=== PATIENT | female | born 1965 | race African-American/Black ===

== ENCOUNTER 2017-10-27 08:50 | Emergency (ER) | payer OTHER ==
[2017-10-27 09:18] VITALS: BMI 25.7
--- NOTE | 2017-10-27 09:27 | PDOC ---
History of Present Illness - General Chief Complaint: Nausea/Vomiting Stated Complaint: NAUSEA/VOMITING Time Seen by Provider: 10/27/17 09:26 History Source: Patient Exam Limitations: No Limitations - History of Present Illness Initial Comments: CHIEF COMPLAINT: HISTORY OF PRESENT ILLNESS: Vital signs on arrival are notable for temp of 100 with BP of 178/81 REVIEW OF SYSTEMS: GENERAL/CONSTITUTIONAL: Subjective fever/chills. No weakness. No weight change. HEAD, EYES, EARS, NOSE AND THROAT: No change in vision. No ear pain or discharge. No sore throat. CARDIOVASCULAR: No chest pain or shortness of breath. RESPIRATORY: No cough, wheezing, or hemoptysis. GASTROINTESTINAL: See history of present illness. GENITOURINARY: No dysuria, frequency, or change in urination. MUSCULOSKELETAL: No joint or muscle swelling or pain. No neck or back pain. SKIN: No rash or easy bruising. NEUROLOGIC: No headache, vertigo, loss of consciousness, or loss of sensation. PHYSICAL EXAM: GENERAL: The patient is awake, alert, and fully oriented, in no acute distress. HEAD: Normal with no signs of trauma. ENT: Pupils equal, round and reactive to light, extraocular movements intact, sclera anicteric, conjunctiva clear. Neck supple. LUNGS: Clear to auscultation bilaterally. Normal excursion. No respiratory distress or use of accessory muscles. CV: RRR, S1/S2, no MRG. Cap refill < 2 sec. ABDOMEN: Soft, non-distended, non-tender even to deep palpation, no hepatomegaly or splenomegaly, no masses. EXTREMITIES: Normal range of motion, no edema. NEUROLOGICAL: Normal speech, normal gait. CN II-XII grossly intact. SKIN: Warm, dry, normal turgor, no rashes or lesions noted. Past History - Past Medical History Allergies/Adverse Reactions: Allergies Allergy/AdvReac Type Severity Reaction Status Date / Time Penicillins Allergy Severe Hives Verified 10/27/17 09:11 Sulfa (Sulfonamide Allergy Severe Difficulty Verified 10/27/17 09:11 Antibiotics) Breathing Home Medications: Ambulatory Orders Elviteg/Cob/Emtri/Tenofo Disop [Stribild Tablet] 1 each PO DAILY 07/18/15 Ondansetron [Zofran Odt -] 4 mg SL TID #12 od.tablet 07/18/15 traZODone HCL [Desyrel -] 50 mg PO HS 07/18/15 Anemia: Yes Asthma: Yes Cancer: No Cardiac Disorders: No CVA: No COPD: No CHF: No Dementia: No Diabetes: No GI Disorders: No Disorders: No HTN: Yes Hypercholesterolemia: No Liver Disease: No Seizures: No Thyroid Disease: No - Surgical History Abdominal Surgery: No Appendectomy: No Cardiac Surgery: No Cholecystectomy: No Lung Surgery: No Neurologic Surgery: No Orthopedic Surgery: No - Immunization History Immunization Up to Date: No - Suicide/Smoking/Psychosocial Hx Smoking Status: Yes Smoking History: Never smoked Have you smoked in the past 12 months: Yes Number of Cigarettes Smoked Daily: 2 If you are a former smoker, when did you quit?: 1yr Information on smoking cessation initiated: No Hx Alcohol Use: No Drug/Substance Use Hx: No Substance Use Type: None Hx Substance Use Treatment: No *Physical Exam - Vital Signs Last Vital Signs Temp Pulse Resp BP Pulse Ox 100.0 F H 82 16 178/81 100 10/27/17 09:15 10/27/17 09:15 10/27/17 09:15 10/27/17 09:15 10/27/17 09:15 Medical Decision Making - Medical Decision Making A/P:
[2017-10-27] MEDS ORDERED: ACETAMINOPHEN 1000 MG/100 ML VIAL (NON FORMULARY) IVPB ONE (09:40)
[2017-10-27] MEDS ORDERED: SODIUM CHLORIDE 1,000 ML IV STA (09:40)
[2017-10-27] MEDS ORDERED: METOCLOPRAMIDE HCL INJECTION 10 MG/2 ML VIAL IVPUSH ONE (09:40)
[2017-10-27] MEDS ORDERED: ACETAMINOPHEN INJECTION 100 ML IVPB ONE (09:47)
[2017-10-27] MEDS ORDERED: METOCLOPRAMIDE HCL INJECTION 10 MG/2 ML VIAL ONE (09:47)
--- NOTE | 2017-10-27 09:56 | PDOC ---
Attending Attestation - Resident Resident Name: Rosanne Lawson - ED Attending Attestation I have performed the following: I have examined & evaluated the patient, The case was reviewed & discussed with the resident, I agree w/resident's findings & plan, Exceptions are as noted - HPI HPI: 10/27/17 10:30 52 year old female with past medical history of HIV presents with headache. History obtained from patient and from [facility] emergency room. The patient was recently evaluated at [facility] where she was there on October 23 and . At that time, she was complaining of headache and urinary symptoms. She had a CT head twice which according to [facility] which was negative. She had an equivaocal UA and was prescribed antibiotics (which patient and ED facility did not know). The patient however continues to complain of tactile fevers. States that she has a global tension like headache but is unable to characterize exacerbation or inciting factors. She states she cannot characterize intensity. Also states that she was admitted to [facility], when the [facility] ER states patient was not admitted and discharged from ER. Otherwise, denies chest pain or shortness of breath. Denies dysuria, hematuria, diarrhea. - Physicial Exam PE: 10/27/17 10:43 GENERAL: Awake, alert,, in no acute distress HEAD: No signs of trauma EYES: PERRLA, EOMI, sclera anicteric, conjunctiva clear ENT: Auricles normal inspection, hearing grossly normal, nares patent NECK: Normal ROM, supple LUNGS: Breath sounds equal, clear to auscultation bilaterally. No wheezes, and no crackles HEART: Regular rate and rhythm, normal S1 and S2, no murmurs, rubs or gallops ABDOMEN: Soft, nontender, No guarding, no rebound. No masses EXTREMITIES: Normal range of motion, no edema. No clubbing or cyanosis. No cords, erythema, or tenderness NEUROLOGICAL: Cranial nerves II through XII grossly intact. Normal speech, SKIN: Warm, Dry, normal turgor, no rashes or lesions noted. - Medical Decision Making 10/27/17 10:44 Vital Signs Temp Pulse Resp BP Pulse Ox 100.0 F H 82 16 178/81 100 10/27/17 09:15 10/27/17 09:15 10/27/17 09:15 10/27/17 09:15 10/27/17 09:15 This is a 52 year old HIV patient who is complaining of tension like headache and fever and still occasionally dysuria (though patient sometimes states yes and sometimes states no). The patient has had these symptoms for ?more than a week?. Has been evaluated by [facility] ER with two CT scans of head that were negative according to them. At this time, patient defers on another head CT as she does not want more CT scans of her brain. Will allow her to defer at this time as their reports did not indicate [employer] lymphoma or toxo Temperature is 100 degrees. Will obtain blood cultures, UA/UC. Will treat patient's symptoms and reassess. 10/27/17 12:47 CBC, BMP 10/27/17 10:31 10/27/17 10:31 CMP Sodium 136 mmol/L (136-145) 10/27/17 10:31 Potassium 4.1 mmol/L (3.5-5.1) 10/27/17 10:31 Chloride 108 mmol/L (98-107) H 10/27/17 10:31 Carbon Dioxide 21 mmol/L (21-32) 10/27/17 10:31 Anion Gap 7 (8-16) L 10/27/17 10:31 BUN 34 mg/dL (7-18) H 10/27/17 10:31 Creatinine 1.9 mg/dL (0.55-1.02) H 10/27/17 10:31 Creat Clearance w eGFR 27.55 (>60) 10/27/17 10:31 Random Glucose 92 mg/dL (74-106) 10/27/17 10:31 Lactic Acid 0.8 mmol/L (0.0-2.0) 10/27/17 10:31 Calcium 8.4 mg/dL (8.5-10.1) L 10/27/17 10:31 Total Bilirubin 0.3 mg/dL (0.2-1.0) 10/27/17 10:31 AST 16 U/L (15-37) 10/27/17 10:31 ALT 11 U/L (12-78) L 10/27/17 10:31 Alkaline Phosphatase 80 U/L (45-117) 10/27/17 10:31 Creatine Kinase 35 IU/L (26-192) 10/27/17 10:31 Troponin I < 0.02 ng/ml (0.00-0.05) 10/27/17 10:31 Total Protein 7.7 g/dl (6.4-8.2) 10/27/17 10:31 Albumin 2.1 g/dl (3.4-5.0) L 10/27/17 10:31 Urine Test Results Urine Color Ltyellow 10/27/17 10:31 Urine Appearance Clear 10/27/17 10:31 Urine pH 6.0 (5.0-8.0) 10/27/17 10:31 Ur Specific [place] 1.013 (1.001-1.035) 10/27/17 10:31 Urine Protein 3+ (NEGATIVE) H 10/27/17 10:31 Urine Glucose (UA) Negative (NEGATIVE) 10/27/17 10:31 Urine Ketones Negative (NEGATIVE) 10/27/17 10:31 Urine Blood 1+ (NEGATIVE) H 10/27/17 10:31 Urine Nitrite Negative (NEGATIVE) 10/27/17 10:31 Urine Bilirubin Negative (<2.0 mg/dL) 10/27/17 10:31 Ur Leukocyte Esterase Trace (NEGATIVE) 10/27/17 10:31 Ur Epithelial Cells Rare /HPF (FEW) 10/27/17 10:31 Urine Bacteria Rare /hpf (NONE SEEN) 10/27/17 10:31 Urine Mucus Rare 10/27/17 10:31 The patient was evaluated. WBC WNL, anemia stable, and Cr stable. The patient was given medications (tylenol and reglan and benadryl) for headache and her headache improved significantly. The patient has been ambulatory and without complaints. no neck stiffness. At this time,the patient reports feeling better. She does not appear toxic or ill-appearing. I do not suspect meningitis at this time. Could this have been a viral syndrome? Either way, the patient would like to go home. Will give prescription for tylenol and reglan, and have patient watch herself ( with her partner). If symptoms worsen, patient should return to the ER. Otherwise, she can follow up with her PMD.
--- NOTE | 2017-10-27 10:11 | PDOC ---
History of Present Illness - General Chief Complaint: Nausea/Vomiting Stated Complaint: NAUSEA/VOMITING Time Seen by Provider: 10/27/17 09:26 - History of Present Illness Initial Comments: 52yo F with PMH of asthma, hypertension, acid reflux complaining of headache. Patient was seen at [facility] ED for similar complaint on 10/23 and 10/24. She rates it at 9/10 and describes it as "pounding" and "sharp." The pain is constant. She has never had a headache like this before and nothing makes it better or worse. Denies neurological changes. Patient reports nausea and vomiting, and not eating for the past 4-5 days. Denies diarrhea, constipation, dysuria, frequency, chills, chest pain, or SOB. Past History - Past Medical History Allergies/Adverse Reactions: Allergies Allergy/AdvReac Type Severity Reaction Status Date / Time Penicillins Allergy Severe Hives Verified 10/27/17 09:11 Sulfa (Sulfonamide Allergy Severe Difficulty Verified 10/27/17 09:11 Antibiotics) Breathing Home Medications: Ambulatory Orders Elviteg/Cob/Emtri/Tenofo Disop [Stribild Tablet] 1 each PO DAILY 07/18/15 Ondansetron [Zofran Odt -] 4 mg SL TID #12 od.tablet 07/18/15 traZODone HCL [Desyrel -] 50 mg PO HS 07/18/15 Acetaminophen 650 mg PO Q4H PRN #10 tablet 10/27/17 Metoclopramide HCl [Reglan] 10 mg PO Q6H PRN #15 tablet 10/27/17 Anemia: Yes Asthma: Yes Cancer: No Cardiac Disorders: No CVA: No COPD: No CHF: No Dementia: No Diabetes: No GI Disorders: No Disorders: No HTN: Yes Hypercholesterolemia: No Liver Disease: No Seizures: No Thyroid Disease: No - Surgical History Abdominal Surgery: No Appendectomy: No Cardiac Surgery: No Cholecystectomy: No Lung Surgery: No Neurologic Surgery: No Orthopedic Surgery: No - Immunization History Immunization Up to Date: No - Suicide/Smoking/Psychosocial Hx Smoking Status: Yes Smoking History: Former smoker Have you smoked in the past 12 months: No Number of Cigarettes Smoked Daily: 2 If you are a former smoker, when did you quit?: 1yr Information on smoking cessation initiated: No Hx Alcohol Use: No Drug/Substance Use Hx: No Substance Use Type: None Hx Substance Use Treatment: No Review of Systems - Review of Systems Able to Perform ROS?: Yes Comments:: Constitutional: +fever, no chills HEENT: no throat pain, no dysphagia Cardiovascular: no chest pain, no palpitations Respiratory: no cough, no shortness of breath Gastrointestinal: no abdominal pain, no nausea, no vomiting, no diarrhea, no constipation Genitourinary: no dysuria, no frequency Musculoskeletal: +neck pain, no myalgia, no arthralgia Skin: no rash, no itching Neurologic: +headache, no dizziness *Physical Exam - Vital Signs Last Vital Signs Temp Pulse Resp BP Pulse Ox 100.0 F H 82 16 178/81 100 10/27/17 09:15 10/27/17 09:15 10/27/17 09:15 10/27/17 09:15 10/27/17 09:15 - Physical Exam Comments: General: Awake, alert, and fully oriented Head: no signs of trauma Eyes: PERRL, EOMI, sclera anicteric ENT: moist mucus membranes, Neck: Normal ROM, supple, no lymphadenopathy, No masses Lungs: Lungs clear, Normal breath sounds Cardio: Regular rhythm, S1 and S2 present, no murmurs, rubs, or gallops Abdomen: Soft, nontender. No guarding, no rebound, no masses Extremities: Normal range of motion, No clubbing or cyanosis. Skin: Warm, Dry, normal turgor, no rashes or lesions noted Neurologic: Cranial nerves II through XII grossly intact. Normal speech ED Treatment Course - LABORATORY CBC & Chemistry Diagram: 10/27/17 10:31 10/27/17 10:31 Medical Decision Making - Medical Decision Making Called [facility] for collateral information. Patient was seen in the [facility] emergency department recently on two occasions, 10/23/17 and 10/24/17, for migraine headaches. She received two head CTs due to artifact on the first image; both showed no gross abnormalities. Urinalysis showed UTI for which the patient was given medicine, but it is not known what medicine that was. Ordered : CBC, CMP, UA, Urinalysis, blood cultures, urine cultures; 1L NS, 1g tylenol, 15mg Reglan, 25mg Benadryl. Vital Signs Temp Pulse Resp BP Pulse Ox 100.0 F H 82 16 178/81 100 10/27/17 09:15 10/27/17 09:15 10/27/17 09:15 10/27/17 09:15 10/27/17 09:15 10/27/17 10:08 Temp 99.4, HR 74, BP 169/77, Sat 96 Patient reports that headache is somewhat alleviated. Paged Infectious Disease. 10/27/17 11:36 Did not receive reply from ID. Patient is amenable to discharge home. Will send home with reglan 10 and tylenol 650. Laboratory Tests 10/27/17 10/27/17 10/27/17 10:31 10:31 10:31 WBC 7.7 RBC 3.71 Hgb 8.8 L Hct 26.8 L MCV 72.4 L MCH 23.8 L MCHC 32.8 RDW 18.7 H Plt Count 228 D MPV 8.5 Absolute Neuts (auto) 5.6 Neutrophils % 73.2 Lymphocytes % 18.1 D Monocytes % 8.4 Eosinophils % 0.2 D Basophils % 0.1 Nucleated RBC % 0 Sodium 136 Potassium 4.1 Chloride 108 H Carbon Dioxide 21 Anion Gap 7 L BUN 34 H Creatinine 1.9 H Creat Clearance w eGFR 27.55 Random Glucose 92 Lactic Acid Calcium 8.4 L Total Bilirubin 0.3 AST 16 ALT 11 L Alkaline Phosphatase 80 Creatine Kinase Troponin I Total Protein 7.7 Albumin 2.1 L Urine Color Ltyellow Urine Appearance Clear Urine pH 6.0 Ur Specific [place] 1.013 Urine Protein 3+ H Urine Glucose (UA) Negative Urine Ketones Negative Urine Blood 1+ H Urine Nitrite Negative Urine Bilirubin Negative Urine Urobilinogen Negative Ur Leukocyte Esterase Trace Urine WBC (Auto) 3 Urine RBC (Auto) 11 Ur Epithelial Cells Rare Urine Bacteria Rare Urine Mucus Rare 10/27/17 10/27/17 10:31 10:31 WBC RBC Hgb Hct MCV MCH MCHC RDW Plt Count MPV Absolute Neuts (auto) Neutrophils % Lymphocytes % Monocytes % Eosinophils % Basophils % Nucleated RBC % Sodium Potassium Chloride Carbon Dioxide Anion Gap BUN Creatinine Creat Clearance w eGFR Random Glucose Lactic Acid 0.8 Calcium Total Bilirubin AST ALT Alkaline Phosphatase Creatine Kinase 35 Troponin I < 0.02 Total Protein Albumin Urine Color Urine Appearance Urine pH Ur Specific [place] Urine Protein Urine Glucose (UA) Urine Ketones Urine Blood Urine Nitrite Urine Bilirubin Urine Urobilinogen Ur Leukocyte Esterase Urine WBC (Auto) Urine RBC (Auto) Ur Epithelial Cells Urine Bacteria Urine Mucus 10/27/17 12:36 *DC/Admit/Observation/Transfer Diagnosis at time of Disposition: Headache Qualifiers: Headache type: tension-type - Discharge Dispostion Disposition: HOME - Prescriptions Prescriptions: Acetaminophen 650 mg PO Q4H PRN #10 tablet PRN Reason: Headache Metoclopramide HCl [Reglan] 10 mg PO Q6H PRN #15 tablet PRN Reason: Headache - Referrals - Patient Instructions Printed Discharge Instructions: DI for Headache Additional Instructions: You can take Tylenol 650mg every 4 hours as needed for your headache. You can take Reglan 10mg every 4 hours as needed for your headache. Return to the Emergency department if you experience: -visual disturbances or other new symptoms -severe pain, pulsating, or throbbing -neck stiffness -lightheadedness -signs of infection, including fever and chills -difficulty breathing or chest pain Follow-up with your primary care physician in the next 2-3 days. - Post Discharge Activity
[2017-10-27 10:43] LABS: BASO % 0.1 % (0-2.0); EOS % 0.2 % (0-4.5); HEMATOCRIT 26.8 % (32.4-45.2); HEMOGLOBIN 8.8 GM/dL (10.7-15.3); LYMPH % 18.1 % (8-40); MCH 23.8 pg (25.7-33.7); MCHC 32.8 g/dl (32.0-36.0); MEAN CELL VOLUME 72.4 fl (80-96); MEAN PLT VOLUME 8.5 fl (7.5-11.1); MONO % 8.4 % (3.8-10.2); NEUT % 73.2 % (42.8-82.8); PLATELET COUNT 228 K/MM3 (134-434); RBC 3.71 M/mm3 (3.60-5.2); RDW 18.7 % (11.6-15.6); WHITE BLOOD COUNT 7.7 K/mm3 (4.0-10.0)
[2017-10-27 10:45] LABS: URINE APPEARANCE CLEAR; URINE BILIRUBIN NEGATIVE (<2.0 mg/dL); URINE COLOR LTYELLOW; URINE GLUCOSE (UA) NEGATIVE (NEGATIVE); URINE KETONE NEGATIVE (NEGATIVE); URINE LEUK ESTERASE TRACE (NEGATIVE); URINE NITRITE NEGATIVE (NEGATIVE); URINE UROBILINOGEN NEGATIVE mg/dL (0.2-1.0)
[2017-10-27 10:46] LABS: URINE PROTEIN 3+ (NEGATIVE)
[2017-10-27 10:49] LABS: EPI CELLS RARE /HPF (FEW); URINE BACTERIA RARE /hpf (NONE SEEN); URINE MUCUS RARE
[2017-10-27 11:04] LABS: ALBUMIN 2.1 g/dl (3.4-5.0); ANION GAP 7 (8-16); BILIRUBIN,TOTAL 0.3 mg/dL (0.2-1.0); BLOOD UREA NITROGEN 34 mg/dL (7-18); CALCIUM 8.4 mg/dL (8.5-10.1); CHLORIDE 108 mmol/L (98-107); CO2 21 mmol/L (21-32); CREATININE 1.9 mg/dL (0.55-1.02); GLUCOSE,RANDOM 92 mg/dL (74-106); POTASSIUM 4.1 mmol/L (3.5-5.1); SGOT/AST 16 U/L (15-37); SGPT/ALT 11 U/L (12-78); SODIUM 136 mmol/L (136-145); TOT PROT 7.7 g/dl (6.4-8.2)
[2017-10-27 11:05] LABS: ALK PHOS 80 U/L (45-117)
[2017-10-27 13:36] VITALS: BP 148/67; PULSE 85; TEMP 97.9
== END 2017-10-27 13:20 | disposition home or self-care (01) ==
LOC: JER 08:50
PROC: 3E033NZ Introduction of Analgesics, Hypnotics, Sedatives into Peripheral Vein, Percutaneous Approach (ICD-10-PCS; principal; 2017-10-27)
PROC: 3E033GC Introduction of Other Therapeutic Substance into Peripheral Vein, Percutaneous Approach (ICD-10-PCS; 2017-10-27)
PROC: 3E033GC Introduction of Other Therapeutic Substance into Peripheral Vein, Percutaneous Approach (ICD-10-PCS; 2017-10-27)
DX: R51 Headache (principal); I10 Essential (primary) hypertension; J45.909 Unspecified asthma, uncomplicated; K21.9 Gastro-esophageal reflux disease without esophagitis; Z88.0 Allergy status to penicillin; Z88.2 Allergy status to sulfonamides; B20 Human immunodeficiency virus [HIV] disease
CPT/HCPCS: 36415; 80053; 81003; 81015; 82550; 83605; 84484; 85025; 87040; 87086; 96374; 96375; 99283-25; J0131; J7030

== ENCOUNTER 2017-11-13 16:25 | Emergency (ER) | payer OTHER ==
[2017-11-13 16:33] VITALS: BP 128/74; PULSE 86; TEMP 98.8; BMI 25.7
--- NOTE | 2017-11-13 17:28 | PDOC ---
History of Present Illness - General Chief Complaint: Urinary Problem Stated Complaint: URINARY PROBLEM Time Seen by Provider: 11/13/17 16:44 - History of Present Illness Initial Comments: 52-year-old female with a past medical history significant for HIV presents for evaluation of dysuria 1 week. She also has associated abdominal pain. She complains of decreased appetite and intermittent nausea. 11/13/17 17:23 Past History - Past Medical History Allergies/Adverse Reactions: Allergies Allergy/AdvReac Type Severity Reaction Status Date / Time Penicillins Allergy Severe Hives Verified 11/13/17 16:33 Sulfa (Sulfonamide Allergy Severe Difficulty Verified 11/13/17 16:33 Antibiotics) Breathing Home Medications: Ambulatory Orders Elviteg/Cob/Emtri/Tenofo Disop [Stribild Tablet] 1 each PO DAILY 07/18/15 Ondansetron [Zofran Odt -] 4 mg SL TID #12 od.tablet 07/18/15 traZODone HCL [Desyrel -] 50 mg PO HS 07/18/15 Metoclopramide HCl [Reglan] 10 mg PO Q6H PRN #15 tablet 10/27/17 Nitrofurantoin Monohyd/M-Cryst [Macrobid -] 100 mg PO BID #14 capsule 11/13/17 Pantoprazole Sodium [Protonix] 40 mg PO DAILY #10 tablet. 11/13/17 Anemia: Yes Asthma: Yes Cancer: No Cardiac Disorders: No CVA: No COPD: No CHF: No DVT: No Dementia: No Diabetes: No GI Disorders: No Disorders: No HTN: Yes Hypercholesterolemia: No Liver Disease: No Seizures: No Thyroid Disease: No - Surgical History Abdominal Surgery: No Appendectomy: No Cardiac Surgery: No Cholecystectomy: No Lung Surgery: No Neurologic Surgery: No Orthopedic Surgery: No - Immunization History Immunization Up to Date: No - Suicide/Smoking/Psychosocial Hx Smoking Status: Yes Smoking History: Never smoked Have you smoked in the past 12 months: No Number of Cigarettes Smoked Daily: 5 If you are a former smoker, when did you quit?: 1yr Information on smoking cessation initiated: No Hx Alcohol Use: No Drug/Substance Use Hx: No Substance Use Type: None Hx Substance Use Treatment: No Review of Systems - Review of Systems ABD/GI: Yes: Nausea : Yes: Dysuria All Other Systems: Reviewed and Negative *Physical Exam - Vital Signs Last Vital Signs Temp Pulse Resp BP Pulse Ox 98.8 F 86 16 128/74 100 11/13/17 16:28 11/13/17 16:28 11/13/17 16:28 11/13/17 16:28 11/13/17 16:28 - Physical Exam Comments: HEAD: NC/AT EYES: Conjuntiva clear Ears: Canals and TM's normal NOSE: No d/c THROAT: Moist mucous membrances, oral pharanx clear, uvula midline NECK: Supple without adenopathy CARDIAC: S1 S2 LUNGS: CTA Full and Equal breath sounds ABDOMEN: Soft mild epigastric tenderness MS: Full ROM in all joints without edema NEUROLOGIC: No gross sensory or motor deficits, NVID SKIN: Normal color and temperature no lesions or rashes 11/13/17 17:25 Medical Decision Making - Medical Decision Making 11/13/17 18:29 gastritis relieved after [place] *DC/Admit/Observation/Transfer Diagnosis at time of Disposition: UTI (urinary tract infection), GERD (gastroesophageal reflux disease) - Discharge Dispostion Disposition: HOME Condition at time of disposition: Stable - Referrals Referrals: Alexis York [Non Staff, Medical] - - Patient Instructions Printed Discharge Instructions: Heartburn -- Overview, DI for Gastroesophageal Reflux Disease (GERD), Urinary Tract Infection Additional Instructions: Return to the emergency room should her symptoms worsen or go unresolved. Please take all the antibiotics as prescribed. I have also given uvula tablets here stomach which will help with acid reflux. This 1 tablet a day is given you a ten-day supply. He had enough time to follow up with a primary care physician in the area for further evaluation and treatment options. - Post Discharge Activity
[2017-11-13] MEDS ORDERED: RANITIDINE HCL 150 MG TABLET (FP) ONE (17:34)
[2017-11-13] MEDS: RANITIDINE HCL 150 MG TABLET (FP) PO ONE ×2 (17:34→17:41)
[2017-11-13] MEDS ORDERED: MAG HYDROX/AL HYDROX/SIMETH 30 ML UNIT-DOSE CUP ONE (17:37)
[2017-11-13] MEDS ORDERED: MAG HYDROX/AL HYDROX/SIMETH 30 ML UNIT-DOSE CUP PO PRN (17:38)
[2017-11-13 17:43] LABS: URINE APPEARANCE CLEAR; URINE BILIRUBIN NEGATIVE (<2.0 mg/dL); URINE COLOR LTYELLOW; URINE GLUCOSE (UA) NEGATIVE (NEGATIVE); URINE KETONE NEGATIVE (NEGATIVE); URINE NITRITE NEGATIVE (NEGATIVE); URINE UROBILINOGEN NEGATIVE mg/dL (0.2-1.0)
[2017-11-13 18:07] LABS: URINE LEUK ESTERASE 2+ (NEGATIVE); URINE PROTEIN 2+ (NEGATIVE)
[2017-11-13 18:13] LABS: EPI CELLS RARE /HPF (FEW)
[2017-11-13] MEDS ORDERED: NITROFURANTOIN MACROCRYSTAL 50 MG CAPSULE (FP) ONE (18:34)
[2017-11-13] MEDS ORDERED: NITROFURANTOIN MACROCRYSTAL 50 MG CAPSULE (FP) PO SCH (18:45)
== END 2017-11-13 18:39 | disposition home or self-care (01) ==
LOC: JERFT 16:25
DX: N39.0 Urinary tract infection, site not specified (principal); K21.9 Gastro-esophageal reflux disease without esophagitis
CPT/HCPCS: 81003; 81015; 87086; 87186; 99281-25

== ENCOUNTER 2017-11-15 16:20 | Emergency (ER) | payer OTHER ==
--- NOTE | 2017-11-15 16:30 | PDOC ---
Rapid Medical Evaluation Time Seen by Provider: 11/15/17 16:25 Medical Evaluation: Allergies Allergy/AdvReac Type Severity Reaction Status Date / Time Penicillins Allergy Severe Hives Verified 11/15/17 16:25 Sulfa (Sulfonamide Allergy Severe Difficulty Verified 11/15/17 16:25 Antibiotics) Breathing 11/15/17 16:26 I have performed a brief in-person evaluation of this patient. The patient presents with a chief complaint of: on macrobid for uti given from ED 2 days ago. Of note, cx pending, no sensitivities yet. Returns today stating she gets dizzy upon standing since she has been taking the meds. Also c/o n/v and dry mouth that started prior to the abx. States she cannot keep food down. No abd pain or diarrhea. H/o HIV on meds, unknown cd4 w/ UD VL Pertinent physical exam findings:stable and in NAD I have ordered the following:labs The patient will proceed to the ED for further evaluation. Discharge Disposition - Diagnosis Dizziness - Referrals - Patient Instructions - Post Discharge Activity
[2017-11-15 16:32] VITALS: BP 137/62; PULSE 93; TEMP 99; BMI 25.7
== END 2017-11-15 19:03 | disposition home or self-care (01) ==
LOC: JER 16:20
DX: R42 Dizziness and giddiness (principal)
CPT/HCPCS: 99283-25

== ENCOUNTER → 2017-12-08 | Emergency (ER) | payer OTHER ==
[~2017-12-08] MED LIST: ONDANSETRON 4 MG/2 ML VIAL IVPUSH ONE; SODIUM CHLORIDE 1,000 ML IV STA
[2017-12-08 02:03] VITALS: BP 107/79; PULSE 88; TEMP 97.4; BMI 25.7
--- NOTE | 2017-12-08 02:38 | PDOC ---
History of Present Illness - General Chief Complaint: Pain, Acute Stated Complaint: ABD PAIN Time Seen by Provider: 12/08/17 02:25 History Source: Patient, Old Records Exam Limitations: No Limitations - History of Present Illness Travel History: No Initial Comments: 12/08/17 02:35 HISTORY OF PRESENT ILLNESS: 52-year-old woman past medical history of HIV ( unknown CD4 and viral load), gastritis presents emergency Department with abdominal pain for the past 4 days. Patient states her pain is located in the mid abdominal region and radiates to her suprapubic area. Patient states she was recently treated for urinary tract infection and has completed her course of antibiotics. Patient reports some nausea but denies any vomiting or diarrhea. Patient denies fevers, chills, chest pain, shortness of breath. No recent travel or sick contacts. PAST MEDICAL HISTORY: see hpi SURGICAL HISTORY: Denies ALLERGIES: PCN, Sulfa REVIEW OF SYSTEMS General/Constitutional: Denies fever or chills. Denies weakness, weight change. HEENT: Denies change in vision. Denies ear pain or discharge. Denies sore throat. Cardiovascular: Denies chest pain or shortness of breath. Respiratory: Denies cough, wheezing, or hemoptysis. Gastrointestinal: mid abdominal pain. Reports nausea. Denies vomiting, diarrhea or constipation. Denies rectal bleeding. Genitourinary: Denies dysuria, frequency, or change in urination. Musculoskeletal: Denies joint or muscle swelling or pain. Denies neck or back pain. Skin and breasts: Denies rash or easy bruising. Neurologic: Denies headache, vertigo, loss of consciousness, or loss of sensation. Psychiatric: Denies depression or anxiety. Endocrine: Denies increased thirst. Denies abnormal weight change. Hematologic/Lymphatic: Denies anemia, easy bleeding, or history of blood clots. Allergic/Immunologic: Denies hives or skin allergy. Denies latex allergy. PHYSICAL EXAM General Appearance: Well-appearing, appropriately dressed. No apparent distress , no intoxication. HEENT: EOMI, PERRLA, normal ENT inspection, normal voice, TMs normal, pharynx normal. No conjunctival pallor. No photophobia, scleral icterus. Neck: Supple. Trachea midline. No tenderness, rigidity, carotid bruit, stridor , lymphadenopathy, or thyromegaly. Respiratory/Chest: Lungs CTAB. No shortness of breath, chest tenderness, respiratory distress, accessory muscle use. No crackles, rales, rhonchi, stridor , wheezing, dullness Cardiovascular: RRR. S1, S2. No JVD, murmur, bradycardia, tachycardia. Vascular Pulses: Dorsalis-Pedis (R): 2+, Dorsalis-Pedis (L): 2+ Gastrointestinal/Abdominal: Normal bowel sounds. Abdomen soft, non-distended. Periumbilical tenderness. No rebound tenderness. No organomegaly, pulsatile mass , guarding, hernia, hepatomegaly, splenomegaly. Lymphatic: No adenopathy, tenderness. Musculoskeletal/Extremities: Normal inspection. FROM of all extremities, normal capillary refill. Pelvis Stable. No CVA tenderness. No tenderness to extremities, pedal edema, swelling, erythema or deformity. Integumentary: Appropriate color, dry, warm. No cyanosis, erythema, jaundice or rash Neurologic: clinical specialist II-XII intact. Fully oriented, alert. Appropriate mood/affect. Motor strength 5/5. No appreciable EOM palsy, facial droop or sensory deficit. Past History - Past Medical History Allergies/Adverse Reactions: Allergies Allergy/AdvReac Type Severity Reaction Status Date / Time Penicillins Allergy Severe Hives Verified 12/04/17 21:55 Sulfa (Sulfonamide Allergy Severe Difficulty Verified 12/04/17 21:55 Antibiotics) Breathing Home Medications: Ambulatory Orders Albuterol Sulfate Inhaler - [Ventolin Hfa Inhaler -] 1 puff IH PRN 12/03/17 Cyclobenzaprine HCl [Flexeril 10 mg] 10 mg PO HS PRN #10 tablet 12/03/17 Famotidine [Pepcid -] 20 mg PO DAILY 12/03/17 Hydrochlorothiazide [Hctz -] 25 mg PO DAILY 12/03/17 Anemia: Yes Asthma: Yes Cancer: No Cardiac Disorders: No CVA: No COPD: No CHF: No DVT: No Dementia: No Diabetes: No GI Disorders: No Disorders: No HTN: Yes Hypercholesterolemia: No Liver Disease: No Seizures: No Thyroid Disease: No - Surgical History Abdominal Surgery: No Appendectomy: No Cardiac Surgery: No Cholecystectomy: No Lung Surgery: No Neurologic Surgery: No Orthopedic Surgery: No - Immunization History Immunization Up to Date: No - Suicide/Smoking/Psychosocial Hx Smoking Status: Yes Smoking History: Never smoked Have you smoked in the past 12 months: No Number of Cigarettes Smoked Daily: 5 If you are a former smoker, when did you quit?: 1yr Information on smoking cessation initiated: No 'Breaking Loose' booklet given: 11/21/17 Hx Alcohol Use: No Drug/Substance Use Hx: No Substance Use Type: None Hx Substance Use Treatment: No *Physical Exam - Vital Signs Last Vital Signs Temp Pulse Resp BP Pulse Ox 97.4 F L 88 20 107/79 100 12/08/17 01:50 12/08/17 01:50 12/08/17 01:50 12/08/17 01:50 12/08/17 01:50 Medical Decision Making - Medical Decision Making 12/08/17 03:12 Patient is refusing blood work and CAT scan at this time. As explained to the patient that had repeat testing is required so patient can be fully evaluated for this episode of her abdominal pain. Patient continues to refuse and has walked out of the emergency department. Patient is hemodynamically stable. patient refused to sign AMA paperwork. The risks of leaving the hospital AGAINST MEDICAL ADVICE were explained to the patient. It has been explained to the patient that she is welcome to return for care at any time especially if she continues to experience pain. *DC/Admit/Observation/Transfer Diagnosis at time of Disposition: Abdominal pain Qualifiers: Abdominal location: periumbilical Qualified Code(s): R10.33 - Periumbilical pain - Discharge Dispostion Disposition: AGAINST MEDICAL ADVICE Condition at time of disposition: Fair - Referrals Referrals: Yi Figueroa [Primary Care Provider] - - Patient Instructions - Post Discharge Activity
--- NOTE | 2017-12-09 13:36 | EKG ---
Test Reason : Blood Pressure : / mmHG Vent. Rate : 073 BPM Atrial Rate : 073 BPM P-R Int : 154 ms QRS Dur : 086 ms QT Int : 432 ms P-R-T Axes : 070 035 043 degrees QTc Int : 475 ms NORMAL SINUS RHYTHM NORMAL ECG WHEN COMPARED WITH ECG OF 04-DEC-2017 21:52, NO SIGNIFICANT CHANGE WAS FOUND Confirmed by LYNNETTE RASCON MD ([id number]) on 12/09/2017 1:36:36 PM Referred By: Confirmed By:LYNNETTE RASCON MD
== END | disposition left against medical advice (07) ==
LOC: JER 01:36
DX: R10.33 Periumbilical pain (principal); I10 Essential (primary) hypertension; J45.909 Unspecified asthma, uncomplicated; Z86.2 Personal history of diseases of the blood and blood-forming organs and certain disorders involving the immune mechanism; Z21 Asymptomatic human immunodeficiency virus [HIV] infection status; Z87.440 Personal history of urinary (tract) infections; Z88.2 Allergy status to sulfonamides
CPT/HCPCS: 93005; 93010; 99283-25

== ENCOUNTER 2017-12-10 05:48 | Emergency (ER) | payer OTHER ==
--- NOTE | 2017-12-10 06:46 | PDOC ---
History of Present Illness - General Stated Complaint: HEADACHE Time Seen by Provider: 12/10/17 06:30 History Source: Patient Exam Limitations: No Limitations - History of Present Illness Initial Comments: 12/10/17 06:40 52 yo female pmh of HIV, hypertension and diabetes presents to the ED for a headache. Patient states she does not have a history of headaches. It started at 1 am and comes and goes. She tried Motrin for which did not help. Currently not experiencing a headache. Denies changes in vision, N/V/F/V unilateral weakness or numbness or incontinence. No CP, SOB or abdominal pain. Patient states she has an appointment with her PCP tomorrow. Past History - Past Medical History Allergies/Adverse Reactions: Allergies Allergy/AdvReac Type Severity Reaction Status Date / Time Penicillins Allergy Severe Hives Verified 12/10/17 06:47 Sulfa (Sulfonamide Allergy Severe Difficulty Verified 12/10/17 06:47 Antibiotics) Breathing Home Medications: Ambulatory Orders Albuterol Sulfate Inhaler - [Ventolin Hfa Inhaler -] 1 puff IH PRN 12/03/17 Cyclobenzaprine HCl [Flexeril 10 mg] 10 mg PO HS PRN #10 tablet 12/03/17 Famotidine [Pepcid -] 20 mg PO DAILY 12/03/17 Hydrochlorothiazide [Hctz -] 25 mg PO DAILY 12/03/17 Anemia: Yes Asthma: Yes Cancer: No Cardiac Disorders: No CVA: No COPD: No CHF: No DVT: No Dementia: No Diabetes: No GI Disorders: No Disorders: No HTN: Yes Hypercholesterolemia: No Liver Disease: No Seizures: No Thyroid Disease: No - Surgical History Abdominal Surgery: No Appendectomy: No Cardiac Surgery: No Cholecystectomy: No Lung Surgery: No Neurologic Surgery: No Orthopedic Surgery: No - Immunization History Immunization Up to Date: No - Suicide/Smoking/Psychosocial Hx Smoking Status: Yes Smoking History: Never smoked Have you smoked in the past 12 months: No Number of Cigarettes Smoked Daily: 5 If you are a former smoker, when did you quit?: 1yr 'Breaking Loose' booklet given: 11/21/17 Hx Alcohol Use: No Drug/Substance Use Hx: No Substance Use Type: None Hx Substance Use Treatment: No Review of Systems - Review of Systems Constitutional: No: Chills, Fever HEENTM: No: Blurred Vision, Double Vision Respiratory: No: Shortness of Breath Cardiac (ROS): No: Chest Pain ABD/GI: No: Nausea, Vomiting : No: Incontinence Neurological: Yes: Headache (not present on arrival). No: Numbness, Paresthesia , Tingling, Tremors, Weakness *Physical Exam - Physical Exam General Appearance: Yes: Nourished, Appropriately Dressed. No: Apparent Distress HEENT: positive: EOMI, DAVE. negative: Photophobia Respiratory/Chest: positive: Lungs Clear, Normal Breath Sounds. negative: Respiratory Distress Cardiovascular: positive: Regular Rhythm, Regular Rate, S1, S2. negative: Edema , JVD, Murmur Vascular Pulses: Dorsalis-Pedis (R): 4+, Doralis-Pedis (L): 4+ Gastrointestinal/Abdominal: positive: Normal Bowel Sounds, Flat, Soft. negative : Distended, Guarding, Rebound Extremity: positive: Normal Capillary Refill Integumentary: positive: Normal Color, Dry, Warm Neurologic: positive: digital media sales consultant II-XII NML intact, Fully Oriented, Alert, Motor Strength 5/5. negative: Normal Mood/Affect (scattered) Medical Decision Making - Medical Decision Making 12/10/17 06:57 52 yo female pmh HIV presents to ED for resolved HERNANDEZ. Patient has no concerning neurological s/s complains of thrush. Will treat with nystatin States she has follow up with her PCP Mandy Otero Will discharge home *DC/Admit/Observation/Transfer Diagnosis at time of Disposition: Headache Qualifiers: Headache type: tension-type Headache chronicity pattern: acute headache Intractability: not intractable Qualified Code(s): G44.209 - Tension-type headache, unspecified, not intractable - Discharge Dispostion Disposition: HOME Condition at time of disposition: Good - Referrals Referrals: [facility] [Other] - Patient Instructions Printed Discharge Instructions: DI for Headache Additional Instructions: Please make an appointment with your Primary Care Doctor within the next 48 hours. Please return to the Emergency Room for new or worsening symptoms including but not limited to: severe headache not responding to medications, one sided numbness or weakness or changes in vision. Please take over the counter Motrin for your headache as needed - Post Discharge Activity
[2017-12-10 06:47] VITALS: BP 130/77; PULSE 88; TEMP 98.1; BMI 25.7
--- NOTE | 2017-12-10 06:48 | PDOC ---
Attending Attestation - Resident Resident Name: Jhon Collier - ED Attending Attestation I have performed the following: I have examined & evaluated the patient, The case was reviewed & discussed with the resident, I agree w/resident's findings & plan - HPI HPI: 12/10/17 07:04 52 yo female pmh of HIV on meds (unknown viral load), gastritis, hypertension and diabetes presents to the ED for a headache at 5am, since resolved with ibuprofen. no fevers or neuro changes, +oral thrush x 2 days but no odynophagia, cp or sob. no gait changes. 12/10/17 07:05 - Physicial Exam PE: 12/10/17 07:02 NAD, well appearing, +oral thrush. nl conjunctiva, anicteric; neck supple. lungs clear, RRR, abdomen soft mild TTP in epigastrium. ADRIAN x4, no focal neuro deficits, gait stable, 5/5 strength, SILT in all extrem.. No peripheral edema. normal color for ethnicity, WWP. - Medical Decision Making 12/10/17 06:48 52 yo female pmh of HIV, gastritis, hypertension and diabetes presents to the ED for a headache at 5am, since resolved with ibuprofen. no fevers or neuro changes, +oral thrush x 2 days but no odynophagia, cp or sob. no gait changes. vitals wnl. Headache has resolved by the time of ED eval. will treat oral thrush with nystatin swish and swallow. requesting maalox for chronic gastritis. on home pepcid for epigastric pain. nonperitoneal, no indication for lab testing at this time. no neuro deficits or signs of infection, no imaging indicated. remains well appearing Pt to be discharged in stable condition. Patient and family made aware of impression and plan, return precautions discussed (including but not limited to worsening pain or symptoms), fevers, or signs of infection, chest pain, respiratory distress, inability to tolerate oral intake, dehydration, syncope, or neurologic changes). Follow up with PMD and/or specialist as recommended, follow up information provided, take medications as instructed for duration of time. continue with supportive care, avoid triggers and precipitants. All questions answered to patient's satisfaction and expressed understanding and comfort with this. 12/10/17 07:05
[2017-12-10] MEDS ORDERED: MAG HYDROX/AL HYDROX/SIMETH 30 ML UNIT-DOSE CUP PO ONE (06:59)
[2017-12-10] MEDS ORDERED: NYSTATIN 500,000 UNITS/5 ML SUSPENSION PO ONE (07:01)
[2017-12-10] MEDS ORDERED: MAG HYDROX/AL HYDROX/SIMETH 30 ML UNIT-DOSE CUP ONE (07:15)
== END 2017-12-10 07:25 | disposition home or self-care (01) ==
LOC: JER 05:48
DX: G44.219 Episodic tension-type headache, not intractable (principal); I10 Essential (primary) hypertension; J45.990 Exercise induced bronchospasm; Z21 Asymptomatic human immunodeficiency virus [HIV] infection status; Z88.1 Allergy status to other antibiotic agents; Z88.2 Allergy status to sulfonamides
CPT/HCPCS: 99281-25

== ENCOUNTER → 2017-12-19 | Emergency (ER) | payer OTHER ==
[~2017-12-19] MED LIST changes: +ACETAMINOPHEN 1000 MG/100 ML VIAL (NON FORMULARY) IVPB ONE; +ACETAMINOPHEN 325 MG TABLET (FP) PO ONE; -ONDANSETRON 4 MG/2 ML VIAL IVPUSH ONE; -SODIUM CHLORIDE 1,000 ML IV STA; +hydrALAZINE HCL 20 MG/ML VIAL IVPUSH ONE
--- NOTE | 2017-12-19 03:06 | PDOC ---
History of Present Illness - General Stated Complaint: HEAD PAIN Time Seen by Provider: 12/19/17 03:04 History Source: Patient - History of Present Illness Initial Comments: The patient is a 52F with a history of HTN and HIV who present for evaluation of HERNANDEZ. The patient reports a global, 'pounding', HERNANDEZ that has been coming and going for the last three days. She denies associated fevers, chills, vision changes, chest pain, SOB, N/V/C/D. The patient reports being recently diagnosed with a UTI at [facility] three days ago, prescribed Abx, but not taking them because she was unsure of how to take them despite also seeing her PCP 2d ago and talking to a pharmacist about how to take her medication 2d ago as well. The patient denies having had a HERNANDEZ like this in the past and reports taking her medications today. 12/19/17 04:50 Past History - Past Medical History Allergies/Adverse Reactions: Allergies Allergy/AdvReac Type Severity Reaction Status Date / Time Penicillins Allergy Severe Hives Verified 12/19/17 03:07 Sulfa (Sulfonamide Allergy Severe Difficulty Verified 12/19/17 03:07 Antibiotics) Breathing Home Medications: Ambulatory Orders Albuterol Sulfate Inhaler - [Ventolin Hfa Inhaler -] 1 puff IH PRN 12/03/17 Cyclobenzaprine HCl [Flexeril 10 mg] 10 mg PO HS PRN #10 tablet 12/03/17 Famotidine [Pepcid -] 20 mg PO DAILY 12/03/17 Hydrochlorothiazide [Hctz -] 25 mg PO DAILY 12/03/17 Nystatin Oral Suspension - [Nystatin Oral Susp 600563 Units/5 ML -] 500,000 units PO Q6H #28 cup 12/10/17 Anemia: Yes Asthma: Yes Cancer: No Cardiac Disorders: No CVA: No COPD: No CHF: No DVT: No Dementia: No Diabetes: No GI Disorders: No Disorders: No HTN: Yes Hypercholesterolemia: No Liver Disease: No Seizures: No Thyroid Disease: No - Surgical History Abdominal Surgery: No Appendectomy: No Cardiac Surgery: No Cholecystectomy: No Lung Surgery: No Neurologic Surgery: No Orthopedic Surgery: No - Immunization History Immunization Up to Date: No - Suicide/Smoking/Psychosocial Hx Smoking Status: Yes Smoking History: Never smoked Have you smoked in the past 12 months: No Number of Cigarettes Smoked Daily: 5 If you are a former smoker, when did you quit?: 1yr 'Breaking Loose' booklet given: 11/21/17 Hx Alcohol Use: No Drug/Substance Use Hx: No Substance Use Type: None Hx Substance Use Treatment: No Review of Systems - Review of Systems Able to Perform ROS?: Yes Comments:: GENERAL/CONSTITUTIONAL: No fever or chills. No weakness HEAD, EYES, EARS, NOSE AND THROAT: No change in vision. No ear pain or discharge. No sore throat CARDIOVASCULAR: No chest pain or shortness of breath RESPIRATORY: No cough, wheezing, or hemoptysis GASTROINTESTINAL: No nausea, vomiting, diarrhea or constipation GENITOURINARY: + dysuria, No hematuria MUSCULOSKELETAL: No joint or muscle swelling or pain. No neck or back pain SKIN: No rash NEUROLOGIC: + headache; No vertigo, loss of consciousness, or change in strength /sensation ENDOCRINE: No increased thirst. No abnormal weight change HEMATOLOGIC/LYMPHATIC: No anemia, easy bleeding, or history of blood clots ALLERGIC/IMMUNOLOGIC: No hives or skin allergy 12/19/17 04:52 Is the patient limited Tanzanian proficient: No *Physical Exam - Vital Signs Vital Signs Temp Pulse Resp BP Pulse Ox 98.8 F 84 18 189/81 100 12/19/17 03:08 12/19/17 03:08 12/19/17 03:08 12/19/17 03:08 12/19/17 03:08 12/19/17 04:56 - Physical Exam Comments: GENERAL: Awake, alert, and fully oriented, in no acute distress HEAD: No signs of trauma, normocephalic, atraumatic EYES: PERRL, EOMI, sclera anicteric, conjunctiva clear ENT: Auricles normal inspection, hearing grossly normal, nares patent, oropharynx clear without exudates. Moist mucosa LUNGS: No distress, speaks full sentences, clear to auscultation bilaterally HEART:Regular rate and rhythm, normal S1 and S2, no murmurs appreciated, peripheral pulses normal and equal bilaterally ABDOMEN: Soft, nontender, normoactive bowel sounds. No guarding, no rebound EXTREMITIES : Normal inspection, Normal range of motion, no edema. No clubbing or cyanosis NEUROLOGICAL: Cranial nerves II through XII grossly intact. Normal speech, normal gait, no focal sensorimotor deficits SKIN: Warm, Dry, normal turgor, no rashes or lesions noted 12/19/17 04:55 Medical Decision Making - Medical Decision Making The patient is a 52F w/ a history of HTN and HIV who presents with HERNANDEZ for 3d and hypertension to SBP 180s on presentation. Discussed with patient need for evaluation and acute treatment of BP given her Hypertensive Urgency. Patient refused medication, refused the placement of an IV , and would not allow treatment of her BP w/o being able to talk to her PCP. The patient was counseled on the risks of not treating her current conditions and she verbalized understanding. The patient agreed to have labs drawn but left the ED before they could be drawn. The patient also reported a recent diagnosis of UTI and was prescribed antibiotics at [facility]. She reported not yet taking any of the antibiotics. She was counseled extensively on the importance of taking the prescribed therapy and the possible sequelae of not doing so. Dipo: patient eloped 12/19/17 04:45 *DC/Admit/Observation/Transfer Diagnosis at time of Disposition: Hypertensive urgency Headache Qualifiers: Headache type: unspecified Headache chronicity pattern: acute headache Intractability: not intractable Qualified Code(s): R51 - Headache - Discharge Dispostion Disposition: ELOPED - Referrals - Patient Instructions - Post Discharge Activity
--- NOTE | 2017-12-19 03:07 | PDOC ---
Attending Attestation - Resident Resident Name: Kris Clements - ED Attending Attestation I have performed the following: I have examined & evaluated the patient, The case was reviewed & discussed with the resident, I agree w/resident's findings & plan, Exceptions are as noted - HPI HPI: 12/19/17 03:24 Ms Helms is a 52 yo F reported h/o HIV on HAART, (unknown viral load), gastritis , hypertension and diabetes presents to the ED for a headache for which she took ibuprofen. When it did not resolve, she decided to come in to the ER No fevers, chills, neurologic deficits/changes No weakness - Medical Decision Making 12/10/17 06:48 52 yo female pmh of HIV, gastritis, hypertension and diabetes presents to the ED for a headache at 5am, since resolved with ibuprofen. no fevers or neuro changes, +oral thrush x 2 days but no odynophagia, cp or sob. no gait changes. vitals wnl. Headache has resolved by the time of ED eval. will treat oral thrush with nystatin swish and swallow. requesting maalox for chronic gastritis. on home pepcid for epigastric pain. nonperitoneal, no indication for lab testing at this time. no neuro deficits or signs of infection, no imaging indicated. remains well appearing Pt to be discharged in stable condition. Patient and family made aware of impression and plan, return precautions discussed (including but not limited to worsening pain or symptoms), fevers, or signs of infection, chest pain, respiratory distress, inability to tolerate oral intake, dehydration, syncope, or neurologic changes). Follow up with PMD and/or specialist as recommended, follow up information provided, take medications as instructed for duration of time. continue with supportive care, avoid triggers and precipitants. All questions answered to patient's satisfaction and expressed understanding and comfort with this. - Physicial Exam PE: 12/19/17 05:13 NAD, well appearing neck supple lungs clear RRR abdomen soft and nontender to palpation Ambulatory through out the ER - Medical Decision Making 12/19/17 05:14 Pt BP noted to be elevated Will do basic labs, EKG, treat with medications in addition to giving pain medications Pt refused labs Pt refused pain medications Pt eloped from the ER
[2017-12-19 03:10] VITALS: BP 189/81; PULSE 84; TEMP 98.8; BMI 25.7
[2017-12-19 03:52] LABS: URINE APPEARANCE CLOUDY; URINE BILIRUBIN NEGATIVE (<2.0 mg/dL); URINE COLOR YELLOW; URINE GLUCOSE (UA) NEGATIVE (NEGATIVE); URINE KETONE NEGATIVE (NEGATIVE); URINE LEUK ESTERASE 3+ (NEGATIVE); URINE NITRITE NEGATIVE (NEGATIVE); URINE PROTEIN 2+ (NEGATIVE); URINE UROBILINOGEN NEGATIVE mg/dL (0.2-1.0)
[2017-12-19 03:57] LABS: EPI CELLS RARE /HPF (FEW); URINE BACTERIA MODERATE /hpf (NONE SEEN)
--- NOTE | 2017-12-19 15:39 | EKG ---
Test Reason : Blood Pressure : / mmHG Vent. Rate : 068 BPM Atrial Rate : 068 BPM P-R Int : 156 ms QRS Dur : 088 ms QT Int : 436 ms P-R-T Axes : 055 021 036 degrees QTc Int : 463 ms NORMAL SINUS RHYTHM NORMAL ECG WHEN COMPARED WITH ECG OF 08-DEC-2017 02:57, NO SIGNIFICANT CHANGE WAS FOUND Confirmed by TIP CANTRELL MD ([id number]) on 12/19/2017 3:38:41 PM Referred By: Confirmed By:TIP CANTRELL MD
== END | disposition left against medical advice (07) ==
LOC: JER 02:40
DX: I16.0 Hypertensive urgency (principal); Z21 Asymptomatic human immunodeficiency virus [HIV] infection status; Z87.09 Personal history of other diseases of the respiratory system; Z88.0 Allergy status to penicillin; Z88.2 Allergy status to sulfonamides
CPT/HCPCS: 81003; 81015; 87086; 87186; 93005; 93010; 99281-25

== ENCOUNTER → 2017-12-25 | Emergency (ER) | payer OTHER ==
[~2017-12-25] MED LIST changes: -ACETAMINOPHEN 1000 MG/100 ML VIAL (NON FORMULARY) IVPB ONE; -ACETAMINOPHEN 325 MG TABLET (FP) PO ONE; +MAG HYDROX/AL HYDROX/SIMETH 30 ML UNIT-DOSE CUP ONE; +MAG HYDROX/AL HYDROX/SIMETH 30 ML UNIT-DOSE CUP PO ONE; -hydrALAZINE HCL 20 MG/ML VIAL IVPUSH ONE
[2017-12-25 03:29] VITALS: BMI 25.7
--- NOTE | 2017-12-25 04:32 | PDOC ---
History of Present Illness - General Chief Complaint: Pain, Acute Stated Complaint: ABD PAIN Time Seen by Provider: 12/25/17 04:16 History Source: Patient Exam Limitations: No Limitations - History of Present Illness Initial Comments: 12/25/17 04:18 This is a 52 YOF with h/o GERD, anemia (on HIV on HAART with unknown CD4 count and viral load, DM, and HTN, who p/w burning epigastric abdominal pain, nausea, and a few episodes of dry heaves ever since 10 pm tonight. He took a broken-in- half ferrous sulfate iron pill about 5 hours prior to the onset of pain and drank it with a cup of water, but did not eat or drink anything after this time. She believes the iron pill has been irritating her stomach. She did not try any medications at home for the symptoms. She additionally notes continued unchanged burning on urination for the past week and explains she was seen here in the ED one week ago for the same thing, diagnosed with UTI, and prescribed Cipro which she has been taking ever since. She denies f/c, d/c, n/t/w, leg swelling, chest pain, back pain, dizziness/lightheadedness, headache, neck pain , throat pain, or other symptoms. Past History - Past Medical History Allergies/Adverse Reactions: Allergies Allergy/AdvReac Type Severity Reaction Status Date / Time Penicillins Allergy Severe Hives Verified 12/25/17 06:24 Sulfa (Sulfonamide Allergy Severe Difficulty Verified 12/25/17 06:24 Antibiotics) Breathing Home Medications: Ambulatory Orders Albuterol Sulfate Inhaler - [Ventolin Hfa Inhaler -] 1 puff IH PRN 12/03/17 Cyclobenzaprine HCl [Flexeril 10 mg] 10 mg PO HS PRN #10 tablet 12/03/17 Famotidine [Pepcid -] 20 mg PO DAILY 12/03/17 Hydrochlorothiazide [Hctz -] 25 mg PO DAILY 12/03/17 Nystatin Oral Suspension - [Nystatin Oral Susp 019828 Units/5 ML -] 500,000 units PO Q6H #28 cup 12/10/17 Nitrofurantoin Monohyd/M-Cryst [Macrobid -] 100 mg PO BID #14 capsule 12/25/17 Anemia: Yes Asthma: Yes Cancer: No Cardiac Disorders: No CVA: No COPD: No CHF: No DVT: No Dementia: No Diabetes: No GI Disorders: No Disorders: No HTN: Yes Hypercholesterolemia: No Liver Disease: No Seizures: No Thyroid Disease: No - Surgical History Abdominal Surgery: No Appendectomy: No Cardiac Surgery: No Cholecystectomy: No Lung Surgery: No Neurologic Surgery: No Orthopedic Surgery: No - Immunization History Immunization Up to Date: No - Suicide/Smoking/Psychosocial Hx Smoking Status: Yes Smoking History: Never smoked Have you smoked in the past 12 months: No Number of Cigarettes Smoked Daily: 5 If you are a former smoker, when did you quit?: 1yr Information on smoking cessation initiated: No 'Breaking Loose' booklet given: 11/21/17 Hx Alcohol Use: No Drug/Substance Use Hx: No Substance Use Type: None Hx Substance Use Treatment: No Review of Systems - Review of Systems Able to Perform ROS?: Yes Constitutional: No: Chills, Fever, Unexplained wgt Loss HEENTM: No: Nose Congestion, Throat Pain Respiratory: No: Cough, Shortness of Breath Cardiac (ROS): No: Chest Pain, Palpitations ABD/GI: Yes: Nausea, Other (upper abdominal pain). No: Constipated, Diarrhea : Yes: Burning, Dysuria Musculoskeletal: No: Back Pain, Neck Pain Integumentary: No: Bruising, Rash Neurological: No: Headache, Numbness, Tingling, Weakness, Dizziness Endocrine: No: Unexplained Weight Gain, Unexplained Weight Loss *Physical Exam - Vital Signs Last Vital Signs Temp Pulse Resp BP Pulse Ox 98.4 F 78 20 150/68 99 12/25/17 03:15 12/25/17 03:15 12/25/17 03:15 12/25/17 03:15 12/25/17 03:15 GENERAL: nontoxic and well-appearing, nourished, A/Ox4, no acute distress appears comfortable at rest, winces slightly while repositioning speaking in full sentences, answers questions appropriately, accompanied by at bedside HEENT: PERRLA, EOMI, moist mucous membranes, no posterior pharyngeal erythema, no tonsillar swelling or exudates, no cervical lymphadenopathy NECK: No cervical spine midline ttp or stepoff or deformity, full ROM, supple CARDIOVASCULAR: Heart regular rate and rhythm, normal S1S2, no MGR, radial and DP pulses 2+ and symmetric, capillary refill <2 seconds, extremities warm and well-perfused Chest wall: Normal appearance, no rash, no bruising, no costal stepoff or deformity, nontender to compression LUNGS/RESPIRATORY: No respiratory distress, normal and symmetric chest movements during respirations, lungs CTA bilaterally, equal breath sounds, no cyanosis, no nail clubbing GI/ABDOMEN: Normal symmetric appearance, normoactive bowel sounds, soft, minimal epigastric tenderness to palpation, no additional abdominal ttp, no midline pulsatile masses, no palpated organomegaly : No CVA tenderness, normal external appearance, no lesions BACK: No midline ttp or stepoff or deformity of thoracic or lumbar spine EXTREMITIES: distal pulses 2+, warm and well-perfused, no LE edema SKIN: Warm and dry, no pallor, no jaundice, no bruising, no rash, no skin breakdown, no cuts, no lesions NEUROLOGICAL: GCS 15, CN II-XII grossly intact, ambulating with normal gait, moving all extremities, 5/5 strength proximally and distally, no facial droop, no decreased sensation Heart Score/ECG Review - History History: Slightly suspicious - Electrocardiogram EKG: Normal - Age Age: 45-65 - Risk Factors Risk Factors Heart Score: Yes Hx Hypertension, Yes Hx Diabetes Based on the list above the patient has:: 1-2 risk factors #1 12/25/17 06:24 Sinus rhythm, rate of 70, normal axis and intervals, no ischemic ST-T changes Medical Decision Making - Medical Decision Making 12/25/17 04:57 Adult Pt p/w epigastric abdominal pain. Initial Vital Signs Temp Pulse Resp BP Pulse Ox 98.4 F 78 20 150/68 99 12/25/17 03:15 12/25/17 03:15 12/25/17 03:15 12/25/17 03:15 12/25/17 03:15 Exam: As noted in Physical Exam section. DDX IBNLT: pill esophagitis/gastritis, GERD gastritis, PUD, unlikely any other more serious etiology including pancreatitis, appendicitis, colitis, cholecystitis, choledocholithiasis, cholangitis, AAA/AD, ACS, renal stone, SBO, mesenteric/bowel ischemia, bowel perforation, constipation, gas, etc W/U ordered: UA, EKG TX ordered: Maalox (patient refuses Pepcid and viscous lidocaine). 12/25/17 05:30 Patient refused UA and EKG after initial discussion. 12/25/17 06:24 I initially spoke with the patient after she refused UA, UCx, EKG, viscous lido , and Pepcid. She is adamant she does not want to give urine because she already knows she has a UTI. She does not want EKG. She states viscous lido makes her stomach upset. States she has Pepcid at home and does not want it here. I speak with her about us not being able to help if she refuses our workup and tx ideas. She states she wants medication to cure her upset stomach, which she states has worsened in the past hour. She agrees to get EKG and give urine. 12/25/17 07:00 Patient refusing blood labs now. She did get EKG and has normal QTc. She is offered Zofran and refuses. She is giving UA. Patient's care signed out to Dr. Arzate at the end of my shift. *DC/Admit/Observation/Transfer Diagnosis at time of Disposition: UTI (urinary tract infection) Qualifiers: Urinary tract infection type: acute cystitis Hematuria presence: without hematuria Qualified Code(s): N30.00 - Acute cystitis without hematuria - Discharge Dispostion Disposition: ELP Condition at time of disposition: Stable - Prescriptions Prescriptions: Nitrofurantoin Monohyd/M-Cryst [Macrobid -] 100 mg PO BID #14 capsule - Referrals Referrals: Yi Figueroa [Primary Care Provider] - - Patient Instructions Printed Discharge Instructions: DI for Urinary Tract Infection (UTI) Additional Instructions: Please read the [facility] ED Care Sheets describing your diagnosis. PLEASE NOTE we suggest at a minimum that you review all symptoms and final test results with a physician that will provide ongoing care for you. In the event you do not have a Physician, Your Nurse will provide you with the contact information and address of [facility] where you can follow up with a Doctor. THANK YOU for allowing us to help begin your care of this latest issue. Keep in mind the treatment performed in the Emergency Department is NOT complete until you have followed up with your Doctor. We want you to return to the ED as soon as possible if symptoms get worse or if you have any problems whatsoever. We advised you to take the following medication(s) as directed: Macrobid - Post Discharge Activity
--- NOTE | 2017-12-25 05:31 | PDOC ---
Attending Attestation - Resident Resident Name: Divine Woods - ED Attending Attestation I have performed the following: I have examined & evaluated the patient, The case was reviewed & discussed with the resident, I agree w/resident's findings & plan, Exceptions are as noted - HPI HPI: 12/25/17 05:33 The patient is a 52 year old female, with a significant past medical history of asthma, hypertension, acid reflux, HIV, who presents to the emergency department with,epigastric pain and nausea. As per patient, she took her ferrous sulfate iron pill 5 hours prior to the onset of her symptoms with a glass of water then did not eat after. The patient also endorses burning upon urination she believes is due to a UTI she is already being treated for with Cipro, She denies recent fevers, chills, headache or dizziness. She denies recent vomit , diarrhea or constipation. She denies recent dysuria, frequency, urgency or hematuria. She denies recent chest pain or shortness of breath. Allergies: Sulfa, penicillins, Past surgical history: none reported - Physicial Exam PE: 12/25/17 05:30 agree with resident exam - Medical Decision Making 12/25/17 05:30 52yo F with h/o GERD, anemia (on HIV on HAART with unknown CD4 count and viral load), DM, and HTN, who p/w burning epigastric abdominal pain, nausea, and dry heaving. Vitals with hypertension, likely 2/2 nausea/discomfort. Exam with mild epigastric abd pain, neg RUQ pain or walls's sign. DDx includes but not limited to gastritis vs pancreatitis. Pt refusing labs, EKG, or any workup. Accepting only maalox for treatment. Pt is well appearing, comfortable and appears to have the capacity to make decisions.
[2017-12-25 06:29] LABS: URINE APPEARANCE SLCLOUDY; URINE BILIRUBIN NEGATIVE (<2.0 mg/dL); URINE COLOR STRAW; URINE GLUCOSE (UA) NEGATIVE (NEGATIVE); URINE KETONE NEGATIVE (NEGATIVE); URINE NITRITE NEGATIVE (NEGATIVE); URINE UROBILINOGEN NEGATIVE mg/dL (0.2-1.0)
[2017-12-25 07:07] LABS: URINE LEUK ESTERASE 3+ (NEGATIVE); URINE PROTEIN 2+ (NEGATIVE)
[2017-12-25 07:08] LABS: EPI CELLS RARE /HPF (FEW); URINE BACTERIA FEW /hpf (NONE SEEN); URINE MUCUS RARE
[2017-12-25 07:21] VITALS: BP 148/68; PULSE 74; TEMP 98.7
--- NOTE | 2017-12-25 08:35 | PDOC ---
*Physical Exam - Vital Signs Last Vital Signs Temp Pulse Resp BP Pulse Ox 98.7 F 74 18 148/68 96 12/25/17 07:20 12/25/17 07:20 12/25/17 07:20 12/25/17 07:20 12/25/17 07:20 ED Treatment Course - ADDITIONAL ORDERS Additional order review: Laboratory Results 12/25/17 06:08 Urine Color Straw Urine Appearance Slcloudy Urine pH 6.0 Ur Specific [place] 1.004 Urine Protein 2+ H Urine Glucose (UA) Negative Urine Ketones Negative Urine Blood 1+ H Urine Nitrite Negative Urine Bilirubin Negative Urine Urobilinogen Negative Ur Leukocyte Esterase 3+ H Urine WBC (Auto) 54 Urine RBC (Auto) 9 Ur Epithelial Cells Rare Urine Bacteria Few Urine Mucus Rare - Medications Given in the ED: ED Medications Discontinued Medications Generic Name Dose Route Start Last Admin Trade Name Freq PRN Reason Stop Dose Admin Al Hydroxide/Mg Hydroxide 30 ml 12/25/17 04:42 12/25/17 05:04 Mylanta Oral Suspension - PO 12/25/17 04:43 30 ml ONCE ONE Administration Medical Decision Making - Medical Decision Making 12/25/17 08:27 This patient is a 52 yo F who presents to the ER with a complaint of abdominal pain s/p taking 1/2 an iron table Pt has refused work up by the overnight team, opting only to be given maalox She allowed a UA which demonstrates UTI She also allowed an EKG will d/c to home after breakfast 12/25/17 08:27 Pt eloped prior to my assessment *DC/Admit/Observation/Transfer Diagnosis at time of Disposition: UTI (urinary tract infection) Qualifiers: Urinary tract infection type: acute cystitis Hematuria presence: without hematuria Qualified Code(s): N30.00 - Acute cystitis without hematuria - Discharge Dispostion Disposition: ELP Condition at time of disposition: Stable Decision to Admit order: No - Prescriptions Prescriptions: Nitrofurantoin Monohyd/M-Cryst [Macrobid -] 100 mg PO BID #14 capsule - Referrals Referrals: Yi Figueroa [Primary Care Provider] - - Patient Instructions Printed Discharge Instructions: DI for Urinary Tract Infection (UTI) Additional Instructions: Please read the [place] ED Care Sheets describing your diagnosis. PLEASE NOTE we suggest at a minimum that you review all symptoms and final test results with a physician that will provide ongoing care for you. In the event you do not have a Physician, Your Nurse will provide you with the contact information and address of [facility] where you can follow up with a Doctor. THANK YOU for allowing us to help begin your care of this latest issue. Keep in mind the treatment performed in the Emergency Department is NOT complete until you have followed up with your Doctor. We want you to return to the ED as soon as possible if symptoms get worse or if you have any problems whatsoever. We advised you to take the following medication(s) as directed: Macrobid - Post Discharge Activity
--- NOTE | 2017-12-25 13:37 | EKG ---
Test Reason : Blood Pressure : / mmHG Vent. Rate : 070 BPM Atrial Rate : 070 BPM P-R Int : 152 ms QRS Dur : 094 ms QT Int : 434 ms P-R-T Axes : 069 047 064 degrees QTc Int : 468 ms NORMAL SINUS RHYTHM NORMAL ECG WHEN COMPARED WITH ECG OF 19-DEC-2017 03:37, T WAVE AMPLITUDE HAS INCREASED IN ANTERIOR LEADS Confirmed by JERRELL WALKER, DELIA ([id number]) on 12/25/2017 1:37:24 PM Referred By: Confirmed By:DELIA ALLAN MD
== END | disposition left against medical advice (07) ==
LOC: JER 03:13
DX: N30.00 Acute cystitis without hematuria (principal)
CPT/HCPCS: 81003; 81015; 87086; 87186; 93005; 93010; 99281-25

== ENCOUNTER 2017-12-31 00:57 | Emergency (ER) | payer OTHER ==
[2017-12-31 01:23] VITALS: BP 168/76; PULSE 98; TEMP 97.5; BMI 25.7
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
[2017-12-31] MEDS ORDERED: IBUPROFEN 600 MG TABLET (FP) PO ONE (01:46)
--- NOTE | 2017-12-31 02:15 | PDOC ---
Attending Attestation - Resident Resident Name: Jodie Bedolla - ED Attending Attestation I have performed the following: I have examined & evaluated the patient, The case was reviewed & discussed with the resident, I agree w/resident's findings & plan, Exceptions are as noted - HPI HPI: 52 yo F history chronic back pain presents with lower extremity pain for past 3 days. She states she has been more physically active than usual lately. No direct trauma, no fever, no rash. No weakness, no change in sensation. - Physicial Exam PE: GENERAL: Awake, alert, and fully oriented, in no acute distress HEAD: No signs of trauma EYES: PERRLA, EOMI, sclera anicteric, conjunctiva clear ENT: Auricles normal inspection, hearing grossly normal, nares patent, oropharynx clear without exudates. Moist mucosa NECK: Normal ROM, supple, no lymphadenopathy, JVD, or masses LUNGS: Breath sounds equal, clear to auscultation bilaterally. No wheezes, and no crackles HEART: Regular rate and rhythm, normal S1 and S2, no murmurs, rubs or gallops ABDOMEN: Soft, nontender, normoactive bowel sounds. No guarding, no rebound. No masses EXTREMITIES: Normal range of motion, no edema. No clubbing or cyanosis. No cords, erythema, or tenderness NEUROLOGICAL: Cranial nerves II through XII grossly intact. Normal speech, normal gait SKIN: Warm, Dry, normal turgor, no rashes or lesions noted. - Medical Decision Making Physical exam wnl. Pain improved with PO meds. Ambulating through the ED without difficulty. Stable for DC home.
== END 2017-12-31 03:25 | disposition home or self-care (01) ==
LOC: JER 00:57
DX: M79.662 Pain in left lower leg (principal); M79.661 Pain in right lower leg; M79.1 Myalgia; D64.9 Anemia, unspecified; I10 Essential (primary) hypertension; E11.9 Type 2 diabetes mellitus without complications; Z88.0 Allergy status to penicillin; Z88.2 Allergy status to sulfonamides
CPT/HCPCS: 99281-25

== ENCOUNTER 2018-01-20 00:20 | Emergency (ER) | payer OTHER ==
[2018-01-20 00:58] VITALS: TEMP 98.7; BMI 56.7
--- NOTE | 2018-01-20 01:05 | PDOC ---
Attending Attestation - Resident Resident Name: Manolo Orta - ED Attending Attestation I have performed the following: I have examined & evaluated the patient, The case was reviewed & discussed with the resident, I agree w/resident's findings & plan - HPI HPI: 01/20/18 02:17 Pt comes with fever at home. No fever here. She has dysuria. She has a hc of HIV and she has an undetectable VL; however she doesn't know what her CD4 count is. She has an HIV doc Tim at the [facility]. She has no other complaints at this time. She has no STDs as she states that she is not sexually active. Pt is ambulating about the ER. She has - Physicial Exam PE: 01/20/18 03:04 Agree with resident exam. Pt has clear heart and lungs. Patchy wheeze, pt is a chain smoker. 01/20/18 03:05 Afebrile. She has no flank pain and no back pain and she has minimal suprapubic pain. - Medical Decision Making 01/20/18 03:05 Home with levaquin x 1 week. We will polarity tester her a dose in the ER. She can follow with her Doc, Dr. Dumont.
--- NOTE | 2018-01-20 01:23 | PDOC ---
History of Present Illness - General Chief Complaint: Respiratory Stated Complaint: FEVER/COUGH Time Seen by Provider: 01/20/18 01:04 History Source: Patient - History of Present Illness Initial Comments: 52 y/o F w/PMH of HIV (unknown last viral load or CD4 count, not currently on meds), anemia, HTN presents to the ER with dysuria and increased frequency over the last 2-3 days. Pt also reports a fever of 100.7 at approximately 3pm on and took two tylenol. She denies any blood in urine, vomiting, chest pain , SOB, LE edema, new abd pain (pt has chronic abd pain), sick contacts, body aches. She has not had the flu shot as she gets sick from it. No recent travel. Pt also reports a laceration from cutting 3rd digit of L hand on supply controller blade which was sutured at [facility] on 01/11/18 is still draining some blood. Past History - Travel Traveled outside of the country in the last 30 days: No - Past Medical History Allergies/Adverse Reactions: Allergies Allergy/AdvReac Type Severity Reaction Status Date / Time Penicillins Allergy Severe Hives Verified 01/20/18 00:57 Sulfa (Sulfonamide Allergy Severe Difficulty Verified 01/20/18 00:57 Antibiotics) Breathing Home Medications: Ambulatory Orders Albuterol Sulfate Inhaler - [Ventolin Hfa Inhaler -] 1 puff IH PRN 12/03/17 Cyclobenzaprine HCl [Flexeril 10 mg] 10 mg PO HS PRN #10 tablet 12/03/17 Famotidine [Pepcid -] 20 mg PO DAILY 12/03/17 Hydrochlorothiazide [Hctz -] 25 mg PO DAILY 12/03/17 Nystatin Oral Suspension - [Nystatin Oral Susp 597478 Units/5 ML -] 500,000 units PO Q6H #28 cup 12/10/17 Nitrofurantoin Monohyd/M-Cryst [Macrobid -] 100 mg PO BID #14 capsule 12/25/17 Levofloxacin [Levaquin] 500 mg PO DAILY #7 tablet 01/20/18 Anemia: Yes Asthma: Yes Cancer: No Cardiac Disorders: No CVA: No COPD: No CHF: No DVT: No Dementia: No Diabetes: Yes GI Disorders: No Disorders: No HTN: Yes Hypercholesterolemia: No Liver Disease: No Seizures: No Thyroid Disease: No - Surgical History Abdominal Surgery: No Appendectomy: No Cardiac Surgery: No Cholecystectomy: No Lung Surgery: No Neurologic Surgery: No Orthopedic Surgery: No - Immunization History Immunization Up to Date: No - Suicide/Smoking/Psychosocial Hx Smoking Status: Yes Smoking History: Never smoked Have you smoked in the past 12 months: No Number of Cigarettes Smoked Daily: 5 If you are a former smoker, when did you quit?: 1yr Information on smoking cessation initiated: No 'Breaking Loose' booklet given: 11/21/17 Hx Alcohol Use: No Drug/Substance Use Hx: No Substance Use Type: None Hx Substance Use Treatment: No Review of Systems - Review of Systems Able to Perform ROS?: Yes Constitutional: Yes: Chills, Fever. No: Weakness Respiratory: No: Cough, Shortness of Breath Cardiac (ROS): No: Chest Pain ABD/GI: Yes: Nausea, Other (chronic abd pain, no changes). No: Constipated, Diarrhea, Vomiting : Yes: Burning, Dysuria, Frequency. No: Hematuria Neurological: Yes: Headache *Physical Exam - Vital Signs Last Vital Signs Temp Pulse Resp BP Pulse Ox 98.7 F 95 H 18 116/84 98 01/20/18 00:20 01/20/18 00:20 01/20/18 00:20 01/20/18 00:20 01/20/18 00:20 - Physical Exam General Appearance: Yes: Nourished, Appropriately Dressed. No: Apparent Distress HEENT: positive: EOMI Neck: positive: Supple Respiratory/Chest: positive: Lungs Clear, Normal Breath Sounds. negative: Respiratory Distress Cardiovascular: positive: Regular Rhythm, Regular Rate, S1, S2 Gastrointestinal/Abdominal: positive: Normal Bowel Sounds, Tender (Chronic RUQ / Epigastric pain as per pt, no changes as per pt), Soft Musculoskeletal: negative: CVA Tenderness, Decreased Range of Motion Integumentary: positive: Other (L 3rd digit with laceration with sutures in place with some red drainage. No pus drainage noted.) Neurologic: positive: Fully Oriented, Alert, Normal Mood/Affect, Other (Normal gait) Medical Decision Making - Medical Decision Making 01/20/18 01:22 Pt with urinary symptoms for 2/3 days. Increased frequency and dysuria. Pt is HIV+ and states she had fever at home of 100.7 at approximately 3pm. No fever here. Will check UA and CXR. 01/20/18 01:39 CXR with no acute pathology. Finger laceration covered with xeroform. Pt instructed to go back for regular f/ u for her wound. 01/20/18 03:06 UA w/ 3+ LE and 69 WBC Pt given 500 mg levaquin PO once here Will prescribe Levaquin for 1 week. Pt told to f/u with PCP/ID doctor for f/u within 1 week. Pt informed to return to ER if she has worsening of current symptoms or onset of new concerning symptoms. *DC/Admit/Observation/Transfer Diagnosis at time of Disposition: UTI (urinary tract infection) - Discharge Dispostion Disposition: HOME Condition at time of disposition: Fair Decision to Admit order: No - Prescriptions Prescriptions: Levofloxacin [Levaquin] 500 mg PO DAILY #7 tablet - Referrals - Patient Instructions Printed Discharge Instructions: DI for Urinary Tract Infection (UTI) Additional Instructions: You have a UTI and you have been prescribed an antibiotic that you must take until it's completed. You have been prescribed the antibiotic Levaquin. It is extremely important that you follow up with your primary care / infectious disease doctor. Please follow up with them within 1 week. If you develop worsening of your current symptoms or if you have new concerning symptoms come back to the ER. - Post Discharge Activity
[2018-01-20 02:31] LABS: URINE APPEARANCE SLCLOUDY; URINE BILIRUBIN NEGATIVE (<2.0 mg/dL); URINE COLOR LTYELLOW; URINE GLUCOSE (UA) NEGATIVE (NEGATIVE); URINE KETONE NEGATIVE (NEGATIVE); URINE LEUK ESTERASE 3+ (NEGATIVE); URINE NITRITE NEGATIVE (NEGATIVE); URINE PROTEIN 2+ (NEGATIVE); URINE UROBILINOGEN NEGATIVE mg/dL (0.2-1.0)
[2018-01-20 03:03] LABS: EPI CELLS RARE /HPF (FEW)
[2018-01-20] MEDS ORDERED: levoFLOXacin 750 MG TABLET PO ONE (03:04)
[2018-01-20 03:22] VITALS: BP 120/68; PULSE 72
== END 2018-01-20 03:22 | disposition home or self-care (01) ==
LOC: JER 00:20
DX: N39.0 Urinary tract infection, site not specified (principal); I10 Essential (primary) hypertension; J45.909 Unspecified asthma, uncomplicated; D64.9 Anemia, unspecified; Z21 Asymptomatic human immunodeficiency virus [HIV] infection status
CPT/HCPCS: 71046-TC-FY; 81003; 81015; 87086; 87186; 99281-25

== ENCOUNTER 2018-01-25 15:19 | Emergency (ER) | payer OTHER ==
--- NOTE | 2018-01-25 15:25 | PDOC ---
History of Present Illness - General History Source: Patient Exam Limitations: No Limitations - History of Present Illness Initial Comments: 01/25/18 15:25 52 year old female with PMH anemia, HTN, DM, HIV (unknown CD4, "undetectable viral load" x1 month), asthma presented to ED complaining of nausea and vomiting x3 days. She denies abdominal pain, diarrhea, fever, chills, chest pain , shortness of breath, palpitations, lower extremity swelling. She admits to productive white cough x2 days. Pt states "I only came here to be rehydrated, I can take my own medicine at home. I have an appointment with my GI saturday." Pt was recently diagnosed with UTI at [facility] yesterday, states was prescribed "Cipro". She also had stitches removed from her left third finger at [facility] yesterday. Allergies - PCN, Sulfa <Adwoa Lynne - Last Filed: 01/26/18 08:47> <Rosa M Urrutia - Last Filed: 01/26/18 09:26> - General Stated Complaint: NAUSEA/VOMITING Time Seen by Provider: 01/25/18 15:24 Past History - Past Medical History Anemia: Yes Asthma: Yes Cancer: No Cardiac Disorders: No CVA: No COPD: No CHF: No DVT: No Dementia: No Diabetes: Yes GI Disorders: No Disorders: No HTN: Yes Hypercholesterolemia: No Liver Disease: No Seizures: No Thyroid Disease: No - Surgical History Abdominal Surgery: No Appendectomy: No Cardiac Surgery: No Cholecystectomy: No Lung Surgery: No Neurologic Surgery: No Orthopedic Surgery: No - Immunization History Immunization Up to Date: No - Suicide/Smoking/Psychosocial Hx Smoking Status: Yes Smoking History: Never smoked Have you smoked in the past 12 months: No Number of Cigarettes Smoked Daily: 5 If you are a former smoker, when did you quit?: 1yr 'Breaking Loose' booklet given: 11/21/17 Hx Alcohol Use: No Drug/Substance Use Hx: No Substance Use Type: None Hx Substance Use Treatment: No <Adwoa Lynne - Last Filed: 01/26/18 08:47> <Rosa M Urrutia - Last Filed: 01/26/18 09:26> - Past Medical History Allergies/Adverse Reactions: Allergies Allergy/AdvReac Type Severity Reaction Status Date / Time Penicillins Allergy Severe Hives Verified 01/25/18 15:37 Sulfa (Sulfonamide Allergy Severe Difficulty Verified 01/25/18 15:37 Antibiotics) Breathing Home Medications: Ambulatory Orders Albuterol Sulfate Inhaler - [Ventolin Hfa Inhaler -] 1 puff IH PRN 12/03/17 Famotidine [Pepcid -] 20 mg PO DAILY 12/03/17 Hydrochlorothiazide [Hctz -] 25 mg PO DAILY 12/03/17 Ondansetron [Zofran Odt -] 4 mg SL PRN #8 od.tablet 01/25/18 Review of Systems - Review of Systems Able to Perform ROS?: Yes Comments:: 01/25/18 16:16 General: denies fever, chills, night sweats, generalized weakness. HEENT: denies rhinorrhea, ear pain. Heart: denies chest pain, palpitations, syncope, lower extremity swelling, diaphoresis. Respiratory: admits to cough, sputum production. denies shortness of breath, hemoptysis. Abdomen: admits to nausea, vomiting, epigastric burning. denies diarrhea, constipation, blood in stool. : denies dysuria, increased urinary frequency, hematuria, urinary incontinence , flank pain. Back: denies back pain. Musculoskeletal: denies joint pain, muscle pain, joint swelling. Neurological: admits to numbness to left third finger. denies headache, dizziness, tingling, weakness. Skin: denies rash, laceration, abrasion. <Guera,Adwoa - Last Filed: 01/26/18 08:47> *Physical Exam - Physical Exam Comments: 01/25/18 16:24 Constitutional: Well-nourished, Well-developed, appearing stated age. HEENT: head is normocephalic, atraumatic. EOMI. PERRLA. Neck: supple. Full ROM. Heart: regular rhythm. no murmurs, rubs or gallops. Lungs: clear to auscultation bilaterally. no crackles, rhonchi or wheezing. no stridor. Abdomen: soft, nontender. normal bowel sounds. no rebound, guarding, masses. Extremities: Peripheral pulses intact. No lower extremity edema. left third finger with healed wound noted with scar tissue, no discharge. Neurological: CN 2-12 grossly intact. Moves all four extremities. Psych: awake, alert, oriented x3. Follows commands. Answers questions appropriately. <Adwoa Lynne - Last Filed: 01/26/18 08:47> - Vital Signs Last Vital Signs Temp Pulse Resp BP Pulse Ox 98.3 F 91 H 16 152/74 99 01/25/18 15:26 01/25/18 15:26 01/25/18 15:26 01/25/18 15:26 01/25/18 15:26 <Rosa M Urrutia - Last Filed: 01/26/18 09:26> ED Treatment Course - LABORATORY CBC & Chemistry Diagram: 01/25/18 16:00 01/25/18 16:00 <Adwoa Lynne - Last Filed: 01/26/18 08:47> - LABORATORY CBC & Chemistry Diagram: 01/25/18 16:00 01/25/18 16:00 - ADDITIONAL ORDERS Additional order review: 01/25/18 16:00 RBC 3.77 MCV 71.0 L MCHC 31.1 L RDW 21.6 H MPV 8.9 Neutrophils % 41.1 L D Lymphocytes % 47.8 H D Monocytes % 8.9 Eosinophils % 1.9 Basophils % 0.3 - Medications Given in the ED: ED Medications Discontinued Medications Generic Name Dose Route Start Last Admin Trade Name Freq PRN Reason Stop Dose Admin Al Hydroxide/Mg Hydroxide 30 ml 01/25/18 15:45 01/25/18 16:34 Mylanta Oral Suspension - PO 01/25/18 15:46 30 ml ONCE ONE Administration Sodium Chloride 1,000 mls @ 1,000 mls/hr 01/25/18 15:45 01/25/18 16:34 Normal Saline - IV 01/25/18 16:44 1,000 mls/hr ASDIR STA Administration Ondansetron HCl 4 mg 01/25/18 15:45 01/25/18 17:06 Zofran Injection IVPUSH 01/25/18 15:46 Not Given ONCE ONE Ondansetron HCl 4 mg 01/25/18 16:58 01/25/18 17:06 Zofran Odt - SL 01/25/18 16:59 4 mg ONCE ONE Administration Pantoprazole Sodium 20 mg 01/25/18 15:45 01/25/18 17:06 Protonix Iv IVPUSH 01/25/18 15:46 Not Given ONCE ONE <Rosa M Urrutia - Last Filed: 01/26/18 09:26> Medical Decision Making - Medical Decision Making 01/25/18 16:25 52 year old female with HIV, anemia, asthma, GERD presented to ED complaining of N/V x3 days, cough with white sputum production x1 day. Initial Vital Signs Temp Pulse Resp BP Pulse Ox 98.3 F 91 H 16 152/74 99 01/25/18 15:26 01/25/18 15:26 01/25/18 15:26 01/25/18 15:26 01/25/18 15:26 Afebrile. No tachycardia. No tachypnea. Mild hypertension. No hypoxia on room air. Pt refused pepcid and zofran, stated that they "hurt my stomach". IV fluids ordered for rehydration. Maalox ordered for epigastric burning. Protonix ordered for epigastric burning. Concern for electrolyte abnormality - Pending CMP Concern for pancreatitis - Pending lipase Concern for pneumonia - Pending CBC, CXR 01/25/18 16:32 CBC WBC 5.1 K/mm3 (4.0-10.0) 01/25/18 16:00 RBC 3.77 M/mm3 (3.60-5.2) 01/25/18 16:00 Hgb 8.3 GM/dL (10.7-15.3) L 01/25/18 16:00 Hct 26.7 % (32.4-45.2) L 01/25/18 16:00 MCV 71.0 fl (80-96) L 01/25/18 16:00 MCH 22.1 pg (25.7-33.7) L 01/25/18 16:00 MCHC 31.1 g/dl (32.0-36.0) L 01/25/18 16:00 RDW 21.6 % (11.6-15.6) H 01/25/18 16:00 Plt Count 249 K/MM3 (134-434) D 01/25/18 16:00 MPV 8.9 fl (7.5-11.1) 01/25/18 16:00 Absolute Neuts (auto) 2.1 K/mm3 (1.5-8.0) 01/25/18 16:00 Neutrophils % 41.1 % (42.8-82.8) L D 01/25/18 16:00 Lymphocytes % 47.8 % (8-40) H D 01/25/18 16:00 Monocytes % 8.9 % (3.8-10.2) 01/25/18 16:00 Eosinophils % 1.9 % (0-4.5) 01/25/18 16:00 Basophils % 0.3 % (0-2.0) 01/25/18 16:00 Nucleated RBC % 0 % (0-0) 01/25/18 16:00 No leukocytosis. Microcytic anemia noted. - Similar to prior Urine Test Results Urine Color Yellow 01/25/18 15:37 Urine Appearance Cloudy 01/25/18 15:37 Urine pH 6.0 (5.0-8.0) 01/25/18 15:37 Ur Specific Prentiss 1.012 (1.010-1.035) 01/25/18 15:37 Urine Protein 2+ (NEGATIVE) H 01/25/18 15:37 Urine Glucose (UA) Negative (NEGATIVE) 01/25/18 15:37 Urine Ketones Negative (NEGATIVE) 01/25/18 15:37 Urine Blood 1+ (NEGATIVE) H 01/25/18 15:37 Urine Nitrite Negative (NEGATIVE) 01/25/18 15:37 Urine Bilirubin Negative (<2.0 mg/dL) 01/25/18 15:37 Ur Leukocyte Esterase 3+ (NEGATIVE) H 01/25/18 15:37 Ur Epithelial Cells Rare /HPF (FEW) 01/25/18 15:37 Urine Mucus Rare 01/25/18 15:37 Evidence of urinary tract infection. - Pt was diagnosed yesterday and started treatment yesterday - Pt is to continue Cipro 01/25/18 16:58 Pt requests SL Zofran - Ordered 01/25/18 17:07 Pt reassessed, states she is feeling better. Pt refused CXR. 01/25/18 17:13 Pt states she feels better and would like to go home. She states she does not want to wait for the final CMP results. I discussed the possibility of abnormal results that would require further treatment, she stated she understood. Pt will be discharged with Zofran prescription. <Adwoa Lynne - Last Filed: 01/26/18 08:47> *DC/Admit/Observation/Transfer - Discharge Dispostion Decision to Admit order: No <Adwoa Lynne - Last Filed: 01/26/18 08:47> <Rosa M Urrutia - Last Filed: 01/26/18 09:26> Diagnosis at time of Disposition: Nausea & vomiting - Discharge Dispostion Disposition: HOME Condition at time of disposition: Improved - Prescriptions Prescriptions: Ondansetron [Zofran Odt -] 4 mg SL PRN #8 od.tablet - Referrals Referrals: Yi Figueroa [Primary Care Provider] - - Patient Instructions Additional Instructions: Your blood work revealed you are anemic. Follow up with your primary care doctor on this finding. Your care is not complete until you follow up. Your urine analysis showed evidence of the Urinary Tract Infection you were diagnosed with yesterday. Continue taking the Ciprofloxacin you were prescribed at [facility]. Do not miss any doses. Take all pills. Follow up with your primary care doctor within 3 days. Call their office Saturday morning and make an appointment for as soon as available. Your care is not complete until you follow up. Do not miss your appointment with your GI doctor on Saturday. Your care is not complete until you follow up. I have sent a prescription for Zofran to your pharmacy to help with the nausea. Take as advised on label. Return to the Emergency Department for vomiting, increasing pain, vomiting blood , fever, chest pain, shortness of breath, palpitations or any other new, worsening or concerning symptoms.
[2018-01-25 15:36] VITALS: BP 152/74; PULSE 91; TEMP 98.3; BMI 25.0
[2018-01-25] MEDS ORDERED: PANTOPRAZOLE SODIUM 40 MG VIAL IVPUSH ONE (15:45)
[2018-01-25] MEDS ORDERED: ONDANSETRON 4 MG/2 ML VIAL IVPUSH ONE (15:45)
[2018-01-25] MEDS ORDERED: SODIUM CHLORIDE 1,000 ML IV STA (15:45)
[2018-01-25] MEDS ORDERED: MAG HYDROX/AL HYDROX/SIMETH 30 ML UNIT-DOSE CUP PO ONE (15:45)
[2018-01-25 16:02] LABS: URINE APPEARANCE CLOUDY; URINE BILIRUBIN NEGATIVE (<2.0 mg/dL); URINE COLOR YELLOW; URINE GLUCOSE (UA) NEGATIVE (NEGATIVE); URINE KETONE NEGATIVE (NEGATIVE); URINE LEUK ESTERASE 3+ (NEGATIVE); URINE NITRITE NEGATIVE (NEGATIVE); URINE PROTEIN 2+ (NEGATIVE); URINE UROBILINOGEN NEGATIVE mg/dL (0.2-1.0)
[2018-01-25 16:15] LABS: BASO % 0.3 % (0-2.0); EOS % 1.9 % (0-4.5); HEMATOCRIT 26.7 % (32.4-45.2); HEMOGLOBIN 8.3 GM/dL (10.7-15.3); LYMPH % 47.8 % (8-40); MCH 22.1 pg (25.7-33.7); MCHC 31.1 g/dl (32.0-36.0); MEAN PLT VOLUME 8.9 fl (7.5-11.1); MONO % 8.9 % (3.8-10.2); NEUT % 41.1 % (42.8-82.8); PLATELET COUNT 249 K/MM3 (134-434); RBC 3.77 M/mm3 (3.60-5.2); RDW 21.6 % (11.6-15.6); WHITE BLOOD COUNT 5.1 K/mm3 (4.0-10.0)
[2018-01-25] MEDS ORDERED: PANTOPRAZOLE SODIUM 40 MG VIAL ONE (16:26)
[2018-01-25] MEDS ORDERED: MAG HYDROX/AL HYDROX/SIMETH 30 ML UNIT-DOSE CUP ONE (16:26)
--- NOTE | 2018-01-25 16:35 | PDOC ---
Attending Attestation - Resident Resident Name: GueraAdwoa - ED Attending Attestation I have performed the following: I have examined & evaluated the patient, The case was reviewed & discussed with the resident, I agree w/resident's findings & plan - HPI HPI: 01/25/18 17:16 The patient is a 52 year old female with a significant PMH of anemia, HTN, DM, HIV (unknown CD4, x1 month "undetectable viral load"), asthma who presents to the emergency department with nausea, vomiting, and epigastric pain for the past three days. Patient notes these symptoms feel like her GERD. Patient reports she is only here today to be rehydrated as she has medication at home and will see GI in two days. Patient states she was recently diagnosed with a UTI yesterday at [facility] and was prescribed antibiotics, ciprofloxacin due to allergies. The patient denies chest pain, shortness of breath, headache and dizziness. Denies fever, chills, diarrhea and constipation. Denies dysuria, frequency, urgency and hematuria. Allergies: PCN, sulfa Past surgical history: None reported. Social history: No reported alcohol, drug, or cigarette use. PCP: Dr. Arriaza - Physicial Exam PE: 01/25/18 16:50 NAD, well appearing, MMM, nl conjunctiva, anicteric; neck supple. lungs clear, RRR, abdomen soft nontender. ADRIAN x4, no focal neuro deficits. No peripheral edema. normal color for ethnicity, WWP. - Medical Decision Making 01/25/18 16:50 Vital signs reviewed, wnl. Prior notes reviewed, including admissions, discharges and consultations. laboratory results and imaging reviewed, basic labs normal with baseline anemia. also chem hemolyzed, but patient refusing blood redraw. UA_ +leuk esterase, wbcs, ?infection with UTI, will treat with keflex. now on cipro, continue taking; however, pcn and sulfa allergy, so limited alternatives and no urinary sx or s/s sepsis. CMP-hemolyzed x2, pt declines repeat and ok with plan as I doubt emergent pathology and amarjit PO intake with clinical improvmeent. ED course: no acute events, remained stable and well appearing. abdomen benign. Clinically improved after interventions, including IVF and maalox; eager for discharge. return precautions discussed. compliance with cipro. rx zofran PRN, maalox OTC for GERD sx. DC in stable condition. 01/25/18 17:17 01/26/18 13:18
[2018-01-25 16:40] LABS: EPI CELLS RARE /HPF (FEW); URINE MUCUS RARE
[2018-01-25] MEDS ORDERED: BACITRACIN 0.9 GM PACKET ONE (16:45)
[2018-01-25] MEDS ORDERED: ONDANSETRON *ODT* 4 MG TABLET ONE (16:57)
[2018-01-25] MEDS ORDERED: ONDANSETRON *ODT* 4 MG TABLET SL ONE (16:58)
[2018-01-25 19:33] LABS: ANISOCYTOSIS 1+; PLATELET ESTIMATE ADEQUATE; ROULEAU 1+
== END 2018-01-25 17:35 | disposition home or self-care (01) ==
LOC: JER 15:19
PROC: 3E0337Z Introduction of Electrolytic and Water Balance Substance into Peripheral Vein, Percutaneous Approach (ICD-10-PCS; principal; 2018-01-25)
DX: R11.2 Nausea with vomiting, unspecified (principal); I10 Essential (primary) hypertension; E11.9 Type 2 diabetes mellitus without complications; D64.9 Anemia, unspecified; J45.909 Unspecified asthma, uncomplicated; Z21 Asymptomatic human immunodeficiency virus [HIV] infection status
CPT/HCPCS: 36415; 81003; 81015; 85025; 87086; 87186; 96360; 99283-25; J7030; Q0162

== ENCOUNTER 2018-01-26 14:17 | Emergency (ER) | payer OTHER ==
[2018-01-26 14:25] VITALS: BMI 25.0
--- NOTE | 2018-01-26 14:43 | PDOC ---
History of Present Illness - General Chief Complaint: Pain Stated Complaint: ABDOMINAL PAIN Past History - Past Medical History Allergies/Adverse Reactions: Allergies Allergy/AdvReac Type Severity Reaction Status Date / Time Penicillins Allergy Severe Hives Verified 01/26/18 14:21 Sulfa (Sulfonamide Allergy Severe Difficulty Verified 01/26/18 14:21 Antibiotics) Breathing Home Medications: Ambulatory Orders Albuterol Sulfate Inhaler - [Ventolin Hfa Inhaler -] 1 puff IH PRN 12/03/17 Famotidine [Pepcid -] 20 mg PO DAILY 12/03/17 Hydrochlorothiazide [Hctz -] 25 mg PO DAILY 12/03/17 Ondansetron [Zofran Odt -] 4 mg SL PRN #8 od.tablet 01/25/18 Anemia: Yes Asthma: Yes Cancer: No Cardiac Disorders: No CVA: No COPD: No CHF: No DVT: No Dementia: No Diabetes: Yes GI Disorders: No Disorders: No HTN: Yes Hypercholesterolemia: No Liver Disease: No Seizures: No Thyroid Disease: No - Surgical History Abdominal Surgery: No Appendectomy: No Cardiac Surgery: No Cholecystectomy: No Lung Surgery: No Neurologic Surgery: No Orthopedic Surgery: No - Immunization History Immunization Up to Date: No - Suicide/Smoking/Psychosocial Hx Smoking Status: Yes Smoking History: Never smoked Have you smoked in the past 12 months: No Number of Cigarettes Smoked Daily: 10 If you are a former smoker, when did you quit?: 1yr Information on smoking cessation initiated: No 'Breaking Loose' booklet given: 11/21/17 Hx Alcohol Use: No Drug/Substance Use Hx: No Substance Use Type: None Hx Substance Use Treatment: No *Physical Exam - Vital Signs Last Vital Signs Temp Pulse Resp BP Pulse Ox 98.6 F 90 18 137/63 100 01/26/18 14:21 01/26/18 14:21 01/26/18 14:21 01/26/18 14:21 01/26/18 14:21
--- NOTE | 2018-01-26 14:48 | PDOC ---
History of Present Illness - General Chief Complaint: Pain Stated Complaint: ABDOMINAL PAIN Time Seen by Provider: 01/26/18 14:44 - History of Present Illness Initial Comments: 53yo F with PMH of anemia, HTN, DM, HIV, asthma, recent UTI on ciprofloxacin presenting with abdominal pain and wanting a second opinion. Patient was seen in this ED yesterday for nausea and vomiting. She visited [facility] this morning for abdominal pain and was told that she needed a blood transfusion. Patient left and came to this ED for a second opinion. She says her abdominal pain has been present for several months and has been told it may be due to an ulcer. Denies heavy NSAID use or history of H. pylori. She has an appointment to see a GI doctor tomorrow at [place]. Patient has taken a number of different medicines like Maalox and pepcid with minimal relief. She also says that she ran out of omeprazole yesterday. Last bowel movement was this morning and was a normal formed brown-black stool. History of hysterectomy. One episode of NBNB vomiting today. No fever, chills, chest pain, or shortness of breath. Past History - Past Medical History Allergies/Adverse Reactions: Allergies Allergy/AdvReac Type Severity Reaction Status Date / Time Penicillins Allergy Severe Hives Verified 01/26/18 14:21 Sulfa (Sulfonamide Allergy Severe Difficulty Verified 01/26/18 14:21 Antibiotics) Breathing Home Medications: Ambulatory Orders Ondansetron [Zofran Odt -] 4 mg SL PRN #8 od.tablet 01/25/18 Omeprazole 20 mg PO DAILY 01/26/18 Anemia: Yes Asthma: Yes Cancer: No Cardiac Disorders: No CVA: No COPD: No CHF: No DVT: No Dementia: No Diabetes: Yes GI Disorders: No Disorders: No HTN: Yes Hypercholesterolemia: No Liver Disease: No Seizures: No Thyroid Disease: No - Surgical History Abdominal Surgery: No Appendectomy: No Cardiac Surgery: No Cholecystectomy: No Lung Surgery: No Neurologic Surgery: No Orthopedic Surgery: No - Immunization History Immunization Up to Date: No - Suicide/Smoking/Psychosocial Hx Smoking Status: Yes Smoking History: Never smoked Have you smoked in the past 12 months: No Number of Cigarettes Smoked Daily: 10 If you are a former smoker, when did you quit?: 1yr Information on smoking cessation initiated: No 'Breaking Loose' booklet given: 11/21/17 Hx Alcohol Use: No Drug/Substance Use Hx: No Substance Use Type: None Hx Substance Use Treatment: No Review of Systems - Review of Systems Comments:: Constitutional: no fever, no chills HEENT: no throat pain, no dysphagia Cardiovascular: no chest pain, no palpitations Respiratory: no cough, no shortness of breath Gastrointestinal: +abdominal pain, +nausea, +vomiting Genitourinary: no dysuria, no frequency Musculoskeletal: no myalgia, no arthralgia Skin: no rash, no itching Neurologic: no headache, no dizziness *Physical Exam - Vital Signs Last Vital Signs Temp Pulse Resp BP Pulse Ox 98.6 F 90 18 137/63 100 01/26/18 14:21 01/26/18 14:21 01/26/18 14:21 01/26/18 14:21 01/26/18 14:21 - Physical Exam Comments: General: Awake, alert, and fully oriented, in no acute distress Head: no signs of trauma Eyes: EOMI, sclera anicteric ENT: Moist mucus membranes Neck: Normal ROM, supple Lungs: Lungs clear, Normal breath sounds Cardio: Regular rhythm, S1 and S2 present Abdomen: Tender to palpation in the epigastrium. Soft, nondistended. No guarding , no rebound, no masses Extremities: Normal range of motion, Distal pulses present SKIN: Warm, Dry, normal turgor Neurologic: Cranial nerves II through XII grossly intact. Normal speech ED Treatment Course - LABORATORY CBC & Chemistry Diagram: 01/26/18 15:55 01/26/18 15:55 Medical Decision Making - Medical Decision Making 53yo F with PMH of anemia, HTN, DM, HIV, asthma, recent UTI on ciprofloxacin presenting with abdominal pain and wanting a second opinion. -Labs: Hgb 8.2, stable from yesterday. Low suspicion for GI bleed. Lipase normal -Prontonix and Maalox -Benefits and risks of rectal exam explained and patient voiced understanding. Patient declined procedure. -Patient repeatedly asked to be discharged as today is her birthday. She said she does not want to be in the hospital all day. Patient observed leaving her room multiple times and asking to speak with providers despite being told each time to return to her room out of concern for her privacy to discuss updates. Patient requested to leave AMA before lab results came back, however, lab results came in shortly after this declaration. *DC/Admit/Observation/Transfer Diagnosis at time of Disposition: Abdominal pain - Discharge Dispostion Disposition: HOME Condition at time of disposition: Stable - Referrals Referrals: Yi Figueroa [Primary Care Provider] - - Patient Instructions Printed Discharge Instructions: DI for Abdominal Pain-Adult Additional Instructions: You came to the ED for abdominal pain and a second opinion regarding your hemoglobin level. Your hemoglobin level was very similar to the level of yesterday. We have a low suspicion for a GI bleed. Follow-up with the GI doctor at your appointment tomorrow. Your care is not complete until you do so. RETURN if: you experience any lightheadedness, dizziness, chest pain, shortness of breath, persistent black tarry stools, bright red blood per rectum, blood in your vomit, any severe abdominal pain, or any other new or concerning symptoms - Post Discharge Activity
[2018-01-26] MEDS ORDERED: MAG HYDROX/AL HYDROX/SIMETH -MYLANTA- ORAL SUSPENSION PO ONE (15:41)
[2018-01-26] MEDS ORDERED: PANTOPRAZOLE 20 MG TABLET (FP) PO ONE (15:44)
[2018-01-26] MEDS ORDERED: MAG HYDROX/AL HYDROX/SIMETH 30 ML UNIT-DOSE CUP ONE (15:55)
[2018-01-26 16:19] LABS: BASO % 3.6 % (0-2.0); EOS % 1.1 % (0-4.5); HEMATOCRIT 25.9 % (32.4-45.2); HEMOGLOBIN 8.2 GM/dL (10.7-15.3); LYMPH % 42.3 % (8-40); MCH 22.5 pg (25.7-33.7); MCHC 31.7 g/dl (32.0-36.0); MEAN CELL VOLUME 70.8 fl (80-96); MEAN PLT VOLUME 8.6 fl (7.5-11.1); MONO % 6.5 % (3.8-10.2); NEUT % 46.5 % (42.8-82.8); PLATELET COUNT 231 K/MM3 (134-434); RBC 3.65 M/mm3 (3.60-5.2); RDW 21.2 % (11.6-15.6); WHITE BLOOD COUNT 6.9 K/mm3 (4.0-10.0)
--- NOTE | 2018-01-26 16:22 | PDOC ---
Attending Attestation - Resident Resident Name: Rosanne Lawson - ED Attending Attestation I have performed the following: I have examined & evaluated the patient, The case was reviewed & discussed with the resident, I agree w/resident's findings & plan, Exceptions are as noted - HPI HPI: 01/26/18 16:16 The patient is a 53 year old female, with a significant past medical history of anemia, asthma, diabetes, HIV (on meds, unknown VL/CD4) and HTN, who presents to the ED complaining of abdominal pain and for second opinion about her bloodwork. Pt is well known to this ED with frequent visits for abdominal pain, often refusing work up. She notes that her abdominal pain has been going on for several months. She reports that she was in the ED yesterday for abdominal pain , nausea and vomit but declined a full workup, stating that she just wanted fluids to hold her over until Saturday for her GI appointment. The pain she is having today is the same pain, epigastric, non-radiating. She also notes that she went to [facility] today and had bloodwork done. Pt states that her Hb was 7.15 and she was told she needed a transfusion. She refused and decided to come to [place] for a second opinion. The patient denies chest pain, shortness of breath, headache and dizziness. Denies fever, chills, diarrhea or constipation. Allergies: Sulfa, penicillins Past surgical history: None reported Social History: No alcohol, tobacco or drug use reported - Physicial Exam PE: 01/26/18 16:20 GENERAL: Awake, alert, and fully oriented, in no acute distress. HEAD: No signs of trauma EYES: PERRLA, EOMI, sclera anicteric, conjunctiva clear ENT: Auricles normal inspection, hearing grossly normal, nares patent, oropharynx clear without exudates. Moist mucosa NECK: Nontender, no stepoffs, Normal ROM, supple, no lymphadenopathy, JVD, or masses LUNGS: Breath sounds equal, clear to auscultation bilaterally. No wheezes, and no crackles HEART: Regular rate and rhythm, normal S1 and S2, no murmurs, rubs or gallops ABDOMEN: Soft, nontender, normoactive bowel sounds. No guarding, no rebound. No masses EXTREMITIES: Normal range of motion, no edema. No clubbing or cyanosis. No cords, erythema, or tenderness NEUROLOGICAL: Cranial nerves II through XII intact. 5/5 strength and sensation in all extremities, Normal speech, normal gait, normal cerebellar function SKIN: Warm, Dry, normal turgor, no rashes or lesions noted. - Medical Decision Making 01/26/18 16:20 53 F with chronic epigastric pain, likely gastritis. Will attempt to check labs. Pt also with anemia, likely her baseline. Will recheck Hb today and transfuse if indicated. - Labs, T&S 01/26/18 17:12 Labs wnl. Hb at baseline Pt is well appearing, with normal vitals. Clinically stable for DC at this time. I discussed the physical exam findings, ancillary test results and final diagnoses with the patient. I answered all of the patient's questions. The patient was satisfied with the care received and felt comfortable with the discharge plan and treatment plan. The patient agrees to follow up with the primary care physician within 24-72 hours.
[2018-01-26 16:50] LABS: ALBUMIN 2.6 g/dl (3.4-5.0); ALK PHOS 106 U/L (45-117); ANION GAP 5 MMOL/L (8-16); BILIRUBIN,TOTAL 0.2 mg/dL (0.2-1); BLOOD UREA NITROGEN 23 mg/dL (7-18); CALCIUM 8.5 mg/dL (8.5-10.1); CHLORIDE 106 mmol/L (98-107); CO2 23 mmol/L (21-32); CREATININE 1.5 mg/dL (0.55-1.3); GLUCOSE,RANDOM 97 mg/dL (74-106); LIPASE 356 U/L (73-393); POTASSIUM 4.4 mmol/L (3.5-5.1); SGOT/AST 25 U/L (15-37); SGPT/ALT 14 U/L (13-61); SODIUM 135 mmol/L (136-145); TOT PROT 8.6 g/dl (6.4-8.2)
[2018-01-26 17:36] VITALS: BP 138/89; PULSE 91; TEMP 97.8
== END 2018-01-26 17:25 | disposition home or self-care (01) ==
LOC: JER 14:17
DX: R10.9 Unspecified abdominal pain (principal); D64.9 Anemia, unspecified; I10 Essential (primary) hypertension; E11.9 Type 2 diabetes mellitus without complications; J45.909 Unspecified asthma, uncomplicated; Z21 Asymptomatic human immunodeficiency virus [HIV] infection status; Z87.440 Personal history of urinary (tract) infections; Z88.0 Allergy status to penicillin; Z88.2 Allergy status to sulfonamides
CPT/HCPCS: 36415; 80053; 83690; 85025; 86850; 86900; 86901; 99282-25

== ENCOUNTER 2018-01-29 03:08 | Emergency (ER) | payer OTHER ==
[2018-01-29] MEDS ORDERED: RANITIDINE HCL 150 MG TABLET (FP) PO ONE (05:17)
[2018-01-29] MEDS ORDERED: MAG HYDROX/AL HYDROX/SIMETH 30 ML UNIT-DOSE CUP PO ONE (05:17)
--- NOTE | 2018-01-29 05:22 | PDOC ---
History of Present Illness - General History Source: Patient <Roxana Lorenzana - Last Filed: 01/29/18 05:18> - History of Present Illness Initial Comments: 01/29/18 06:22 Patient is a 53 year old female with a significant past medical history of HTN, HIV, Anemia, Asthma, who presents to the ED with complaints of nausea and vomiting that began earlier today. Patient reports [facility] and was prescribed Cipro antibiotics and discharged. She reports experiencing nausea, vomiting and watery loose diarrhea, shortly after taking her medication prompting her to come back to the ED for further evaluation stating her instructions said to return if the symptoms began. Chart review shows UCx grown E.Coli resistant to fluoroquinolones. Denies chest pain, Sob. Denies fevers,chills. Denies contact with sick individuals, out of state travelling. Denies any other symptoms. Allergies: Penicillin, Sulfa Social history: No smoking. No alcohol. No illicit drugs, Surgical history: None PMD: Dr. Yi Castle <Virgilio Calderón - Last Filed: 01/29/18 06:23> - General Stated Complaint: ABD PAIN Past History - Past Medical History Anemia: Yes Asthma: Yes Cancer: No Cardiac Disorders: No CVA: No COPD: No CHF: No DVT: No Dementia: No Diabetes: Yes GI Disorders: No Disorders: No HTN: Yes Hypercholesterolemia: No Liver Disease: No Seizures: No Thyroid Disease: No - Surgical History Abdominal Surgery: No Appendectomy: No Cardiac Surgery: No Cholecystectomy: No Lung Surgery: No Neurologic Surgery: No Orthopedic Surgery: No - Immunization History Immunization Up to Date: No - Suicide/Smoking/Psychosocial Hx Smoking Status: Yes Smoking History: Unknown if ever smoked Have you smoked in the past 12 months: No Number of Cigarettes Smoked Daily: 10 If you are a former smoker, when did you quit?: 1yr 'Breaking Loose' booklet given: 11/21/17 Hx Alcohol Use: No Drug/Substance Use Hx: No Substance Use Type: None Hx Substance Use Treatment: No <Roxana Lorenzana - Last Filed: 01/29/18 05:18> <Virgilio Calderón - Last Filed: 01/29/18 06:23> - Past Medical History Allergies/Adverse Reactions: Allergies Allergy/AdvReac Type Severity Reaction Status Date / Time Penicillins Allergy Severe Hives Verified 01/29/18 05:46 Sulfa (Sulfonamide Allergy Severe Difficulty Verified 01/29/18 05:46 Antibiotics) Breathing Home Medications: Ambulatory Orders Ondansetron [Zofran Odt -] 4 mg SL PRN #8 od.tablet 01/25/18 Omeprazole 20 mg PO DAILY 01/26/18 Nitrofurantoin Macrocrystal [Macrodantin -] 100 mg PO ONCE #10 capsule 01/29/18 Review of Systems - Review of Systems Able to Perform ROS?: Yes Comments:: 01/29/18 06:22 ROS: See HPI. All other systems reviewed and unremarkable <Virgilio Calderón - Last Filed: 01/29/18 06:23> *Physical Exam - Vital Signs Last Vital Signs Temp Pulse Resp BP Pulse Ox 97.7 F 75 18 146/61 100 01/29/18 03:10 01/29/18 03:10 01/29/18 03:10 01/29/18 03:10 01/29/18 03:10 - Physical Exam Comments: 01/29/18 06:22 General Physical Exam: NAD EOMI, DAVE MMM, OP WNL NCAT, no midline cervical tenderness RRR, nl s1/s2, no m/r/g CTABL, no w/r/r Soft, NTND No edema, WWP, no rash Neuro grossly intact, gait WNL, moving all 4 A&O x 3, mood/affect WNL. <Virgilio Calderón - Last Filed: 01/29/18 06:23> ED Treatment Course - Medications Given in the ED: ED Medications Discontinued Medications Generic Name Dose Route Start Last Admin Trade Name Freq PRN Reason Stop Dose Admin Al Hydroxide/Mg Hydroxide 30 ml 01/29/18 05:17 01/29/18 05:49 Mylanta Oral Suspension - PO 01/29/18 05:18 30 ml ONCE ONE Administration Nitrofurantoin Macrocrystals 100 mg 01/29/18 05:30 01/29/18 05:49 Macrodantin - PO 100 mg ONCE ZHANG Administration Ranitidine HCl 150 mg 01/29/18 05:17 01/29/18 05:49 Zantac - PO 01/29/18 05:18 150 mg ONCE ONE Administration <Virgilio Calderón - Last Filed: 01/29/18 06:23> Medical Decision Making - Medical Decision Making 01/29/18 05:18 53yoF w/ frequent ED vsisits, recurernt UTI presents w/ n/v/d after starting cipro for a UTI. Her Ucx from 01/25 is growing e.coli resistnat to fluoroquinolones, but sens to nitrofurantoin. - sxs cotnrol - DC cipro - start nitrourantoin - PMD f/u. <Roxana Lorenzana - Last Filed: 01/29/18 05:18> *DC/Admit/Observation/Transfer - Discharge Dispostion Decision to Admit order: No <Roxana Lorenzana - Last Filed: 01/29/18 05:18> - Attestations Scribe Attestion: 01/29/18 06:23 Documentation prepared by Virgilio Calderón, acting as medical education manager for Roxana Lorenzana MD. <Virgilio Calderón - Last Filed: 01/29/18 06:23> Diagnosis at time of Disposition: UTI (urinary tract infection) - Discharge Dispostion Disposition: HOME Condition at time of disposition: Good - Prescriptions Prescriptions: Nitrofurantoin Macrocrystal [Macrodantin -] 100 mg PO ONCE #10 capsule - Referrals Referrals: Yi Figueroa [Primary Care Provider] - - Patient Instructions Additional Instructions: STOP levofloxacin. START nitrofurantoin for urine infection. Continue all other home medications. Take antibiotics with food to avoid stomach upset. - Post Discharge Activity
[2018-01-29] MEDS ORDERED: NITROFURANTOIN MACROCRYSTAL 50 MG CAPSULE (FP) PO SCH (05:30)
[2018-01-29] MEDS ORDERED: NITROFURANTOIN MACROCRYSTAL 50 MG CAPSULE (FP) ONE (05:38)
[2018-01-29] MEDS ORDERED: RANITIDINE HCL 150 MG TABLET (FP) ONE (05:38)
[2018-01-29] MEDS ORDERED: MAG HYDROX/AL HYDROX/SIMETH 30 ML UNIT-DOSE CUP ONE (05:39)
[2018-01-29 05:44] VITALS: BP 146/61; PULSE 75; TEMP 97.7; BMI 25.0
== END 2018-01-29 05:59 | disposition home or self-care (01) ==
LOC: JER 03:08
DX: N39.0 Urinary tract infection, site not specified (principal); B96.20 Unspecified Escherichia coli [E. coli] as the cause of diseases classified elsewhere; Z16.23 Resistance to quinolones and fluoroquinolones; Z87.440 Personal history of urinary (tract) infections; D64.9 Anemia, unspecified; J45.909 Unspecified asthma, uncomplicated; I10 Essential (primary) hypertension; Z21 Asymptomatic human immunodeficiency virus [HIV] infection status; Z88.0 Allergy status to penicillin; Z88.2 Allergy status to sulfonamides
CPT/HCPCS: 99282-25

== ENCOUNTER 2018-02-04 04:30 | Emergency (ER) | payer OTHER ==
[2018-02-04 04:44] VITALS: BP 162/86; PULSE 79; TEMP 98.1; BMI 25.2
[2018-02-04] MEDS ORDERED: MAG HYDROX/AL HYDROX/SIMETH 30 ML UNIT-DOSE CUP PO ONE (04:57)
[2018-02-04] MEDS ORDERED: MAG HYDROX/AL HYDROX/SIMETH 30 ML UNIT-DOSE CUP ONE (05:00)
--- NOTE | 2018-02-04 05:01 | PDOC ---
History of Present Illness - General Chief Complaint: Pain Stated Complaint: ABD PAIN Time Seen by Provider: 02/04/18 04:51 - History of Present Illness Initial Comments: 02/04/18 04:56 53 year old female with a significant past medical history of HTN, HIV, Anemia, Asthma, who presents to the ED with LUQ abdominal "burning" that feels like her acid reflux and started 30mins prior to arrival. The patient notes that mylanta typical makes her feel better. She does not take any regular medications for GERD. She reports that she has an upcoming appointment with gastroenterology this week. She denies any chest pain, shortness of breath. Admits to dysuria but was seen here 6 days ago for UTI and is on a course of cipro. The patient denies any fever nausea, vomiting, diarrhea or constipoation. She hsa no other complaints at bedside. Past History - Past Medical History Allergies/Adverse Reactions: Allergies Allergy/AdvReac Type Severity Reaction Status Date / Time Penicillins Allergy Severe Hives Verified 02/04/18 04:58 Sulfa (Sulfonamide Allergy Severe Difficulty Verified 02/04/18 04:58 Antibiotics) Breathing Anemia: Yes Asthma: Yes Cancer: No Cardiac Disorders: No CVA: No COPD: No CHF: No DVT: No Dementia: No Diabetes: Yes GI Disorders: No Disorders: No HTN: Yes Hypercholesterolemia: No Liver Disease: No Seizures: No Thyroid Disease: No - Surgical History Abdominal Surgery: No Appendectomy: No Cardiac Surgery: No Cholecystectomy: No Lung Surgery: No Neurologic Surgery: No Orthopedic Surgery: No - Immunization History Immunization Up to Date: No - Suicide/Smoking/Psychosocial Hx Smoking Status: Yes Smoking History: Current every day smoker Have you smoked in the past 12 months: No Number of Cigarettes Smoked Daily: 10 If you are a former smoker, when did you quit?: 1yr Information on smoking cessation initiated: No 'Breaking Loose' booklet given: 11/21/17 Hx Alcohol Use: No Drug/Substance Use Hx: No Substance Use Type: None Hx Substance Use Treatment: No *Physical Exam - Vital Signs Last Vital Signs Temp Pulse Resp BP Pulse Ox 98.1 F 79 16 162/86 99 02/04/18 04:35 02/04/18 04:35 02/04/18 04:35 02/04/18 04:35 02/04/18 04:35 - Physical Exam Comments: 02/04/18 05:06 + harsh holosystolic murmurs best heard on L upper sternal border No abdominal tenderness No CVA tenderness Medical Decision Making - Medical Decision Making 02/04/18 05:00 53 year old female with a significant past medical history of HTN, HIV, Anemia, Asthma, who presents to the ED with LUQ abdominal "burning" that feels like her acid reflux and started 30mins prior to arrival. The patient notes that mylanta typical makes her feel better. She does not take any regular medications for GERD. She reports that she has an upcoming appointment with gastroenterology this week. She denies any chest pain, shortness of breath. Admits to dysuria but was seen here 6 days ago for UTI and is on a course of cipro. The patient denies any fever nausea, vomiting, diarrhea or constipoation. She hsa no other complaints at bedside. DDX including but not limited to: GERD vs ACS vs musculoskeletal vs gastritis W/U: - TX: - Scores: ED Course: 02/04/18 05:07 02/04/18 05:18 Patient received Maalox and feels improved. Does not desire further workup or evaluation including EKG and bloodwork. This remote mortgage underwriter explained to the patient that further work up would be necessary to rule out other causes for her symptoms. She refused and called her van transport. The remote mortgage underwriter advised that patient be seen in the internal medicine clinic and be followed by a primary care physiican for appropriate workup and follow up. She should been seen within 1 week. The patient expressed understanding. *DC/Admit/Observation/Transfer Diagnosis at time of Disposition: GERD (gastroesophageal reflux disease) - Discharge Dispostion Disposition: AGAINST MEDICAL ADVICE Condition at time of disposition: Stable Decision to Admit order: No - Referrals - Patient Instructions Printed Discharge Instructions: DI for Gastroesophageal Reflux Disease (GERD) Additional Instructions: You were seen in the ED for complaints of upper abdominal pain. You refused labwork, EKG and further workup and evaluation. The risks of leaving the hospital without complete evaluation for upper abdominal include , cardiac arrest, heart attack, stroke and loss of consciousness. These risks have been discussed with your for > 30min. You express understanding of these risks and still desire to leave the hospital against medical advice. You are advised to follow up with your Primary Care Physician within 1 week. Return to the ED immediately if you experience worsening abdominal pain, chest pain, shortness of breath, blood in the urine or stool, nausea, vomiting or fever. - Post Discharge Activity
[2018-02-04] MEDS ORDERED: PANTOPRAZOLE 40 MG TABLET (FP) PO ONE (05:09)
--- NOTE | 2018-02-04 05:29 | PDOC ---
Attending Attestation - Resident Resident Name: Roma Rios - ED Attending Attestation I have performed the following: I have examined & evaluated the patient, The case was reviewed & discussed with the resident, I agree w/resident's findings & plan - HPI HPI: 02/04/18 05:26 53 year old female with a significant past medical history of HTN, HIV, Anemia, Asthma, who presents to the ED with LUQ abdominal "burning" that feels like her acid reflux and started 30mins prior to arrival. several ED visits for similar presentations. currently min symptomatic, no vomiting or diarrhea, fevers, cp or sob. - Physicial Exam PE: 02/04/18 05:27 agree with resident note. - Medical Decision Making 02/04/18 05:27 53 year old female with a significant past medical history of HTN, HIV, Anemia, Asthma, who presents to the ED with LUQ abdominal "burning" that feels like her acid reflux vitals wnl. ambulating in department. refusing labs and ekg and workup. only requesting maalox. prior ED visits with similar behavior. given maalox. will AMA as she refuses any care, lab workup, ekg to r/o emergent pathology. pt with capacity to make decisions, indications and risks discussed, not limited to severe disability, coma , severe infection, perforation, obstruction or intra abdominal pathology, heart attack, respiratory failure. pt accepts risks. 02/04/18 05:27
== END 2018-02-04 06:15 | disposition left against medical advice (07) ==
LOC: JER 04:30
DX: K21.9 Gastro-esophageal reflux disease without esophagitis (principal); I10 Essential (primary) hypertension; J45.909 Unspecified asthma, uncomplicated; D64.9 Anemia, unspecified; Z21 Asymptomatic human immunodeficiency virus [HIV] infection status; Z88.0 Allergy status to penicillin; Z88.2 Allergy status to sulfonamides
CPT/HCPCS: 99281-25

== ENCOUNTER 2018-02-19 01:43 | Emergency (ER) | payer OTHER ==
[2018-02-19 02:15] VITALS: BP 148/72; PULSE 88; TEMP 98.7; BMI 25.2
--- NOTE | 2018-02-19 02:38 | PDOC ---
History of Present Illness - General Chief Complaint: Pain Stated Complaint: ABD PAIN Time Seen by Provider: 02/19/18 02:27 History Source: Patient - History of Present Illness Initial Comments: 02/19/18 02:38 53 year old female with a significant past medical history of HTN, HIV, Anemia, Asthma, who presents to the ED with LUQ abdominal "burning" that feels like her acid reflux and started 10.30 prior to arrival. patient reports that usually pepcid or maalox helps with epigastric pain. patient with multiple visits to the ER with similar complaints. 02/19/18 02:57 Past History - Past Medical History Allergies/Adverse Reactions: Allergies Allergy/AdvReac Type Severity Reaction Status Date / Time Penicillins Allergy Severe Hives Verified 02/19/18 02:15 Sulfa (Sulfonamide Allergy Severe Difficulty Verified 02/19/18 02:15 Antibiotics) Breathing Home Medications: Ambulatory Orders Mag Hydrox/Al Hydrox/Simeth [Mylanta Suspension -] 30 ml PO Q6H PRN #1 bottle Anemia: Yes Asthma: Yes Cancer: No Cardiac Disorders: No CVA: No COPD: No CHF: No DVT: No Dementia: No Diabetes: Yes GI Disorders: No Disorders: No HTN: Yes Hypercholesterolemia: No Liver Disease: No Seizures: No Thyroid Disease: No - Surgical History Abdominal Surgery: No Appendectomy: No Cardiac Surgery: No Cholecystectomy: No Lung Surgery: No Neurologic Surgery: No Orthopedic Surgery: No - Immunization History Immunization Up to Date: No - Suicide/Smoking/Psychosocial Hx Smoking Status: Yes Smoking History: Never smoked Have you smoked in the past 12 months: No Number of Cigarettes Smoked Daily: 10 If you are a former smoker, when did you quit?: 1yr Information on smoking cessation initiated: No 'Breaking Loose' booklet given: 11/21/17 Hx Alcohol Use: No Drug/Substance Use Hx: No Substance Use Type: None Hx Substance Use Treatment: No Review of Systems - Review of Systems Able to Perform ROS?: Yes Is the patient limited Telugu proficient: No Constitutional: No: Symptoms Reported, See HPI, Chills, Diaphoresis, Fever, Loss of Appetite, Malaise, Night Sweats, Weakness, Weight Stable, Unintentional Wgt. Loss, Unexplained wgt Loss, Other ABD/GI: Yes: Abdominal cramping. No: Symptoms Reported, See HPI, Abdominal Distended, Abd. Pain w/ defecation, Blood Streaked Bowels, Constipated, Diarrhea , Difficulty Swallowing, Nausea, Poor Appetite, Poor Fluid Intake, Rectal Bleeding, Vomiting, Indigestion, Tarry Stools, Other *Physical Exam - Vital Signs Last Vital Signs Temp Pulse Resp BP Pulse Ox 98.7 F 88 18 148/72 100 02/19/18 01:50 02/19/18 01:50 02/19/18 01:50 02/19/18 01:50 02/19/18 01:50 - Physical Exam General Appearance: Yes: Appropriately Dressed Respiratory/Chest: positive: Normal Breath Sounds Cardiovascular: positive: Regular Rhythm, Regular Rate Gastrointestinal/Abdominal: positive: Normal Bowel Sounds, Soft. negative: Tender Extremity: positive: Normal Capillary Refill, Normal Inspection, Normal Range of Motion Integumentary: positive: Normal Color, Dry, Warm Progress Note - Progress Note Progress Note: A: GERD/ Gastritis P: patient has a schedule GI appt on 02/20/18. will give maalox and reevaluate. *DC/Admit/Observation/Transfer Diagnosis at time of Disposition: GERD (gastroesophageal reflux disease) Qualifiers: Esophagitis presence: esophagitis presence not specified Qualified Code(s): K21.9 - Gastro-esophageal reflux disease without esophagitis - Discharge Dispostion Disposition: HOME Condition at time of disposition: Fair - Prescriptions Prescriptions: Mag Hydrox/Al Hydrox/Simeth [Mylanta Suspension -] 30 ml PO Q6H PRN #1 bottle PRN Reason: Gas - Referrals Referrals: Yi Figueroa [Primary Care Provider] - - Patient Instructions Printed Discharge Instructions: DI for Gastroesophageal Reflux Disease (GERD) Additional Instructions: follow up with Gi as soon as possible Additional Instructions: * Please call your personal physician to report your Emergency Department visit and to report your progress, if any. * If there is no improvement in symptoms in 2 days call your physician. * Return to the Emergency Department for any worsening symptoms. - Post Discharge Activity
--- NOTE | 2018-02-19 02:51 | PDOC ---
*Physical Exam - Vital Signs Last Vital Signs Temp Pulse Resp BP Pulse Ox 98.7 F 88 18 148/72 100 02/19/18 01:50 02/19/18 01:50 02/19/18 01:50 02/19/18 01:50 02/19/18 01:50 Medical Decision Making - Medical Decision Making 02/19/18 02:51 Pt seen by Midlevel Provider under my direct supervision Pt interviewed and examined Ancillary studies reviewed I agree with plan as outlined by Midlevel Provider *DC/Admit/Observation/Transfer Diagnosis at time of Disposition: GERD (gastroesophageal reflux disease) - Discharge Dispostion Disposition: HOME Condition at time of disposition: Fair - Prescriptions Prescriptions: Mag Hydrox/Al Hydrox/Simeth [Mylanta Suspension -] 30 ml PO Q6H PRN #1 bottle PRN Reason: Gas - Referrals Referrals: Yi Figueroa [Primary Care Provider] - - Patient Instructions Printed Discharge Instructions: DI for Gastroesophageal Reflux Disease (GERD) Additional Instructions: follow up with Gi as soon as possible Additional Instructions: * Please call your personal physician to report your Emergency Department visit and to report your progress, if any. * If there is no improvement in symptoms in 2 days call your physician. * Return to the Emergency Department for any worsening symptoms. - Post Discharge Activity
[2018-02-19] MEDS ORDERED: MAG HYDROX/AL HYDROX/SIMETH 30 ML UNIT-DOSE CUP PO ONE (02:55)
[2018-02-19] MEDS ORDERED: MAG HYDROX/AL HYDROX/SIMETH 30 ML UNIT-DOSE CUP ONE (02:58)
== END 2018-02-19 03:08 | disposition home or self-care (01) ==
LOC: JER 01:43
DX: K21.9 Gastro-esophageal reflux disease without esophagitis (principal); I10 Essential (primary) hypertension; Z21 Asymptomatic human immunodeficiency virus [HIV] infection status; J45.909 Unspecified asthma, uncomplicated; D64.9 Anemia, unspecified; Z87.891 Personal history of nicotine dependence
CPT/HCPCS: 99282-25

== ENCOUNTER 2018-02-23 15:03 | Emergency (ER) | payer OTHER ==
[2018-02-23 15:14] VITALS: TEMP 98.9; BMI 24.9
--- NOTE | 2018-02-23 15:23 | PDOC ---
Attending Attestation - Resident Resident Name: Sophia Muir - ED Attending Attestation I have performed the following: I have examined & evaluated the patient, The case was reviewed & discussed with the resident, I agree w/resident's findings & plan, Exceptions are as noted - HPI HPI: 53 yo history HIV on ART, HTN, anemia, asthma, GERD presents with c/o dehydration. She states she has not been eating of drinking for the past few days. She has UTI, currently on cipro. No back pain, no fever, no vomiting. - Physicial Exam PE: GENERAL: Awake, alert, and fully oriented, in no acute distress HEAD: No signs of trauma EYES: PERRLA, EOMI, sclera anicteric, conjunctiva clear ENT: Auricles normal inspection, hearing grossly normal, nares patent, oropharynx clear without exudates. Dry mucosa NECK: Normal ROM, supple, no lymphadenopathy, JVD, or masses LUNGS: Breath sounds equal, clear to auscultation bilaterally. No wheezes, and no crackles HEART: Regular rate and rhythm, normal S1 and S2, no murmurs, rubs or gallops ABDOMEN: Soft, +mild suprapubic tenderness, normoactive bowel sounds. No guarding, no rebound. No masses. No CVAT. EXTREMITIES: Normal range of motion, no edema. No clubbing or cyanosis. No cords, erythema, or tenderness NEUROLOGICAL: Cranial nerves II through XII grossly intact. Normal speech, normal gait SKIN: Warm, Dry, normal turgor, no rashes or lesions noted. - Medical Decision Making Pt with recent diagnosis of UTI, on cipro, presenting with poor appetite, dehydration. Will give IV fluids. No signs of pyelo, will change to macrobid, as she was resistant to cipro in past cultures.
[2018-02-23] MEDS ORDERED: SODIUM CHLORIDE 1,000 ML IV STA (15:25)
--- NOTE | 2018-02-23 15:34 | PDOC ---
History of Present Illness - General Chief Complaint: Weakness Stated Complaint: FEVER Time Seen by Provider: 02/23/18 15:06 History Source: Patient Exam Limitations: No Limitations - History of Present Illness Initial Comments: 02/23/18 15:27 Pt is a 53yo f with PMH of HIV on HAART with viral load undetectable, HTN, anemia, asthma, reflux presenting to ED with complaints of dehydration, loss of appetite and lightheadedness. Pt says for the past 4 days or so she has not been eating or hydrating herself. She has been feeling weak and lightheaded. She endorses headache that started yesterday and cough productive of white phlegm occasionally. She says she was diagnosed with a UTI 3 days or so ago and was started on Cipro. Since then she denies urinary symptoms. She also says she had a fever today with oral temperature of 101. She denies chest pain, sob, abdominal pain, n/v/d, blood in stools, numbness/tingling, sore throat, night sweats, weight loss. PMD: PMH: see hpi PSH: hysterectomy Meds: see med rec Allergies: pcn, sulfa Past History - Past Medical History Allergies/Adverse Reactions: Allergies Allergy/AdvReac Type Severity Reaction Status Date / Time Penicillins Allergy Severe Hives Verified 02/23/18 15:10 Sulfa (Sulfonamide Allergy Severe Difficulty Verified 02/23/18 15:10 Antibiotics) Breathing Home Medications: Ambulatory Orders Ciprofloxacin [Cipro (Restricted To Id)] 500 mg PO Q12H 02/23/18 Nitrofurantoin Monohyd/M-Cryst [Macrobid -] 100 mg PO BID #14 capsule 02/23/18 Ondansetron HCl [Zofran] 4 mg PO DAILY #5 tablet 02/23/18 Anemia: Yes Asthma: Yes Cancer: No Cardiac Disorders: No CVA: No COPD: No CHF: No DVT: No Dementia: No Diabetes: Yes GI Disorders: No Disorders: No HTN: Yes Hypercholesterolemia: No Liver Disease: No Seizures: No Thyroid Disease: No - Surgical History Abdominal Surgery: No Appendectomy: No Cardiac Surgery: No Cholecystectomy: No Lung Surgery: No Neurologic Surgery: No Orthopedic Surgery: No - Immunization History Immunization Up to Date: No - Suicide/Smoking/Psychosocial Hx Smoking Status: Yes Smoking History: Never smoked Have you smoked in the past 12 months: No Number of Cigarettes Smoked Daily: 10 If you are a former smoker, when did you quit?: 1yr Information on smoking cessation initiated: No 'Breaking Loose' booklet given: 11/21/17 Hx Alcohol Use: No Drug/Substance Use Hx: No Substance Use Type: None Hx Substance Use Treatment: No Review of Systems - Review of Systems Constitutional: Yes: Fever, Loss of Appetite, Weakness. No: Chills, Night Sweats, Unintentional Wgt. Loss, Unexplained wgt Loss HEENTM: No: Eye Pain, Blurred Vision, Throat Pain Respiratory: Yes: Cough. No: Shortness of Breath, Hemoptysis Cardiac (ROS): Yes: Lightheadedness. No: Chest Pain, Palpitations, Syncope ABD/GI: No: Constipated, Diarrhea, Nausea, Rectal Bleeding, Vomiting, Abdominal cramping, Tarry Stools : No: Burning, Dysuria, Flank Pain, Hematuria Musculoskeletal: No: Back Pain, Joint Pain, Neck Pain Integumentary: No: Symptoms Reported, Rash Neurological: Yes: See HPI, Headache. No: Numbness, Tingling *Physical Exam - Vital Signs Last Vital Signs Temp Pulse Resp BP Pulse Ox 98.9 F 80 16 137/77 99 02/23/18 15:10 02/23/18 15:10 02/23/18 15:10 02/23/18 15:10 02/23/18 15:10 - Physical Exam General Appearance: Yes: Nourished, Appropriately Dressed. No: Apparent Distress HEENT: positive: EOMI, DAVE, Other (lingual thrush. dry mucousal membranes) Neck: positive: Trachea midline, Supple. negative: Lymphadenopathy (R), Lymphadenopathy (L) Respiratory/Chest: positive: Normal Breath Sounds, Other (course sound at bases) . negative: Rhonchi, Stridor, Wheezing, Hyperresonant, Dullness Cardiovascular: positive: Regular Rhythm, Regular Rate, S1, S2, Systolic Murmur. negative: JVD, Murmur Vascular Pulses: Carotid (R): 2+, Carotid (L): 2+, Dorsalis-Pedis (R): 2+, Doralis-Pedis (L): 2+ Gastrointestinal/Abdominal: positive: Normal Bowel Sounds, Soft. negative: Distended, Guarding, Rebound, Tenderness Lymphatic: negative: Adenopathy Musculoskeletal: negative: CVA Tenderness Extremity: positive: Normal Capillary Refill. negative: Coldness, Cyanosis, Pedal Edema, Swelling, Calf Tenderness Integumentary: positive: Normal Color, Dry, Warm. negative: Rash Neurologic: positive: group care worker II-XII NML intact, Fully Oriented, Alert, Normal Mood/ Affect, Normal Response, Motor Strength 08/10 ED Treatment Course - LABORATORY CBC & Chemistry Diagram: 02/23/18 15:50 02/23/18 15:50 Medical Decision Making - Medical Decision Making 02/23/18 15:39 Pt is a 53yo f with PMH of HIV on HAART with viral load undetectable, HTN, anemia, asthma, reflux presenting to ED with complaints of dehydration, loss of appetite and lightheadedness *DC/Admit/Observation/Transfer Diagnosis at time of Disposition: UTI (urinary tract infection) Qualifiers: Urinary tract infection type: site unspecified Hematuria presence: without hematuria Qualified Code(s): N39.0 - Urinary tract infection, site not specified - Discharge Dispostion Disposition: HOME Condition at time of disposition: Good Decision to Admit order: No - Prescriptions Prescriptions: Nitrofurantoin Monohyd/M-Cryst [Macrobid -] 100 mg PO BID #14 capsule Ondansetron HCl [Zofran] 4 mg PO DAILY #5 tablet - Referrals - Patient Instructions Printed Discharge Instructions: DI for Urinary Tract Infection (UTI) Additional Instructions: You were seen here today for weakness. You still have a urinary tract infection. You need to make sure you hydrate yourself and eat food. This will help with getting rid of the infection faster. Your body needs the energy to fight the infection. It seems like the antibiotic you were taking is not helping. You have been prescribed Macrobid. Please take it with food! I have also prescribed for you an anti-nausea medicine to help with side effects from the Macrobid. Please keep your appointment with your doctor tomorrow. Come back to the emergency room if your fever gets worse, you develop back pain , you start vomiting, or if any new concerning symptom develops. Thank you - Post Discharge Activity
[2018-02-23 15:57] LABS: BASO % 0.6 % (0-2.0); HEMATOCRIT 27.5 % (32.4-45.2); HEMOGLOBIN 8.6 GM/dL (10.7-15.3); LYMPH % 54.4 % (8-40); MCH 21.8 pg (25.7-33.7); MCHC 31.3 g/dl (32.0-36.0); MEAN CELL VOLUME 69.9 fl (80-96); MEAN PLT VOLUME 8.9 fl (7.5-11.1); MONO % 7.1 % (3.8-10.2); NEUT % 36.9 % (42.8-82.8); PLATELET COUNT 209 K/MM3 (134-434); RBC 3.93 M/mm3 (3.60-5.2); RDW 20.7 % (11.6-15.6); WHITE BLOOD COUNT 5.1 K/mm3 (4.0-10.0)
[2018-02-23 16:14] LABS: URINE APPEARANCE CLOUDY; URINE BILIRUBIN NEGATIVE (<2.0 mg/dL); URINE COLOR YELLOW; URINE GLUCOSE (UA) NEGATIVE (NEGATIVE); URINE KETONE NEGATIVE (NEGATIVE); URINE LEUK ESTERASE 3+ (NEGATIVE); URINE NITRITE NEGATIVE (NEGATIVE); URINE PROTEIN 2+ (NEGATIVE); URINE UROBILINOGEN NEGATIVE mg/dL (0.2-1.0)
[2018-02-23 16:30] LABS: EPI CELLS RARE /HPF (FEW)
[2018-02-23] MEDS ORDERED: NITROFURANTOIN MACROCRYSTAL 50 MG CAPSULE (FP) ONE (17:12)
[2018-02-23] MEDS ORDERED: NITROFURANTOIN MACROCRYSTAL 50 MG CAPSULE (FP) PO SCH (17:15)
[2018-02-23] MEDS ORDERED: ONDANSETRON *ODT* 4 MG TABLET SL ONE (17:28)
[2018-02-23] MEDS ORDERED: ONDANSETRON *ODT* 4 MG TABLET ONE (17:29)
[2018-02-23 17:40] VITALS: BP 124/78; PULSE 79
[2018-02-23 18:37] LABS: ANISOCYTOSIS 2+; MACROCYTOSIS 1+; PLATELET ESTIMATE ADEQUATE
[2018-02-24 17:41] LABS: URINE MUCUS RARE
--- NOTE | 2018-02-24 18:31 | EKG ---
Test Reason : Blood Pressure : / mmHG Vent. Rate : 079 BPM Atrial Rate : 079 BPM P-R Int : 144 ms QRS Dur : 084 ms QT Int : 388 ms P-R-T Axes : 056 012 037 degrees QTc Int : 444 ms NORMAL SINUS RHYTHM NORMAL ECG WHEN COMPARED WITH ECG OF 25-DEC-2017 06:24, NO SIGNIFICANT CHANGE WAS FOUND Confirmed by MARGIE LOZANO MD ([id number]) on 02/24/2018 6:31:17 PM Referred By: Confirmed By:MARGIE LOZANO MD
== END 2018-02-23 17:40 | disposition home or self-care (01) ==
LOC: JER 15:03
PROC: 3E0337Z Introduction of Electrolytic and Water Balance Substance into Peripheral Vein, Percutaneous Approach (ICD-10-PCS; principal; 2018-02-23)
DX: N39.0 Urinary tract infection, site not specified (principal); I10 Essential (primary) hypertension; D64.9 Anemia, unspecified; J45.909 Unspecified asthma, uncomplicated; K21.9 Gastro-esophageal reflux disease without esophagitis; B20 Human immunodeficiency virus [HIV] disease
CPT/HCPCS: 36415; 71046-TC-FY; 81003; 81015; 83605; 85025; 87086; 87186; 93005; 93010; 96360; 99283-25; J7030; Q0162

== ENCOUNTER 2018-02-24 03:13 | Emergency (ER) | payer OTHER ==
--- NOTE | 2018-02-24 03:51 | PDOC ---
History of Present Illness - General Stated Complaint: NAUSEA Time Seen by Provider: 02/24/18 03:51 History Source: Patient Exam Limitations: No Limitations - History of Present Illness Initial Comments: Pt is a 53 yo F, with PMH of HIV (on HAART and undetectable viral levels), HTN, anemia, asthma, and acid reflux, who is presenting with complaints of nausea and requesting zofran. Pt is well known to the department, and was just seen earlier today by Dr. Muir. Full work-up was done, including labs, ECG and chest x-ray. UA showed a UTI and macrobid and zofran were sent to [facility]. However the pharmacy does not open until 8am, and the pt is feeling nauseous again. Pt denies any fevers/chills, headache, vision changes, chest pain, palpitations, SOB, vomiting, abdominal pain, urinary symptoms, diarrhea/ constipation, or leg swelling. Pt was able to tolerate dinner around 8pm. Pt denies any cigarette, alcohol, or drug use. Pt denies any recent travel or sick contacts. 02/24/18 04:36 Past History - Travel Traveled outside of the country in the last 30 days: No Close contact w/someone who was outside of country & ill: No - Past Medical History Allergies/Adverse Reactions: Allergies Allergy/AdvReac Type Severity Reaction Status Date / Time Penicillins Allergy Severe Hives Verified 02/23/18 15:10 Sulfa (Sulfonamide Allergy Severe Difficulty Verified 02/23/18 15:10 Antibiotics) Breathing Home Medications: Ambulatory Orders Ciprofloxacin [Cipro (Restricted To Id)] 500 mg PO Q12H 02/23/18 Nitrofurantoin Monohyd/M-Cryst [Macrobid -] 100 mg PO BID #14 capsule 02/23/18 Ondansetron HCl [Zofran] 4 mg PO DAILY #5 tablet 02/23/18 Anemia: Yes Asthma: Yes Cancer: No Cardiac Disorders: No CVA: No COPD: No CHF: No DVT: No Dementia: No Diabetes: Yes GI Disorders: No Disorders: No HTN: Yes Hypercholesterolemia: No Liver Disease: No Seizures: No Thyroid Disease: No - Surgical History Abdominal Surgery: No Appendectomy: No Cardiac Surgery: No Cholecystectomy: No Lung Surgery: No Neurologic Surgery: No Orthopedic Surgery: No - Immunization History Immunization Up to Date: No - Suicide/Smoking/Psychosocial Hx Smoking Status: Yes Smoking History: Never smoked Have you smoked in the past 12 months: No Number of Cigarettes Smoked Daily: 10 If you are a former smoker, when did you quit?: 1yr 'Breaking Loose' booklet given: 11/21/17 Hx Alcohol Use: No Drug/Substance Use Hx: No Substance Use Type: None Hx Substance Use Treatment: No Review of Systems - Review of Systems Able to Perform ROS?: Yes Is the patient limited Hungarian proficient: No Constitutional: Yes: Weight Stable. No: Chills, Diaphoresis, Fever, Loss of Appetite, Weakness HEENTM: No: Blurred Vision, Recent change in vision, Hearing Loss, Throat Pain, Throat Swelling, Difficulty Swallowing Respiratory: No: Cough, Orthopnea, Shortness of Breath Cardiac (ROS): No: Chest Pain, Edema, Irregular Heart Rate, Lightheadedness, Palpitations, Syncope, Chest Tightness ABD/GI: Yes: Nausea. No: Abdominal Distended, Constipated, Diarrhea, Poor Appetite, Poor Fluid Intake, Vomiting, Indigestion, Abdominal cramping : No: Burning, Dysuria, Frequency, Hematuria, Pain, Urgency Musculoskeletal: No: Back Pain, Joint Pain Integumentary: No: Rash Neurological: No: Headache, Unsteady Gait, Dizziness Psychiatric: No: Change in Appetite Endocrine: No: Increased Urine, Change in Weight Hematologic/Lymphatic: No: Anemia, Blood Clots, Easy Bleeding, Easy Bruising All Other Systems: Reviewed and Negative *Physical Exam - Physical Exam General Appearance: Yes: Nourished, Appropriately Dressed. No: Apparent Distress HEENT: positive: EOMI, DAVE, Normal ENT Inspection, Normal Voice, Symmetrical, Pharynx Normal, Hearing Grossly Normal. negative: Scleral Icterus (R), Scleral Icterus (L), Pharyngeal Erythema, Tonsillar Exudate, Tonsillar Erythema, Rhinorrhea Neck: positive: Trachea midline, Normal Thyroid, Supple. negative: Tender, Rigid, Lymphadenopathy (R), Lymphadenopathy (L), Rigidity Respiratory/Chest: positive: Lungs Clear, Normal Breath Sounds. negative: Chest Tender, Respiratory Distress, Accessory Muscle Use, Crackles, Wheezing Cardiovascular: positive: Regular Rhythm, Regular Rate, S1, S2. negative: Edema , JVD, Murmur Vascular Pulses: Carotid (R): 4+, Carotid (L): 4+ Gastrointestinal/Abdominal: positive: Normal Bowel Sounds, Flat, Soft. negative : Tender, Organomegaly, Pulsatile Mass, Distended, Guarding, Rebound Rectal Exam: positive: deferred Lymphatic: negative: Adenopathy, Tenderness Musculoskeletal: positive: Normal Inspection. negative: CVA Tenderness Extremity: positive: Normal Capillary Refill, Normal Inspection, Normal Range of Motion, Pelvis Stable. negative: Tender, Pedal Edema Integumentary: positive: Normal Color, Dry, Warm. negative: Jaundice, Clammy, Diaphoresis, Rash Neurologic: positive: v/stol landing signal officer II-XII NML intact, Fully Oriented, Alert, Normal Mood/ Affect, Normal Response, Motor Strength 5/5 Medical Decision Making - Medical Decision Making Pt was seen at bedside, also will be seen by attending Dr. Lott. Pt presenting with complaints of nausea and requesting zofran. Pt has PMH of HIV (on HAART and undetectable viral levels), HTN, anemia, asthma, and acid reflux. Pt is well known to the department, and was just seen earlier today by Dr. Muir. Full work-up was done, including labs, ECG and chest x-ray. UA showed a UTI and macrobid and zofran were sent to [facility]. However the pharmacy does not open until 8am, and the pt is feeling nauseous again. Pt denies any fevers/ chills, headache, vision changes, chest pain, palpitations, SOB, vomiting, abdominal pain, urinary symptoms, diarrhea/constipation, or leg swelling. Pt was able to tolerate dinner around 8pm. 02/24/18 03:54 Pt was provided zofran, and immediately requested discharged and for cab to be called to take her back to home. Pt was advised to go to the [facility] when it opens to case picker her zofran and macrobid prescriptions. Considering work-up was done earlier in the day, the pt can be discharged to home with follow-up. Pt advised to follow-up with PCP in 1-2 days and has a GI appointment for endoscopy February 26. Strict return precautions provided with pt understanding. 02/24/18 04:26 *DC/Admit/Observation/Transfer Diagnosis at time of Disposition: Nausea GERD (gastroesophageal reflux disease) Qualifiers: Esophagitis presence: esophagitis presence not specified Qualified Code(s): K21.9 - Gastro-esophageal reflux disease without esophagitis - Discharge Dispostion Disposition: HOME Condition at time of disposition: Good Decision to Admit order: No - Referrals Referrals: Yi Figueroa [Primary Care Provider] - - Patient Instructions Printed Discharge Instructions: DI for Nausea -- Adult Additional Instructions: You were seen in the ER today for nausea. Please follow-up with your primary care doctor within 1-2 days to discuss your visit and make sure your symptoms have improved. Please go to the pharmacy to case picker your prescribed medications (zofran and macrobid for UTI). Please return to the ER if you have any worsening pain, development of fevers or chills, loss of consciousness, inability to tolerate food or fluids, or any other concerns. - Post Discharge Activity
[2018-02-24] MEDS ORDERED: ONDANSETRON 4 MG TABLET PO ONE (04:05)
[2018-02-24 04:08] VITALS: BP 134/76; PULSE 76; TEMP 98.5; BMI 23.7
[2018-02-24] MEDS ORDERED: ONDANSETRON *ODT* 4 MG TABLET ONE (04:14)
--- NOTE | 2018-02-24 04:20 | PDOC ---
Attending Attestation - Resident Resident Name: Carey Dover - ED Attending Attestation I have performed the following: I have examined & evaluated the patient, The case was reviewed & discussed with the resident, I agree w/resident's findings & plan - HPI HPI: 02/24/18 05:42 Pt was unable to pickup the nausea med prescription that she was given earlier today, so she comes for a dose here. - Physicial Exam PE: 02/24/18 05:43 Agree with resident exam - Medical Decision Making 02/24/18 05:43 Zofran 1 dose here and discharge home.
== END 2018-02-24 04:35 | disposition home or self-care (01) ==
LOC: JER 03:13
DX: K21.9 Gastro-esophageal reflux disease without esophagitis (principal); D64.9 Anemia, unspecified; J45.909 Unspecified asthma, uncomplicated; I10 Essential (primary) hypertension; B20 Human immunodeficiency virus [HIV] disease; Z88.0 Allergy status to penicillin; Z88.2 Allergy status to sulfonamides
CPT/HCPCS: 99281-25

== ENCOUNTER 2018-02-25 23:31 | Emergency (ER) | payer OTHER ==
[2018-02-25 23:36] VITALS: BP 149/67; PULSE 83; TEMP 98.3; BMI 22.6
--- NOTE | 2018-02-26 00:21 | PDOC ---
History of Present Illness - General Chief Complaint: Pain Stated Complaint: ABD PAIN Time Seen by Provider: 02/26/18 00:18 Past History - Past Medical History Allergies/Adverse Reactions: Allergies Allergy/AdvReac Type Severity Reaction Status Date / Time Penicillins Allergy Severe Hives Verified 02/25/18 23:36 Sulfa (Sulfonamide Allergy Severe Difficulty Verified 02/25/18 23:36 Antibiotics) Breathing Home Medications: Ambulatory Orders Ciprofloxacin [Cipro (Restricted To Id)] 500 mg PO Q12H 02/23/18 Nitrofurantoin Monohyd/M-Cryst [Macrobid -] 100 mg PO BID #14 capsule 02/23/18 Ondansetron HCl [Zofran] 4 mg PO DAILY #5 tablet 02/23/18 Anemia: Yes Asthma: Yes Cancer: No Cardiac Disorders: No CVA: No COPD: No CHF: No DVT: No Dementia: No Diabetes: Yes GI Disorders: No Disorders: No HTN: Yes Hypercholesterolemia: No Liver Disease: No Seizures: No Thyroid Disease: No - Surgical History Abdominal Surgery: No Appendectomy: No Cardiac Surgery: No Cholecystectomy: No Lung Surgery: No Neurologic Surgery: No Orthopedic Surgery: No - Immunization History Immunization Up to Date: No - Suicide/Smoking/Psychosocial Hx Smoking Status: Yes Smoking History: Unknown if ever smoked Have you smoked in the past 12 months: No Number of Cigarettes Smoked Daily: 10 If you are a former smoker, when did you quit?: 1yr 'Breaking Loose' booklet given: 11/21/17 Hx Alcohol Use: No Drug/Substance Use Hx: No Substance Use Type: None Hx Substance Use Treatment: No *Physical Exam - Vital Signs Last Vital Signs Temp Pulse Resp BP Pulse Ox 98.3 F 83 18 149/67 98 02/25/18 23:33 02/25/18 23:33 02/25/18 23:33 02/25/18 23:33 02/25/18 23:33 Medical Decision Making - Medical Decision Making 02/26/18 00:21 Patient noted to have eloped prior to evaluation. *DC/Admit/Observation/Transfer Diagnosis at time of Disposition: Eloped from emergency department - Discharge Dispostion Disposition: ELOPED - Referrals Referrals: Yi Figueroa [Primary Care Provider] - - Patient Instructions - Post Discharge Activity
== END 2018-02-26 00:25 | disposition left against medical advice (07) ==
LOC: JER 23:31
DX: Z53.21 Procedure and treatment not carried out due to patient leaving prior to being seen by health care provider (principal)
CPT/HCPCS: 99281-25

== ENCOUNTER → 2018-02-25 | Emergency (ER) | payer OTHER ==
[2018-02-25 15:57] VITALS: BP 149/61; PULSE 82; TEMP 98.3; BMI 23.7
--- NOTE | 2018-02-25 15:57 | PDOC ---
Rapid Medical Evaluation Chief Complaint: Nausea/Vomiting Time Seen by Provider: 02/25/18 15:54 Medical Evaluation: Allergies Allergy/AdvReac Type Severity Reaction Status Date / Time Penicillins Allergy Severe Hives Verified 02/23/18 15:10 Sulfa (Sulfonamide Allergy Severe Difficulty Verified 02/23/18 15:10 Antibiotics) Breathing 02/25/18 15:55 I have performed a brief in person evaluation. The patient presents with a CC of : nausea and dizziness HPI: Pt is a 53 YO female who complains of nausea and dizziness x 2 days. PE: Skin: Clear Lungs: Clear Heart: RRR Abd: no pain upon palpation MS: Moves all extremities without difficulty Neuro: Alert, no slurred speech, no protonator drift. Psych: Appropriate affect I have ordered the following: basic labs The patient will proceed to the ED for further evaluation. Discharge Disposition - Diagnosis Dizziness - Referrals Referrals: Yi Figueroa [Primary Care Provider] - - Patient Instructions - Post Discharge Activity
== END | disposition left against medical advice (07) ==
LOC: JER 15:39
DX: R42 Dizziness and giddiness (principal); Z88.0 Allergy status to penicillin; Z88.2 Allergy status to sulfonamides
CPT/HCPCS: 99281-25

== ENCOUNTER 2018-02-27 12:04 | Emergency (ER) | payer OTHER ==
[2018-02-27 12:10] VITALS: BP 155/81; PULSE 84; TEMP 98.6; BMI 22.4
[2018-02-27] MEDS ORDERED: ACETAMINOPHEN 325 MG TABLET (FP) PO ONE (12:27)
[2018-02-27] MEDS ORDERED: ACETAMINOPHEN 325 MG TABLET (FP) ONE (12:30)
--- NOTE | 2018-02-27 12:33 | PDOC ---
History of Present Illness - General Chief Complaint: Headache Stated Complaint: REVISIT, SICK Time Seen by Provider: 02/27/18 12:15 Past History - Past Medical History Allergies/Adverse Reactions: Allergies Allergy/AdvReac Type Severity Reaction Status Date / Time Penicillins Allergy Severe Hives Verified 02/27/18 12:08 Sulfa (Sulfonamide Allergy Severe Difficulty Verified 02/27/18 12:08 Antibiotics) Breathing Home Medications: Ambulatory Orders Ciprofloxacin [Cipro (Restricted To Id)] 500 mg PO Q12H 02/23/18 Ondansetron HCl [Zofran] 4 mg PO DAILY #5 tablet 02/23/18 Cefpodoxime Proxetil [Vantin (Nf) -] 100 mg PO BID #14 tablet 02/26/18 Cefpodoxime Proxetil [Vantin (Nf) -] 100 mg PO BID #14 tablet 02/27/18 Anemia: Yes Asthma: Yes Cancer: No Cardiac Disorders: No CVA: No COPD: No CHF: No DVT: No Dementia: No Diabetes: Yes GI Disorders: No Disorders: No HTN: Yes Hypercholesterolemia: No Liver Disease: No Seizures: No Thyroid Disease: No - Surgical History Abdominal Surgery: No Appendectomy: No Cardiac Surgery: No Cholecystectomy: No Lung Surgery: No Neurologic Surgery: No Orthopedic Surgery: No - Immunization History Immunization Up to Date: No - Suicide/Smoking/Psychosocial Hx Smoking Status: Yes Smoking History: Current every day smoker Have you smoked in the past 12 months: No Number of Cigarettes Smoked Daily: 10 If you are a former smoker, when did you quit?: 1yr Information on smoking cessation initiated: No 'Breaking Loose' booklet given: 11/21/17 Hx Alcohol Use: No Drug/Substance Use Hx: No Substance Use Type: None Hx Substance Use Treatment: No *Physical Exam - Vital Signs Last Vital Signs Temp Pulse Resp BP Pulse Ox 98.6 F 84 16 155/81 100 02/27/18 12:09 02/27/18 12:09 02/27/18 12:09 02/27/18 12:09 02/27/18 12:09 *DC/Admit/Observation/Transfer - Prescriptions Prescriptions: Cefpodoxime Proxetil [Vantin (Nf) -] 100 mg PO BID #14 tablet - Referrals - Patient Instructions - Post Discharge Activity
--- NOTE | 2018-02-27 13:16 | PDOC ---
History of Present Illness - General Chief Complaint: Headache Stated Complaint: REVISIT, SICK Time Seen by Provider: 02/27/18 12:15 History Source: Patient Exam Limitations: No Limitations - History of Present Illness Initial Comments: 02/27/18 13:10 53 yo female pmh Past History - Past Medical History Allergies/Adverse Reactions: Allergies Allergy/AdvReac Type Severity Reaction Status Date / Time Penicillins Allergy Severe Hives Verified 02/27/18 12:08 Sulfa (Sulfonamide Allergy Severe Difficulty Verified 02/27/18 12:08 Antibiotics) Breathing Home Medications: Ambulatory Orders Ciprofloxacin [Cipro (Restricted To Id)] 500 mg PO Q12H 02/23/18 Ondansetron HCl [Zofran] 4 mg PO DAILY #5 tablet 02/23/18 Cefpodoxime Proxetil [Vantin (Nf) -] 100 mg PO BID #14 tablet 02/26/18 Cefpodoxime Proxetil [Vantin (Nf) -] 100 mg PO BID #14 tablet 02/27/18 Anemia: Yes Asthma: Yes Cancer: No Cardiac Disorders: No CVA: No COPD: No CHF: No DVT: No Dementia: No Diabetes: Yes GI Disorders: No Disorders: No HTN: Yes Hypercholesterolemia: No Liver Disease: No Seizures: No Thyroid Disease: No - Surgical History Abdominal Surgery: No Appendectomy: No Cardiac Surgery: No Cholecystectomy: No Lung Surgery: No Neurologic Surgery: No Orthopedic Surgery: No - Immunization History Immunization Up to Date: No - Suicide/Smoking/Psychosocial Hx Smoking Status: Yes Smoking History: Current every day smoker Have you smoked in the past 12 months: No Number of Cigarettes Smoked Daily: 10 If you are a former smoker, when did you quit?: 1yr Information on smoking cessation initiated: No 'Breaking Loose' booklet given: 11/21/17 Hx Alcohol Use: No Drug/Substance Use Hx: No Substance Use Type: None Hx Substance Use Treatment: No *Physical Exam - Vital Signs Last Vital Signs Temp Pulse Resp BP Pulse Ox 98.6 F 84 16 155/81 100 02/27/18 12:09 02/27/18 12:09 02/27/18 12:09 02/27/18 12:09 02/27/18 12:09 ED Treatment Course - Medications Given in the ED: ED Medications Discontinued Medications Generic Name Dose Route Start Last Admin Trade Name Freq PRN Reason Stop Dose Admin Acetaminophen 650 mg 02/27/18 12:27 02/27/18 12:31 Tylenol - PO 02/27/18 12:28 650 mg ONCE ONE Administration Medical Decision Making - Medical Decision Making 02/27/18 13:16 Pt well known to the ED. Recently diagnosed and treated for UTI and states the medication causes headaches but is not willing to take any other antibiotics at this point. Presents for HERNANDEZ for 2 days. pt very aggressive and unwilling to answer questions about her PMH and current headaches and states "why are you asking so many questions? I am going to leave. I just had blood work done and my veins are not good" Spoke with pt about potential risks such as and permanent disability. The patient is AOX3 has the mental capacity of understanding the risks of refusing care and is capable of making an informed decision. Able to complete neuro exam which was completely negative for concerning signs, see PE. Refused blood work, UA/cultures and head CT *DC/Admit/Observation/Transfer Diagnosis at time of Disposition: Headache UTI (urinary tract infection) Qualifiers: Urinary tract infection type: site unspecified Hematuria presence: with hematuria Qualified Code(s): N39.0 - Urinary tract infection, site not specified - Discharge Dispostion Disposition: AGAINST MEDICAL ADVICE Condition at time of disposition: Stable Decision to Admit order: No - Prescriptions Prescriptions: Cefpodoxime Proxetil [Vantin (Nf) -] 100 mg PO BID #14 tablet - Referrals - Patient Instructions - Post Discharge Activity
--- NOTE | 2018-02-27 13:28 | PDOC ---
Attending Attestation - Resident Resident Name: Jhon Collier - ED Attending Attestation I have performed the following: I have examined & evaluated the patient, The case was reviewed & discussed with the resident, I agree w/resident's findings & plan, Exceptions are as noted - HPI HPI: 02/27/18 13:25 Ms Helms presents to the ER with a complaint of a headache pt is very frustrated and will not answer any questions for me Pt states that she had had headaches for several days Denies trauma She is upset because she feels her privacy has been violated She tells me she can not stay in the hospital all day because today is Thanksgiving - Physicial Exam PE: 02/27/18 13:26 Pt is awake and alert She is standing in room 9B She is unwilling to go back to her room to be assessed From a brief bedside exam - EOMI, Pupils round and reactive to light No nuchal rigidity Pt moves all extremity Pt would not permit ascultation Pt would not permit abdominal examination 02/28/18 09:47 - Medical Decision Making 02/28/18 09:48 I have asked this patient to allow me to do an appropriate work up of her headache Pt refused labs Pt initially agreeable to CT head Subsequently, pt refused CT head Pt would like to leave now Was given tylenol for headache Pt is leaving the ER against medical advice Pt is aware of risks Note: The patient insists on leaving the emergency dept and is signing out against medical advice. The patient understands the risks and complications that may result from the refusal of medical care and admission which includes and permanent disability. The patient has the mental capacity of understanding the risks of refusing care and is capable of making an informed decision. The patient was instructed to return to the emergency department should she change her mind regarding medical care or should her condition worsen. The patient signed the Against Medical Advice form. clinical impression: headache, initial presentation 02/28/18 09:52 *DC/Admit/Observation/Transfer Diagnosis at time of Disposition: UTI (urinary tract infection) Headache Qualifiers: Headache type: unspecified Headache chronicity pattern: unspecified pattern Intractability: not intractable Qualified Code(s): R51 - Headache - Discharge Dispostion Disposition: AGAINST MEDICAL ADVICE Condition at time of disposition: Stable Decision to Admit order: No - Prescriptions Prescriptions: Cefpodoxime Proxetil [Vantin (Nf) -] 100 mg PO BID #14 tablet - Referrals - Patient Instructions - Post Discharge Activity
== END 2018-02-27 13:40 | disposition left against medical advice (07) ==
LOC: JER 12:04
DX: R51 Headache (principal); N39.0 Urinary tract infection, site not specified; I10 Essential (primary) hypertension; D64.2 Secondary sideroblastic anemia due to drugs and toxins; Z87.09 Personal history of other diseases of the respiratory system; Z88.0 Allergy status to penicillin; Z88.2 Allergy status to sulfonamides
CPT/HCPCS: 99281-25

== ENCOUNTER 2018-03-09 06:10 | Emergency (ER) | payer OTHER ==
[2018-03-09 06:45] VITALS: BP 140/60; PULSE 78; TEMP 98.3; BMI 25.2
--- NOTE | 2018-03-09 07:12 | PDOC ---
History of Present Illness - General Chief Complaint: Pain Stated Complaint: ACID REFLUX Time Seen by Provider: 03/09/18 07:11 - History of Present Illness Initial Comments: 03/09/18 08:17 The patient is a 53 year old female with a history of HIV on HAART with an undetectable viral load, Asthma, Anemia, GERD who presents for evaluation of abdominal pain. The patient is well known to our ED and reports epigastric burning abdominal pain beginning yesterday evening prompting her presentation to the ED for further evaluation. She states that the only thing that works for her symptoms is mylanta. She states that her symptoms are similar to her prior episodes of GERD. She otherwise denies fevers, chills, SOB, chest pain, nausea, vomiting, or changes with urination or bowel movements. Past History - Past Medical History Allergies/Adverse Reactions: Allergies Allergy/AdvReac Type Severity Reaction Status Date / Time Penicillins Allergy Severe Hives Verified 03/09/18 06:45 Sulfa (Sulfonamide Allergy Severe Difficulty Verified 03/09/18 06:45 Antibiotics) Breathing Home Medications: Ambulatory Orders Mag Hydrox/Al Hydrox/Simeth [Mylanta *Suspension*] 30 ml PO Q6H #12 cup Ondansetron [Zofran Odt -] 4 mg SL TID #21 od.tablet 03/09/18 Ranitidine [Zantac -] 150 mg PO DAILY #14 tablet 03/09/18 Anemia: Yes Asthma: Yes Cancer: No Cardiac Disorders: No CVA: No COPD: No CHF: No DVT: No Dementia: No Diabetes: Yes GI Disorders: No Disorders: No HTN: Yes Hypercholesterolemia: No Liver Disease: No Seizures: No Thyroid Disease: No - Surgical History Abdominal Surgery: No Appendectomy: No Cardiac Surgery: No Cholecystectomy: No Lung Surgery: No Neurologic Surgery: No Orthopedic Surgery: No - Immunization History Immunization Up to Date: No - Suicide/Smoking/Psychosocial Hx Smoking Status: Yes Smoking History: Current every day smoker Have you smoked in the past 12 months: No Number of Cigarettes Smoked Daily: 10 If you are a former smoker, when did you quit?: 1yr Information on smoking cessation initiated: Yes 'Breaking Loose' booklet given: 11/21/17 Hx Alcohol Use: No Drug/Substance Use Hx: No Substance Use Type: None Hx Substance Use Treatment: No Review of Systems - Review of Systems Comments:: 03/09/18 08:21 Constitutional: No fevers, chills, fatigue, malaise HEENT: No Rhinorrhea, nasal congestion, visual changes Cardiovascular: No chest pain, syncope, palpitations, lightheadedness Respiratory: No Cough, SOB, Hemoptysis, Gastrointestinal: Burning abdominal pain. No Nausea, Vomiting, Constipation, Diarrhea, Melena Genitourinary: No Dysuria, Frequency, Urgency, Hesitancy, Hematuria, Flank pain Musculoskeletal: No Myalgia, arthralgia Skin: No rashes, itching, bruising, pallor Neurologic: No Headache, Dizziness, Numbness, Weakness, or Tingling Psychiatric: No Hallucinations. No SI or HI *Physical Exam - Vital Signs Last Vital Signs Temp Pulse Resp BP Pulse Ox 98.3 F 78 18 140/60 100 03/09/18 06:43 03/09/18 06:43 03/09/18 06:43 03/09/18 06:43 03/09/18 06:43 - Physical Exam Comments: 03/09/18 08:21 General Appearance: Nourished. No Apparent Distress HEENT: No Pharyngeal Erythema, Tonsillar Exudate, Tonsillar Erythema Neck: No Cervical Lymphadenopathy Respiratory/Chest: Lungs Clear, Normal Breath Sounds. No Crackles, Rales, Rhonchi, Wheezing Cardiovascular: Regular Rhythm, Regular Rate. No Murmur, Gallops, Rubs Gastrointestinal/Abdominal: Normal Bowel Sounds, Soft. No Guarding, Rebound, Tenderness Musculoskeletal: No CVA Tenderness Extremity: Normal Capillary Refill Integumentary: Normal Color, Dry, Warm Neurologic:Fully Oriented, Alert, Normal Mood/Affect, Normal Response, Moderate Sedation - Procedure Monitoring Vital Signs: Procedure Monitoring Vital Signs Temperature 98.3 F 03/09/18 06:43 Pulse Rate 78 03/09/18 06:43 Respiratory Rate 18 03/09/18 06:43 Blood Pressure 140/60 03/09/18 06:43 O2 Sat by Pulse Oximetry (%) 100 03/09/18 06:43 Medical Decision Making - Medical Decision Making 03/09/18 08:22 The patient is a 53 year old female with a history of HIV on HAART with an undetectable viral load, Asthma, Anemia, GERD who presents for evaluation of abdominal pain. Given the patient's history and physical exam, it is likely her symptoms are due to her GERD. The patient is currently refusing further work up at this time. She has a non-tender benign abdominal exam at this time. We treated the patient with mylanta and pyridum with improvement in her symptoms. The patient states that she has GI follow up tomorrow. We are comfortable discharging the patient home with GI follow up. We discussed the plan and return precautions with the patient who voiced understanding and is agreeable with the plan. *DC/Admit/Observation/Transfer Diagnosis at time of Disposition: Abdominal pain Qualifiers: Abdominal location: unspecified location Qualified Code(s): R10.9 - Unspecified abdominal pain - Discharge Dispostion Disposition: HOME Condition at time of disposition: Stable Decision to Admit order: No - Prescriptions Prescriptions: Mag Hydrox/Al Hydrox/Simeth [Mylanta *Suspension*] 30 ml PO Q6H #12 cup Ondansetron [Zofran Odt -] 4 mg SL TID #21 od.tablet Ranitidine [Zantac -] 150 mg PO DAILY #14 tablet - Referrals Referrals: Martine Syed MD [Staff Physician] - - Patient Instructions Printed Discharge Instructions: DI for Abdominal Pain-Adult Additional Instructions: Please return to the ER if you experience concerning or worsening symptoms including worsening difficulty breathing, weakness, or chest pain. We have sent a prescription for mylanta and zantac to your pharmacy that you should take as directed. Please call to schedule a follow up appointment with our GI specialist within 2-3 days to discuss your ER visit and further management of your symptoms. - Post Discharge Activity
[2018-03-09] MEDS ORDERED: MAG HYDROX/AL HYDROX/SIMETH 30 ML UNIT-DOSE CUP PO ONE (07:28)
[2018-03-09] MEDS ORDERED: MAG HYDROX/AL HYDROX/SIMETH 30 ML UNIT-DOSE CUP ONE ×2 (07:39→08:11)
--- NOTE | 2018-03-09 07:46 | PDOC ---
Attending Attestation - Resident Resident Name: Pk Lira - ED Attending Attestation I have performed the following: I have examined & evaluated the patient, The case was reviewed & discussed with the resident, I agree w/resident's findings & plan - HPI HPI: 03/09/18 08:06 52 year old female with a significant PMH of anemia, HTN, DM, HIV (unknown CD4, x1 month "undetectable viral load"), asthma who presents to the emergency department with nausea and epigastric "burning" pain. c/o rash to arm, was put on macrobid on previous visit 02/27/18 for UTI, said rash started after. no f/c. - Physicial Exam PE: 03/09/18 08:07 NAD, well appearing, PERRL, EOMI, MMM, nl conjunctiva, anicteric; neck supple. lungs clear, RRR, abdomen soft nontender. ADRIAN x4, no focal neuro deficits. No peripheral edema. normal color for ethnicity, WWP. No rash on abdomen or arms. - Medical Decision Making 03/09/18 08:07 see HPI for details vitals wnl, reassuring requesting maalox, no vomiting here no fever or systemic sx no rash on body most likely gerd vs gastritis. checked prior urine cultures, currently no pain so defer further treatment as her sx are stated to be related to her prior abx use no diarrhea or bloody stools ambulating around department, given GI cocktail. refusing labs, last check from ED visits wnl. abdomen benign exam DC in stable condition, return precautions given, supportive care and otc rx meds. f/u PCP and GI, referral given 03/09/18 08:09
[2018-03-09] MEDS ORDERED: LIDOCAINE VISCOUS 2% ORAL/TOP 20 ML UNIT-DOSE CUP MM ONE (08:07)
[2018-03-09] MEDS ORDERED: LIDOCAINE VISCOUS 2% ORAL/TOP 20 ML UNIT-DOSE CUP ONE (08:11)
[2018-03-09] MEDS ORDERED: PHENAZOPYRIDINE HCL 100 MG TABLET (FP) ONE (08:20)
[2018-03-09] MEDS ORDERED: PHENAZOPYRIDINE HCL 100 MG TABLET (FP) PO ONE (08:21)
== END 2018-03-09 08:25 | disposition home or self-care (01) ==
LOC: JER 06:10
DX: R10.9 Unspecified abdominal pain (principal); Z21 Asymptomatic human immunodeficiency virus [HIV] infection status; J45.909 Unspecified asthma, uncomplicated; K21.9 Gastro-esophageal reflux disease without esophagitis; D64.9 Anemia, unspecified
CPT/HCPCS: 99282-25

== ENCOUNTER 2018-03-09 23:04 | Emergency (ER) | payer OTHER ==
[2018-03-09 23:09] VITALS: BP 140/65; PULSE 82; TEMP 98.9; BMI 25.2
== END 2018-03-09 23:57 | disposition left against medical advice (07) ==
LOC: JER 23:04
DX: Z53.21 Procedure and treatment not carried out due to patient leaving prior to being seen by health care provider (principal)
CPT/HCPCS: 99281-25

== ENCOUNTER → 2018-04-11 | Emergency (ER) | payer OTHER ==
[~2018-04-11] MED LIST changes: +ACETAMINOPHEN 325 MG TABLET (FP) ONE; +ACETAMINOPHEN 325 MG TABLET (FP) PO ONE; -MAG HYDROX/AL HYDROX/SIMETH 30 ML UNIT-DOSE CUP ONE; -MAG HYDROX/AL HYDROX/SIMETH 30 ML UNIT-DOSE CUP PO ONE
[2018-04-11 23:58] VITALS: BP 144/63; PULSE 96; BMI 24.0
--- NOTE | 2018-04-12 00:15 | PDOC ---
History of Present Illness - General Chief Complaint: Sore Throat Stated Complaint: SORE THROAT Time Seen by Provider: 04/12/18 00:02 History Source: Patient Exam Limitations: No Limitations - History of Present Illness Initial Comments: 04/12/18 00:11 Best Contact: PCP: Dr. Stearns Pmhx:asthma/recent admission/intubation, HIV, acid reflux Pshx: 1991: JORDI Allergies: PCN/hives, Sulfa/hives FH:0 Social Hx: Cigarettes/ 0 Alcohol/ 0 Drugs/0 Patient present on dictation of discharge in exam room. 53-year-old female presents to the ER complaining of sore throat with fever/ chills since this morning without nausea/vomiting/diarrhea, headache, dizziness , lightheadedness, facial pain, rhinorrhea, nasal congestion, earache, difficulty swallowing, neck pain/stiffness, back pains, chest pain, shortness of breath, abdominal pains, flank pains, urinary symptoms. Patient did not take any antipyretics. Patient states she cannot take Motrin due to her acid reflux. Past History - Past Medical History Allergies/Adverse Reactions: Allergies Allergy/AdvReac Type Severity Reaction Status Date / Time Penicillins Allergy Severe Hives Verified 04/11/18 23:47 Sulfa (Sulfonamide Allergy Severe Difficulty Verified 04/11/18 23:47 Antibiotics) Breathing phenazopyridine AdvReac Verified 04/11/18 23:47 [From Pyridium] Home Medications: Ambulatory Orders Mag Hydrox/Al Hydrox/Simeth [Mylanta *Suspension*] 30 ml PO Q6H #12 cup Ondansetron [Zofran Odt -] 4 mg SL TID #21 od.tablet 03/09/18 Ranitidine [Zantac -] 150 mg PO DAILY #14 tablet 03/09/18 Azithromycin [Zithromax -] 250 mg PO UTDICT #6 tab 04/12/18 Anemia: Yes Asthma: Yes Cancer: No Cardiac Disorders: No CVA: No COPD: No CHF: No DVT: No Dementia: No Diabetes: Yes GI Disorders: No Disorders: No HTN: Yes Hypercholesterolemia: No Liver Disease: No Seizures: No Thyroid Disease: No - Surgical History Abdominal Surgery: No Appendectomy: No Cardiac Surgery: No Cholecystectomy: No Lung Surgery: No Neurologic Surgery: No Orthopedic Surgery: No - Immunization History Immunization Up to Date: No - Suicide/Smoking/Psychosocial Hx Smoking Status: Yes Smoking History: Current some day smoker Have you smoked in the past 12 months: No Number of Cigarettes Smoked Daily: 10 If you are a former smoker, when did you quit?: 1yr Information on smoking cessation initiated: No 'Breaking Loose' booklet given: 11/21/17 Hx Alcohol Use: Yes Drug/Substance Use Hx: No Substance Use Type: None Hx Substance Use Treatment: No Review of Systems - Review of Systems Able to Perform ROS?: Yes Comments:: 04/12/18 00:13 CONSTITUTIONAL: Absent: fever, chills, diaphoresis, generalized weakness, malaise, loss of appetite HEENT: +throat pain Absent: rhinorrhea, nasal congestion, throat swelling, difficulty swallowing, mouth swelling, ear pain, eye pain, visual Changes CARDIOVASCULAR: Absent: chest pain, loss of consciousness, palpitations, irregular heart rate, peripheral edema RESPIRATORY: Absent: cough, shortness of breath, dyspnea with exertion, orthopnea, wheezing, stridor, hemoptysis GASTROINTESTINAL: Absent: abdominal pain, abdominal distension, nausea, vomiting, diarrhea, constipation, melena, hematochezia GENITOURINARY: Absent: dysuria, frequency, urgency, hesitancy, hematuria, flank pain, genital pain MUSCULOSKELETAL: Absent: myalgia, arthralgia, joint swelling SKIN: Absent: rash, itching, pallor HEMATOLOGIC/IMMUNOLOGIC: Absent: easy bleeding, easy bruising, lymphadenopathy, frequent infections ENDOCRINE: Absent: unexplained weight gain, unexplained weight loss, heat intolerance, cold intolerance NEUROLOGIC: Absent: headache, focal weakness or paresthesias, dizziness, unsteady gait, seizure, mental status changes, bladder or bowel incontinence PSYCHIATRIC: Absent: anxiety, depression, suicidal or homicidal ideation, hallucinations. Is the patient limited Hungarian proficient: No *Physical Exam - Vital Signs Last Vital Signs Temp Pulse Resp BP Pulse Ox 102.9 F H 96 H 19 144/63 99 04/11/18 23:13 04/11/18 23:13 04/11/18 23:13 04/11/18 23:13 04/11/18 23:13 - Physical Exam Comments: 04/12/18 00:14 GENERAL: Well developed, well nourished. Awake and alert. No acute distress. HEENT: +tonsils erythematous, +exudates Normocephalic, atraumatic. PERRLA, EOMI. No conjunctival pallor. Sclera are non- icteric. Moist mucous membranes. NECK: Supple. Full ROM. No JVD. Carotid pulses 2+ and symmetric, without bruits. No thyromegaly. No lymphadenopathy. CARDIOVASCULAR: Regular rate and rhythm. No murmurs, rubs, or gallops. Distal pulses are 2+ and symmetric. PULMONARY: No evidence of respiratory distress. Lungs clear to auscultation bilaterally. No wheezing, rales or rhonchi. ABDOMINAL: Soft. Non-tender. Non-distended. No rebound or guarding. No organomegaly. Normoactive bowel sounds. MUSCULOSKELETAL Normal range of motion at all joints. No bony deformities or tenderness. No CVA tenderness. EXTREMITIES: No cyanosis. No clubbing. No edema. No calf tenderness. SKIN: Warm and dry. Normal capillary refill. No rashes. No jaundice. Moderate Sedation - Procedure Monitoring Vital Signs: Procedure Monitoring Vital Signs Temperature 102.9 F H 04/11/18 23:13 Pulse Rate 96 H 04/11/18 23:13 Respiratory Rate 19 04/11/18 23:13 Blood Pressure 144/63 04/11/18 23:13 O2 Sat by Pulse Oximetry (%) 99 04/11/18 23:13 *DC/Admit/Observation/Transfer Diagnosis at time of Disposition: Pharyngitis Qualifiers: Pharyngitis/tonsillitis etiology: unspecified etiology Qualified Code(s): J02.9 - Acute pharyngitis, unspecified - Discharge Dispostion Disposition: HOME Condition at time of disposition: Fair Decision to Admit order: No - Prescriptions Prescriptions: Azithromycin [Zithromax -] 250 mg PO UTDICT #6 tab - Referrals Referrals: Eber Beltrán MD [Staff Physician] - - Patient Instructions Printed Discharge Instructions: DI for Pharyngitis/Tonsillopharyngitis -- Adult Additional Instructions: Increase fluids Antibiotics as prescribed/Zithromax Tylenol every 4-6 hours as needed for fever or pain Return back to the ER for severe/persistent or worsening symptoms Follow with the ENT listed on your discharge or your physician - Post Discharge Activity
[2018-04-12 01:41] VITALS: TEMP 100.8
== END | disposition home or self-care (01) ==
LOC: JER 23:13
DX: J02.9 Acute pharyngitis, unspecified (principal); K21.9 Gastro-esophageal reflux disease without esophagitis; E11.9 Type 2 diabetes mellitus without complications; Z21 Asymptomatic human immunodeficiency virus [HIV] infection status
CPT/HCPCS: 87070; 87880; 99281-25

== ENCOUNTER → 2018-04-13 | Emergency (ER) | payer OTHER ==
[~2018-04-13] MED LIST changes: +ACETAMINOPHEN 1000 MG/100 ML VIAL (NON FORMULARY) IVPB ONE; -ACETAMINOPHEN 325 MG TABLET (FP) ONE; -ACETAMINOPHEN 325 MG TABLET (FP) PO ONE; +SODIUM CHLORIDE 0.9% 500 ML INFUS.BAG IV ONE
[2018-04-13 18:01] VITALS: BMI 24.0
[2018-04-13 19:21] VITALS: BP 149/65; PULSE 79; TEMP 102.3
--- NOTE | 2018-04-13 19:24 | PDOC ---
History of Present Illness - General Chief Complaint: Respiratory Stated Complaint: FEVER Time Seen by Provider: 04/13/18 18:41 - History of Present Illness Initial Comments: 04/13/18 19:23 Ms. Helms is a 53 yo female w/ pmh of anemia, GERD, HTN, DM, HIV (Unknown CD4 however reports she had an undetectable viral approximately 1 month ago) not currently on HAART medications (reports her physician told her she would be switching medications soon so Ms. Helms self elected to stop her current medications) who presents for evaluation of 3 day history of cough with fevers and chills. Patient also endorses diarrhea x1 today. The patient denies chest pain, shortness of breath, headache and dizziness. Denies vomit and constipation. Denies dysuria, frequency, urgency and hematuria. Past History - Past Medical History Allergies/Adverse Reactions: Allergies Allergy/AdvReac Type Severity Reaction Status Date / Time Penicillins Allergy Severe Hives Verified 04/13/18 18:01 Sulfa (Sulfonamide Allergy Severe Difficulty Verified 04/13/18 18:01 Antibiotics) Breathing phenazopyridine AdvReac Verified 04/13/18 18:01 [From Pyridium] Home Medications: Ambulatory Orders Mag Hydrox/Al Hydrox/Simeth [Mylanta *Suspension*] 30 ml PO Q6H #12 cup Ondansetron [Zofran Odt -] 4 mg SL TID #21 od.tablet 03/09/18 Ranitidine [Zantac -] 150 mg PO DAILY #14 tablet 03/09/18 Azithromycin [Zithromax -] 250 mg PO UTDICT #6 tab 04/12/18 Anemia: Yes Asthma: Yes Cancer: No Cardiac Disorders: No CVA: No COPD: No CHF: No DVT: No Dementia: No Diabetes: Yes GI Disorders: No Disorders: No HTN: Yes Hypercholesterolemia: No Liver Disease: No Seizures: No Thyroid Disease: No - Surgical History Abdominal Surgery: No Appendectomy: No Cardiac Surgery: No Cholecystectomy: No Lung Surgery: No Neurologic Surgery: No Orthopedic Surgery: No - Immunization History Immunization Up to Date: No - Suicide/Smoking/Psychosocial Hx Smoking Status: Yes Smoking History: Current every day smoker Have you smoked in the past 12 months: No Number of Cigarettes Smoked Daily: 7 If you are a former smoker, when did you quit?: 1yr Information on smoking cessation initiated: No 'Breaking Loose' booklet given: 11/21/17 Hx Alcohol Use: No Drug/Substance Use Hx: No Substance Use Type: None Hx Substance Use Treatment: No Review of Systems - Review of Systems Comments:: 04/13/18 20:27 GENERAL/CONSTITUTIONAL: +Fever/chills as described. No weakness. HEAD, EYES, EARS, NOSE AND THROAT: No change in vision. No ear pain or discharge. No sore throat. CARDIOVASCULAR: No chest pain or shortness of breath RESPIRATORY: +Cough as described. No wheezing, or hemoptysis. GASTROINTESTINAL: +N/V w/ 1 episode of diarrhea. No constipation. GENITOURINARY: No dysuria, frequency, or change in urination. MUSCULOSKELETAL: No joint or muscle swelling or pain. No neck or back pain. SKIN: No rash NEUROLOGIC: No headache, vertigo, loss of consciousness, or change in strength/ sensation. ENDOCRINE: No increased thirst. No abnormal weight change HEMATOLOGIC/LYMPHATIC: No anemia, easy bleeding, or history of blood clots. ALLERGIC/IMMUNOLOGIC: No hives or skin allergy. *Physical Exam - Vital Signs Last Vital Signs Temp Pulse Resp BP Pulse Ox 102.3 F H 79 20 149/65 99 04/13/18 19:20 04/13/18 19:20 04/13/18 19:20 04/13/18 19:20 04/13/18 19:20 - Physical Exam Comments: 04/13/18 20:28 GENERAL: Awake, alert, and fully oriented, in no acute distress HEAD: No signs of trauma, normocephalic, atraumatic EYES: PERRLA, EOMI, sclera anicteric, conjunctiva clear ENT: Auricles normal inspection, hearing grossly normal, nares patent, oropharynx clear without exudates. Moist mucosa NECK: Normal ROM, supple, no lymphadenopathy, JVD, or masses LUNGS: No distress, speaks full sentences, clear to auscultation bilaterally HEART: Regular rate and rhythm, normal S1 and S2, no murmurs, rubs or gallops, peripheral pulses normal and equal bilaterally. ABDOMEN: Soft, nontender, normoactive bowel sounds. No guarding, no rebound. No masses EXTREMITIES: Normal inspection, Normal range of motion, no edema. No clubbing or cyanosis. NEUROLOGICAL: Cranial nerves II through XII grossly intact. Normal speech, normal gait, no focal sensorimotor deficits SKIN: Warm, Dry, normal turgor, no rashes or lesions noted. Moderate Sedation - Procedure Monitoring Vital Signs: Procedure Monitoring Vital Signs Temperature 102.3 F H 04/13/18 19:20 Pulse Rate 79 04/13/18 19:20 Respiratory Rate 20 04/13/18 19:20 Blood Pressure 149/65 04/13/18 19:20 O2 Sat by Pulse Oximetry (%) 99 04/13/18 19:20 Medical Decision Making - Medical Decision Making 04/13/18 20:28 Ms. Helms is a 53 yo female w/ pmh as described who presents for evaluation of viral illness in setting of unclear HIV status not currently on HAART medications. Patient advised she should take medications daily unless advised differently by a physician. Also discussed that given her status and symptoms patient may need to come in to hospital for further care. Following this patient noted to have eloped before further care could be given. *DC/Admit/Observation/Transfer Diagnosis at time of Disposition: Eloped from emergency department - Discharge Dispostion Disposition: ELOPED - Referrals - Patient Instructions - Post Discharge Activity
--- NOTE | 2018-04-13 20:05 | PDOC ---
Attending Attestation - Resident Resident Name: Melvin Pavon - ED Attending Attestation I have performed the following: I have examined & evaluated the patient - HPI HPI: 04/13/18 20:01 Pt is HIV+/?AIDS - left one ID doc (chevy) and went to another ([facility]) and she is non complaint with her HIV meds. She keeps coming back and forth to the hospital and refuses to be admitted. She is back today with fever and she tells me up-front that she is not willing to be admitted. She is refusing treatment, so I will not start the workup once again. Pt is ill and requires treatment. She is here with 2 men (friends/family) and I explained to them all that she needs to stay in the hospital and have full workup and ID evaluation. - Physicial Exam PE: 04/13/18 20:14 Febrile - Medical Decision Making 04/13/18 20:15 Pt eloped from the ER with her family/friends. <Alberta Lott - Last Filed: 04/13/18 20:14> - HPI HPI: 04/13/18 20:32 The patient is a 53 year old female, with a significant past medical history of anemia, GERD, HTN, DM, HIV ( noncompliant with HAART), who presents to the emergency department with, 3 days of cough, fevers, chills, and 1 day of diarrhea. She denies recent headache or dizziness. She denies recent nausea, vomit, or constipation. She denies recent dysuria, frequency, urgency or hematuria. She denies recent chest pain or shortness of breath. <Emely Gutierrez - Last Filed: 04/13/18 20:32> Attestations - Attestations 04/13/18 20:32 Documentation prepared by Emely Gutierrez, acting as bio medical technician for Alberta Lott MD. <Emely Gutierrez - Last Filed: 04/13/18 20:32>
== END | disposition left against medical advice (07) ==
LOC: JER 17:48
DX: R50.9 Fever, unspecified (principal); R05 Cough; I10 Essential (primary) hypertension
CPT/HCPCS: 99283-25

== ENCOUNTER 2018-04-19 00:49 | Inpatient (IN) | payer OTHER ==
--- NOTE | 2018-04-19 00:55 | PDOC ---
History of Present Illness - General Stated Complaint: SHORTNESS OF BREATH Time Seen by Provider: 04/19/18 00:55 - History of Present Illness Initial Comments: 04/19/18 01:10 The patient is a 53 year old female with a history of HIV, HTN, HLD, Asthma, Anemia who presents for evaluation of difficulty breathing and altered mental status. The patient is well known to our ED and has and multiple presentations recently for fever and has left prior to being evaluated. She called her nephew today who noted her to be altered and short of breath prompting him to call EMS. On EMS arrival the patient was altered and saturating 79% on RA with difficulty breathing. The patient's O2 saturation improved with non-rebreather and her mental status improved on presentation to the ED. ROS is unobtainable due to the patient's difficulty breathing. Past History - Past Medical History Allergies/Adverse Reactions: Allergies Allergy/AdvReac Type Severity Reaction Status Date / Time Penicillins Allergy Severe Hives Verified 04/13/18 18:01 Sulfa (Sulfonamide Allergy Severe Difficulty Verified 04/13/18 18:01 Antibiotics) Breathing phenazopyridine AdvReac Verified 04/13/18 18:01 [From Pyridium] Home Medications: Ambulatory Orders Mag Hydrox/Al Hydrox/Simeth [Mylanta *Suspension*] 30 ml PO Q6H #12 cup Ondansetron [Zofran Odt -] 4 mg SL TID #21 od.tablet 03/09/18 Ranitidine [Zantac -] 150 mg PO DAILY #14 tablet 03/09/18 Azithromycin [Zithromax -] 250 mg PO UTDICT #6 tab 04/12/18 Anemia: Yes Asthma: Yes Cancer: No Cardiac Disorders: No CVA: No COPD: No CHF: No DVT: No Dementia: No Diabetes: Yes GI Disorders: No Disorders: No HTN: Yes Hypercholesterolemia: No Liver Disease: No Seizures: No Thyroid Disease: No - Surgical History Abdominal Surgery: No Appendectomy: No Cardiac Surgery: No Cholecystectomy: No Lung Surgery: No Neurologic Surgery: No Orthopedic Surgery: No - Immunization History Immunization Up to Date: No - Suicide/Smoking/Psychosocial Hx Smoking Status: Yes Smoking History: Current every day smoker Have you smoked in the past 12 months: No Number of Cigarettes Smoked Daily: 7 If you are a former smoker, when did you quit?: 1yr 'Breaking Loose' booklet given: 11/21/17 Hx Alcohol Use: No Drug/Substance Use Hx: No Substance Use Type: None Hx Substance Use Treatment: No Review of Systems - Review of Systems Able to Perform ROS?: No (Respiratory Distress) *Physical Exam - Physical Exam Comments: 04/19/18 01:21 General Appearance: Nourished. In Apparent Distress HEENT: EOMI, DAVE. Normal TMs. No Pharyngeal Erythema, Tonsillar Exudate, Tonsillar Erythema Neck: No Cervical Lymphadenopathy Respiratory/Chest: Course breath sound bilaterally with bilateral rales. No Wheezing Cardiovascular: Regular Rhythm, Tachycardic Rate. No Murmur, Gallops, Rubs Gastrointestinal/Abdominal: Normal Bowel Sounds, Soft. No Guarding, Rebound, Tenderness Musculoskeletal: No CVA Tenderness Extremity: Normal Capillary Refill Integumentary: Normal Color, Dry, Warm Neurologic: Fully Oriented, Alert, Normal Mood/Affect, Normal Response, Procedures - Intubation Time of Intubation: 06:50 Intubation Method: orotracheal Blade used: Glidescope Tube Size (Fr): 7.5 Medications: Etomidate, Succinylcholine Tube position @ lip (cm): 22 Tube position confirmed by: Direct visualization, CO2 detector, Chest x-ray, Breath sounds Breath Sounds after Intubation: equal Intubation Complications: no complications Post Intubation Xray: Yes Heart Score/ECG Review #1 ECG reviewed & interpreted by me at: 01:22 General ECG Interpretation: Sinus Rhythm, Normal Intervals, No acute ischemic changes 04/19/18 01:22 Sinus Tachycardia HR 131 ED Treatment Course - LABORATORY CBC & Chemistry Diagram: 04/23/18 05:30 04/23/18 05:30 Medical Decision Making - Critical Care Time Total Critical Care Time (minutes): 90 Critical Care Statement: The care of this patient involved high complexity decision making to prevent further life threatening deterioration of the patient 's condition and/or to evaluate & treat vital organ system(s) failure or risk of failure. - Medical Decision Making 04/19/18 01:22 The patient is a 53 year old female with a history of HIV with an unknown CD4 count, HTN, HLD, Asthma, Anemia who presents for evaluation of difficulty breathing and altered mental status. Differential includes but is not limited to: Pneumonia, Pulmonary Edema, Infectious, Metabolic Derangement. Given the patient's history and physical exam, we will obtain a cbc, cmp, lactate, troponin, chest plain film, ua, urine culture, blood culture, bnp, ekg, head ct , chest ct to evaluate further. The patient was placed on Bipap with improvement in her symptoms. We will treat with iv fluids, levquin and continue to monitor and reassess while here in the ED. She will likely require admission for further management. 04/19/18 04:11 CBC demonstrates a hgb of 6.4. CMP demonstrates elevated creatinine to 4.8 consistent with an SANA. Chest plain film demonstrates a multilobar pneumonia. Chest CT demonstrates a multilobar pneumonia as preliminarily read by our occupational therapy manager radiologist. Head CT is unremarkable as preliminarily read by our occupational therapy manager radiologist. Given the severity of the patient's pneumonia in the setting of HIV and multi system organ failure, the patient will require ICU admission for further management. 04/19/18 07:42 Patient's repeat ABG appears to have worsened despite management with Bipap and Bicarb with a PH of 7.06. Lactate is 3.1. The patient appears less responsive on exam and the decision was made to intubate the patient. The patient was successfully intubated via glidescope with a 7.5 tube. The patient's respiratory failure is likely due the severity of the patient's pneumonia. *DC/Admit/Observation/Transfer Diagnosis at time of Disposition: SANA (acute kidney injury), Respiratory distress Anemia Qualifiers: Anemia type: unspecified type Qualified Code(s): D64.9 - Anemia, unspecified - Discharge Dispostion Condition at time of disposition: Guarded Decision to Admit order: Yes - Referrals - Patient Instructions - Post Discharge Activity
[2018-04-19] MEDS ORDERED: SODIUM CHLORIDE 1,000 ML IV STA ×2 (01:05→04:47)
[2018-04-19 01:25] LABS: INR 1.12 (0.83-1.09); PROTHROMBIN TIME (PATIENT) 13.2 SEC (9.7-13.0)
[2018-04-19 01:26] LABS: HEMATOCRIT 19.5 % (32.4-45.2); MCH 22.4 pg (25.7-33.7); MCHC 32.6 g/dl (32.0-36.0); MEAN CELL VOLUME 68.6 fl (80-96); MEAN PLT VOLUME 10.2 fl (7.5-11.1); PLATELET COUNT 234 K/MM3 (134-434); RBC 2.85 M/mm3 (3.60-5.2); RDW 21.2 % (11.6-15.6); WHITE BLOOD COUNT 4.6 K/mm3 (4.0-10.0)
[2018-04-19 01:27] LABS: ACTIVATED PTT 40.4 SECONDS (25.2-36.5); ADD RBC MORPHOLOGY YES
[2018-04-19 01:28] LABS: HEMOGLOBIN 6.4 GM/dL (10.7-15.3)
--- NOTE | 2018-04-19 01:31 | PDOC ---
Attending Attestation - HPI HPI: 04/19/18 01:32 The patient is a 53 year old female, with a significant past medical history of HIV, HTN, HLD, Asthma, Anemia non compliant with meds, who presents to the emergency department BIBA with slight AMS and difficulty breathing via ems. The patients nephew noticed the patient was not breathing well and called EMS. The nephew also states the patient has lost a lot of weight recently. Presents multiple times with fever but leaves before evaluation is complete. Allergies:penicillins, sulfa, phenazopyridine - Physicial Exam PE: 04/19/18 01:33 GENERAL: Awake, alert, and fully oriented, in no acute distress HEAD: (+) temporal wasting. No signs of trauma EYES: PERRLA, EOMI, sclera anicteric, conjunctiva clear ENT: Auricles normal inspection, hearing grossly normal, nares patent, oropharynx clear without exudates. Moist mucosa NECK: Normal ROM, supple, no lymphadenopathy, JVD, or masses LUNGS:(+) Coarse BS bilaterally. Breath sounds equal, No wheezes, and no crackles HEART:(+) Tachycardic. Regular rhythm, normal S1 and S2, no murmurs, rubs or gallops ABDOMEN: Soft, nontender, normoactive bowel sounds. No guarding, no rebound. No masses EXTREMITIES: Normal range of motion, no edema. No clubbing or cyanosis. No cords, erythema, or tenderness NEUROLOGICAL: Cranial nerves II through XII grossly intact. Normal speech, normal gait SKIN: Warm, Dry, normal turgor, no rashes or lesions noted. Documentation prepared by Sandrita Camacho, acting as medical surgery nurse for Alberta Lott MD <Sandrita Camacho - Last Filed: 04/19/18 01:32> - Resident Resident Name: Pk Lira - ED Attending Attestation I have performed the following: I have examined & evaluated the patient, The case was reviewed & discussed with the resident, I agree w/resident's findings & plan - Critical Care Time Total Critical Care Time: 120 Critical Care Statement: The care of this patient involved high complexity decision making to prevent further life threatening deterioration of the patient 's condition and/or to evaluate & treat vital organ system(s) failure or risk of failure. - Medical Decision Making 04/19/18 02:25 Pt has bilat upper lobe pneumonia as well as a left lower lobe pneumonia. She will require admission to isolation room - likely ICU bed, given her lack of HIV/AIDS HAART therapy, multilobe pneumonia, anemia, renal failure (Cr 6.8) Pt has slight altered MS and she has weight loss, as per her nephew at the bedside 04/19/18 03:41 Patient Name: PATRICIA DE LEÓN THIS IS A PRELIMINARY REPORT FROM [facility] DATE OF SERVICE: 2018-04-19 02:24:42 IMAGES: [id number] EXAM: CT HEAD WITHOUT CONTRAST No acute brain parenchymal abnormality. No hemorrhage, mass or acute territorial infarct. Clear visualized paranasal sinuses. Visualized mastoid air cells clear. 04/19/18 03:42 Patient Name: PATRICIA DE LEÓN THIS IS A PRELIMINARY REPORT FROM [facility] DATE OF SERVICE: 2018-04-19 02:27:24 IMAGES: [id number] EXAM: CT CHEST WITHOUT CONTRAST Consolidations bilateral lungs, largest in upper lobes and left lower lobe, probably multilobar pneumonia. Enlarged mediastinal lymph nodes, possibly inflammatory. Advise followup after treatment. No pleural effusions. Coarse calcification lower pole left thyroid lobe. Thickened adrenal glands. 04/19/18 05:08 Pt had ammonia and lactic acid drawn by myself on arrival - lost; redrawn. Pt has ABG sent that is suboptimal. She ripped off her mask prior to the ABG being done, and she had it off for over 30 min. I feel that the abg may bot be accurate. 04/19/18 06:28 Lactic acid is 3.1. Ammonia is 11, which is normal; pt has no liver cirrhosis/ammonia accumulation; Pt has elevated Trop due to BUN/CR BNP is elevated. Pt given 3L NSS and she put out only 100 ml max urine. 04/19/18 06:28 UA pending Pt's guaiac was sent and she has no rectal fever. <Alberta Lott - Last Filed: 04/20/18 05:48>
[2018-04-19 01:34] LABS: ALBUMIN 1.5 g/dl (3.4-5.0); ALK PHOS 80 U/L (45-117); ANION GAP 15 MMOL/L (8-16); BILIRUBIN,TOTAL 0.4 mg/dL (0.2-1); BLOOD UREA NITROGEN 86 mg/dL (7-18); CALCIUM 7.7 mg/dL (8.5-10.1); CHLORIDE 108 mmol/L (98-107); CO2 11 mmol/L (21-32); CREATININE 4.8 mg/dL (0.55-1.3); GLUCOSE,RANDOM 91 mg/dL (74-106); POTASSIUM 4.9 mmol/L (3.5-5.1); SGOT/AST 142 U/L (15-37); SGPT/ALT 36 U/L (13-61); SODIUM 134 mmol/L (136-145); TOT PROT 7.4 g/dl (6.4-8.2)
[2018-04-19 02:20] LABS: ANISOCYTOSIS 3+; MACROCYTOSIS 1+; PLATELET ESTIMATE NORMAL
[2018-04-19 04:26] LABS: ARTERIAL BLD GAS O2 SATURATION 95.7 % (90-98.9); ARTERIAL BLOOD GAS PCO2 34.6 mmHg (35-45); CARBOXYHEMOGLOBIN 0.5 gm% (0.5-2.0)
[2018-04-19 04:29] LABS: ALLENS TEST POSITIVE
[2018-04-19 04:33] LABS: ARTERIAL BLOOD GAS pH 7.08 (7.35-7.45)
[2018-04-19 04:34] LABS: ARTERIAL BLOOD GAS BASE EXCESS -18.5 meq/l (-2-2)
[2018-04-19] MEDS ORDERED: SODIUM BICARBONATE 8.4% 50 MEQ/50 ML VIAL IVPB ONE ×2 (04:48→10:34)
[2018-04-19] MEDS ORDERED: SODIUM CHLORIDE 0.9% 500 ML INFUS.BAG IV ONE (04:49)
[2018-04-19 05:02] LABS: VENOUS PC02 43.2 mmHg (38-52)
[2018-04-19 05:08] LABS: VENOUS PH 7.03 (7.32-7.42)
[2018-04-19 05:11] LABS: URINE APPEARANCE TURBID; URINE BILIRUBIN NEGATIVE (<2.0 mg/dL); URINE GLUCOSE (UA) NEGATIVE (NEGATIVE); URINE KETONE NEGATIVE (NEGATIVE); URINE LEUK ESTERASE NEGATIVE (NEGATIVE); URINE NITRITE NEGATIVE (NEGATIVE); URINE PROTEIN 3+ (NEGATIVE); URINE UROBILINOGEN NEGATIVE mg/dL (0.2-1.0)
[2018-04-19 05:30] LABS: URINE COLOR YELLOW
[2018-04-19 05:33] LABS: EPI CELLS MODERATE /HPF (FEW); URINE MUCUS RARE
[2018-04-19 05:36] LABS: AMORP URATES 4+ /hpf (NONE SEEN)
[2018-04-19 05:46] LABS: N-TERMINAL BNP 39732.4 pg/ml (5-125)
[2018-04-19 06:39] LABS: ARTERIAL BLD GAS O2 SATURATION 95.9 % (90-98.9); ARTERIAL BLOOD GAS PCO2 45.6 mmHg (35-45); ARTERIAL BLOOD GAS pH 7.06 (7.35-7.45)
[2018-04-19 06:45] LABS: ARTERIAL BLOOD GAS BASE EXCESS -16.3 meq/l (-2-2)
[2018-04-19] MEDS ORDERED: SUCCINYLCHOLINE CHLORIDE 200 MG/10 ML VIAL IVPUSH ONE (07:07)
[2018-04-19] MEDS ORDERED: ROCURONIUM BROMIDE 50 MG/5 ML VIAL IV ONE (07:07)
[2018-04-19] MEDS ORDERED: ETOMIDATE 20 MG/10 ML AMPUL IVPUSH ONE (07:07)
[2018-04-19] MEDS ORDERED: PROPOFOL 1,000,000 MCG/100 ML VIAL IVPB SCH (07:30)
[2018-04-19] MEDS ORDERED: PROPOFOL 200 MG/20 ML VIAL IVPUSH ONE (07:33)
[2018-04-19] MEDS ORDERED: PIPERACILLIN/TAZOB 2.25 GM 2.25 GM in DEXTROSE 5%-WATER - 50 ML IVPB ONE (08:08)
--- NOTE | 2018-04-19 08:38 | EKG ---
Test Reason : Blood Pressure : / mmHG Vent. Rate : 131 BPM Atrial Rate : 131 BPM P-R Int : 126 ms QRS Dur : 094 ms QT Int : 302 ms P-R-T Axes : 059 057 041 degrees QTc Int : 445 ms SINUS TACHYCARDIA POSSIBLE LEFT ATRIAL ENLARGEMENT BORDERLINE ECG WHEN COMPARED WITH ECG OF 23-FEB-2018 15:23, VENT. RATE HAS INCREASED BY 52 BPM Confirmed by JERRELL WALKER, DELIA ([id number]) on 04/19/2018 8:37:32 AM Referred By: Confirmed By:DELIA ALLAN MD
[2018-04-19] MEDS ORDERED: SODIUM CHLORIDE 1,000 ML IV SCH (09:00)
--- NOTE | 2018-04-19 09:06 | PN ---
Teaching Attending Note Name of Resident: Best Lui ATTENDING PHYSICIAN STATEMENT I saw and evaluated the patient. I reviewed the resident's note and discussed the case with the resident. I agree with the resident's findings and plan as documented. SUBJECTIVE: resident to call family for more hx . unable to obtain hx as pt is intubated. per records. patient is am unfortunate 53 y/o lady with h/o HIV, non compliance, Asthma, HTN, HLP, HTN, and other medical problems who presented with fever and AMS accompanied by family. She had fever x 1 week at least per her 3 ER visits last week, but ended up leaving AMA. her HIV status is unknown as she is non compliant and we don't know the treating physician. at presentation she had Sat O2 of 79 %, placed on BIPAP .on imaging in ER, she had b/l infiltrates, and her ABG indicated metabolic acidosis, with resp compensation. repeat ABG indicated worsening metabolic acidosis. labs showed SANA , and slight elevation in trop . her cardiac status is unknown. She was intubated after the second ABG. Now she is in ER, intubated on no sedation . OBJECTIVE: Intubated, not sedated after initial intubation meds. round pupils, 1mm in diameter, sluggish reaction to light. no facial droop. ET tube in . dry MM. JVD on R . CV: regular rhythm, tachy. no murmurs appreciated . Lungs:anteriorly and laterally with crackles on L side. Abd: soft, hypoactive BS, not distended. Ext : no edema or erythema. No fungal infection among toes. skin : no rash or ulcers. ASSESSMENT AND PLAN: Unfortunate 53 y/o lady with h/o HIV, non compliance, Asthma, HTN, HLP, HTN, and other medical problems who presented with fever and AMS accompanied by family. She was found to have sepsis with multi-organ system failure 1- Acute hypoxic resp failure 2/2 b/l PNA and metabolic acidosis. - s/p Intubation. given Levaquin in ER. - d/w ID , cefepime and vanco - PCP PNA is in DDX . hold off bactrim now due to sulfa allergy and renal failure. - Id help . - order legionella, and pneumococal urine Ag - order PCP in sputum from ET wash - order sputum cx form ET wash - blood cx sent. - start propofol for sedation . Vent mgt per ABG in a couple hours - start IVF. despite elevated BNP as patient looks volume depleted on exam. 2- Severe sepsis with multiorgan failure. due to PNA . as above 3- Acute metabolic acidosis with high AG. due to SANA and sepsis . - repeat BMP - IVF - expect acidosis to improve on repeat ABG, if worse can use Bicarb - repeat lactic 4- Elevated trop: likey demand due to sepsis. However EKG shows < 1mm ST elevation with upright TW in laterl leads. - repeat Trop and EKG. - if worse, mightneed card. - No sings of heart failure, despite elevated BNP. - check echo . might have mod -severe TR givenher JVD 5- Microcytic anemia: + OB in stool. likely Gi loss . No obvious overt bleed - rectal to be done by resident - transfuse to HB close to 8 given her elevated trop. - not a candidate for a scope now due to critical condition unnless, obvious bleeding - iron studies 6- SANA : could be prerenal, can't r/o ATN. - check renal US - IVF. - urine electrolytes. - renal consult 7- HIV: unknown status . Might have been on MAC prophylaxis in past 8- DVT PX" SCDs Transfer to ICU
--- NOTE | 2018-04-19 09:42 | PDOC ---
*Physical Exam - Vital Signs Last Vital Signs Temp Pulse Resp BP Pulse Ox 99.8 F H 129 H 14 127/76 95 04/19/18 08:30 04/19/18 08:30 04/19/18 08:30 04/19/18 08:30 04/19/18 08:30 ED Treatment Course - LABORATORY CBC & Chemistry Diagram: 04/19/18 00:53 04/19/18 00:53 - ADDITIONAL ORDERS Additional order review: Laboratory Results 04/19/18 04/19/18 00:53 00:53 PT with INR 13.20 H INR 1.12 H PTT (Actin FS) 40.4 H Sodium 134 L Potassium 4.9 Chloride 108 H Carbon Dioxide 11 L Anion Gap 15 BUN 86 H Creatinine 4.8 H Creat Clearance w eGFR 9.42 Random Glucose 91 Calcium 7.7 L Total Bilirubin 0.4 AST 142 H ALT 36 Alkaline Phosphatase 80 Total Protein 7.4 Albumin 1.5 L 04/19/18 00:53 RBC 2.85 L MCV 68.6 L MCHC 32.6 RDW 21.2 H MPV 10.2 D Neutrophils % No Result Required. Lymphocytes % No Result Required. - Medications Given in the ED: ED Medications Discontinued Medications Generic Name Dose Route Start Last Admin Trade Name Freq PRN Reason Stop Dose Admin Fentanyl 100 mcg 04/19/18 07:29 04/19/18 07:53 Sublimaze Injection - IVPUSH 04/19/18 07:30 Not Given ONCE ONE Fentanyl 50 mcg 04/19/18 07:29 04/19/18 07:56 Sublimaze Injection - IVPUSH 04/19/18 07:30 50 mcg ONCE ONE Administration Levofloxacin 500 mg in 100 mls @ 100 mls/hr 04/19/18 01:03 04/19/18 01:11 Levaquin 500 Mg Premixed Ivpb - IVPB 04/19/18 02:02 100 mls/hr ONCE ONE Administration Protocol Sodium Chloride 1,000 mls @ 1,000 mls/hr 04/19/18 01:05 04/19/18 01:11 Normal Saline - IV 04/19/18 02:04 1,000 mls/hr ASDIR STA Administration Sodium Chloride 1,000 mls @ 1,000 mls/hr 04/19/18 04:47 04/19/18 05:42 Normal Saline - IV 04/19/18 05:46 1,000 mls/hr ASDIR STA Administration Propofol 1,000,000 mcg in 100 mls @ 1.769 mls/hr 04/19/18 07:30 04/19/18 08: 56 Diprivan - IVPB 5 mcg/kg/min TITR ZHANG 1.769 mls/hr Administration Protocol 5 MCG/KG/MIN Piperacillin Sod/Tazobactam 50 mls @ 100 mls/hr 04/19/18 08:08 04/19/18 08:45 Sod 2.25 gm/ Dextrose IVPB 04/19/18 08:37 100 mls/hr ONCE ONE Administration Protocol Propofol 20,000 mcg 04/19/18 07:33 04/19/18 07:59 Diprivan - IVPUSH 04/19/18 07:34 20,000 mcg ONCE ONE Administration Sodium Bicarbonate 50 meq 04/19/18 04:48 04/19/18 05:42 Sodium Bicarbonate 8.4% - IVPB 04/19/18 04:49 50 meq ONCE ONE Administration Sodium Chloride 1,000 ml 04/19/18 04:49 04/19/18 05:42 Normal Saline - IV 04/19/18 04:50 1,000 ml ONCE ONE Administration Medical Decision Making - Medical Decision Making 04/19/18 09:[address] Lira. Patient is a 53 yo female w/ pmh of HIV, HTN , HLD, Asthma, Anemia who presented for shortness of breath. Patient recently presented and eloped from hospital for same complaint. Patient intubated by previous team for hypoxia. Patient required additional IV access when evaluated for sedation as unable to place additional IV line. Discussed central line with nephew who consented over the telephone to Dr. Carrillo. Central line placed in conjunction with Dr. Peraza with no complications. Please see Dr. Peraza's procedure note for more details. Patient accepted to ICU by [facility] Hiren who discussed case with Dr. Carrillo. Patient en route to ICU at this time. *DC/Admit/Observation/Transfer Diagnosis at time of Disposition: SANA (acute kidney injury), Respiratory distress Anemia Qualifiers: Anemia type: unspecified type Qualified Code(s): D64.9 - Anemia, unspecified - Discharge Dispostion Condition at time of disposition: Guarded - Referrals - Patient Instructions - Post Discharge Activity
[2018-04-19] MEDS ORDERED: VANCOMYCIN 1 GM in D5W (PRE-DOCKED) 1,000 MG/250 ML IVPB ONE (10:00)
[2018-04-19] MEDS ORDERED: CEFEPIME 2 GM in DEXTROSE 5%-WATER 100 ML IVPB ONE (10:00)
--- NOTE | 2018-04-19 10:08 | CONSULT ---
Consult - text type - Consultation Consultation Note: Renal Consult for SANA/Metabolic acidosis This is a 53 year old AA woman with hx of HIV (non-compliance with meds per ER records), HTN, HLD, Asthma who presented from home with fever and AMS and found to have B/L lung infiltrates, Sepsis syndrome and SANA with severe metabolic acidosis. Pt intubated in the ED and not able to provide any history. Attempted to contact family via the phone number listed but not answering. ED course: 3L of NS, 1 PRBC, zosyn 2.25g, levaquin. Pt intubated s/p 2nd ABG showing severe metabolic acidosis and depressed mental status. Urine output in ER was 350ml. PMhx: as listed Family hx: unable to obtain Social Hx: unable to obtain ROS: unable to obtain because of clinical status Home Medications Medication Instructions Recorded Mag Hydrox/Al Hydrox/Simeth 30 ml PO Q6H #12 cup 03/09/18 [Mylanta *Suspension*] Ondansetron [Zofran Odt -] 4 mg SL TID #21 od.tablet 03/09/18 Ranitidine [Zantac -] 150 mg PO DAILY #14 tablet 03/09/18 Azithromycin [Zithromax -] 250 mg PO UTDICT #6 tab 04/12/18 Vital Signs Temperature 99.8 F H 04/19/18 08:30 Pulse Rate 117 H 04/19/18 09:56 Respiratory Rate 28 H 04/19/18 09:56 Blood Pressure 127/76 04/19/18 08:30 O2 Sat by Pulse Oximetry (%) 98 04/19/18 09:58 Intake & Output 04/16/18 04/17/18 04/18/18 04/19/18 23:59 23:59 23:59 23:59 Intake Total 350 Output Total 350 Balance 0 Weight 58.967 kg Intubated on the Vent ET tube in place No JVD tachycardic, no M/R Course BS soft NT/ND no bladder distension, foely in place no Le edema, clubbing or cyanosis no skin rash Laboratory Tests 04/19/18 04/19/18 04/19/18 00:53 00:53 04:19 WBC 4.6 Hgb 6.4 L* Hct 19.5 L D MCV 68.6 L Plt Count 234 Sodium 134 L Potassium 4.9 Chloride 108 H Carbon Dioxide 11 L Anion Gap 15 BUN 86 H Creatinine 4.8 H Creat Clearance w eGFR 9.42 Lactic Acid 3.1 H* Calcium 7.7 L Ammonia B-Natriuretic Peptide Albumin 1.5 L Urine Protein Urine Blood Stool Occult Blood 04/19/18 04/19/18 04/19/18 04:19 04:19 04:45 WBC Hgb Hct MCV Plt Count Sodium Potassium Chloride Carbon Dioxide Anion Gap BUN Creatinine Creat Clearance w eGFR Lactic Acid Calcium Ammonia < 10.00 L B-Natriuretic Peptide 70006.4 H Albumin Urine Protein 3+ H Urine Blood 2+ H Stool Occult Blood 04/19/18 05:30 WBC Hgb Hct MCV Plt Count Sodium Potassium Chloride Carbon Dioxide Anion Gap BUN Creatinine Creat Clearance w eGFR Lactic Acid Calcium Ammonia B-Natriuretic Peptide Albumin Urine Protein Urine Blood Stool Occult Blood Positive Current Medications Chlorhexidine Gluconate (Hibiclens For Decolonization -) 1 applic TP HS ZHANG Sodium Chloride (Normal Saline -) 1,000 mls @ 100 mls/hr IV ASDIR ZHANG Last Admin: 04/19/18 08:58 Dose: 100 mls/hr Propofol (Diprivan -) 1,000,000 mcg in 100 mls @ 1.769 mls/hr IV TITR ZHANG; Protocol Cefepime HCl 2 gm/ Dextrose 100 mls @ 200 mls/hr IVPB ONCE ONE; Protocol Stop: 04/19/18 10:29 Sodium Bicarbonate 150 meq/ (Dextrose) 1,150 mls @ 150 mls/hr IV .Q8H ZHANG Mupirocin (Bactroban Ointment (For Decolonization) -) 1 applic NS BID ZHANG Stop: 04/24/18 09:59 53 year old AA woman with hx of HIV (non-compliance with meds per ER records), HTN, HLD, Asthma who presented from home with fever and AMS and found to have B/ L lung infiltrates, Sepsis syndrome and SANA with severe metabolic acidosis. #Acute Renal Failure in setting of Sepsis syndrome #Anion gap metabolic acidosis (lactic acidosis with concurrent respiratory acidosis) #Sepsis Syndrome with B/L PNA #HIV non-compliant with medications #Pseudohypocalcemia (corrected Ca is 9.7) #Acute Anemia with + stool occult blood Etiology of SANA likely ATN in setting of sepsis but cannot r/o HUS, legionella, vasculitis Check urine studies for UPCR, FeNa, urine Eos Check ANCA, STEVE, Anti-GBM Ab, Legionella antigen awaiting repeat labs to determine if there any improvement in acidosis if Ph not improving > 7.2 with bicarb gtt and vent support would consider acute dialysis Start bicarb gtt at 150cc per hour with goal bicarb > 15 and ph > 7.2 Empiric Abx as per ID monitor serum Ca levels on bicarb gtt Trasfuse RPBC as per ICU protocol Check LDH/Haptoglobin levels Thank you Will follow Khadar Ibarra DO
--- NOTE | 2018-04-19 10:12 | HP ---
CHIEF COMPLAINT: poor breathing PCP: Dr. Yi Castle (HIV specialist) HISTORY OF PRESENT ILLNESS: Pt is a 53 y/o F with PMH HIV who was brought to ED by EMS called by pt's nephew after she was found to be breathing poorly. Of note, pt has multiple visits to this ED with many AMAs. She has several recent visits recently for fevers (up to 102F). On my visit with pt, she was intubated and sedated, and so history was taken in report and from records. In ED, pt was found to be anemic and was given 1 PRBC. She was put on Bipap and ultimately intubated for her respiratory status. I spoke with pt's nephew who stated he would try and collect her medications and call the hospital with that information. ER course was notable for: (1) Hb 6.4, Na 134, BUN 86, Trade Rec[employer]iter 4.8, ABG: metab acidosis, resp acidosis, LA 3.1 , Trop 0.11, BNP 39,000 (2) CXR, CT chest with dense consolidations b/l (3) Bipap -> intubation Recent Travel: unknown PAST MEDICAL HISTORY: HIV (unknown load & CD4), HTN, HLD, Asthma, Anemia, DM PAST SURGICAL HISTORY: unknown Social History: Smoking: active smoker, 7 cig/day Alcohol: denied Drugs: denied Family History: unknown Allergies Penicillins Allergy (Severe, Verified 04/13/18 18:01) Hives Sulfa (Sulfonamide Antibiotics) Allergy (Severe, Verified 04/13/18 18:01) Difficulty Breathing phenazopyridine [From Pyridium] Adverse Reaction (Verified 04/13/18 18:01) HOME MEDICATIONS: Home Medications Medication Instructions Recorded Mag Hydrox/Al Hydrox/Simeth 30 ml PO Q6H #12 cup 03/09/18 [Mylanta *Suspension*] Ondansetron [Zofran Odt -] 4 mg SL TID #21 od.tablet 03/09/18 Ranitidine [Zantac -] 150 mg PO DAILY #14 tablet 03/09/18 Azithromycin [Zithromax -] 250 mg PO UTDICT #6 tab 04/12/18 REVIEW OF SYSTEMS unobtainable PHYSICAL EXAMINATION Vital Signs - 24 hr 04/19/18 04/19/18 04/19/18 00:55 01:12 01:58 Temperature 100.0 F H Pulse Rate 133 H Pulse Rate [ Left Radial] Respiratory 30 H Rate Blood Pressure 152/92 Blood Pressure [Left Arm] O2 Sat by Pulse 98 100 Oximetry (%) 04/19/18 04/19/18 04/19/18 05:40 06:15 06:45 Temperature 99.2 F Pulse Rate Pulse Rate [ 132 H Left Radial] Respiratory 18 16 Rate Blood Pressure Blood Pressure 109/65 [Left Arm] O2 Sat by Pulse 96 100 Oximetry (%) 04/19/18 04/19/18 04/19/18 07:15 07:30 08:30 Temperature 100.3 F H 100.1 F H 99.8 F H Pulse Rate 126 H Pulse Rate [ 116 H 117 H 129 H Left Radial] Respiratory 14 14 14 Rate Blood Pressure 148/71 Blood Pressure 148/71 130/70 127/76 [Left Arm] O2 Sat by Pulse 98 96 95 Oximetry (%) Gen: intubated, sedated HEENT: NCAT, pupils constricted but reactive Neck: mild-moderate R JVD, supple Cardio: tachycardic, regular, normal s1s2, no mrg appreciated. limited exam due to resp sounds Pulm: air entry appreciated b/l. No rales. No basilar dullness. Coarse breath sounds. Abd: soft, nondistended, no guarding, pos bowel sounds Ext: 2+ pulses, no edema Laboratory Results - last 24 hr 04/19/18 04/19/18 04/19/18 00:53 00:53 00:53 WBC 4.6 RBC 2.85 L Hgb 6.4 L* Hct 19.5 L D MCV 68.6 L MCH 22.4 L MCHC 32.6 RDW 21.2 H Plt Count 234 MPV 10.2 D Absolute Neuts (auto) 4.2 Neutrophils % No Result Required. Neutrophils % (Manual) 76.5 Band Neutrophils % 4.1 Lymphocytes % No Result Required. Lymphocytes % (Manual) 10.2 D Monocytes % (Manual) 8 Eosinophils % (Manual) 0.0 Basophils % (Manual) 0.0 Myelocytes % (Man) 1 Promyelocytes % (Man) 0 Blast Cells % (Manual) 0 Nucleated RBC % 0 Metamyelocytes 0 Hypochromia 1+ Platelet Estimate Normal Platelet Comment Present Polychromasia 3+ Poikilocytosis 3+ Anisocytosis 3+ Microcytosis 3+ Macrocytosis 1+ PT with INR 13.20 H INR 1.12 H PTT (Actin FS) 40.4 H Anticoagulation Therapy Puncture Site ABG pH ABG pCO2 at Pt Temp ABG pO2 at Pt Temp ABG HCO3 ABG O2 Sat (Measured) ABG O2 Content ABG Base Excess Fadi Test VBG pH POC VBG pCO2 POC VBG pO2 Mixed VBG HCO3 Carboxyhemoglobin Methemoglobin O2 Delivery Device Oxygen Flow Rate Vent Mode Vent Rate Mechanical Rate Pressure Support Vent Sodium 134 L Potassium 4.9 Chloride 108 H Carbon Dioxide 11 L Anion Gap 15 BUN 86 H Creatinine 4.8 H Creat Clearance w eGFR 9.42 Random Glucose 91 Lactic Acid Calcium 7.7 L Total Bilirubin 0.4 AST 142 H ALT 36 Alkaline Phosphatase 80 Ammonia Troponin I B-Natriuretic Peptide Total Protein 7.4 Albumin 1.5 L Urine Color Urine Appearance Urine pH Ur Specific [place] Urine Protein Urine Glucose (UA) Urine Ketones Urine Blood Urine Nitrite Urine Bilirubin Urine Urobilinogen Ur Leukocyte Esterase Urine WBC (Auto) Urine RBC (Auto) Ur Epithelial Cells Amorphous Urates Urine Mucus Stool Occult Blood Blood Type Antibody Screen Crossmatch 04/19/18 04/19/18 04/19/18 04:00 04:19 04:19 WBC RBC Hgb Hct MCV MCH MCHC RDW Plt Count MPV Absolute Neuts (auto) Neutrophils % Neutrophils % (Manual) Band Neutrophils % Lymphocytes % Lymphocytes % (Manual) Monocytes % (Manual) Eosinophils % (Manual) Basophils % (Manual) Myelocytes % (Man) Promyelocytes % (Man) Blast Cells % (Manual) Nucleated RBC % Metamyelocytes Hypochromia Platelet Estimate Platelet Comment Polychromasia Poikilocytosis Anisocytosis Microcytosis Macrocytosis PT with INR INR PTT (Actin FS) Anticoagulation Therapy No Result Required. Puncture Site Right radial ABG pH 7.08 L* D ABG pCO2 at Pt Temp 34.6 L ABG pO2 at Pt Temp 114.0 H ABG HCO3 9.7 L* ABG O2 Sat (Measured) 95.7 ABG O2 Content 8.2 L* ABG Base Excess -18.5 L* Fadi Test Positive VBG pH POC VBG pCO2 POC VBG pO2 Mixed VBG HCO3 Carboxyhemoglobin 0.5 Methemoglobin 0.1 L O2 Delivery Device Bipap Oxygen Flow Rate 40% Vent Mode S/t Vent Rate No Result Required. Mechanical Rate No Result Required. Pressure Support Vent 12/6 Sodium Potassium Chloride Carbon Dioxide Anion Gap BUN Creatinine Creat Clearance w eGFR Random Glucose Lactic Acid 3.1 H* Calcium Total Bilirubin AST ALT Alkaline Phosphatase Ammonia Troponin I 0.11 H B-Natriuretic Peptide 76345.4 H Total Protein Albumin Urine Color Urine Appearance Urine pH Ur Specific [place] Urine Protein Urine Glucose (UA) Urine Ketones Urine Blood Urine Nitrite Urine Bilirubin Urine Urobilinogen Ur Leukocyte Esterase Urine WBC (Auto) Urine RBC (Auto) Ur Epithelial Cells Amorphous Urates Urine Mucus Stool Occult Blood Blood Type Antibody Screen Crossmatch 04/19/18 04/19/18 04/19/18 04:19 04:45 04:45 WBC RBC Hgb Hct MCV MCH MCHC RDW Plt Count MPV Absolute Neuts (auto) Neutrophils % Neutrophils % (Manual) Band Neutrophils % Lymphocytes % Lymphocytes % (Manual) Monocytes % (Manual) Eosinophils % (Manual) Basophils % (Manual) Myelocytes % (Man) Promyelocytes % (Man) Blast Cells % (Manual) Nucleated RBC % Metamyelocytes Hypochromia Platelet Estimate Platelet Comment Polychromasia Poikilocytosis Anisocytosis Microcytosis Macrocytosis PT with INR INR PTT (Actin FS) Anticoagulation Therapy Puncture Site ABG pH ABG pCO2 at Pt Temp ABG pO2 at Pt Temp ABG HCO3 ABG O2 Sat (Measured) ABG O2 Content ABG Base Excess Fadi Test VBG pH 7.03 L* POC VBG pCO2 43.2 POC VBG pO2 51.0 H Mixed VBG HCO3 10.8 L* Carboxyhemoglobin Methemoglobin O2 Delivery Device Oxygen Flow Rate Vent Mode Vent Rate Mechanical Rate Pressure Support Vent Sodium Potassium Chloride Carbon Dioxide Anion Gap BUN Creatinine Creat Clearance w eGFR Random Glucose Lactic Acid Calcium Total Bilirubin AST ALT Alkaline Phosphatase Ammonia < 10.00 L Troponin I B-Natriuretic Peptide Total Protein Albumin Urine Color Yellow Urine Appearance Turbid Urine pH 5.0 Ur Specific [place] 1.018 Urine Protein 3+ H Urine Glucose (UA) Negative Urine Ketones Negative Urine Blood 2+ H Urine Nitrite Negative Urine Bilirubin Negative Urine Urobilinogen Negative Ur Leukocyte Esterase Negative Urine WBC (Auto) 18 Urine RBC (Auto) 46 Ur Epithelial Cells Moderate Amorphous Urates 4+ Urine Mucus Rare Stool Occult Blood Blood Type Antibody Screen Crossmatch 04/19/18 04/19/18 04/19/18 04:45 05:30 06:02 WBC RBC Hgb Hct MCV MCH MCHC RDW Plt Count MPV Absolute Neuts (auto) Neutrophils % Neutrophils % (Manual) Band Neutrophils % Lymphocytes % Lymphocytes % (Manual) Monocytes % (Manual) Eosinophils % (Manual) Basophils % (Manual) Myelocytes % (Man) Promyelocytes % (Man) Blast Cells % (Manual) Nucleated RBC % Metamyelocytes Hypochromia Platelet Estimate Platelet Comment Polychromasia Poikilocytosis Anisocytosis Microcytosis Macrocytosis PT with INR INR PTT (Actin FS) Anticoagulation Therapy No Result Required. Puncture Site No Result Required. ABG pH 7.06 L* ABG pCO2 at Pt Temp 45.6 H D ABG pO2 at Pt Temp 117.0 H ABG HCO3 12.3 L* ABG O2 Sat (Measured) 95.9 ABG O2 Content 8.4 L* ABG Base Excess -16.3 L* Fadi Test No Result Required. VBG pH POC VBG pCO2 POC VBG pO2 Mixed VBG HCO3 Carboxyhemoglobin Methemoglobin O2 Delivery Device Bipap Oxygen Flow Rate 100% Vent Mode No Result Required. Vent Rate No Result Required. Mechanical Rate No Result Required. Pressure Support Vent 12/6 Sodium Potassium Chloride Carbon Dioxide Anion Gap BUN Creatinine Creat Clearance w eGFR Random Glucose Lactic Acid Calcium Total Bilirubin AST ALT Alkaline Phosphatase Ammonia Troponin I B-Natriuretic Peptide Total Protein Albumin Urine Color Urine Appearance Urine pH Ur Specific [place] Urine Protein Urine Glucose (UA) Urine Ketones Urine Blood Urine Nitrite Urine Bilirubin Urine Urobilinogen Ur Leukocyte Esterase Urine WBC (Auto) Urine RBC (Auto) Ur Epithelial Cells Amorphous Urates Urine Mucus Stool Occult Blood Positive Blood Type B POSITIVE Antibody Screen Negative Crossmatch See Detail ASSESSMENT/PLAN: Pt is a 53 y/o F with PMH HIV (unknown CD4/viral load) presented to ED with difficulty breathing. Pt was found to have b/l dense consolidations on chest CT. Admitted to ICU for severe sepsis 2/2 PNA. #Severe sepsis 2/2 PNA -CT impressive for b/l dense consolidations -broad differential considering HIV status and unknown counts. Still, bacterial PNA most likely -LA 3.1 -ABG: metab acidosis with resp acidosis -got Levaquin in ED -got NS in ED -Vanco 1gm loading dose -Cefepime 2 gm loading dose -NS at 100 -BCx pending #Resp failure -Intubated, sedated -Vent: 30/400/100/5 #Anion Gap Metabolic Acidosis -pH 7.06, HCO3 11, Gap 15 -likely 2/2 sepsis and PNA -repeat ABG -Bicarb drip to be started by nephro -recs CMP q6 -NS -ABx -Nephro recs appreciated #SANA -hist Trade Recruiter 1.5, currently 4.8 -BUN 86 -likely prerenal -U lytes -renal U/S -Initial UA pos for prot, blood, wbc, rbc, however pos for epith cells. will repeat #microcytic hypochromic Anemia -? GIB, FOBT pos in ED -no evidence of gross bleed, hematemesis, hematochezia #Elevated trop -likely demand 2/2 sepsis -trend trop and EKG -consider cardio if worrisome EKG changes or increasing trop #HIV -unknown history -counts pending #HTN -BP currently controlled -monitor pressure -hold home antihypertensives while septic and sedated #HLD -f/u as outpt #Asthma -Currently intubated and sedated #?DM -BGM currently controlled #FEN -NS at 100 -lytes wnl -npo #PPx -hold Hep in setting of ? GIB and anemia #Dispo -admitted to ICU Best Lui MD PGY-2 IM Visit type - Emergency Visit Emergency Visit: Yes ED Registration Date: 04/19/18 Care time: The patient presented to the Emergency Department on the above date and was hospitalized for further evaluation of their emergent condition. - New Patient This patient is new to me today: Yes Date on this admission: 04/19/18 - Critical Care Critical Care patient: Yes Total Critical Care Time (in minutes): 45 Critical Care Statement: The care of this patient involved high complexity decision making to prevent further life threatening deterioration of the patient 's condition and/or to evaluate & treat vital organ system(s) failure or risk of failure.
[2018-04-19] MEDS ORDERED: DEXTROSE 5%-WATER - 50 ML IVPB ONE (10:13)
[2018-04-19] MEDS ORDERED: PIPERACILLIN/TAZOBACTAM 2.25 GM VIAL IVPB ONE (10:13)
[2018-04-19] MEDS ORDERED: DEXTROSE 5%-WATER - 1,000 ML with SODIUM BICARBONATE 8.4% - 150 MEQ IV SCH (10:15)
[2018-04-19] MEDS: PROPOFOL 1,000,000 MCG/100 ML VIAL IV SCH (10:20)
--- NOTE | 2018-04-19 10:31 | PN ---
Progress Note (short form) - Note Progress Note: ID consult dictated imp/reccd 53 yo female with HIV- further history unknown multiple ER visits last left AMA 04/13 complainting of cough and fever and chills nephew called EMS after finding her confused she was hypoxic in the ED but mental status improved with BIPAP found to have multilobar pneumonia cultures sent and started on levaquin pen/sulfa allergy unclear what the status of her HIV is has had multiple ED visits but no admissions since 2011 intubated in ED femoral line placed neck is supple, no meningeal signs severe sepsis multiorgan failure-respiratory/renal multilobar pneumonia HIV multiple antibiotics allergies cultures stat doses vancomycin/cefepime renal consult influenza screen urinary antigens sputum culture overall prognosis is guarded- 45 minutes spent in the care of this critically ill ICU patient chart reviewed has apparently had multiple ER visits to both [facility] and [facility]- ? MDRO will switch to meropenem Problem List - Problems (1) Severe sepsis Code(s): A41.9 - SEPSIS, UNSPECIFIED ORGANISM; R65.20 - SEVERE SEPSIS WITHOUT SEPTIC SHOCK (2) Sepsis with multi-organ dysfunction Code(s): A41.9 - SEPSIS, UNSPECIFIED ORGANISM; R65.20 - SEVERE SEPSIS WITHOUT SEPTIC SHOCK (3) Respiratory failure, acute Code(s): J96.00 - ACUTE RESPIRATORY FAILURE, UNSP W HYPOXIA OR HYPERCAPNIA (4) SANA (acute kidney injury) Code(s): N17.9 - ACUTE KIDNEY FAILURE, UNSPECIFIED (5) Pneumonia Code(s): J18.9 - PNEUMONIA, UNSPECIFIED ORGANISM (6) HIV (human immunodeficiency virus infection) Code(s): B20 - HUMAN IMMUNODEFICIENCY VIRUS [HIV] DISEASE
[2018-04-19 10:35] LABS: ALBUMIN 1.2 g/dl (3.4-5.0); ALK PHOS 63 U/L (45-117); ANION GAP 13 MMOL/L (8-16); BILIRUBIN,TOTAL 0.6 mg/dL (0.2-1); BLOOD UREA NITROGEN 91 mg/dL (7-18); CHLORIDE 114 mmol/L (98-107); CO2 13 mmol/L (21-32); CREATININE 4.6 mg/dL (0.55-1.3); GLUCOSE,RANDOM 74 mg/dL (74-106); MAGNESIUM 2.4 mg/dL (1.8-2.4); PHOSPHOROUS 8.8 mg/dL (2.5-4.9); POTASSIUM 5.1 mmol/L (3.5-5.1); SGOT/AST 111 U/L (15-37); SGPT/ALT 27 U/L (13-61); SODIUM 141 mmol/L (136-145); TOT PROT 5.9 g/dl (6.4-8.2)
[2018-04-19] MEDS ORDERED: SODIUM BICARBONATE 8.4% - 150 MEQ in DEXTROSE 5%-WATER - 1,000 ML IVPB ONE (11:00)
[2018-04-19] MEDS ORDERED: NOREPINEPHRINE BITARTRATE 4 MG/4 ML ML IV ONE ×2 (11:04→17:35)
[2018-04-19] MEDS: NOREPINEPHRINE BITARTRATE 4,000 MCG in DEXTROSE 5%-WATER - 496 ML IV SCH (11:10)
[2018-04-19 11:22] LABS: URINE APPEARANCE CLOUDY; URINE BILIRUBIN NEGATIVE (<2.0 mg/dL); URINE COLOR DKYELLOW; URINE GLUCOSE (UA) NEGATIVE (NEGATIVE); URINE KETONE NEGATIVE (NEGATIVE); URINE LEUK ESTERASE NEGATIVE (NEGATIVE); URINE NITRITE NEGATIVE (NEGATIVE); URINE PROTEIN 3+ (NEGATIVE); URINE UROBILINOGEN NEGATIVE mg/dL (0.2-1.0)
[2018-04-19 11:41] LABS: ARTERIAL BLD GAS O2 SATURATION 98.1 % (90-98.9); ARTERIAL BLOOD GAS BASE EXCESS -16.6 meq/l (-2-2); ARTERIAL BLOOD GAS PCO2 47.2 mmHg (35-45)
[2018-04-19 11:42] LABS: EPI CELLS RARE /HPF (FEW); URINE BACTERIA MANY /hpf (NONE SEEN); URINE HYALINE CAST 7 /lpf; URINE MUCUS RARE
[2018-04-19 11:42] LABS: ALLENS TEST POSITIVE
[2018-04-19 11:43] LABS: ARTERIAL BLOOD GAS pH 7.05 (7.35-7.45)
--- NOTE | 2018-04-19 12:05 | CONS ---
INFECTIOUS DISEASE CONSULTATION DATE OF CONSULTATION: 04/19/2018 REQUESTING PHYSICIAN: The hospitalist service. This is a 53-year-old woman with HIV, further history unknown, multiple ER visits. She last left AMA on the , complaining of cough and fever and chills. She had been seen 2 days earlier when she had a throat swab for influenza that was negative. Her nephew called EMS after finding her confused. She was hypoxic in the ER, but her mental status improved with BiPAP. She was found to have multi-lobar pneumonia. Cultures were sent, and she was started on Levaquin as she has PENICILLIN and SULFA ALLERGY. Unclear what the status of her HIV is. Her nephew is not aware of any medications she takes. She has had multiple ER visits here, but no admission since 2011. She was intubated in the emergency room, and a femoral line was placed. She received a 1-unit blood transfusion. She is currently sedated and intubated in the ICU, and I am asked to see her for further evaluation. ALLERGIES: She is allergic to PENICILLIN, SULFA, and PHENAZOPYRIDINE. Her medication list is unknown. It is unknown if she takes HIV medicines. PAST MEDICAL HISTORY: Notable for HIV, hypertension, hyperlipidemia, asthma, anemia, and diabetes. SURGICAL HISTORY: Unknown. SOCIAL HISTORY: She apparently smokes. The rest of her substance use history as well is not known. Travel history is not known as well. VITAL SIGNS: Current temperature is 100.7 rectal, pulse of 122. Blood pressure is 111/65. Respiratory rate is 28. She is saturating 98% on 100%. She is mechanically ventilated. White count on admission was 4.6, hemoglobin 6.4, platelets were 235. INR was 1.1. Blood gas revealed a pH of 7.06 with a bicarbonate of 12. BUN was 86 and creatinine 4.8 on admission with a glucose of 91. Lactic acid was 3.1. LFTs were notable for an AST of 142. Repeat lactic acid was 2.2. Bicarbonate is still 13 with a BUN of 91 and creatinine of 4.6. CK is 421. Urinalysis is negative for leukocytes, has moderate epithelial cells. T cells: We do not have any recorded T cells on her in the past. A CD4 count has just been ordered and is pending. Rapid influenza is negative, and cultures are pending. Chest x-ray reveals extensive bilateral infiltrates, right upper lobe and left lobe. In summary, this is a 53-year-old woman with HIV, further history unknown, now admitted with recent visit to the ER on the 6th when she was febrile, which she eloped before she could get any care, now found to have multilobar pneumonia. Cultures have been sent. She was started on Levaquin in the ER. She has a PENICILLIN and SULFA ALLERGY. ASSESSMENT: 1. Severe sepsis. 2. Multi-organ failure, respiratory and renal. 3. Multi-lobar pneumonia. 4. Human immunodeficiency virus status unknown. 5. Multiple ANTIBIOTIC ALLERGIES. Would obtain cultures, stat dose of vancomycin and cefepime, renal consult, influenza screen which is negative, urinary antigens, sputum culture. Blood cultures have been sent. Overall prognosis is guarded. Over 45 minutes spent in the care of this critically-ill ICU patient. JAIME DURANT M.D. MANGO/[id number]
[2018-04-19] MEDS: MEROPENEM 1 GM in DEXTROSE 5%-WATER 100 ML IVPB SCH ×2 (12:52→22:56)
--- NOTE | 2018-04-19 13:22 | CON.PULM ---
Consult Consult Specialty:: Pulm/CCM Reason for Consultation:: Shock, respiratory failure, SANA - History of Present Illness Chief Complaint: SOB/increased WOB History of Present Illness: This is a 53 yo woman w/ HTN, HLD, asthma, DM and HIV who was brought in by family for progressive SOB and WOB found to have a multifocal pneumonia c/b hypoxic respiratory failure requiring intubation, SANA w/ severe metabolic acidosis and shock on pressors. Per ED note the patient nephew noted respiratory distress promoting ED admission. She has had multiple recent ED visits over the last where she has been prescribed differing ABX courses. In the ED she was initially lethargic and hypoxic w/ sat 79% on RA was placed on NIPPV with some initial improvement. Patient denied h/a, nuchal rigidity or photophobia. Labs significant for anemia (hgb 6.4), SANA (BUN:SCr 86/4.8) and severe combined acidosis: lactate 3.4, bicarb 11, A. She was given IV fluids and empiric ABX: levaquin. CXR with multifocal infiltrates prompting CT chest also showing multifocal infiltrates and bilateral adrenal thickening. Her hypoxia worsened requiring intubation. Patient transferred to ICU for continued care. In ICU patient vent optimized for hypoxia: ACVC 30/400 100 +10 w/ ABG 7.0/46/ 168. Pplat 25cm h2o. She was sedated with propofol for vent synchrony. ID was consulted and patient placed on vanco/meropenem given recent ABX use and PCN allergy. 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 Renal consulted. FeNA 0.68% c/w pre-renal disease. She was given IV fluids w/ Sodium bicarb. NE drip started for vasodilatory shock. - History Source History Provided By: Family Member, Medical Record Limitations to Obtaining History: Intubated - Past Medical History Cardio/Vascular: Yes: HTN, Hyperlipdemia Pulmonary: Yes: Asthma Infectious Disease: Yes: HIV - Alcohol/Substance Use Hx Alcohol Use: No - Smoking History Smoking history: Current every day smoker Have you smoked in the past 12 months: No Aproximately how many cigarettes per day: 7 If you are a former smoker, when did you quit?: 1yr Home Medications - Allergies Allergies/Adverse Reactions: Allergies Allergy/AdvReac Type Severity Reaction Status Date / Time Penicillins Allergy Severe Hives Verified 04/13/18 18:01 Sulfa (Sulfonamide Allergy Severe Difficulty Verified 04/13/18 18:01 Antibiotics) Breathing phenazopyridine AdvReac Verified 04/13/18 18:01 [From Pyridium] - Home Medications Home Medications: Ambulatory Orders Mag Hydrox/Al Hydrox/Simeth [Mylanta *Suspension*] 30 ml PO Q6H #12 cup Ondansetron [Zofran Odt -] 4 mg SL TID #21 od.tablet 03/09/18 Ranitidine [Zantac -] 150 mg PO DAILY #14 tablet 03/09/18 Azithromycin [Zithromax -] 250 mg PO UTDICT #6 tab 04/12/18 Family Disease History - Family Disease History Family History: Unable to Obtain Review of Systems Unable to obtain ROS, reason: intubation Physical Exam Vital Sings: Vital Signs Temperature 100.7 F H 04/19/18 12:49 Pulse Rate 112 H 04/19/18 12:49 Respiratory Rate 30 H 04/19/18 12:49 Blood Pressure 127/74 04/19/18 12:49 O2 Sat by Pulse Oximetry (%) 100 04/19/18 12:49 Current Medications Chlorhexidine Gluconate (Hibiclens For Decolonization -) 1 applic TP HS ZHANG Propofol (Diprivan -) 1,000,000 mcg in 100 mls @ 1.769 mls/hr IV TITR [facility]; Protocol Last Admin: 04/19/18 10:20 Dose: 5 mcg/kg/min, 1.769 mls/hr Norepinephrine Bitartrate 4, (000 mcg/ Dextrose) 500 mls @ 37.5 mls/hr IV TITR [facility]; Protocol Last Admin: 04/19/18 11:10 Dose: 5 mcg/min, 37.5 mls/hr Sodium Bicarbonate 150 meq/ (Dextrose) 1,150 mls @ 150 mls/hr IV Q8H [facility] Meropenem 1 gm/ Dextrose 100 mls @ 200 mls/hr IVPB BID [facility]ANG Mupirocin (Bactroban Ointment (For Decolonization) -) 1 applic NS BID ZHANG Stop: 04/24/18 09:59 Constitutional: Yes: Moderate Distress Eyes: Yes: Conjunctiva Clear, PERRL HENT: Yes: Atraumatic Cardiovascular: Yes: Tachycardia, S1, S2 Respiratory: Yes: Mechanically Ventilated, Rhonchi ...Breath Sounds: LORENA Rhonchi, LLL Rhonchi, RUL Rhonchi, RML Rhonchi Gastrointestinal: Yes: Normal Bowel Sounds, Soft Renal/: Yes: Stephens Present Extremities: Yes: WNL Edema: No Labs: CBC, BMP 04/19/18 09:19 ABG Results ABG pH 7.05 (7.35-7.45) L* 04/19/18 11:17 ABG pCO2 at Pt Temp 47.2 mmHg (35-45) H 04/19/18 11:17 ABG pO2 at Pt Temp 163.0 mmHg (80-100) H* 04/19/18 11:17 ABG HCO3 12.4 meq/L (22-26) L* 04/19/18 11:17 ABG O2 Sat (Measured) 98.1 % (90-98.9) 04/19/18 11:17 ABG O2 Content 10.1 % vol (15-22) L 04/19/18 11:17 ABG Base Excess -16.6 meq/l (-2-2) L* 04/19/18 11:17 CBC WBC 4.6 K/mm3 (4.0-10.0) 04/19/18 00:53 RBC 2.85 M/mm3 (3.60-5.2) L 04/19/18 00:53 Hgb 6.4 GM/dL (10.7-15.3) L* 04/19/18 00:53 Hct 19.5 % (32.4-45.2) L D 04/19/18 00:53 MCV 68.6 fl (80-96) L 04/19/18 00:53 MCH 22.4 pg (25.7-33.7) L 04/19/18 00:53 MCHC 32.6 g/dl (32.0-36.0) 04/19/18 00:53 RDW 21.2 % (11.6-15.6) H 04/19/18 00:53 Plt Count 234 K/MM3 (134-434) 04/19/18 00:53 MPV 10.2 fl (7.5-11.1) D 04/19/18 00:53 Absolute Neuts (auto) 4.2 K/mm3 (1.5-8.0) 04/19/18 00:53 Neutrophils % No Result Required. 04/19/18 00:53 Neutrophils % (Manual) 76.5 % (42.8-82.8) 04/19/18 00:53 Band Neutrophils % 4.1 % 04/19/18 00:53 Lymphocytes % No Result Required. 04/19/18 00:53 Lymphocytes % (Manual) 10.2 % (8-40) D 04/19/18 00:53 Monocytes % (Manual) 8 % (3.8-10.2) 04/19/18 00:53 Eosinophils % (Manual) 0.0 % (0-4.5) 04/19/18 00:53 Basophils % (Manual) 0.0 % (0-2.0) 04/19/18 00:53 Myelocytes % (Man) 1 % (0-2) 04/19/18 00:53 Promyelocytes % (Man) 0 % (0-2) 04/19/18 00:53 Blast Cells % (Manual) 0 % (0-0) 04/19/18 00:53 Nucleated RBC % 0 % (0-0) 04/19/18 00:53 Metamyelocytes 0 % (0-2) 04/19/18 00:53 Hypochromia 1+ 04/19/18 00:53 Platelet Estimate Normal 04/19/18 00:53 Platelet Comment Present 04/19/18 00:53 Polychromasia 3+ 04/19/18 00:53 Poikilocytosis 3+ 04/19/18 00:53 Anisocytosis 3+ 04/19/18 00:53 Microcytosis 3+ 04/19/18 00:53 Macrocytosis 1+ 04/19/18 00:53 Hepatic Panel Total Bilirubin 0.6 mg/dL (0.2-1) 04/19/18 09:19 AST 111 U/L (15-37) H 04/19/18 09:19 ALT 27 U/L (13-61) 04/19/18 09:19 Alkaline Phosphatase 63 U/L (45-117) 04/19/18 09:19 Albumin 1.2 g/dl (3.4-5.0) L 04/19/18 09:19 Troponin, BNP 04/19/18 04/19/18 04:19 09:19 Troponin I 0.11 H 0.16 H B-Natriuretic Peptide 33829.4 H Microbiology 04/19/18 00:57 Blood - Peripheral Venous Blood Culture - Preliminary Pending Organism 04/19/18 00:57 Blood - Peripheral Venous Blood Culture - Preliminary Pending Organism Imaging - Results Chest X-ray: Report Reviewed, Image Reviewed Cat Scan: Report Reviewed, Image Reviewed Problem List - Problems (1) Respiratory failure with hypoxia Code(s): J96.91 - RESPIRATORY FAILURE, UNSPECIFIED WITH HYPOXIA (2) Respiratory failure, acute Code(s): J96.00 - ACUTE RESPIRATORY FAILURE, UNSP W HYPOXIA OR HYPERCAPNIA (3) SANA (acute kidney injury) Code(s): N17.9 - ACUTE KIDNEY FAILURE, UNSPECIFIED (4) Anemia Code(s): D64.9 - ANEMIA, UNSPECIFIED Qualifiers: Anemia type: unspecified type Qualified Code(s): D64.9 - Anemia, unspecified (5) Sepsis Code(s): A41.9 - SEPSIS, UNSPECIFIED ORGANISM (6) Shock circulatory Code(s): R57.9 - SHOCK, UNSPECIFIED (7) Pneumonia Code(s): J18.9 - PNEUMONIA, UNSPECIFIED ORGANISM Assessment/Plan A/P: This is a 53 yo woman w/ HTN, HLD, asthma, DM and HIV who was brought in by family for progressive SOB and WOB found to have a multifocal pneumonia c/b hypoxic respiratory failure requiring intubation, SANA (likely prerenal given FeNa 0.68% also c/f HIVAN) w/ severe metabolic acidosis and shock on pressors. -Pressors for MAP 65-75. Norepi, will add vasopressin if escalating doses of NE -consider art line. Cont TLC -consider TTE if severe shock -low threshold for sepsis steroids given HIV and adrenal thickening on CT giving c/f adrenal insufficiency -IV fluids, will use sodium bicarb now given metabolic acidosis then transition to LR -trend lactate, currently down trending -mechanical ventilation w/ lung protective strategy. Goal Pplt <30 -prn bronchodilators -Deep sedation for vent synchrony -Daily interruption of sedation once stable -ID consult appreciated: will use meropenem/vanco for now and repeat blood cultures tomorrow -sawant culture: blood, urine, sputum, urine antigen, flu swab -Renal following appreciate recs -renal u/s, and rheum w/u -renal dose all medications -possible iHD for acidosis if no improvement w/ sodium bicarb -normal transfusion thresholds for hgb >7.0 -glucose control -DVT/GI ppx Boerem ACNP Pulm/CCM CCT: 75m
[2018-04-19] MEDS ORDERED: FAMOTIDINE 20 MG/50 ML IVPB 20 MG/50 ML MG IVPB SCH (13:45)
[2018-04-19] MEDS: SODIUM BICARBONATE 8.4% - 150 MEQ in DEXTROSE 5%-WATER - 1,000 ML IV SCH ×2 (13:53→21:39)
[2018-04-19] MEDS: MUPIROCIN 2% TOPICAL OINTMENT FOR DECOLONIZATION NS SCH ×2 (13:58→21:40)
[2018-04-19] MEDS: DOCUSATE NA 100 MG/10 ML UNIT-DOSE CUPS PO SCH ×2 (14:47→21:40)
[2018-04-19] MEDS: HEPARIN NA (PORCINE) 5,000 UNITS/ML 1ML VIAL SQ SCH ×2 (14:47→21:40)
[2018-04-19 15:32] LABS: ALK PHOS 50 U/L (45-117); ANION GAP 11 MMOL/L (8-16); BLOOD UREA NITROGEN 95 mg/dL (7-18); CHLORIDE 106 mmol/L (98-107); CO2 20 mmol/L (21-32); CREATININE 4.7 mg/dL (0.55-1.3); GLUCOSE,RANDOM 228 mg/dL (74-106); POTASSIUM 4.2 mmol/L (3.5-5.1); SGOT/AST 100 U/L (15-37); SGPT/ALT 21 U/L (13-61); SODIUM 137 mmol/L (136-145); TOT PROT 5.1 g/dl (6.4-8.2)
[2018-04-19 15:38] LABS: CALCIUM 6.1 mg/dL (8.5-10.1)
--- NOTE | 2018-04-19 15:53 | PROC ---
Procedure Note Procedure: Procedure Arterial Line Indication: Shock Consent: Xochilt Castro (sister) [phone] Pt prepped and draped in the usual sterial fashion. Ar 20g right axillary arterial line placed under ultrasound guidance w/ good pulsatile blood flow noted w/ arterial waveform seen on monitor. Patient tolerated procedure w/o complication Boerem ACNP Pulm/CCM
[2018-04-19] MEDS ORDERED: VASOPRESSIN 20 UNITS/ML VIAL IV ONE (16:13)
[2018-04-19 16:18] LABS: EOS % 0.3 % (0-4.5); HEMATOCRIT 20.5 % (32.4-45.2); LYMPH % 10.7 % (8-40); MCH 23.6 pg (25.7-33.7); MCHC 33.4 g/dl (32.0-36.0); MEAN CELL VOLUME 70.7 fl (80-96); MEAN PLT VOLUME 9.6 fl (7.5-11.1); MONO % 43.6 % (3.8-10.2); NEUT % 45.4 % (42.8-82.8); PLATELET COUNT 135 K/MM3 (134-434); RDW 22.8 % (11.6-15.6)
[2018-04-19 16:28] LABS: ARTERIAL BLOOD GAS PCO2 53.5 mmHg (35-45)
[2018-04-19] MEDS: VASOPRESSIN 50 UNITS in SODIUM CHLORIDE 97.5 ML IVPB SCH (16:29)
[2018-04-19 16:32] LABS: ARTERIAL BLOOD GAS pH 7.14 (7.35-7.45)
[2018-04-19 16:33] LABS: ARTERIAL BLOOD GAS BASE EXCESS -10.8 meq/l (-2-2); WHITE BLOOD COUNT 1.2 K/mm3 (4.0-10.0)
[2018-04-19 16:34] LABS: HEMOGLOBIN 6.8 GM/dL (10.7-15.3)
[2018-04-19 18:54] LABS: ANISOCYTOSIS 2+; MACROCYTOSIS 0; OVALOCYTE 1+; PLATELET ESTIMATE DECREASED
[2018-04-19] MEDS ORDERED: PANTOPRAZOLE SODIUM 40 MG VIAL IVPUSH ONE (19:05)
--- NOTE | 2018-04-19 19:11 | PN ---
Progress Note (short form) - Note Progress Note: Event Note: Called beside by RN for new onset melena Large melenotic BM noted Patient actively receiving PRBCx1 PPI bolus and drip started Active type and screen Coags reordered Will follow CBC q4-6hrs IV access TLC Will consult GI for consultation Paras SCHREIBER CCT: 30m Problem List - Problems (1) Respiratory failure with hypoxia Code(s): J96.91 - RESPIRATORY FAILURE, UNSPECIFIED WITH HYPOXIA (2) Respiratory failure, acute Code(s): J96.00 - ACUTE RESPIRATORY FAILURE, UNSP W HYPOXIA OR HYPERCAPNIA (3) SANA (acute kidney injury) Code(s): N17.9 - ACUTE KIDNEY FAILURE, UNSPECIFIED (4) Anemia Code(s): D64.9 - ANEMIA, UNSPECIFIED Qualifiers: Anemia type: unspecified type Qualified Code(s): D64.9 - Anemia, unspecified (5) Sepsis Code(s): A41.9 - SEPSIS, UNSPECIFIED ORGANISM (6) Shock circulatory Code(s): R57.9 - SHOCK, UNSPECIFIED (7) Pneumonia Code(s): J18.9 - PNEUMONIA, UNSPECIFIED ORGANISM
[2018-04-19 20:34] LABS: ARTERIAL BLD GAS O2 SATURATION 96.8 % (90-98.9); ARTERIAL BLOOD GAS BASE EXCESS -9.8 meq/l (-2-2)
[2018-04-19 20:35] LABS: ALLENS TEST POSITIVE
[2018-04-19 20:40] LABS: ARTERIAL BLOOD GAS pH 7.17 (7.35-7.45)
[2018-04-19 20:42] LABS: HEMATOCRIT 24.6 % (32.4-45.2); HEMOGLOBIN 8.5 GM/dL (10.7-15.3); MCH 25.3 pg (25.7-33.7); MCHC 34.4 g/dl (32.0-36.0); MEAN CELL VOLUME 73.3 fl (80-96); PLATELET COUNT 129 K/MM3 (134-434); RBC 3.36 M/mm3 (3.60-5.2); RDW 23.8 % (11.6-15.6)
[2018-04-19 20:52] LABS: WHITE BLOOD COUNT 1.3 K/mm3 (4.0-10.0)
[2018-04-19] MEDS ORDERED: SODIUM CHLORIDE 250 ML IV PRN (20:58)
[2018-04-19 21:10] LABS: INR 1.15 (0.83-1.09); PROTHROMBIN TIME (PATIENT) 13.6 SEC (9.7-13.0)
[2018-04-19 21:13] LABS: ALK PHOS 47 U/L (45-117); ANION GAP 13 MMOL/L (8-16); BILIRUBIN,TOTAL 1.3 mg/dL (0.2-1); BLOOD UREA NITROGEN 93 mg/dL (7-18); CHLORIDE 102 mmol/L (98-107); CO2 20 mmol/L (21-32); CREATININE 4.4 mg/dL (0.55-1.3); GLUCOSE,RANDOM 219 mg/dL (74-106); POTASSIUM 4.4 mmol/L (3.5-5.1); SGOT/AST 99 U/L (15-37); SGPT/ALT 21 U/L (13-61); SODIUM 135 mmol/L (136-145)
[2018-04-19] MEDS: PANTOPRAZOLE SODIUM 80 MG in SODIUM CHLORIDE 100 ML IVPB SCH (21:39)
[2018-04-19] MEDS ORDERED: CEFTRIAXONE 2 GM in DEXTROSE 5%-WATER - 50 ML IVPB ONE (21:40)
[2018-04-19] MEDS: ARTIFICIAL TEARS (POLYVINYL ALCOHOL) OPTH DROPS OU SCH (21:40)
--- NOTE | 2018-04-19 21:40 | PROC ---
Central Line Insertion Indication: Other (Dialysis access) Risks and Benefits Explained: Yes Consent on Chart: Yes Central Line: Dialysis Cath, Dual Lumen Anesthesia: 1% Lidocaine Sterile Technique: Yes Ultrasound Guided Assistance: Yes Position: Left Femoral Sterile Dressing Applied: Yes Remarks: Patient tolerated procedure well w/o complication
[2018-04-19] MEDS: CHLORHEXIDINE GLUCONATE 4% CLEANSER FOR DECOLONIZATION TP SCH (21:41)
[2018-04-19] MEDS: SENNOSIDES 8.6MG TABLET (FP) PO SCH (21:41)
[2018-04-19] MEDS ORDERED: DEXTROSE 5%-WATER - 100 ML IVPB ONE (22:26)
[2018-04-19] MEDS ORDERED: PT OWN MED DRAWER 7, Y5N ONE (22:27)
[2018-04-20] MEDS: HYDROCORTISONE SOD SUCCINATE 100 MG/2 ML VIAL IVPB SCH ×4 (02:01→16:52)
[2018-04-20] MEDS: SODIUM BICARBONATE 8.4% - 150 MEQ in DEXTROSE 5%-WATER - 1,000 ML IV SCH ×2 (02:02→05:58)
[2018-04-20 02:25] LABS: HEMATOCRIT 20.7 % (32.4-45.2); MCH 24.8 pg (25.7-33.7); MCHC 34.7 g/dl (32.0-36.0); MEAN CELL VOLUME 71.6 fl (80-96); MEAN PLT VOLUME 9.8 fl (7.5-11.1); PLATELET COUNT 83 K/MM3 (134-434); RDW 22.6 % (11.6-15.6)
[2018-04-20 02:27] LABS: ARTERIAL BLD GAS O2 SATURATION 98.3 % (90-98.9); ARTERIAL BLOOD GAS BASE EXCESS -0.3 meq/l (-2-2); ARTERIAL BLOOD GAS PCO2 50.6 mmHg (35-45); ARTERIAL BLOOD GAS pH 7.32 (7.35-7.45)
[2018-04-20 02:38] LABS: HEMOGLOBIN 7.2 GM/dL (10.7-15.3); WHITE BLOOD COUNT 1.2 K/mm3 (4.0-10.0)
[2018-04-20 02:52] LABS: ALBUMIN 0.8 g/dl (3.4-5.0); ALK PHOS 39 U/L (45-117); ANION GAP 10 MMOL/L (8-16); BILIRUBIN,TOTAL 0.9 mg/dL (0.2-1); BLOOD UREA NITROGEN 41 mg/dL (7-18); CHLORIDE 101 mmol/L (98-107); CO2 27 mmol/L (21-32); CREATININE 2.6 mg/dL (0.55-1.3); GLUCOSE,RANDOM 196 mg/dL (74-106); POTASSIUM 3.3 mmol/L (3.5-5.1); SGOT/AST 83 U/L (15-37); SGPT/ALT 18 U/L (13-61); SODIUM 138 mmol/L (136-145); TOT PROT 4.4 g/dl (6.4-8.2)
[2018-04-20 02:53] LABS: CALCIUM 6.1 mg/dL (8.5-10.1)
[2018-04-20] MEDS: PROPOFOL 1,000,000 MCG/100 ML VIAL IV SCH ×3 (03:45→19:28)
[2018-04-20] MEDS ORDERED: VANCOMYCIN 1 GM in D5W (PRE-DOCKED) 1,000 MG/250 ML IVPB ONE (04:00)
[2018-04-20] MEDS: PANTOPRAZOLE SODIUM 80 MG in SODIUM CHLORIDE 100 ML IVPB SCH (05:58)
[2018-04-20] MEDS: DOCUSATE NA 100 MG/10 ML UNIT-DOSE CUPS PO SCH ×3 (06:00→21:36)
[2018-04-20] MEDS: HEPARIN NA (PORCINE) 5,000 UNITS/ML 1ML VIAL SQ SCH ×3 (06:05→21:36)
[2018-04-20 06:58] LABS: ARTERIAL BLD GAS O2 SATURATION 98.5 % (90-98.9); ARTERIAL BLOOD GAS BASE EXCESS -0.3 meq/l (-2-2); ARTERIAL BLOOD GAS pH 7.33 (7.35-7.45)
[2018-04-20 07:09] LABS: ALBUMIN 0.8 g/dl (3.4-5.0); ALK PHOS 40 U/L (45-117); ANION GAP 12 MMOL/L (8-16); BILIRUBIN,TOTAL 0.7 mg/dL (0.2-1); BLOOD UREA NITROGEN 45 mg/dL (7-18); CHLORIDE 99 mmol/L (98-107); CO2 27 mmol/L (21-32); CREATININE 2.9 mg/dL (0.55-1.3); GLUCOSE,RANDOM 219 mg/dL (74-106); MAGNESIUM 1.6 mg/dL (1.8-2.4); POTASSIUM 3.3 mmol/L (3.5-5.1); SGOT/AST 84 U/L (15-37); SGPT/ALT 16 U/L (13-61); SODIUM 137 mmol/L (136-145); TOT PROT 4.5 g/dl (6.4-8.2)
[2018-04-20 07:58] LABS: EOS % 0.8 % (0-4.5); HEMATOCRIT 20.5 % (32.4-45.2); HEMOGLOBIN 7.1 GM/dL (10.7-15.3); LYMPH % 6.3 % (8-40); MCH 24.9 pg (25.7-33.7); MCHC 34.4 g/dl (32.0-36.0); MEAN CELL VOLUME 72.3 fl (80-96); MEAN PLT VOLUME 9.9 fl (7.5-11.1); MONO % 33.5 % (3.8-10.2); NEUT % 59.4 % (42.8-82.8); PLATELET COUNT 65 K/MM3 (134-434); RBC 2.84 M/mm3 (3.60-5.2); RDW 22.7 % (11.6-15.6)
[2018-04-20] MEDS ORDERED: CEFEPIME HCL/D5W 2 GM/50 ML BAG IVPB SCH (08:00)
[2018-04-20 08:06] LABS: WHITE BLOOD COUNT 1.6 K/mm3 (4.0-10.0)
--- NOTE | 2018-04-20 08:07 | PN ---
Progress Note (short form) - Note Progress Note: 24hr events Seen and examined in the ICU febrile overnight Remains intubated: ACVC 60% PEEP +10 w/ Pplat 25 S. pneumo positive urine antigen Blood cultures positive, speciation pending worsening vasodilatory shock required norepi, vasopressin and sepsis steroids arterial line placed anemia w/ melena and coffee ground drainage from NGT PPI bolus and drip started received PRBC x2 severe metabolic acidosis and SANA non responsive to IVF and bicarb repletion dialysis cath placed emergent iHD overnight with improved acidosis Current Medications Albumin Human (Albumin Human 25%) 12.5 gm IVPB Q30M [facility] Artificial Tears (Artificial Tears) 1 drop OU BID [facility]HANG Last Admin: 04/19/18 21:40 Dose: 1 drop Chlorhexidine Gluconate (Hibiclens For Decolonization -) 1 applic TP HS ZHANG Last Admin: 04/19/18 21:41 Dose: 1 applic Docusate Sodium (Colace Liquid -) 100 mg PO TID ZAHNG Last Admin: 04/20/18 06:00 Dose: Not Given Heparin Sodium (Porcine) (Heparin -) 5,000 unit SQ TID ZHANG Last Admin: 04/20/18 06:05 Dose: 5,000 unit Hydrocortisone Sodium Succinate (Solu-Cortef -) 50 mg IVPB Q6H [facility]ANG Last Admin: 04/20/18 04:27 Dose: 50 mg Propofol (Diprivan -) 1,000,000 mcg in 100 mls @ 1.769 mls/hr IV TITR [facility]; Protocol Last Titration: 04/20/18 06:15 Dose: 40 mcg/kg/min, 14.152 mls/hr Norepinephrine Bitartrate 4, (000 mcg/ Dextrose) 500 mls @ 37.5 mls/hr IV TITR [facility]; Protocol Last Titration: 04/20/18 03:30 Dose: 3 mcg/min, 22.5 mls/hr Meropenem 1 gm/ Dextrose 100 mls @ 200 mls/hr IVPB BID [facility]ANG Last Admin: 04/19/18 22:56 Dose: 200 mls/hr Vasopressin 50 units/ Sodium (Chloride) 100 mls @ 4.8 mls/hr IVPB TITR [facility]; Protocol Last Admin: 04/19/18 16:29 Dose: 2.4 units/hr, 4.8 mls/hr Pantoprazole Sodium 80 mg/ (Sodium Chloride) 100 mls @ 10 mls/hr IVPB Q10H [facility] Last Admin: 04/20/18 05:58 Dose: Not Given Sodium Chloride (Normal Saline -) 250 mls @ 3,000 mls/hr IV PRN PRN PRN Reason: Hypotension during Dialysis Stop: 04/20/18 20:58 Mupirocin (Bactroban Ointment (For Decolonization) -) 1 applic NS BID ZHANG Stop: 04/24/18 09:59 Last Admin: 04/19/18 21:40 Dose: 1 applic Senna (Senna -) 1 tab PO HS ZHANG Last Admin: 04/19/18 21:41 Dose: Not Given Vital Signs Period Temp Pulse Resp BP Sys/Cai Pulse Ox Last 24 Hr 98.7 F-100.7 F 76-129 14-105 91-151/51-83 93-100 Intake & Output 04/17/18 04/18/18 04/19/18 04/20/18 23:59 23:59 23:59 23:59 Intake Total 350 3132.6 Output Total 390 205 Balance -40 2927.6 Weight 56.4 kg 64.047 kg General: intubated and sedated HEENT: PERRL, ETT in position CV: sinus tach, no m/r/g Pulm: rhonchi t/o Abd: SNTND Ext: WWP, +2 pulses, +1 edema Neuro: RASS -/45 ABG Results ABG pH 7.33 (7.35-7.45) L 04/20/18 06:10 ABG pCO2 at Pt Temp 49.0 mmHg (35-45) H 04/20/18 06:10 ABG pO2 at Pt Temp 127.0 mmHg (80-100) H 04/20/18 06:10 ABG HCO3 25.0 meq/L (22-26) 04/20/18 06:10 ABG O2 Sat (Measured) 98.5 % (90-98.9) 04/20/18 06:10 ABG O2 Content 9.6 % vol (15-22) L* 04/20/18 06:10 ABG Base Excess -0.3 meq/l (-2-2) 04/20/18 06:10 CBC, BMP 04/20/18 05:30 04/20/18 05:30 Vent: ACVC: 30/400/60 +8 Pplat 23 7.5 cc/kg CXR: RUL dense consolidation with diffuse infiltrated t/o both lung diggs. ETT in good position Renal u/s: reviewed. noted pericystic fluids A/P: This is a 53 yo woman w/ HTN, HLD, asthma, DM and HIV w/ multifocal pneumococcal pneumonia c/b hypoxic respiratory failure requiring intubation, SANA (likely prerenal given FeNa 0.68% vs ATN also c/f HIVAN) w/ metabolic acidosis: lactate and uremia, anemia c/f UGIB and shock on pressors. -Pressors for MAP 65-75. Norepi, vasopressin -cont art line. Cont TLC -TTE today given severe shock -cont sepsis steroids given HIV and adrenal thickening on CT giving c/f adrenal insufficiency -IV fluids, w/ LR -trend lactate -mechanical ventilation w/ lung protective strategy. Goal Pplt <30 -wean PEEP 10->8 today -prn bronchodilators -Deep sedation for vent synchrony -Daily interruption of sedation once stable -PPI drip x 72 hrs -consider DDAVP given bleeding in setting of uremia if cont bleeding -GI consult -ID consult appreciated: will use meropenem/vanco, also receive ceftriaxone for [employer] coverage and repeat blood cultures today -f/u culture: blood, sputum -does not appear to clinically have acute cholecystitis, edema likely 2/2 acute illness -Renal following appreciate recs -renal dose all medications -iHD per nephrology -normal transfusion thresholds for hgb >7.0 -glucose control -DVT w/ SCD given GIB -cont GI ppx Boerem ACNP Pulm/CCM CCT: 45 Problem List - Problems (1) Respiratory failure with hypoxia Code(s): J96.91 - RESPIRATORY FAILURE, UNSPECIFIED WITH HYPOXIA (2) Respiratory failure, acute Code(s): J96.00 - ACUTE RESPIRATORY FAILURE, UNSP W HYPOXIA OR HYPERCAPNIA (3) SANA (acute kidney injury) Code(s): N17.9 - ACUTE KIDNEY FAILURE, UNSPECIFIED (4) Anemia Code(s): D64.9 - ANEMIA, UNSPECIFIED Qualifiers: Anemia type: unspecified type Qualified Code(s): D64.9 - Anemia, unspecified (5) Sepsis Code(s): A41.9 - SEPSIS, UNSPECIFIED ORGANISM (6) Shock circulatory Code(s): R57.9 - SHOCK, UNSPECIFIED (7) Pneumonia Code(s): J18.9 - PNEUMONIA, UNSPECIFIED ORGANISM
--- NOTE | 2018-04-20 08:53 | PN ---
Progress Note (short form) - Note Progress Note: Renal follow up for SANA requiring emergent dialysis Pt seen and examined in the ICU on vent, sedated on 2 pressers remains anuric s/p emergent dialysis last night for persistent acidosis Vital Signs Temperature 98.7 F 04/20/18 06:00 Pulse Rate 101 H 04/20/18 07:00 Respiratory Rate 30 H 04/20/18 07:04 Blood Pressure 104/63 04/20/18 07:00 O2 Sat by Pulse Oximetry (%) 93 L 04/19/18 20:52 Intake & Output 04/17/18 04/18/18 04/19/18 04/20/18 23:59 23:59 23:59 23:59 Intake Total 350 3132.6 Output Total 390 205 Balance -40 2927.6 Weight 56.4 kg 64.047 kg Intubated on the Vent ET tube in place tachycardic, no M/R Course BS soft NT/NDfoely in place no Le edema, clubbing or cyanosis extremities are warm no skin rash CBC, BMP 04/20/18 05:30 04/20/18 05:30 Laboratory Tests 04/20/18 05:30 Calcium 6.0 L* Phosphorus 5.0 H Magnesium 1.6 L AST 84 H ALT 16 Alkaline Phosphatase 40 L Albumin 0.8 L Current Medications Albumin Human (Albumin Human 25%) 12.5 gm IVPB Q30M [facility] Artificial Tears (Artificial Tears) 1 drop OU BID [facility] Last Admin: 04/19/18 21:40 Dose: 1 drop Chlorhexidine Gluconate (Hibiclens For Decolonization -) 1 applic TP HS [facility] Last Admin: 04/19/18 21:41 Dose: 1 applic Docusate Sodium (Colace Liquid -) 100 mg PO TID [facility] Last Admin: 04/20/18 06:00 Dose: Not Given Heparin Sodium (Porcine) (Heparin -) 5,000 unit SQ TID [facility] Last Admin: 04/20/18 06:05 Dose: 5,000 unit Hydrocortisone Sodium Succinate (Solu-Cortef -) 50 mg IVPB Q6H [facility] Last Admin: 04/20/18 04:27 Dose: 50 mg Propofol (Diprivan -) 1,000,000 mcg in 100 mls @ 1.769 mls/hr IV TITR [facility]; Protocol Last Titration: 04/20/18 06:15 Dose: 40 mcg/kg/min, 14.152 mls/hr Norepinephrine Bitartrate 4, (000 mcg/ Dextrose) 500 mls @ 37.5 mls/hr IV TITR [facility]; Protocol Last Titration: 04/20/18 03:30 Dose: 3 mcg/min, 22.5 mls/hr Meropenem 1 gm/ Dextrose 100 mls @ 200 mls/hr IVPB BID [facility] Last Admin: 04/19/18 22:56 Dose: 200 mls/hr Vasopressin 50 units/ Sodium (Chloride) 100 mls @ 4.8 mls/hr IVPB TITR [facility]; Protocol Last Admin: 04/19/18 16:29 Dose: 2.4 units/hr, 4.8 mls/hr Pantoprazole Sodium 80 mg/ (Sodium Chloride) 100 mls @ 10 mls/hr IVPB Q10H [facility] Last Admin: 04/20/18 05:58 Dose: Not Given Sodium Chloride (Normal Saline -) 250 mls @ 3,000 mls/hr IV PRN PRN PRN Reason: Hypotension during Dialysis Stop: 04/20/18 20:58 Mupirocin (Bactroban Ointment (For Decolonization) -) 1 applic NS BID [facility]HANG Stop: 04/24/18 09:59 Last Admin: 04/19/18 21:40 Dose: 1 applic Senna (Senna -) 1 tab PO HS ZHANG Last Admin: 04/19/18 21:41 Dose: Not Given 53 year old AA woman with hx of HIV (non-compliance with meds per ER records), HTN, HLD, Asthma who presented from home with fever and AMS and found to have B/ L lung infiltrates, Sepsis syndrome and SANA with severe metabolic acidosis. #Acute Renal Failure in setting of Sepsis syndrome requiring emergent dialysis for persistent acidosis #Anion gap metabolic acidosis (lactic acidosis with concurrent respiratory acidosis) #Sepsis Syndrome with with Strep PNA #HIV non-compliant with medications #Pseudohypocalcemia (corrected Ca is 8.56) #Acute Anemia with + stool occult blood Etiology of SANA likely ATN in setting of sepsis s/p emergent HD yesterday for 3 hours Pt remains anuric at the present time but serum bicarb is improved and no overt fluid overload no plan for dialysis at this time, will reaccess daily Urine studies consistent with volume depletion/renal hypoprofuison serologic work up pending Continue Abx as per ID Vent support Vasopressers to maintain MAP > 65 off bicarb gtt as serum bicarb > 24 Trend H/H, transfuse as per protocol GI work up for suspected GI bleed LDH elevated, Hapto pending Prognosis remains guarded Thank you Will follow
--- NOTE | 2018-04-20 09:01 | PN ---
Progress Note (short form) - Note Progress Note: Subjective: events noted for HD last n ight x 3 hrs. GI bleed ( coffee ground through NGT and melena). Now on 2 pressors. PEEP down to 8 . Objective: Vital Signs: Last Vital Signs Temp Pulse Resp BP Pulse Ox 98.7 F 101 H 30 H 104/63 93 L 04/20/18 06:00 04/20/18 07:00 04/20/18 07:04 04/20/18 07:00 04/19/18 20:52 Laboratory Results - last 24 hr 04/19/18 04/19/18 04/19/18 04:45 06:00 09:00 WBC RBC Hgb Hct MCV MCH MCHC RDW Plt Count MPV Absolute Neuts (auto) Neutrophils % Neutrophils % (Manual) Band Neutrophils % Lymphocytes % Lymphocytes % (Manual) Monocytes % Monocytes % (Manual) Eosinophils % Eosinophils % (Manual) Basophils % Basophils % (Manual) Myelocytes % (Man) Promyelocytes % (Man) Blast Cells % (Manual) Nucleated RBC % Metamyelocytes Hypochromia Platelet Estimate Polychromasia Poikilocytosis Anisocytosis Microcytosis Macrocytosis Ovalocytes Douglas Cells Retic Count PT with INR INR Fibrinogen Anticoagulation Therapy Puncture Site ABG pH ABG pCO2 at Pt Temp ABG pO2 at Pt Temp ABG HCO3 ABG O2 Sat (Measured) ABG O2 Content ABG Base Excess Fadi Test O2 Delivery Device Oxygen Flow Rate Vent Mode Vent Rate Mechanical Rate PEEP Pressure Support Vent Sodium Potassium Chloride Carbon Dioxide Anion Gap BUN Creatinine Creat Clearance w eGFR Random Glucose Lactic Acid 2.2 H* Calcium Phosphorus Magnesium Ferritin Total Bilirubin AST ALT Alkaline Phosphatase LD Total Creatine Kinase Creatine Kinase Index CK-MB (CK-2) Troponin I Total Protein Albumin TSH Free T4 Urine Color Urine Appearance Urine pH Ur Specific [place] Urine Protein Urine Glucose (UA) Urine Ketones Urine Blood Urine Nitrite Urine Bilirubin Urine Urobilinogen Ur Leukocyte Esterase Urine WBC (Auto) Urine RBC (Auto) Ur Epithelial Cells Urine Bacteria Hyaline Casts Urine Mucus U Random Total Protein Ur Random Sodium Ur Random Potassium Ur Random Chloride Ur Random Urea Nitrogn Urine Creatinine Random Vancomycin 18.4 Influenza A (Rapid) Influenza B (Rapid) Blood Type B POSITIVE Antibody Screen Negative Crossmatch See Detail 04/19/18 04/19/18 04/19/18 09:19 09:19 10:23 WBC RBC Hgb Hct MCV MCH MCHC RDW Plt Count MPV Absolute Neuts (auto) Neutrophils % Neutrophils % (Manual) Band Neutrophils % Lymphocytes % Lymphocytes % (Manual) Monocytes % Monocytes % (Manual) Eosinophils % Eosinophils % (Manual) Basophils % Basophils % (Manual) Myelocytes % (Man) Promyelocytes % (Man) Blast Cells % (Manual) Nucleated RBC % Metamyelocytes Hypochromia Platelet Estimate Polychromasia Poikilocytosis Anisocytosis Microcytosis Macrocytosis Ovalocytes Shirley Cells Retic Count PT with INR INR Fibrinogen Anticoagulation Therapy Puncture Site ABG pH ABG pCO2 at Pt Temp ABG pO2 at Pt Temp ABG HCO3 ABG O2 Sat (Measured) ABG O2 Content ABG Base Excess Fadi Test O2 Delivery Device Oxygen Flow Rate Vent Mode Vent Rate Mechanical Rate PEEP Pressure Support Vent Sodium 141 Potassium 5.1 Chloride 114 H Carbon Dioxide 13 L Anion Gap 13 BUN 91 H Creatinine 4.6 H Creat Clearance w eGFR 9.89 Random Glucose 74 Lactic Acid 2.2 H* Calcium 7.0 L Phosphorus 8.8 H Magnesium 2.4 Ferritin Total Bilirubin 0.6 AST 111 H ALT 27 Alkaline Phosphatase 63 LD Total Creatine Kinase 421 H Creatine Kinase Index 0.7 CK-MB (CK-2) 3.1 Troponin I 0.16 H Total Protein 5.9 L Albumin 1.2 L TSH Free T4 Urine Color Urine Appearance Urine pH Ur Specific [place] Urine Protein Urine Glucose (UA) Urine Ketones Urine Blood Urine Nitrite Urine Bilirubin Urine Urobilinogen Ur Leukocyte Esterase Urine WBC (Auto) Urine RBC (Auto) Ur Epithelial Cells Urine Bacteria Hyaline Casts Urine Mucus U Random Total Protein Ur Random Sodium Ur Random Potassium Ur Random Chloride Ur Random Urea Nitrogn Urine Creatinine Random Vancomycin Influenza A (Rapid) Negative Influenza B (Rapid) Negative Blood Type Antibody Screen Crossmatch 04/19/18 04/19/18 04/19/18 10:23 11:00 11:00 WBC RBC Hgb Hct MCV MCH MCHC RDW Plt Count MPV Absolute Neuts (auto) Neutrophils % Neutrophils % (Manual) Band Neutrophils % Lymphocytes % Lymphocytes % (Manual) Monocytes % Monocytes % (Manual) Eosinophils % Eosinophils % (Manual) Basophils % Basophils % (Manual) Myelocytes % (Man) Promyelocytes % (Man) Blast Cells % (Manual) Nucleated RBC % Metamyelocytes Hypochromia Platelet Estimate Polychromasia Poikilocytosis Anisocytosis Microcytosis Macrocytosis Ovalocytes Shirley Cells Retic Count PT with INR INR Fibrinogen Anticoagulation Therapy Puncture Site ABG pH ABG pCO2 at Pt Temp ABG pO2 at Pt Temp ABG HCO3 ABG O2 Sat (Measured) ABG O2 Content ABG Base Excess Fadi Test O2 Delivery Device Oxygen Flow Rate Vent Mode Vent Rate Mechanical Rate PEEP Pressure Support Vent Sodium Potassium Chloride Carbon Dioxide Anion Gap BUN Creatinine Creat Clearance w eGFR Random Glucose Lactic Acid Calcium Phosphorus Magnesium Ferritin Total Bilirubin AST ALT Alkaline Phosphatase LD Total 460 H Creatine Kinase Creatine Kinase Index CK-MB (CK-2) Troponin I Total Protein Albumin TSH Free T4 Urine Color Dkyellow Urine Appearance Cloudy Urine pH 5.0 Ur Specific [place] 1.014 Urine Protein 3+ H Urine Glucose (UA) Negative Urine Ketones Negative Urine Blood 2+ H Urine Nitrite Negative Urine Bilirubin Negative Urine Urobilinogen Negative Ur Leukocyte Esterase Negative Urine WBC (Auto) 12 Urine RBC (Auto) 10 Ur Epithelial Cells Rare Urine Bacteria Many Hyaline Casts 7 Urine Mucus Rare U Random Total Protein Ur Random Sodium Ur Random Potassium Ur Random Chloride Ur Random Urea Nitrogn Urine Creatinine 108.0 H Random Vancomycin Influenza A (Rapid) Influenza B (Rapid) Blood Type Antibody Screen Crossmatch 04/19/18 04/19/18 04/19/18 11:00 11:00 11:00 WBC RBC Hgb Hct MCV MCH MCHC RDW Plt Count MPV Absolute Neuts (auto) Neutrophils % Neutrophils % (Manual) Band Neutrophils % Lymphocytes % Lymphocytes % (Manual) Monocytes % Monocytes % (Manual) Eosinophils % Eosinophils % (Manual) Basophils % Basophils % (Manual) Myelocytes % (Man) Promyelocytes % (Man) Blast Cells % (Manual) Nucleated RBC % Metamyelocytes Hypochromia Platelet Estimate Polychromasia Poikilocytosis Anisocytosis Microcytosis Macrocytosis Ovalocytes Douglas Cells Retic Count PT with INR INR Fibrinogen Anticoagulation Therapy Puncture Site ABG pH ABG pCO2 at Pt Temp ABG pO2 at Pt Temp ABG HCO3 ABG O2 Sat (Measured) ABG O2 Content ABG Base Excess Fadi Test O2 Delivery Device Oxygen Flow Rate Vent Mode Vent Rate Mechanical Rate PEEP Pressure Support Vent Sodium Potassium Chloride Carbon Dioxide Anion Gap BUN Creatinine Creat Clearance w eGFR Random Glucose Lactic Acid Calcium Phosphorus Magnesium Ferritin Total Bilirubin AST ALT Alkaline Phosphatase LD Total Creatine Kinase Creatine Kinase Index CK-MB (CK-2) Troponin I Total Protein Albumin TSH Free T4 Urine Color Urine Appearance Urine pH Ur Specific [place] Urine Protein Urine Glucose (UA) Urine Ketones Urine Blood Urine Nitrite Urine Bilirubin Urine Urobilinogen Ur Leukocyte Esterase Urine WBC (Auto) Urine RBC (Auto) Ur Epithelial Cells Urine Bacteria Hyaline Casts Urine Mucus U Random Total Protein 441.6 H Ur Random Sodium 21 L Ur Random Potassium 31.7 Ur Random Chloride 17 L Ur Random Urea Nitrogn 499 Urine Creatinine Random Vancomycin Influenza A (Rapid) Influenza B (Rapid) Blood Type Antibody Screen Crossmatch 04/19/18 04/19/18 04/19/18 11:17 12:25 14:42 WBC RBC Hgb Hct MCV MCH MCHC RDW Plt Count MPV Absolute Neuts (auto) Neutrophils % Neutrophils % (Manual) Band Neutrophils % Lymphocytes % Lymphocytes % (Manual) Monocytes % Monocytes % (Manual) Eosinophils % Eosinophils % (Manual) Basophils % Basophils % (Manual) Myelocytes % (Man) Promyelocytes % (Man) Blast Cells % (Manual) Nucleated RBC % Metamyelocytes Hypochromia Platelet Estimate Polychromasia Poikilocytosis Anisocytosis Microcytosis Macrocytosis Ovalocytes Shirley Cells Retic Count PT with INR INR Fibrinogen Anticoagulation Therapy No Result Required. Puncture Site Left radial ABG pH 7.05 L* ABG pCO2 at Pt Temp 47.2 H ABG pO2 at Pt Temp 163.0 H* ABG HCO3 12.4 L* ABG O2 Sat (Measured) 98.1 ABG O2 Content 10.1 L ABG Base Excess -16.6 L* Fadi Test Positive O2 Delivery Device No Result Required. Oxygen Flow Rate Yes Vent Mode No Result Required. Vent Rate No Result Required. Mechanical Rate No Result Required. PEEP Pressure Support Vent No Result Required. Sodium 137 Potassium 4.2 Chloride 106 Carbon Dioxide 20 L Anion Gap 11 BUN 95 H Creatinine 4.7 H Creat Clearance w eGFR 9.65 Random Glucose 228 H Lactic Acid Calcium 6.1 L* Phosphorus Magnesium Ferritin Total Bilirubin 1.0 AST 100 H ALT 21 Alkaline Phosphatase 50 LD Total Creatine Kinase Creatine Kinase Index CK-MB (CK-2) Troponin I Total Protein 5.1 L Albumin 1.0 L TSH Free T4 Urine Color Urine Appearance Urine pH Ur Specific [place] Urine Protein Urine Glucose (UA) Urine Ketones Urine Blood Urine Nitrite Urine Bilirubin Urine Urobilinogen Ur Leukocyte Esterase Urine WBC (Auto) Urine RBC (Auto) Ur Epithelial Cells Urine Bacteria Hyaline Casts Urine Mucus U Random Total Protein Ur Random Sodium Ur Random Potassium Ur Random Chloride Ur Random Urea Nitrogn Urine Creatinine Random Vancomycin Influenza A (Rapid) Negative Influenza B (Rapid) Negative Blood Type Antibody Screen Crossmatch 04/19/18 04/19/18 04/19/18 14:42 16:00 16:00 WBC 1.2 L* RBC 2.90 L Hgb 6.8 L* Hct 20.5 L MCV 70.7 L MCH 23.6 L MCHC 33.4 RDW 22.8 H Plt Count 135 D MPV 9.6 Absolute Neuts (auto) 0.5 L Neutrophils % 45.4 D Neutrophils % (Manual) 52.1 Band Neutrophils % 22.9 Lymphocytes % 10.7 D Lymphocytes % (Manual) 14.6 D Monocytes % 43.6 H D Monocytes % (Manual) 9 Eosinophils % 0.3 Eosinophils % (Manual) 0.0 Basophils % 0.0 Basophils % (Manual) 0.0 Myelocytes % (Man) 1 Promyelocytes % (Man) 0 Blast Cells % (Manual) 0 Nucleated RBC % 0 Metamyelocytes 0 Hypochromia 1+ Platelet Estimate Decreased Polychromasia 2+ Poikilocytosis 1+ Anisocytosis 2+ Microcytosis 1+ Macrocytosis 0 Ovalocytes 1+ Douglas Cells 1+ Retic Count PT with INR INR Fibrinogen Anticoagulation Therapy No Result Required. Puncture Site No Result Required. ABG pH 7.14 L* ABG pCO2 at Pt Temp 53.5 H ABG pO2 at Pt Temp 135.0 H D ABG HCO3 17.5 L ABG O2 Sat (Measured) 98.0 ABG O2 Content No Result Required. ABG Base Excess -10.8 L* Fadi Test No Result Required. O2 Delivery Device No Result Required. Oxygen Flow Rate No Result Required. Vent Mode No Result Required. Vent Rate No Result Required. Mechanical Rate No Result Required. PEEP Pressure Support Vent No Result Required. Sodium Potassium Chloride Carbon Dioxide Anion Gap BUN Creatinine Creat Clearance w eGFR Random Glucose Lactic Acid 2.8 H* Calcium Phosphorus Magnesium Ferritin Total Bilirubin AST ALT Alkaline Phosphatase LD Total Creatine Kinase Creatine Kinase Index CK-MB (CK-2) Troponin I Total Protein Albumin TSH Free T4 Urine Color Urine Appearance Urine pH Ur Specific [place] Urine Protein Urine Glucose (UA) Urine Ketones Urine Blood Urine Nitrite Urine Bilirubin Urine Urobilinogen Ur Leukocyte Esterase Urine WBC (Auto) Urine RBC (Auto) Ur Epithelial Cells Urine Bacteria Hyaline Casts Urine Mucus U Random Total Protein Ur Random Sodium Ur Random Potassium Ur Random Chloride Ur Random Urea Nitrogn Urine Creatinine Random Vancomycin Influenza A (Rapid) Influenza B (Rapid) Blood Type Antibody Screen Crossmatch 04/19/18 04/19/18 04/19/18 19:30 19:30 19:30 WBC 1.3 L* RBC 3.36 L Hgb 8.5 L Hct 24.6 L D MCV 73.3 L MCH 25.3 L MCHC 34.4 RDW 23.8 H Plt Count 129 L MPV 11.0 D Absolute Neuts (auto) Neutrophils % Neutrophils % (Manual) Band Neutrophils % Lymphocytes % Lymphocytes % (Manual) Monocytes % Monocytes % (Manual) Eosinophils % Eosinophils % (Manual) Basophils % Basophils % (Manual) Myelocytes % (Man) Promyelocytes % (Man) Blast Cells % (Manual) Nucleated RBC % Metamyelocytes Hypochromia Platelet Estimate Polychromasia Poikilocytosis Anisocytosis Microcytosis Macrocytosis Ovalocytes Shirley Cells Retic Count PT with INR INR Fibrinogen Anticoagulation Therapy Puncture Site ABG pH ABG pCO2 at Pt Temp ABG pO2 at Pt Temp ABG HCO3 ABG O2 Sat (Measured) ABG O2 Content ABG Base Excess Fadi Test O2 Delivery Device Oxygen Flow Rate Vent Mode Vent Rate Mechanical Rate PEEP Pressure Support Vent Sodium 135 L Potassium 4.4 Chloride 102 Carbon Dioxide 20 L Anion Gap 13 BUN 93 H Creatinine 4.4 H Creat Clearance w eGFR 10.41 Random Glucose 219 H Lactic Acid 2.7 H* Calcium 6.0 L* Phosphorus Magnesium Ferritin Total Bilirubin 1.3 H AST 99 H ALT 21 Alkaline Phosphatase 47 LD Total Creatine Kinase Creatine Kinase Index CK-MB (CK-2) Troponin I Total Protein 5.0 L Albumin 1.0 L TSH Free T4 Urine Color Urine Appearance Urine pH Ur Specific [place] Urine Protein Urine Glucose (UA) Urine Ketones Urine Blood Urine Nitrite Urine Bilirubin Urine Urobilinogen Ur Leukocyte Esterase Urine WBC (Auto) Urine RBC (Auto) Ur Epithelial Cells Urine Bacteria Hyaline Casts Urine Mucus U Random Total Protein Ur Random Sodium Ur Random Potassium Ur Random Chloride Ur Random Urea Nitrogn Urine Creatinine Random Vancomycin Influenza A (Rapid) Influenza B (Rapid) Blood Type Antibody Screen Crossmatch 0104/19/18 04/19/18 19:30 19:30 20:20 WBC RBC Hgb Hct MCV MCH MCHC RDW Plt Count MPV Absolute Neuts (auto) Neutrophils % Neutrophils % (Manual) Band Neutrophils % Lymphocytes % Lymphocytes % (Manual) Monocytes % Monocytes % (Manual) Eosinophils % Eosinophils % (Manual) Basophils % Basophils % (Manual) Myelocytes % (Man) Promyelocytes % (Man) Blast Cells % (Manual) Nucleated RBC % Metamyelocytes Hypochromia Platelet Estimate Polychromasia Poikilocytosis Anisocytosis Microcytosis Macrocytosis Ovalocytes Douglas Cells Retic Count PT with INR 13.60 H INR 1.15 H Fibrinogen > 500.0 H Anticoagulation Therapy No Result Required. Puncture Site Arterial line ABG pH 7.17 L* ABG pCO2 at Pt Temp 50.0 H ABG pO2 at Pt Temp 102.0 H D ABG HCO3 17.7 L ABG O2 Sat (Measured) 96.8 ABG O2 Content 11.1 L ABG Base Excess -9.8 L Fadi Test Positive O2 Delivery Device Mech vent Oxygen Flow Rate 60% Vent Mode A/c Vent Rate 30 Mechanical Rate Yes PEEP 10.0 Pressure Support Vent 400 Sodium Potassium Chloride Carbon Dioxide Anion Gap BUN Creatinine Creat Clearance w eGFR Random Glucose Lactic Acid Calcium Phosphorus Magnesium Ferritin Total Bilirubin AST ALT Alkaline Phosphatase LD Total Creatine Kinase Creatine Kinase Index CK-MB (CK-2) Troponin I Total Protein Albumin TSH Free T4 Urine Color Urine Appearance Urine pH Ur Specific [place] Urine Protein Urine Glucose (UA) Urine Ketones Urine Blood Urine Nitrite Urine Bilirubin Urine Urobilinogen Ur Leukocyte Esterase Urine WBC (Auto) Urine RBC (Auto) Ur Epithelial Cells Urine Bacteria Hyaline Casts Urine Mucus U Random Total Protein Ur Random Sodium Ur Random Potassium Ur Random Chloride Ur Random Urea Nitrogn Urine Creatinine Random Vancomycin Influenza A (Rapid) Influenza B (Rapid) Blood Type Antibody Screen Crossmatch 04/20/18 04/20/18 04/20/18 02:00 02:00 02:00 WBC 1.2 L* RBC 2.90 L Hgb 7.2 L Hct 20.7 L D MCV 71.6 L MCH 24.8 L MCHC 34.7 RDW 22.6 H Plt Count 83 L D MPV 9.8 D Absolute Neuts (auto) Neutrophils % Neutrophils % (Manual) Band Neutrophils % Lymphocytes % Lymphocytes % (Manual) Monocytes % Monocytes % (Manual) Eosinophils % Eosinophils % (Manual) Basophils % Basophils % (Manual) Myelocytes % (Man) Promyelocytes % (Man) Blast Cells % (Manual) Nucleated RBC % Metamyelocytes Hypochromia Platelet Estimate Polychromasia Poikilocytosis Anisocytosis Microcytosis Macrocytosis Ovalocytes Douglas Cells Retic Count PT with INR INR Fibrinogen Anticoagulation Therapy Puncture Site ABG pH ABG pCO2 at Pt Temp ABG pO2 at Pt Temp ABG HCO3 ABG O2 Sat (Measured) ABG O2 Content ABG Base Excess Fadi Test O2 Delivery Device Oxygen Flow Rate Vent Mode Vent Rate Mechanical Rate PEEP Pressure Support Vent Sodium 138 Potassium 3.3 L Chloride 101 Carbon Dioxide 27 Anion Gap 10 BUN 41 H Creatinine 2.6 H Creat Clearance w eGFR 19.11 Random Glucose 196 H Lactic Acid 4.6 H* Calcium 6.1 L* Phosphorus Magnesium Ferritin Total Bilirubin 0.9 AST 83 H ALT 18 Alkaline Phosphatase 39 L LD Total Creatine Kinase Creatine Kinase Index CK-MB (CK-2) Troponin I Total Protein 4.4 L Albumin 0.8 L TSH Free T4 Urine Color Urine Appearance Urine pH Ur Specific [place] Urine Protein Urine Glucose (UA) Urine Ketones Urine Blood Urine Nitrite Urine Bilirubin Urine Urobilinogen Ur Leukocyte Esterase Urine WBC (Auto) Urine RBC (Auto) Ur Epithelial Cells Urine Bacteria Hyaline Casts Urine Mucus U Random Total Protein Ur Random Sodium Ur Random Potassium Ur Random Chloride Ur Random Urea Nitrogn Urine Creatinine Random Vancomycin Influenza A (Rapid) Influenza B (Rapid) Blood Type Antibody Screen Crossmatch 04/20/18 04/20/18 04/20/18 02:00 02:00 05:30 WBC 1.6 L* RBC 2.84 L Hgb 7.1 L Hct 20.5 L MCV 72.3 L MCH 24.9 L MCHC 34.4 RDW 22.7 H Plt Count MPV Absolute Neuts (auto) 0.9 L Neutrophils % 59.4 D Neutrophils % (Manual) Band Neutrophils % Lymphocytes % 6.3 L D Lymphocytes % (Manual) Monocytes % 33.5 H Monocytes % (Manual) Eosinophils % 0.8 D Eosinophils % (Manual) Basophils % 0.0 Basophils % (Manual) Myelocytes % (Man) Promyelocytes % (Man) Blast Cells % (Manual) Nucleated RBC % 0 Metamyelocytes Hypochromia Platelet Estimate Polychromasia Poikilocytosis Anisocytosis Microcytosis Macrocytosis Ovalocytes Douglas Cells Retic Count PT with INR INR Fibrinogen Anticoagulation Therapy No Result Required. Puncture Site Arterial line ABG pH 7.32 L D ABG pCO2 at Pt Temp 50.6 H ABG pO2 at Pt Temp 120.0 H ABG HCO3 25.2 ABG O2 Sat (Measured) 98.3 ABG O2 Content 9.9 L* ABG Base Excess -0.3 Fadi Test No Result Required. O2 Delivery Device Mech vent Oxygen Flow Rate 70 lpm Vent Mode A/c Vent Rate 30 Mechanical Rate No Result Required. PEEP 10.0 Pressure Support Vent 400 Sodium Potassium Chloride Carbon Dioxide Anion Gap BUN Creatinine Creat Clearance w eGFR Random Glucose Lactic Acid Calcium Phosphorus Magnesium Ferritin Total Bilirubin AST ALT Alkaline Phosphatase LD Total Creatine Kinase Creatine Kinase Index CK-MB (CK-2) Troponin I Total Protein Albumin TSH Free T4 Urine Color Urine Appearance Urine pH Ur Specific [place] Urine Protein Urine Glucose (UA) Urine Ketones Urine Blood Urine Nitrite Urine Bilirubin Urine Urobilinogen Ur Leukocyte Esterase Urine WBC (Auto) Urine RBC (Auto) Ur Epithelial Cells Urine Bacteria Hyaline Casts Urine Mucus U Random Total Protein Ur Random Sodium Ur Random Potassium Ur Random Chloride Ur Random Urea Nitrogn Urine Creatinine Random Vancomycin 10.1 L Influenza A (Rapid) Influenza B (Rapid) Blood Type Antibody Screen Crossmatch 04/20/18 04/20/18 04/20/18 05:30 05:30 05:30 WBC RBC Hgb Hct MCV MCH MCHC RDW Plt Count MPV Absolute Neuts (auto) Neutrophils % Neutrophils % (Manual) Band Neutrophils % Lymphocytes % Lymphocytes % (Manual) Monocytes % Monocytes % (Manual) Eosinophils % Eosinophils % (Manual) Basophils % Basophils % (Manual) Myelocytes % (Man) Promyelocytes % (Man) Blast Cells % (Manual) Nucleated RBC % Metamyelocytes Hypochromia Platelet Estimate Polychromasia Poikilocytosis Anisocytosis Microcytosis Macrocytosis Ovalocytes Shirley Cells Retic Count PT with INR INR Fibrinogen Anticoagulation Therapy Puncture Site ABG pH ABG pCO2 at Pt Temp ABG pO2 at Pt Temp ABG HCO3 ABG O2 Sat (Measured) ABG O2 Content ABG Base Excess Fadi Test O2 Delivery Device Oxygen Flow Rate Vent Mode Vent Rate Mechanical Rate PEEP Pressure Support Vent Sodium 137 Potassium 3.3 L Chloride 99 Carbon Dioxide 27 Anion Gap 12 BUN 45 H Creatinine 2.9 H Creat Clearance w eGFR 16.85 Random Glucose 219 H Lactic Acid Calcium 6.0 L* Phosphorus 5.0 H Magnesium 1.6 L Ferritin 811.0 H Total Bilirubin 0.7 AST 84 H ALT 16 Alkaline Phosphatase 40 L LD Total Creatine Kinase Creatine Kinase Index CK-MB (CK-2) Troponin I Total Protein 4.5 L Albumin 0.8 L TSH 0.33 L Free T4 0.55 L Urine Color Urine Appearance Urine pH Ur Specific [place] Urine Protein Urine Glucose (UA) Urine Ketones Urine Blood Urine Nitrite Urine Bilirubin Urine Urobilinogen Ur Leukocyte Esterase Urine WBC (Auto) Urine RBC (Auto) Ur Epithelial Cells Urine Bacteria Hyaline Casts Urine Mucus U Random Total Protein Ur Random Sodium Ur Random Potassium Ur Random Chloride Ur Random Urea Nitrogn Urine Creatinine Random Vancomycin Influenza A (Rapid) Influenza B (Rapid) Blood Type Antibody Screen Crossmatch 04/20/18 04/20/18 05:30 06:10 WBC RBC Hgb Hct MCV MCH MCHC RDW Plt Count MPV Absolute Neuts (auto) Neutrophils % Neutrophils % (Manual) Band Neutrophils % Lymphocytes % Lymphocytes % (Manual) Monocytes % Monocytes % (Manual) Eosinophils % Eosinophils % (Manual) Basophils % Basophils % (Manual) Myelocytes % (Man) Promyelocytes % (Man) Blast Cells % (Manual) Nucleated RBC % Metamyelocytes Hypochromia Platelet Estimate Polychromasia Poikilocytosis Anisocytosis Microcytosis Macrocytosis Ovalocytes Douglas Cells Retic Count 0.34 L PT with INR INR Fibrinogen Anticoagulation Therapy Puncture Site Arterial line ABG pH 7.33 L ABG pCO2 at Pt Temp 49.0 H ABG pO2 at Pt Temp 127.0 H ABG HCO3 25.0 ABG O2 Sat (Measured) 98.5 ABG O2 Content 9.6 L* ABG Base Excess -0.3 Fadi Test No Result Required. O2 Delivery Device Mech vent Oxygen Flow Rate 60% Vent Mode A/c Vent Rate 30 Mechanical Rate PEEP 10.0 Pressure Support Vent 400 Sodium Potassium Chloride Carbon Dioxide Anion Gap BUN Creatinine Creat Clearance w eGFR Random Glucose Lactic Acid Calcium Phosphorus Magnesium Ferritin Total Bilirubin AST ALT Alkaline Phosphatase LD Total Creatine Kinase Creatine Kinase Index CK-MB (CK-2) Troponin I Total Protein Albumin TSH Free T4 Urine Color Urine Appearance Urine pH Ur Specific [place] Urine Protein Urine Glucose (UA) Urine Ketones Urine Blood Urine Nitrite Urine Bilirubin Urine Urobilinogen Ur Leukocyte Esterase Urine WBC (Auto) Urine RBC (Auto) Ur Epithelial Cells Urine Bacteria Hyaline Casts Urine Mucus U Random Total Protein Ur Random Sodium Ur Random Potassium Ur Random Chloride Ur Random Urea Nitrogn Urine Creatinine Random Vancomycin Influenza A (Rapid) Influenza B (Rapid) Blood Type Antibody Screen Crossmatch Physical Exam: Intubated, round pupils, sluggish reaction to light . conjunctival edema CV: regular rhythm, slightly tachy. no murmurs appreciated . Lungs:anteriorly and laterally clear Abd: soft, hypoactive BS, not distended. mucus and broun liquid stool on bed Ext : no edema or erythema. skin : no rash ASSESSMENT AND PLAN: Unfortunate 53 y/o lady with h/o HIV, non compliance, Asthma, HTN, HLP, HTN, and other medical problems who presented with fever and AMS accompanied by family. She was found to have sepsis with multi-organ system failure 1- Acute hypoxic resp failure 2/2 b/l strep PNA and metabolic acidosis. - s/p Intubation. FIO2 100% and PEEP 8 now - d/w ID switch Abx to high dose ceftriaxone 2 g q 12 h . received vanco at 4 am - Spoke to Micro lab, blood cx is actually G+ cocci in pairs not bacili. to be changed in computer - follow repeat blood cx - cont vent, sedation and pressors 2- Septic shock from PNA - cont pressors. - check c diff as stool is liquidy - cont steroids 3- Acute metabolic acidosis with high AG. due to SANA and sepsis . - s/p HD last night. Cr and bicarb and PH improved - repeat lactic acid 4- Elevated trop: likey demand due to sepsis. However EKG shows < 1mm ST elevation with upright TW in laterl leads. - last trop 0.16 . repeat -echo pending 5- Acute on chronic anemia, due to upper GI bleed . episode of melena and coffee ground last night - keep hb > 7. - cont PPI gtt - GI consult - post transfusion iron studies pending 6- SANA: Fena 0.6%. with nephrotic range protein uria of 4 g/24 hr s/p HD last night due to acidosis. oligouric now. - follow cr, UOP, and PH . - no HD today as PH improved - corrected ca 8.3 . monitor 7- HIV: CD4 count pending 8- DVT PX" SCDs ICU level of care. d/dw ID , nephro, ICU staff. called [facility]. sauravo script from not picked up. No other meds message left fro [facility] pharmacy . Spoke to Kosta Valentin, he will bring her Meds bottles today Visit type - Emergency Visit Emergency Visit: Yes ED Registration Date: 04/19/18 Care time: The patient presented to the Emergency Department on the above date and was hospitalized for further evaluation of their emergent condition. - New Patient This patient is new to me today: No - Critical Care Critical Care patient: Yes Total Critical Care Time (in minutes): 40 Critical Care Statement: The care of this patient involved high complexity decision making to prevent further life threatening deterioration of the patient 's condition and/or to evaluate & treat vital organ system(s) failure or risk of failure. - Discharge Referral Referred to [facility] No
--- NOTE | 2018-04-20 09:11 | PN ---
Progress Note (short form) - Note Progress Note: d/w Wage Conciliator overnight d/w microbiologist this am pneumococcal antigen positive- gram stain read as gram positive bacilli yesterday- today blood cultures // bottles strep pneumo! s/p HD last night for severe acidosis now with nasima and 2 femoral lines- one for HD Vital Signs Period Temp Pulse Resp BP Sys/Cai Pulse Ox Last 24 Hr 98.7 F-100.7 F 76-125 22-105 91-151/51-83 93-100 remains intubated neck supple cor-rrr llungs decreased bs at bases abd- soft,nt ext no edema CBC, BMP 04/20/18 05:30 04/20/18 05:30 Microbiology 04/19/18 00:57 Blood - Peripheral Venous Blood Culture - Preliminary Streptococcus Pneumoniae 04/19/18 00:57 Blood - Peripheral Venous Blood Culture - Preliminary Streptococcus Pneumoniae 04/19/18 09:30 Urine - Urine - Catheterized Legionella Antigen - Final 04/19/18 09:30 Urine - Urine - Catheterized Streptococcus pneumoniae Antigen (M - Final Current Medications Albumin Human (Albumin Human 25%) 12.5 gm IVPB Q30M [facility] Artificial Tears (Artificial Tears) 1 drop OU BID [facility] Last Admin: 04/19/18 21:40 Dose: 1 drop Chlorhexidine Gluconate (Hibiclens For Decolonization -) 1 applic TP HS [facility] Last Admin: 04/19/18 21:41 Dose: 1 applic Docusate Sodium (Colace Liquid -) 100 mg PO TID [facility] Last Admin: 04/20/18 06:00 Dose: Not Given Heparin Sodium (Porcine) (Heparin -) 5,000 unit SQ TID [facility] Last Admin: 04/20/18 06:05 Dose: 5,000 unit Hydrocortisone Sodium Succinate (Solu-Cortef -) 50 mg IVPB Q6H [facility] Last Admin: 04/20/18 04:27 Dose: 50 mg Propofol (Diprivan -) 1,000,000 mcg in 100 mls @ 1.769 mls/hr IV TITR [facility]; Protocol Last Titration: 04/20/18 06:15 Dose: 40 mcg/kg/min, 14.152 mls/hr Norepinephrine Bitartrate 4, (000 mcg/ Dextrose) 500 mls @ 37.5 mls/hr IV TITR [facility]; Protocol Last Titration: 04/20/18 03:30 Dose: 3 mcg/min, 22.5 mls/hr Vasopressin 50 units/ Sodium (Chloride) 100 mls @ 4.8 mls/hr IVPB TITR [facility]; Protocol Last Admin: 04/19/18 16:29 Dose: 2.4 units/hr, 4.8 mls/hr Pantoprazole Sodium 80 mg/ (Sodium Chloride) 100 mls @ 10 mls/hr IVPB Q10H [facility] Last Admin: 04/20/18 05:58 Dose: Not Given Sodium Chloride (Normal Saline -) 250 mls @ 3,000 mls/hr IV PRN PRN PRN Reason: Hypotension during Dialysis Stop: 04/20/18 20:58 Ceftriaxone Sodium (Ceftriaxone 2 Gm-D5w Bag) 2 gm in 50 mls @ 100 mls/hr IVPB Q12H [facility]; Protocol Mupirocin (Bactroban Ointment (For Decolonization) -) 1 applic NS BID [facility] Stop: 04/24/18 09:59 Last Admin: 04/19/18 21:40 Dose: 1 applic Senna (Senna -) 1 tab PO HS [facility] Last Admin: 04/19/18 21:41 Dose: Not Given cxray- lare RUL infiltrate a/p severe pneumococcal sepsis-with leukopenia multiorgan failure-respiratory/renal- oliguric multilobar pneumonia GI bleed HIV-will try to locate her doctor for details on Saturday multiple antibiotics allergies cultures vancomycin by joesph jimenez d/w hospitalist and renal as well overall prognosis is guarded- 45 minutes spent in the care of this critically ill ICU patient
[2018-04-20] MEDS: MUPIROCIN 2% TOPICAL OINTMENT FOR DECOLONIZATION NS SCH ×2 (10:30→21:31)
[2018-04-20] MEDS: ARTIFICIAL TEARS (POLYVINYL ALCOHOL) OPTH DROPS OU SCH ×2 (10:30→21:31)
--- NOTE | 2018-04-20 10:35 | CON.GI ---
Consult Consult Specialty:: GI Referred by:: Hospitalist Service Reason for Consultation:: GI bleed - History of Present Illness Chief Complaint: Patient intubated / sedated History of Present Illness: 53F found unresponsive by family and brought to ER by EMS. Has h/o HIV, unclear regarding the extent of her outpatient care. called to evaluate due to coffee grounds in [facility] and [facility] last night. Unclear endoscopic history in the past. No overt bleeding now. Received 2 U PRBC. Appears to be pancytopenic. - Past Medical History Cardio/Vascular: Yes: HTN, Hyperlipdemia Pulmonary: Yes: Asthma Infectious Disease: Yes: HIV - Alcohol/Substance Use Hx Alcohol Use: No - Smoking History Smoking history: Current every day smoker Have you smoked in the past 12 months: No Aproximately how many cigarettes per day: 7 If you are a former smoker, when did you quit?: 1yr Home Medications - Allergies Allergies/Adverse Reactions: Allergies Allergy/AdvReac Type Severity Reaction Status Date / Time Penicillins Allergy Severe Hives Verified 04/13/18 18:01 Sulfa (Sulfonamide Allergy Severe Difficulty Verified 04/13/18 18:01 Antibiotics) Breathing phenazopyridine AdvReac Verified 04/13/18 18:01 [From Pyridium] - Home Medications Home Medications: Ambulatory Orders Mag Hydrox/Al Hydrox/Simeth [Mylanta *Suspension*] 30 ml PO Q6H #12 cup Ondansetron [Zofran Odt -] 4 mg SL TID #21 od.tablet 03/09/18 Ranitidine [Zantac -] 150 mg PO DAILY #14 tablet 03/09/18 Azithromycin [Zithromax -] 250 mg PO UTDICT #6 tab 04/12/18 Family Disease History - Family Disease History Family History: Unable to Obtain Review of Systems Unable to obtain ROS, reason: intubated/sedated Physical Exam-GI Vital Signs: Vital Signs Temperature 98.7 F 04/20/18 06:00 Pulse Rate 115 H 04/20/18 09:39 Respiratory Rate 32 H 04/20/18 09:39 Blood Pressure 104/63 04/20/18 07:00 O2 Sat by Pulse Oximetry (%) 100 04/20/18 09:40 Constitutional: Yes: Calm Eyes: No: Sclera Icterus HENT: Yes: Other (OGT in place: yellow bile) Cardiovascular: Yes: Tachycardia. No: Murmur Gastrointestinal Inspection: No: Distention ...Auscultate: Yes: Normoactive Bowel Sounds ...Palpate: Yes: Hepatomegaly (? hepatomegaly on exam). No: Tenderness (No grimacing upon palpation) ...Percussion: No: Tympanitic ...Rectal Exam: Yes: Other (Full rectal not performed due to neutropenia. yellow stool coming from anus) Edema: No (No LE edema) Labs: CBC, BMP 04/20/18 05:30 04/20/18 05:30 INR, PTT INR 1.15 (0.83-1.09) H 04/19/18 19:30 Fibrinogen > 500.0 mg/dL (238-498) H 04/19/18 19:30 Problem List - Problems (1) GI bleed Assessment/Plan: No signs of overt bleeding currently without focal abdominal exam findings Continue to monitor No need for PPI drip Consider heme evaluation of pancytopenia Recall as needed Code(s): K92.2 - GASTROINTESTINAL HEMORRHAGE, UNSPECIFIED
[2018-04-20] MEDS ORDERED: DEXTROSE 5%-WATER 100 ML IVPB ONE ×2 (12:24→21:08)
[2018-04-20] MEDS: CEFTRIAXONE 2 GM in DEXTROSE 5%-WATER 100 ML IVPB SCH ×2 (12:27→21:40)
[2018-04-20] MEDS: NOREPINEPHRINE BITARTRATE 4,000 MCG in DEXTROSE 5%-WATER - 496 ML IV SCH ×2 (12:31→19:30)
[2018-04-20 12:33] LABS: ANISOCYTOSIS 1+; MACROCYTOSIS 0; OVALOCYTE 1+; TARGET CELLS 2+; TOXIC GRANULATION 1+
[2018-04-20 13:09] LABS: HEMATOCRIT 20.2 % (32.4-45.2); HEMOGLOBIN 7.1 GM/dL (10.7-15.3); MCHC 35.1 g/dl (32.0-36.0); MEAN CELL VOLUME 71.3 fl (80-96); MEAN PLT VOLUME 10.1 fl (7.5-11.1); PLATELET COUNT 67 K/MM3 (134-434); RBC 2.83 M/mm3 (3.60-5.2); RDW 22.8 % (11.6-15.6); WHITE BLOOD COUNT 3.4 K/mm3 (4.0-10.0)
[2018-04-20 13:11] LABS: ARTERIAL BLD GAS O2 SATURATION 98.4 % (90-98.9); ARTERIAL BLOOD GAS BASE EXCESS 0.9 meq/l (-2-2); ARTERIAL BLOOD GAS PCO2 43.4 mmHg (35-45); ARTERIAL BLOOD GAS pH 7.39 (7.35-7.45)
[2018-04-20 13:27] LABS: ALLENS TEST POSITIVE
[2018-04-20 13:45] LABS: ALBUMIN 0.8 g/dl (3.4-5.0); ALK PHOS 45 U/L (45-117); ANION GAP 9 MMOL/L (8-16); BILIRUBIN,TOTAL 0.5 mg/dL (0.2-1); BLOOD UREA NITROGEN 49 mg/dL (7-18); CHLORIDE 99 mmol/L (98-107); CO2 29 mmol/L (21-32); CREATININE 3.4 mg/dL (0.55-1.3); GLUCOSE,RANDOM 119 mg/dL (74-106); POTASSIUM 3.5 mmol/L (3.5-5.1); SGOT/AST 81 U/L (15-37); SGPT/ALT 18 U/L (13-61); SODIUM 137 mmol/L (136-145); TOT PROT 4.6 g/dl (6.4-8.2)
[2018-04-20] MEDS ORDERED: ACETAMINOPHEN 1000 MG/100 ML VIAL (NON FORMULARY) IVPB ONE (14:55)
[2018-04-20] MEDS: VASOPRESSIN 50 UNITS in SODIUM CHLORIDE 97.5 ML IVPB SCH (16:00)
[2018-04-20] MEDS: CHLORHEXIDINE GLUCONATE 4% CLEANSER FOR DECOLONIZATION TP SCH (21:36)
[2018-04-20] MEDS: SENNOSIDES 8.6MG TABLET (FP) PO SCH (21:40)
[2018-04-21] MEDS: HYDROCORTISONE SOD SUCCINATE 100 MG/2 ML VIAL IVPB SCH ×5 (00:25→23:59)
[2018-04-21] MEDS ORDERED: BENZOIN/ALOE VERA/STORAX/TOLU 58 ML BOTTLE ONE (02:11)
[2018-04-21] MEDS: PROPOFOL 1,000,000 MCG/100 ML VIAL IV SCH ×3 (02:30→19:30)
[2018-04-21] MEDS: HEPARIN NA (PORCINE) 5,000 UNITS/ML 1ML VIAL SQ SCH ×2 (05:35→15:00)
[2018-04-21] MEDS: DOCUSATE NA 100 MG/10 ML UNIT-DOSE CUPS PO SCH ×3 (05:42→22:00)
[2018-04-21 06:01] LABS: MCH 24.3 pg (25.7-33.7); MCHC 33.4 g/dl (32.0-36.0); MEAN CELL VOLUME 72.5 fl (80-96); MEAN PLT VOLUME 10.3 fl (7.5-11.1); PLATELET COUNT 57 K/MM3 (134-434); RBC 2.76 M/mm3 (3.60-5.2); RDW 22.4 % (11.6-15.6); WHITE BLOOD COUNT 10.7 K/mm3 (4.0-10.0)
[2018-04-21 06:11] LABS: INR 0.92 (0.83-1.09); PROTHROMBIN TIME (PATIENT) 10.9 SEC (9.7-13.0)
[2018-04-21 06:14] LABS: ACTIVATED PTT 32.7 SECONDS (25.2-36.5)
[2018-04-21 06:22] LABS: HEMOGLOBIN 6.7 GM/dL (10.7-15.3)
[2018-04-21 06:28] LABS: ALBUMIN 0.8 g/dl (3.4-5.0); ALK PHOS 51 U/L (45-117); ANION GAP 13 MMOL/L (8-16); BILIRUBIN,DIRECT 0.3 mg/dL (0.0-0.2); BILIRUBIN,TOTAL 0.5 mg/dL (0.2-1); BLOOD UREA NITROGEN 63 mg/dL (7-18); CHLORIDE 97 mmol/L (98-107); CO2 26 mmol/L (21-32); CREATININE 4.2 mg/dL (0.55-1.3); GLUCOSE,RANDOM 114 mg/dL (74-106); MAGNESIUM 2.1 mg/dL (1.8-2.4); PHOSPHOROUS 7.2 mg/dL (2.5-4.9); SGOT/AST 78 U/L (15-37); SGPT/ALT 17 U/L (13-61); SODIUM 135 mmol/L (136-145); TOT PROT 4.8 g/dl (6.4-8.2)
[2018-04-21 06:30] LABS: CALCIUM 5.8 mg/dL (8.5-10.1)
[2018-04-21 07:01] LABS: ARTERIAL BLD GAS O2 SATURATION 98.6 % (90-98.9); ARTERIAL BLOOD GAS BASE EXCESS -0.9 meq/l (-2-2); ARTERIAL BLOOD GAS pH 7.39 (7.35-7.45)
[2018-04-21] MEDS: ACETAMINOPHEN 1000 MG/100 ML VIAL (NON FORMULARY) IVPB PRN ×2 (08:30→17:41)
[2018-04-21] MEDS ORDERED: DEXTROSE 5%-WATER 100 ML IVPB ONE ×2 (09:43→22:07)
[2018-04-21 10:08] LABS: ANTIGLOMERULAR BASEMENT MEN.AB 4 units (0-20)
[2018-04-21] MEDS: PANTOPRAZOLE SODIUM 40 MG VIAL IVPUSH SCH (10:18)
[2018-04-21] MEDS: CEFTRIAXONE 2 GM in DEXTROSE 5%-WATER 100 ML IVPB SCH ×2 (10:19→22:07)
[2018-04-21] MEDS: MUPIROCIN 2% TOPICAL OINTMENT FOR DECOLONIZATION NS SCH ×2 (10:19→22:04)
[2018-04-21] MEDS: ARTIFICIAL TEARS (POLYVINYL ALCOHOL) OPTH DROPS OU SCH ×2 (10:20→22:04)
--- NOTE | 2018-04-21 11:31 | PN ---
Progress Note (short form) - Note Progress Note: Renal follow up for SANA requiring emergent dialysis Pt seen and examined in the ICU on vent, FiO2 is 60% on Norepinephrine 3mcg remains oliguric no fevers Vital Signs Temperature 98.5 F 04/21/18 06:00 Pulse Rate 82 04/21/18 08:30 Respiratory Rate 30 H 04/21/18 10:41 Blood Pressure 95/59 L 04/21/18 07:00 O2 Sat by Pulse Oximetry (%) 100 04/21/18 10:00 Intake & Output 04/18/18 04/19/18 04/20/18 04/21/18 23:59 23:59 23:59 23:59 Intake Total 350 3775.0 503.6 Output Total 390 255 30 Balance -40 3520.0 473.6 Weight 56.4 kg 64.047 kg 64.5 kg Intubated on the Vent ET tube in place RRR Course BS soft NT/ND foely in place no Le edema, clubbing or cyanosis extremities are warm CBC, BMP 04/21/18 05:15 04/21/18 05:15 Current Medications Acetaminophen (Ofirmev Injection -) 1,000 mg IVPB Q6H PRN PRN Reason: FEVER Albumin Human (Albumin Human 25%) 12.5 gm IVPB Q30M [facility] Artificial Tears (Artificial Tears) 1 drop OU BID [facility] Last Admin: 04/21/18 10:20 Dose: 1 drop Chlorhexidine Gluconate (Hibiclens For Decolonization -) 1 applic TP HS [facility] Last Admin: 04/20/18 21:36 Dose: 1 applic Docusate Sodium (Colace Liquid -) 100 mg PO TID [facility] Last Admin: 04/21/18 05:42 Dose: Not Given Heparin Sodium (Porcine) (Heparin -) 5,000 unit SQ TID [facility] Last Admin: 04/21/18 05:35 Dose: 5,000 unit Hydrocortisone Sodium Succinate (Solu-Cortef -) 50 mg IVPB Q6H [facility] Last Admin: 04/21/18 10:18 Dose: 50 mg Propofol (Diprivan -) 1,000,000 mcg in 100 mls @ 1.769 mls/hr IV TITR [facility]; Protocol Last Admin: 04/21/18 06:34 Dose: 40 mcg/kg/min, 14.152 mls/hr Norepinephrine Bitartrate 4, (000 mcg/ Dextrose) 500 mls @ 37.5 mls/hr IV TITR [facility]; Protocol Last Admin: 04/20/18 19:30 Dose: Not Given Vasopressin 50 units/ Sodium (Chloride) 100 mls @ 4.8 mls/hr IVPB TITR [facility]; Protocol Last Admin: 04/20/18 16:00 Dose: 2.4 units/hr, 4.8 mls/hr Sodium Chloride (Normal Saline -) 250 mls @ 3,000 mls/hr IV PRN PRN PRN Reason: Hypotension during Dialysis Stop: 04/20/18 20:58 Ceftriaxone Sodium 2 gm/ (Dextrose) 100 mls @ 200 mls/hr IVPB Q12H [facility]; Protocol Last Admin: 04/21/18 10:19 Dose: 200 mls/hr Mupirocin (Bactroban Ointment (For Decolonization) -) 1 applic NS BID [facility] Stop: 04/24/18 09:59 Last Admin: 04/21/18 10:19 Dose: 1 applic Pantoprazole Sodium (Protonix Iv) 40 mg IVPUSH DAILY [facility] Last Admin: 04/21/18 10:18 Dose: 40 mg Senna (Senna -) 1 tab PO HS [facility] Last Admin: 04/20/18 21:40 Dose: Not Given 53 year old AA woman with hx of HIV (non-compliance with meds per ER records), HTN, HLD, Asthma who presented from home with fever and AMS and found to have B/ L lung infiltrates, Sepsis syndrome and SANA with severe metabolic acidosis. #Acute Renal Failure in setting of Sepsis syndrome requiring emergent dialysis for persistent acidosis #Anion gap metabolic acidosis (lactic acidosis with concurrent respiratory acidosis) #Sepsis Syndrome with with Strep PNA #HIV non-compliant with medications #Pseudohypocalcemia (corrected Ca is 8.36)/Hyperphosphatemia #Acute Anemia with + stool occult blood Pt remains oliguric but not signs of gross volume overload, hyerkalemia or acidosis will not plan for [employer] today, will reaccess in AM Continue Tx of sepsis as per ICU Vent support Vasopressers to maintain MAP > 65 IVF as needed to maintain CVP 10-12 Transfuse PRBC as needed per ICU protocol Corrected Ca is 8.36 Start renvela Q8h via NGT for hyperphosphatemia Abx as per ID Thank you Will follow Khadar Ibarra DO
[2018-04-21] MEDS ORDERED: SODIUM CHLORIDE 1,000 ML IV STA (11:58)
--- NOTE | 2018-04-21 12:42 | PN ---
Teaching Attending Note Name of Resident: Eber Lutz ATTENDING PHYSICIAN STATEMENT I saw and evaluated the patient. I reviewed the resident's note and discussed the case with the resident. I agree with the resident's findings and plan as documented. SUBJECTIVE: No events over night, except for low grade fever OBJECTIVE: Intubated, round pupils, sluggish reaction to light . conjunctival edema CV: regular rhythm, slightly tachy. no murmurs appreciated . Lungs:clear posteriorly and has rales anteriorly bilaterally Abd: soft, absent BS, not distended. Ext : no edema or erythema. skin : no rash. ASSESSMENT AND PLAN: Unfortunate 53 y/o lady with h/o HIV, non compliance, Asthma, HTN, HLP, HTN, and other medical problems who presented with fever and AMS accompanied by family. She was found to have sepsis with multi-organ system failure 1- Acute hypoxic resp failure 2/2 b/l strep PNA - s/p Intubation. FIO2 improved to 60%, and PEEP 6 now - cont ceftriaxone. decision to cont vanco or ot per ID 2- Septic shock from PNA , with strep bacteremia - cont pressors. Leveo and vaso - cont stress dose steroids - cont Abx. - echo r/o vegetations - US fingings of thickened glall baladder might not be significant, will repeat US in few days 3- Acute metabolic acidosis with high AG. . rsolved bicarb improved , No Hd today 4- Elevated trop: likey demand due to sepsis. -echo pending 5- Acute on chronic anemia, GI bleed VS other . HUS is in DDx but less likely with LDH of 460. - transfuse RBC - will evaluate smear. - follow hapto - No evidence of DIC 6- SANA: no HD today - follow - corrected ca 8.3 . monitor 7- HIV: CD4 count pending 8- DVT PX" SCDs Critical Care Total Critical Care Time (in minutes): 45 Critical Care Statement: The care of this patient involved high complexity decision making to prevent further life threatening deterioration of the patient 's condition and/or to evaluate & treat vital organ system(s) failure or risk of failure.
--- NOTE | 2018-04-21 13:24 | ECHO ---
Name: PATRICIA DE LEÓN Exam:Adult Echocardiogram Study Date: 04/21/2018 11:24 AM Age: 53 yrs Reason For Study: sepsis Height: 64 in Weight: 130 lb BSA: 1.6 m2 BP: 87/51 mmHg MMode/2D Measurements & Calculations IVSd: 0.71 cm Ao root diam: 2.6 cm LVIDd: 5.5 cm LVIDs: 4.4 cm LVPWd: 0.93 cm EDV(Teich): 148.2 ml LVOT diam: 2.0 cm ESV(Teich): 87.9 ml TAPSE: 1.8 cm RV S Julian: 12.5 cm/sec Doppler Measurements & Calculations MV E max julian: 83.9 cm/sec AI P1/2t: 577.0 msec MV A max julian: 64.0 cm/sec MV E/A: 1.3 MV dec time: 0.14 sec AI max julian: 397.4 cm/sec MR max julian: 469.1 cm/sec AI max P.2 mmHg MR max P.0 mmHg AI dec slope: 201.8 cm/sec2 Med Peak E' Julian: 4.6 cm/sec Med E/e': 18.4 Procedure A complete two-dimensional transthoracic echocardiogram was performed (2D, M-mode, Doppler and color flow Doppler). Left Ventricle The left ventricle is normal in size. Left ventricular systolic function is low normal. Ejection Frac tion = 50-55%. Diastolic dysfunction, Grade II (pseudonormalization pattern). Ratio E/E'= 18. No regional wa ll motion abnormalities noted. Right Ventricle The right ventricle is normal size. The right ventricular systolic function is normal. RV systolic TD I is 13 cm/s. Atria The left atrial size is normal. Right atrial size is normal. Mitral Valve The mitral valve is normal in structure and function. There is moderate to severe mitral regurgitatio n. The mitral regurgitant jet is eccentrically directed. Tricuspid Valve The tricuspid valve is normal in structure and function. No tricuspid regurgitation. Aortic Valve The aortic valve is normal in structure and function. Moderate aortic regurgitation. Pulmonic Valve The pulmonic valve is not well visualized. Great Vessels The aortic root is normal size. Pericardium/Pleura There is no pericardial effusion. Interpretation Summary The left ventricle is normal in size. Left ventricular systolic function is low normal. Ejection Fraction = 50-55%. Diastolic dysfunction, Grade II (pseudonormalization pattern). Ratio E/E'= 18 The right ventricular systolic function is normal. The left atrial size is normal. Right atrial size is normal. There is moderate to severe mitral regurgitation. The mitral regurgitant jet is eccentrically directed. Moderate aortic regurgitation. There is no pericardial effusion. Previous study is not available for comparison Dwain Barry MD 04/21/2018 01:23 PM
--- NOTE | 2018-04-21 13:26 | PN ---
Teaching Attending Note Name of Resident: Rosanne Lawson ATTENDING PHYSICIAN STATEMENT I saw and evaluated the patient. I reviewed the resident's note and discussed the case with the resident. I agree with the resident's findings and plan as documented. SUBJECTIVE: Patient seen and examined in the ICU. Intubated and sedated, 60% FiO2. NE and Vasopressin for hemodynamic support. Noted required acute HD over the weekend. Intake & Output 04/18/18 04/19/18 04/20/18 04/21/18 23:59 23:59 23:59 23:59 Intake Total 350 3775.0 503.6 Output Total 390 255 30 Balance -40 3520.0 473.6 Weight 124 lb 5.451 oz 141 lb 3.2 oz 142 lb 3.17 oz Last Vital Signs Temp Pulse Resp BP Pulse Ox 99.6 F 85 32 H 98/54 L 100 04/21/18 12:00 04/21/18 13:00 04/21/18 13:00 04/21/18 13:00 04/21/18 10:00 Active Medications Acetaminophen (Ofirmev Injection -) 1,000 mg IVPB Q6H PRN PRN Reason: FEVER Albumin Human (Albumin Human 25%) 12.5 gm IVPB Q30M [facility] Artificial Tears (Artificial Tears) 1 drop OU BID [facility] Last Admin: 04/21/18 10:20 Dose: 1 drop Chlorhexidine Gluconate (Hibiclens For Decolonization -) 1 applic TP HS [facility] Last Admin: 04/20/18 21:36 Dose: 1 applic Docusate Sodium (Colace Liquid -) 100 mg PO TID [facility] Last Admin: 04/21/18 05:42 Dose: Not Given Heparin Sodium (Porcine) (Heparin -) 5,000 unit SQ TID [facility] Last Admin: 04/21/18 05:35 Dose: 5,000 unit Hydrocortisone Sodium Succinate (Solu-Cortef -) 50 mg IVPB Q6H [facility] Last Admin: 04/21/18 10:18 Dose: 50 mg Propofol (Diprivan -) 1,000,000 mcg in 100 mls @ 1.769 mls/hr IV TITR [facility]; Protocol Last Admin: 04/21/18 06:34 Dose: 40 mcg/kg/min, 14.152 mls/hr Norepinephrine Bitartrate 4, (000 mcg/ Dextrose) 500 mls @ 37.5 mls/hr IV TITR [facility]; Protocol Last Admin: 04/20/18 19:30 Dose: Not Given Vasopressin 50 units/ Sodium (Chloride) 100 mls @ 4.8 mls/hr IVPB TITR [facility]; Protocol Last Admin: 04/20/18 16:00 Dose: 2.4 units/hr, 4.8 mls/hr Sodium Chloride (Normal Saline -) 250 mls @ 3,000 mls/hr IV PRN PRN PRN Reason: Hypotension during Dialysis Stop: 04/20/18 20:58 Ceftriaxone Sodium 2 gm/ (Dextrose) 100 mls @ 200 mls/hr IVPB Q12H [facility]; Protocol Last Admin: 04/21/18 10:19 Dose: 200 mls/hr Sodium Chloride (Normal Saline -) 1,000 mls @ 1,000 mls/hr IV ASDIR STA Stop: 04/21/18 12:57 Mupirocin (Bactroban Ointment (For Decolonization) -) 1 applic NS BID [facility] Stop: 04/24/18 09:59 Last Admin: 04/21/18 10:19 Dose: 1 applic Pantoprazole Sodium (Protonix Iv) 40 mg IVPUSH DAILY [facility] Last Admin: 04/21/18 10:18 Dose: 40 mg Senna (Senna -) 1 tab PO HS [facility] Last Admin: 04/20/18 21:40 Dose: Not Given Constitutional: Yes: Intubated and sedated Eyes: Yes: Conjunctiva Clear, PERRL HENT: Yes: Atraumatic Cardiovascular: Yes: Tachycardia, S1, S2 Respiratory: Yes: Mechanically Ventilated, bilateral coarse rhonchi Gastrointestinal: Yes: (+) Bowel Sounds, Soft Renal/: Yes: Stephens Present Extremities: Yes: WNL Edema: No Labs: Laboratory Results - last 24 hr 04/19/18 04/19/18 04/19/18 04:45 11:22 12:08 WBC RBC Hgb Hct MCV MCH MCHC RDW Plt Count MPV Platelet Comment PT with INR INR PTT (Actin FS) Puncture Site ABG pH ABG pCO2 at Pt Temp ABG pO2 at Pt Temp ABG HCO3 ABG O2 Sat (Measured) ABG O2 Content ABG Base Excess Fadi Test O2 Delivery Device Oxygen Flow Rate Vent Rate Mechanical Rate PEEP Pressure Support Vent Sodium Potassium Chloride Carbon Dioxide Anion Gap BUN Creatinine Creat Clearance w eGFR Random Glucose Lactic Acid Calcium Phosphorus Magnesium Total Bilirubin Direct Bilirubin AST ALT Alkaline Phosphatase Creatine Kinase Creatine Kinase Index CK-MB (CK-2) Troponin I Total Protein Albumin Urine Eosinophils None seen Random Vancomycin Glomerular Base Memb Ab 4 Blood Type B POSITIVE Antibody Screen Negative Crossmatch See Detail 04/20/18 04/20/18 04/20/18 12:30 12:30 12:30 WBC RBC Hgb Hct MCV MCH MCHC RDW Plt Count MPV Platelet Comment No clumping noted PT with INR INR PTT (Actin FS) Puncture Site ABG pH ABG pCO2 at Pt Temp ABG pO2 at Pt Temp ABG HCO3 ABG O2 Sat (Measured) ABG O2 Content ABG Base Excess Fadi Test O2 Delivery Device Oxygen Flow Rate Vent Rate Mechanical Rate PEEP Pressure Support Vent Sodium 137 Potassium 3.5 Chloride 99 Carbon Dioxide 29 Anion Gap 9 BUN 49 H Creatinine 3.4 H Creat Clearance w eGFR 14.02 Random Glucose 119 H Lactic Acid 3.4 H* Calcium 6.0 L* Phosphorus Magnesium Total Bilirubin 0.5 Direct Bilirubin AST 81 H ALT 18 Alkaline Phosphatase 45 Creatine Kinase 233 H Creatine Kinase Index 0.5 CK-MB (CK-2) 1.2 Troponin I 0.04 Total Protein 4.6 L Albumin 0.8 L Urine Eosinophils Random Vancomycin Glomerular Base Memb Ab Blood Type Antibody Screen Crossmatch 04/20/18 04/21/18 04/21/18 12:30 05:15 05:15 WBC RBC Hgb Hct MCV MCH MCHC RDW Plt Count MPV Platelet Comment PT with INR 10.90 INR 0.92 PTT (Actin FS) 32.7 Puncture Site No Result Required. ABG pH 7.39 ABG pCO2 at Pt Temp 43.4 ABG pO2 at Pt Temp 127.0 H ABG HCO3 25.4 ABG O2 Sat (Measured) 98.4 ABG O2 Content 9.5 L* ABG Base Excess 0.9 Fadi Test Positive O2 Delivery Device Oxygen Flow Rate Yes Vent Rate Mechanical Rate PEEP Pressure Support Vent Sodium Potassium Chloride Carbon Dioxide Anion Gap BUN Creatinine Creat Clearance w eGFR Random Glucose Lactic Acid Calcium Phosphorus Magnesium Total Bilirubin Direct Bilirubin AST ALT Alkaline Phosphatase Creatine Kinase Creatine Kinase Index CK-MB (CK-2) Troponin I Total Protein Albumin Urine Eosinophils Random Vancomycin 25.6 Glomerular Base Memb Ab Blood Type Antibody Screen Crossmatch 04/21/18 04/21/18 04/21/18 05:15 05:15 05:15 WBC 10.7 H RBC 2.76 L Hgb 6.7 L* Hct 20.0 L MCV 72.5 L MCH 24.3 L MCHC 33.4 RDW 22.4 H Plt Count 57 L MPV 10.3 Platelet Comment PT with INR INR PTT (Actin FS) Puncture Site ABG pH ABG pCO2 at Pt Temp ABG pO2 at Pt Temp ABG HCO3 ABG O2 Sat (Measured) ABG O2 Content ABG Base Excess Fadi Test O2 Delivery Device Oxygen Flow Rate Vent Rate Mechanical Rate PEEP Pressure Support Vent Sodium 135 L Potassium 3.0 L Chloride 97 L Carbon Dioxide 26 Anion Gap 13 BUN 63 H Creatinine 4.2 H Creat Clearance w eGFR 10.99 Random Glucose 114 H Lactic Acid 1.7 Calcium 5.8 L* Phosphorus 7.2 H Magnesium 2.1 Total Bilirubin 0.5 Direct Bilirubin 0.3 H AST 78 H ALT 17 Alkaline Phosphatase 51 Creatine Kinase Creatine Kinase Index CK-MB (CK-2) Troponin I Total Protein 4.8 L Albumin 0.8 L Urine Eosinophils Random Vancomycin Glomerular Base Memb Ab Blood Type Antibody Screen Crossmatch 04/21/18 04/21/18 06:41 06:45 WBC RBC Hgb Hct MCV MCH MCHC RDW Plt Count MPV Platelet Comment PT with INR INR PTT (Actin FS) Puncture Site Arterial line ABG pH 7.39 ABG pCO2 at Pt Temp 40.0 ABG pO2 at Pt Temp 138.0 H ABG HCO3 23.4 ABG O2 Sat (Measured) 98.6 ABG O2 Content 9.3 L* ABG Base Excess -0.9 Fadi Test Not applicable O2 Delivery Device Vent Oxygen Flow Rate 60% Vent Rate 30 Mechanical Rate Yes PEEP 8.0 Pressure Support Vent 400 Sodium Potassium Chloride Carbon Dioxide Anion Gap BUN Creatinine Creat Clearance w eGFR Random Glucose Lactic Acid Calcium Phosphorus Magnesium Total Bilirubin Direct Bilirubin AST ALT Alkaline Phosphatase Creatine Kinase Creatine Kinase Index CK-MB (CK-2) Troponin I Total Protein Albumin Urine Eosinophils Random Vancomycin Glomerular Base Memb Ab Blood Type B POSITIVE Antibody Screen Negative Crossmatch See Detail Problem List - Problems (1) Respiratory failure with hypoxia Code(s): J96.91 - RESPIRATORY FAILURE, UNSPECIFIED WITH HYPOXIA (2) Respiratory failure, acute Code(s): J96.00 - ACUTE RESPIRATORY FAILURE, UNSP W HYPOXIA OR HYPERCAPNIA (3) SANA (acute kidney injury) Code(s): N17.9 - ACUTE KIDNEY FAILURE, UNSPECIFIED (4) Anemia Code(s): D64.9 - ANEMIA, UNSPECIFIED Qualifiers: Anemia type: unspecified type Qualified Code(s): D64.9 - Anemia, unspecified (5) Sepsis Code(s): A41.9 - SEPSIS, UNSPECIFIED ORGANISM (6) Shock circulatory Code(s): R57.9 - SHOCK, UNSPECIFIED (7) Pneumonia Code(s): J18.9 - PNEUMONIA, UNSPECIFIED ORGANISM Assessment/Plan Wean pressors IVF challenge ABX per ID Follow sputum Follow daily CXR Will need to change access position ECHO Heme evaluation Normal transfusion thresholds Mechanical ventilation w/ lung protective strategy. Goal Pplt <30 BD TX PRN Sedation for vent synchrony HD per Renal (will hold for today) Glycemic control VTE / GI prophylaxis Dr Novak Critical care time spent in reviewing chart, evaluating patient and formulating plan - 36 minutes.
--- NOTE | 2018-04-21 15:45 | PN ---
Physical Exam: SUBJECTIVE: Patient seen and examined at bedside this morning. Intubated and sedated. Vent settings: 30/400/60/8 Levophed 2mcg/min, Vasopressin 2.4 units/hr, Propofol 40mcg/kg/min OBJECTIVE: Vital Signs Period Temp Pulse Resp BP Sys/Cai Pulse Ox Last 24 Hr 98.5 F-104 F 70-108 30-34 87-128/51-74 100-100 GENERAL: The patient is intubated and sedated. HEAD: Normal with no signs of trauma. EYES: Pupils sluggishly reactive to light, anicteric sclerae LUNGS: +rhonchi bilaterally HEART: Regular rate and rhythm, without murmur, rub or gallop. ABDOMEN: Soft, nontender, nondistended, normoactive bowel sounds. EXTREMITIES: 2+ pulses, warm, well-perfused, no edema. SKIN: Warm, dry, normal turgor. Laboratory Results - last 24 hr 04/19/18 04/19/18 04/20/18 04:45 11:22 12:30 WBC RBC Hgb Hct MCV MCH MCHC RDW Plt Count MPV PT with INR INR PTT (Actin FS) Puncture Site ABG pH ABG pCO2 at Pt Temp ABG pO2 at Pt Temp ABG HCO3 ABG O2 Sat (Measured) ABG O2 Content ABG Base Excess Fadi Test O2 Delivery Device Oxygen Flow Rate Vent Rate Mechanical Rate PEEP Pressure Support Vent Sodium 137 Potassium 3.5 Chloride 99 Carbon Dioxide 29 Anion Gap 9 BUN 49 H Creatinine 3.4 H Creat Clearance w eGFR 14.02 Random Glucose 119 H Lactic Acid Calcium 6.0 L* Phosphorus Magnesium Total Bilirubin 0.5 Direct Bilirubin AST 81 H ALT 18 Alkaline Phosphatase 45 Creatine Kinase 233 H Creatine Kinase Index 0.5 CK-MB (CK-2) 1.2 Troponin I 0.04 Total Protein 4.6 L Albumin 0.8 L Random Vancomycin Glomerular Base Memb Ab 4 Blood Type B POSITIVE Antibody Screen Negative Crossmatch See Detail 04/21/18 04/21/18 04/21/18 05:15 05:15 05:15 WBC RBC Hgb Hct MCV MCH MCHC RDW Plt Count MPV PT with INR 10.90 INR 0.92 PTT (Actin FS) 32.7 Puncture Site ABG pH ABG pCO2 at Pt Temp ABG pO2 at Pt Temp ABG HCO3 ABG O2 Sat (Measured) ABG O2 Content ABG Base Excess Fadi Test O2 Delivery Device Oxygen Flow Rate Vent Rate Mechanical Rate PEEP Pressure Support Vent Sodium 135 L Potassium 3.0 L Chloride 97 L Carbon Dioxide 26 Anion Gap 13 BUN 63 H Creatinine 4.2 H Creat Clearance w eGFR 10.99 Random Glucose 114 H Lactic Acid Calcium 5.8 L* Phosphorus 7.2 H Magnesium 2.1 Total Bilirubin 0.5 Direct Bilirubin 0.3 H AST 78 H ALT 17 Alkaline Phosphatase 51 Creatine Kinase Creatine Kinase Index CK-MB (CK-2) Troponin I Total Protein 4.8 L Albumin 0.8 L Random Vancomycin 25.6 Glomerular Base Memb Ab Blood Type Antibody Screen Crossmatch 04/21/18 04/21/18 04/21/18 05:15 05:15 06:41 WBC 10.7 H RBC 2.76 L Hgb 6.7 L* Hct 20.0 L MCV 72.5 L MCH 24.3 L MCHC 33.4 RDW 22.4 H Plt Count 57 L MPV 10.3 PT with INR INR PTT (Actin FS) Puncture Site Arterial line ABG pH 7.39 ABG pCO2 at Pt Temp 40.0 ABG pO2 at Pt Temp 138.0 H ABG HCO3 23.4 ABG O2 Sat (Measured) 98.6 ABG O2 Content 9.3 L* ABG Base Excess -0.9 Fadi Test Not applicable O2 Delivery Device Vent Oxygen Flow Rate 60% Vent Rate 30 Mechanical Rate Yes PEEP 8.0 Pressure Support Vent 400 Sodium Potassium Chloride Carbon Dioxide Anion Gap BUN Creatinine Creat Clearance w eGFR Random Glucose Lactic Acid 1.7 Calcium Phosphorus Magnesium Total Bilirubin Direct Bilirubin AST ALT Alkaline Phosphatase Creatine Kinase Creatine Kinase Index CK-MB (CK-2) Troponin I Total Protein Albumin Random Vancomycin Glomerular Base Memb Ab Blood Type Antibody Screen Crossmatch 04/21/18 06:45 WBC RBC Hgb Hct MCV MCH MCHC RDW Plt Count MPV PT with INR INR PTT (Actin FS) Puncture Site ABG pH ABG pCO2 at Pt Temp ABG pO2 at Pt Temp ABG HCO3 ABG O2 Sat (Measured) ABG O2 Content ABG Base Excess Fadi Test O2 Delivery Device Oxygen Flow Rate Vent Rate Mechanical Rate PEEP Pressure Support Vent Sodium Potassium Chloride Carbon Dioxide Anion Gap BUN Creatinine Creat Clearance w eGFR Random Glucose Lactic Acid Calcium Phosphorus Magnesium Total Bilirubin Direct Bilirubin AST ALT Alkaline Phosphatase Creatine Kinase Creatine Kinase Index CK-MB (CK-2) Troponin I Total Protein Albumin Random Vancomycin Glomerular Base Memb Ab Blood Type B POSITIVE Antibody Screen Negative Crossmatch See Detail Active Medications Generic Name Dose Route Start Last Admin Trade Name Freq PRN Reason Stop Dose Admin Acetaminophen 1,000 mg 04/20/18 21:13 Ofirmev Injection - IVPB Q6H PRN FEVER Albumin Human 12.5 gm 04/19/18 21:00 Albumin Human 25% IVPB Q30M ZHANG Artificial Tears 1 drop 04/19/18 22:00 04/21/18 10:20 Artificial Tears OU 1 drop BID ZHANG Administration Chlorhexidine Gluconate 1 applic 04/19/18 22:00 04/20/18 21:36 Hibiclens For Decolonization - TP 1 applic HS ZHANG Administration Docusate Sodium 100 mg 04/19/18 14:00 04/21/18 15:10 Colace Liquid - PO 100 mg TID ZHANG Administration Heparin Sodium (Porcine) 5,000 unit 04/19/18 14:00 04/21/18 15:00 Heparin - SQ 5,000 unit TID ZHANG Administration Hydrocortisone Sodium Succinate 50 mg 04/19/18 17:15 04/21/18 10:18 Solu-Cortef - IVPB 50 mg Q6H ZHANG Administration Propofol 1,000,000 mcg in 100 mls @ 1.769 mls/hr 04/19/18 09:15 04/21/18 06: 34 Diprivan - IV 40 mcg/kg/min TITR ZHANG 14.152 mls/hr Administration Protocol 5 MCG/KG/MIN Norepinephrine Bitartrate 4, 500 mls @ 37.5 mls/hr 04/19/18 10:45 04/20/18 19 :30 000 mcg/ Dextrose IV Not Given TITR ZHANG Protocol 5 MCG/MIN Vasopressin 50 units/ Sodium 100 mls @ 4.8 mls/hr 04/19/18 15:00 04/20/18 16: 00 Chloride IVPB 2.4 units/hr TITR ZHANG 4.8 mls/hr Administration Protocol 2.4 UNITS/HR Sodium Chloride 250 mls @ 3,000 mls/hr 04/19/18 20:58 Normal Saline - IV 04/20/18 20:58 PRN PRN Hypotension during Dialysis Ceftriaxone Sodium 2 gm/ 100 mls @ 200 mls/hr 04/20/18 10:00 04/21/18 10:19 Dextrose IVPB 200 mls/hr Q12H ZHANG Administration Protocol Mupirocin 1 applic 04/19/18 10:00 04/21/18 10:19 Bactroban Ointment (For Decolonization) - NS 04/24/18 09:59 1 applic BID ZHANG Administration Pantoprazole Sodium 40 mg 04/21/18 10:00 04/21/18 10:18 Protonix Iv IVPUSH 40 mg DAILY ZHANG Administration Senna 1 tab 04/19/18 22:00 04/20/18 21:40 Senna - PO Not Given HS ZHANG ASSESSMENT/PLAN: The patient is a 53 year old female with a history of HIV, HTN, HLD, Asthma, Anemia who presents for evaluation of difficulty breathing and altered mental status. #Acute hypoxic respiratory failure likely 2/2 multilobular strep pneumonia -Intubated and sedated -Vent settings: 30/400/60/8 -CXR (04/21/18) - Imaging again reveals bilateral infiltrates. -Ceftriaxone Day 2 -ID consulted. Recommendations appreciated. #Septic shock likely 2/2 pneumonia -Levophed 2mcg/min, Vasopressin 2.4 units/hr, Propofol 40mcg/kg/min -Ceftriaxone 2gm q12 day 2 -Hydrocortisone 50mg q6h -Echo - LV normal in size, LV systolic function is low normal. EF 50-55%. Diastolic dysfunction grade II (pseudonormalization pattern). Ratio E/E'=18. RV systolic function is normal. LA size normal. RAsize normal. Moderate to severe MR. The mitral regurgitant jet is eccentrically directed. Moderate AR. No pericardial effusion. -Chest CT - multifocal bilateral infiltrates. Mild nonspecific mediastinal lymphadenopathy which may be reactive. Mild nonspecific bilateral adrenal gland thickening -?chronic in nature representing hyperplasia, or subcentimeter adenomas vs being acute in nature. Main pulmonary artery appears mildly dilated 3.2 cm. -Renal US - No hydronephrosis. Interval development of bilateral increased cortical echogenicity. Gallbladder mild to moderate overdistention and mild diffuse nonspecific gallbladder wall thickening as well as pericholecystic fluid accumulation which may be acute cholecystitis. a trace amount of free fluid is seen within the hepatorenal fossa. #Acute metabolic acidosis with high anion gap: resolved -ph 7.06 / pCO2 43.4 / pO2 127 / HCO3 25 -will continue to monitor -Nephrology consulted. Recommendations appreciated. #Acute kidney injury: -worsening BUN/Cr today (63/4.2) -Emergent HD done 04/19/18 -Nephrology (Dr. Ibarra) consulted. Recommendations appreciated. -Patient remains oliguric but no signs of gross volume overload, hyperkalemia, or acidosis -No need for WOUND CARE TECHNICIAN today, will reassess in the morning -Continue present management as per ICU -Start Renvela q8h via NGT for hyperphosphatemia -Corrected Ca 8.3. will continue to monitor. #Microcytic hypochromic anemia: acute on chronic -H/H 6.7 -s/p 2units prbc -Repeat H/H 9.06/03 -likely 2/2 iron deficiency anemia; GI bleed, resolved -Peripheral blood smear showed different RBC morphologies including but not limited to microcytic with central pallor, spherocytes, target cells, burst cells, teardrop cells; but no schistocytes, unlikely hemolytic -Iron studies pending -Haptoglobin pending -Ferritin 811 -Retic count 0.34 -LDH 460 -Fibrinogen >500, unlikely DIC #GI bleed -GI (Dr. Green) consulted recommendations appreciated. -episodes of coffee ground emesis and melena, resolved -no active signs of bleeding -may resume Protonix 40mg daily #Troponinemia: resolved -likely 2/2 demand ischemia -0.11 > 0.16 > 0.04 #HIV -ID (Dr. Mccloud) consulted. -noncompliant with medications -CD4 count, CD3 pending #Hypertension -Hold home anti hypertensives -patient on levophed and vasopressor -will continue to monitor #Hyperlipidemia: chronic #Asthma -Intubated and sedated #FEN -Not on any standing fluids -HypoK, hypoCa, hyperphos: will replete PRN -routine bmp monitoring -NPO #Prophylaxis -DVT: SCDs -GI: IV Protonix 40mg daily #Disposition -full code -ICU for closer monitoring Visit type - Emergency Visit Emergency Visit: Yes ED Registration Date: 04/19/18 Care time: The patient presented to the Emergency Department on the above date and was hospitalized for further evaluation of their emergent condition. - New Patient This patient is new to me today: Yes Date on this admission: 04/21/18 - Critical Care Critical Care patient: Yes Total Critical Care Time (in minutes): 40 Critical Care Statement: The care of this patient involved high complexity decision making to prevent further life threatening deterioration of the patient 's condition and/or to evaluate & treat vital organ system(s) failure or risk of failure.
--- NOTE | 2018-04-21 16:57 | PN ---
Progress Note (short form) - Note Progress Note: sedated intubated pressors Vital Signs Period Temp Pulse Resp BP Sys/Cai Pulse Ox Last 24 Hr 98.5 F-102.2 F 70-105 30-34 87-128/51-74 100-100 orally intubated cor-rrr lungs decreased bs at bases abd soft,nt ext no edema CBC, BMP 04/21/18 05:15 04/21/18 05:15 Microbiology 04/21/18 06:30 Stool Clostridium difficile Antigen (KARO) - Final 04/21/18 06:30 Stool Clostridium difficile Toxin Assay - Final 04/19/18 00:57 Blood - Peripheral Venous Blood Culture - Final Streptococcus Pneumoniae 04/19/18 12:25 Sputum - Endotrachea Suction/Ventilator Gram Stain - Final 04/19/18 12:25 Sputum - Endotrachea Suction/Ventilator Sputum Culture - Preliminary Staphylococcus Aureus Streptococcus Pneumoniae 04/19/18 00:57 Blood - Peripheral Venous Blood Culture - Final Streptococcus Pneumoniae 04/20/18 05:30 Blood - Central Line Blood Culture - Preliminary NO GROWTH OBTAINED AFTER 24 HOURS, INCUBATION TO CONTINUE FOR 4 DAYS. 04/20/18 05:30 Blood - Central Line Blood Culture - Preliminary NO GROWTH OBTAINED AFTER 24 HOURS, INCUBATION TO CONTINUE FOR 4 DAYS. 04/19/18 04:45 Urine - Urine Clean Catch Urine Culture - Final 04/19/18 09:30 Urine - Urine - Catheterized Legionella Antigen - Final 04/19/18 09:30 Urine - Urine - Catheterized Streptococcus pneumoniae Antigen (M - Final vanco 25.6 a/p severe pneumococcal sepsis-leukopenia resolved- sensitive pneumococcus- repeat head ct and LP if platelets permit- INR is normal now multiorgan failure-respiratory/renal- oliguric multilobar pneumonia GI bleed HIV-await cd4 count multiple antibiotics allergies no need for further vancomycin continue ceftriaxone lactic acidosis resolved
--- NOTE | 2018-04-21 17:01 | PN ---
Progress Note (short form) - Note Progress Note: SUBJECTIVE Patient seen and examined at the bedside. No acute events overnight OBJECTIVE Vital Signs Temperature 99.8 F H 04/21/18 14:00 Pulse Rate 81 04/21/18 14:00 Respiratory Rate 33 H 04/21/18 16:28 Blood Pressure 92/53 L 04/21/18 14:00 O2 Sat by Pulse Oximetry (%) 100 04/21/18 10:00 General: Sedated, intubated Head: No signs of trauma Eyes: EOMI, sclera anicteric ENT: Moist mucus membranes Neck: Normal ROM, supple Lungs: Diffuse rales bilaterally Cardio: Regular rhythm, S1 and S2 present Abdomen: Soft, nondistended Extremities: Normal range of motion, Distal pulses present SKIN: Warm, Dry, normal turgor Neurologic: Sedated ASSESSMENT 53yo F with PMH of HIV (niesha nonadherent on HAART), HTN, HLD, Asthma presenting with severe sepsis, multiorgan failure, multilobar pneumonia, and anemia. Transfused 2 units. Intubated for respiratory distress. Patient received hemodialysis yesterday (04/20/18) for severe acidosis. PLAN HEME SCD's for DVT prophylaxis Acute on chronic anemia due to suspected GI bleed -Transfused two units of PRBCs today -Repeat CBC PULM Multilobar pneumonia -Patient intubated -Vancomycin: no longer needed per ID -Rocephin ID HIV+ Severe pneumococcal sepsis with multiorgan failure -CD4 count pending -ID to follow -Vancomycin: no longer needed per ID -Rocephin Cardiac Hypotensive due to sepsis -Continue pressors, vasopressin and levophed Elevated Tpn -likely due to stress ischemia from sepsis RENAL Hemodialysis x 3 hours yesterday for severe acidosis, resolved Monitor fluid status and electrolytes GI Suspected GI bleed -Coffee ground emesis through NGT, melena -two units PRBCs given for low hgb
[2018-04-21 17:15] LABS: ATYPICAL pANCA <1:20 titer (Neg:<1:20); C-ANCA <1:20 titer (Neg:<1:20); P-ANCA <1:20 titer (Neg:<1:20)
[2018-04-21 17:17] LABS: BASO % 0.2 % (0-2.0); HEMOGLOBIN 9.2 GM/dL (10.7-15.3); LYMPH % 2.8 % (8-40); MCH 26.9 pg (25.7-33.7); MCHC 35.3 g/dl (32.0-36.0); MEAN CELL VOLUME 76.1 fl (80-96); MEAN PLT VOLUME 9.9 fl (7.5-11.1); MONO % 7.3 % (3.8-10.2); NEUT % 89.7 % (42.8-82.8); PLATELET COUNT 63 K/MM3 (134-434); RBC 3.41 M/mm3 (3.60-5.2); RDW 22.7 % (11.6-15.6); WHITE BLOOD COUNT 20.6 K/mm3 (4.0-10.0)
[2018-04-21 18:55] LABS: ANISOCYTOSIS 3+; PLATELET ESTIMATE DECREASED
--- NOTE | 2018-04-21 20:56 | CONSULT ---
Consult - text type - Consultation Consultation Note: 53F found unresponsive by family and brought to ER by EMS. Has h/o HIV, unclear regarding the extent of her outpatient care. called to evaluate for anemia . Had coffee grounds in NGT and maroon BM s. No overt bleeding now. Received 2 U PRBC. Appears to be pancytopenic. - Past Medical History Cardio/Vascular: Yes: HTN, Hyperlipdemia Pulmonary: Yes: Asthma Infectious Disease: Yes: HIV - Smoking History Smoking history: Current every day smoker - Allergies Allergies/Adverse Reactions: Allergies Allergy/AdvReac Type Severity Reaction Status Date / Time Penicillins Allergy Severe Hives Verified 04/13/18 18:01 Sulfa (Sulfonamide Allergy Severe Difficulty Verified 04/13/18 18:01 Antibiotics) Breathing phenazopyridine AdvReac Verified 04/13/18 18:01 [From Pyridium] - Home Medications Home Medications: Ambulatory Orders Mag Hydrox/Al Hydrox/Simeth [Mylanta *Suspension*] 30 ml PO Q6H #12 cup Ondansetron [Zofran Odt -] 4 mg SL TID #21 od.tablet 03/09/18 Ranitidine [Zantac -] 150 mg PO DAILY #14 tablet 03/09/18 Azithromycin [Zithromax -] 250 mg PO UTDICT #6 tab 04/12/18 Physical Exam-GI Vital Signs: Vital Signs Temperature 98.7 F 04/20/18 06:00 Pulse Rate 115 H 04/20/18 09:39 Respiratory Rate 32 H 04/20/18 09:39 Blood Pressure 104/63 04/20/18 07:00 O2 Sat by Pulse Oximetry (%) 100 04/20/18 09:40 Constitutional: Yes: Calm Eyes: No: Sclera Icterus HENT: Yes: Other (OGT in place: yellow bile) Cardiovascular: Yes: Tachycardia. No: Murmur Gastrointestinal ...Auscultate: Yes: Normoactive Bowel Sounds ...Palpate: soft Labs: CBC, BMP 04/20/18 05:30 04/20/18 05:30 INR, PTT INR 1.15 (0.83-1.09) H 04/19/18 19:30 Fibrinogen > 500.0 mg/dL (238-498) H 01/12/19 19:30 Problem List 53 y/o patient with hiv, multilobar pneumonia, pneumococcal sepsis, gi bleed anemia--multifactorial low retic count marrow suppression from hiv/infection +/gi losses ? procrit thrombocytopenia--due to infection monitor
[2018-04-21] MEDS: SENNOSIDES 8.6MG TABLET (FP) PO SCH (22:00)
[2018-04-21] MEDS: NOREPINEPHRINE BITARTRATE 4,000 MCG in DEXTROSE 5%-WATER - 496 ML IV SCH (22:02)
[2018-04-21] MEDS: CHLORHEXIDINE GLUCONATE 4% CLEANSER FOR DECOLONIZATION TP SCH (22:05)
[2018-04-22] MEDS: ACETAMINOPHEN 1000 MG/100 ML VIAL (NON FORMULARY) IVPB PRN (02:13)
[2018-04-22] MEDS: DOCUSATE NA 100 MG/10 ML UNIT-DOSE CUPS PO SCH ×3 (05:35→22:03)
[2018-04-22] MEDS: HYDROCORTISONE SOD SUCCINATE 100 MG/2 ML VIAL IVPB SCH ×4 (05:37→23:57)
[2018-04-22 06:33] LABS: BASO % 0.2 % (0-2.0); HEMATOCRIT 27.3 % (32.4-45.2); LYMPH % 29.9 % (8-40); MCH 25.4 pg (25.7-33.7); MEAN CELL VOLUME 76.9 fl (80-96); MEAN PLT VOLUME 9.9 fl (7.5-11.1); MONO % 1.4 % (3.8-10.2); NEUT % 68.5 % (42.8-82.8); PLATELET COUNT 46 K/MM3 (134-434); RBC 3.55 M/mm3 (3.60-5.2); RDW 22.7 % (11.6-15.6); WHITE BLOOD COUNT 18.8 K/mm3 (4.0-10.0)
[2018-04-22 06:42] LABS: ARTERIAL BLD GAS O2 SATURATION 98.7 % (90-98.9); ARTERIAL BLOOD GAS BASE EXCESS -4.1 meq/l (-2-2); ARTERIAL BLOOD GAS PCO2 38.8 mmHg (35-45); ARTERIAL BLOOD GAS pH 7.35 (7.35-7.45)
[2018-04-22 06:48] LABS: ALLENS TEST POSITIVE
[2018-04-22 07:19] LABS: ALBUMIN 0.9 g/dl (3.4-5.0); ANION GAP 15 MMOL/L (8-16); BILIRUBIN,TOTAL 0.4 mg/dL (0.2-1); BLOOD UREA NITROGEN 75 mg/dL (7-18); CHLORIDE 95 mmol/L (98-107); CO2 22 mmol/L (21-32); GLUCOSE,RANDOM 92 mg/dL (74-106); MAGNESIUM 2.4 mg/dL (1.8-2.4); PHOSPHOROUS 8.8 mg/dL (2.5-4.9); SGOT/AST 65 U/L (15-37); SGPT/ALT 15 U/L (13-61); SODIUM 132 mmol/L (136-145); TOT PROT 5.2 g/dl (6.4-8.2)
[2018-04-22 07:20] LABS: ALK PHOS 102 U/L (45-117)
[2018-04-22 07:27] LABS: CALCIUM 5.8 mg/dL (8.5-10.1)
[2018-04-22] MEDS ORDERED: POTASSIUM CHLORIDE ORAL LIQUID 20 MEQ/15 ML PO ONE (09:00)
[2018-04-22] MEDS ORDERED: PROPOFOL 1,000,000 MCG/100 ML VIAL ONE ×2 (09:12→16:45)
[2018-04-22] MEDS ORDERED: DEXTROSE 5%-WATER 100 ML IVPB ONE ×2 (10:30→21:33)
[2018-04-22 10:55] LABS: ANISOCYTOSIS 1+; MACROCYTOSIS 0; PLATELET ESTIMATE DECREASED; TARGET CELLS 1+; TEAR DROP CELLS 1+
[2018-04-22] MEDS: MUPIROCIN 2% TOPICAL OINTMENT FOR DECOLONIZATION NS SCH ×2 (10:57→21:49)
[2018-04-22] MEDS: ARTIFICIAL TEARS (POLYVINYL ALCOHOL) OPTH DROPS OU SCH ×2 (10:58→21:49)
[2018-04-22] MEDS: PANTOPRAZOLE SODIUM 40 MG VIAL IVPUSH SCH (10:59)
[2018-04-22] MEDS: CEFTRIAXONE 2 GM in DEXTROSE 5%-WATER 100 ML IVPB SCH ×2 (11:12→21:35)
--- NOTE | 2018-04-22 11:35 | PN ---
Teaching Attending Note Name of Resident: Crystal Nino ATTENDING PHYSICIAN STATEMENT I saw and evaluated the patient. I reviewed the resident's note and discussed the case with the resident. I agree with the resident's findings and plan as documented. SUBJECTIVE: No events overnight . OBJECTIVE: Intubated, round pupils, reactive to light. conjunctival edema CV: RRR no murmurs appreciated . Lungs:clear posteriorly and has minimal rales on L side Abd: soft, absent BS, not distended. Ext: no edema or erythema. Skin: no rash. ASSESSMENT AND PLAN: Unfortunate 53 y/o lady with h/o HIV, non compliance, Asthma, HTN, HLP, HTN, and other medical problems who presented with fever and AMS accompanied by family. She was found to have sepsis with multi-organ system failure 1- Acute hypoxic resp failure 2/2 b/l strep PNA - s/p Intubation. Cont Vent 60 %, peep of 8 - cont ceftriaxone. 2- Septic shock from PNA, with strep bacteremia - cont pressors. off vaso now nad cont levophed - cont stress dose steroids - cont Abx. - echo reviewed. - US findings of thickened gall bladder might not be significant, will repeat US in few days 3- Acute metabolic acidosis with high AG. . resolved bicarb improved. HD per renal if needed 4- Elevated trop: likely demand due to sepsis 5- Acute on chronic anemia,due to BM suppression from HIV and severe sepsis. Also, Gi bleed . - smear reviewed, no schistocytes . hapto elevated , LDH lopez snot indicate hemolysis. No suspicion for HUS - Hb stable after transfusion 6- SANA: HD per renal - corrected ca NL . 7- HIV: CD4 count of 6. - will need PCP, MAC, toxo prophylaxis 8- Abnormal TFTs: likely sick euthyroid syndrome in the setting of acute severe illness. need repeat in out pt steady state DVT PX" SCDs GI Px: PPI Critical Care Total Critical Care Time (in minutes): 35 Critical Care Statement: The care of this patient involved high complexity decision making to prevent further life threatening deterioration of the patient 's condition and/or to evaluate & treat vital organ system(s) failure or risk of failure.
--- NOTE | 2018-04-22 11:40 | PN ---
Progress Note (short form) - Note Progress Note: Renal follow up for SANA requiring emergent dialysis Pt seen and examined in the ICU on vent, FiO2 is 60% taken off Levophed this am, was on 2mcg overnight sedated on propofol remains anuric last dialysis was Saturday night Vital Signs Temperature 98.5 F 04/22/18 10:00 Pulse Rate 66 04/22/18 10:00 Respiratory Rate 30 H 04/22/18 10:00 Blood Pressure 107/57 L 04/22/18 10:00 O2 Sat by Pulse Oximetry (%) 100 04/22/18 09:01 Intake & Output 04/19/18 04/20/18 04/21/18 04/22/18 23:59 23:59 23:59 23:59 Intake Total 350 3775.0 2982.6 560 Output Total 390 255 60 20 Balance -40 3520.0 2922.6 540 Weight 56.4 kg 64.047 kg 64.41 kg 65 kg Intubated on the Vent ET tube in place RRR Course BS soft NT/ND foely in place no Le edema, clubbing or cyanosis extremities are warm CBC, BMP 04/22/18 05:30 04/22/18 05:30 Current Medications Acetaminophen (Ofirmev Injection -) 1,000 mg IVPB Q6H PRN PRN Reason: FEVER Last Admin: 04/22/18 02:13 Dose: 1,000 mg Albumin Human (Albumin Human 25%) 12.5 gm IVPB Q30M ZHANG Artificial Tears (Artificial Tears) 1 drop OU BID ZHANG Last Admin: 04/21/18 22:04 Dose: 1 drop Chlorhexidine Gluconate (Hibiclens For Decolonization -) 1 applic TP HS [facility] Last Admin: 04/21/18 22:05 Dose: 1 applic Docusate Sodium (Colace Liquid -) 100 mg PO TID ZHANG Last Admin: 04/22/18 05:35 Dose: Not Given Hydrocortisone Sodium Succinate (Solu-Cortef -) 50 mg IVPB Q6H [facility] Last Admin: 04/22/18 05:37 Dose: 50 mg Propofol (Diprivan -) 1,000,000 mcg in 100 mls @ 1.769 mls/hr IV TITR ZHANG; Protocol Last Titration: 04/22/18 08:30 Dose: 30 mcg/kg/min, 10.614 mls/hr Norepinephrine Bitartrate 4, (000 mcg/ Dextrose) 500 mls @ 37.5 mls/hr IV TITR ZHANG; Protocol Last Titration: 04/22/18 00:00 Dose: 2 mcg/min, 15 mls/hr Vasopressin 50 units/ Sodium (Chloride) 100 mls @ 4.8 mls/hr IVPB TITR ZHANG; Protocol Last Admin: 04/20/18 16:00 Dose: 2.4 units/hr, 4.8 mls/hr Sodium Chloride (Normal Saline -) 250 mls @ 3,000 mls/hr IV PRN PRN PRN Reason: Hypotension during Dialysis Stop: 04/20/18 20:58 Ceftriaxone Sodium 2 gm/ (Dextrose) 100 mls @ 200 mls/hr IVPB Q12H ZHANG; Protocol Last Admin: 04/21/18 22:07 Dose: 200 mls/hr Mupirocin (Bactroban Ointment (For Decolonization) -) 1 applic NS BID ZHANG Stop: 04/24/18 09:59 Last Admin: 04/21/18 22:04 Dose: 1 applic Pantoprazole Sodium (Protonix Iv) 40 mg IVPUSH DAILY ZHANG Last Admin: 04/21/18 10:18 Dose: 40 mg Senna (Senna -) 1 tab PO HS ZHANG Last Admin: 04/21/18 22:00 Dose: Not Given 53 year old AA woman with hx of HIV (non-compliance with meds per ER records), HTN, HLD, Asthma who presented from home with fever and AMS and found to have B/ L lung infiltrates, Sepsis syndrome and SANA with severe metabolic acidosis. #Acute Renal Failure in setting of Sepsis syndrome requiring emergent dialysis for persistent acidosis #Anion gap metabolic acidosis (lactic acidosis with concurrent respiratory acidosis) #Sepsis Syndrome with with Strep PNA #HIV non-compliant with medications #Pseudohypocalcemia (corrected Ca is 8.28)/Hyperphosphatemia #Acute Anemia with + stool occult blood Renal function without signs of recovery STEVE and ANCA negative no urgent indication for [employer] continue supportive care with MAP > 65 and CVP 10-12 if pt remains anuric through tomorrow morning will plan for [employer] Dialysis catheter was placed on Saturday evening Transfuse as per ICU protocol Abx as per ID supplement Rohan Ibarra DO
--- NOTE | 2018-04-22 13:26 | PN ---
Progress Note (short form) - Note Progress Note: SUBJECTIVE Patient seen and examined at the bedside. No acute events overnight OBJECTIVE Vital Signs Temperature 98 F 04/22/18 14:00 Pulse Rate 67 04/22/18 16:00 Respiratory Rate 22 H 04/22/18 15:25 Blood Pressure 90/52 L 04/22/18 14:00 O2 Sat by Pulse Oximetry (%) 100 04/22/18 16:00 General: Sedated, intubated Head: No signs of trauma Eyes: EOMI, sclera anicteric ENT: Moist mucus membranes Neck: Normal ROM, supple Lungs: Diffuse rales bilaterally Cardio: Regular rhythm, S1 and S2 present Abdomen: Soft, nondistended Extremities: NDistal pulses present SKIN: Warm, Dry, normal turgor Neurologic: Sedated ASSESSMENT 53yo F with PMH of HIV (CD4 count=6), HTN, HLD, Asthma presenting with severe sepsis, multiorgan failure, multilobar pneumonia, and anemia. Intubated for respiratory distress. Patient received hemodialysis (04/20/18) for severe acidosis. Transfused two units yesterday (04/21/18). PLAN HEME SCD's for DVT prophylaxis Acute on chronic anemia due to suspected GI bleed -Follow CBC -Heme consulted PULM Multilobar pneumonia -Patient intubated -Vancomycin: no longer needed per ID -Rocephin started on 04/20, day 3 today ID HIV+ Severe pneumococcal sepsis with multiorgan failure -Vancomycin: no longer needed per ID -Rocephin started on 04/20, day 3 today CD4 count=6 -ID following -Additional prophylaxis likely warranted Cardiac Hypotensive due to sepsis -IVF challenge -Weaning from pressors -changed access position Elevated Tpn -likely due to stress ischemia from sepsis ECHO: EF is 50-55% with grade 2 diastolic dysfunction RENAL Hemodialysis x 3 hours 04/20/18 for severe acidosis, resolved Monitor fluid status and electrolytes May dialyze tomorrow Diminished renal function -Cr=5.0 (up from 4.2 yesterday) GI Suspected GI bleed -Coffee ground emesis through NGT, melena -two units PRBCs given for low hgb on 04/21/18 -Protonix 40mg IV
[2018-04-22] MEDS: PROPOFOL 1,000,000 MCG/100 ML VIAL IV SCH (13:45)
--- NOTE | 2018-04-22 14:03 | PROC ---
Central Line Insertion Indication: CVP Monitoring, Poor Venous Access, Sepsis, Vasopressor Risks and Benefits Explained: Yes (infection and bleeding ) Consent on Chart: Yes Central Line: Triple Lumen Catheter Anesthesia: 1% Lidocaine Sterile Technique: Yes Ultrasound Guided Assistance: Yes Position: Left Internal Jugular Post Insertion: Yes: Bilateral Breath Sounds, Bilateral Chest Expansion, Chest X-Ray Ordered Sterile Dressing Applied: Yes (no complications )
--- NOTE | 2018-04-22 14:21 | PN ---
Teaching Attending Note Name of Resident: Rosanne Lawson ATTENDING PHYSICIAN STATEMENT I saw and evaluated the patient. I reviewed the resident's note and discussed the case with the resident. I agree with the resident's findings and plan as documented. SUBJECTIVE: Patient seen and examined in the ICU. Intubated and sedated, 60% FiO2. Low dose NE for hemodynamic support. Anuric. CXR: ETT in position no gross change in dense bilateral infiltrates Intake & Output 04/19/18 04/20/18 04/21/18 04/22/18 23:59 23:59 23:59 23:59 Intake Total 350 3775.0 2982.6 560 Output Total 390 255 60 20 Balance -40 3520.0 2922.6 540 Weight 124 lb 5.451 oz 141 lb 3.2 oz 142 lb 143 lb 4.807 oz Last Vital Signs Temp Pulse Resp BP Pulse Ox 98.5 F 71 24 H 104/63 98 04/22/18 10:00 04/22/18 13:00 04/22/18 13:00 04/22/18 13:00 04/22/18 12:36 Active Medications Acetaminophen (Ofirmev Injection -) 1,000 mg IVPB Q6H PRN PRN Reason: FEVER Last Admin: 04/22/18 02:13 Dose: 1,000 mg Albumin Human (Albumin Human 25%) 12.5 gm IVPB Q30M [facility] Artificial Tears (Artificial Tears) 1 drop OU BID ZHANG Last Admin: 04/22/18 10:58 Dose: 1 drop Chlorhexidine Gluconate (Hibiclens For Decolonization -) 1 applic TP HS [facility] Last Admin: 04/21/18 22:05 Dose: 1 applic Docusate Sodium (Colace Liquid -) 100 mg PO TID ZHANG Last Admin: 04/22/18 13:45 Dose: Not Given Hydrocortisone Sodium Succinate (Solu-Cortef -) 50 mg IVPB Q6H ZHANG Last Admin: 04/22/18 10:59 Dose: 50 mg Propofol (Diprivan -) 1,000,000 mcg in 100 mls @ 1.769 mls/hr IV TITR ZHANG; Protocol Last Admin: 04/22/18 13:45 Dose: Not Given Norepinephrine Bitartrate 4, (000 mcg/ Dextrose) 500 mls @ 37.5 mls/hr IV TITR ZHANG; Protocol Last Titration: 04/22/18 11:00 Dose: 0 mcg/min, 0 mls/hr Vasopressin 50 units/ Sodium (Chloride) 100 mls @ 4.8 mls/hr IVPB TITR ZHANG; Protocol Last Admin: 04/20/18 16:00 Dose: 2.4 units/hr, 4.8 mls/hr Sodium Chloride (Normal Saline -) 250 mls @ 3,000 mls/hr IV PRN PRN PRN Reason: Hypotension during Dialysis Stop: 04/20/18 20:58 Ceftriaxone Sodium 2 gm/ (Dextrose) 100 mls @ 200 mls/hr IVPB Q12H ZHANG; Protocol Last Admin: 04/22/18 11:12 Dose: 200 mls/hr Mupirocin (Bactroban Ointment (For Decolonization) -) 1 applic NS BID [facility] Stop: 04/24/18 09:59 Last Admin: 04/22/18 10:57 Dose: 1 applic Pantoprazole Sodium (Protonix Iv) 40 mg IVPUSH DAILY [facility] Last Admin: 04/22/18 10:59 Dose: 40 mg Senna (Senna -) 1 tab PO HS [facility] Last Admin: 04/21/18 22:00 Dose: Not Given Constitutional: Yes: Intubated and sedated Eyes: Yes: Conjunctiva Clear, PERRL HENT: Yes: Atraumatic Cardiovascular: Yes: Tachycardia, S1, S2 Respiratory: Yes: Mechanically Ventilated, bilateral coarse rhonchi Gastrointestinal: Yes: (+) Bowel Sounds, Soft Renal/: Yes: Stephens Present Extremities: Yes: WNL Edema: No Labs: Laboratory Results - last 24 hr 04/19/18 04/19/18 04/19/18 04:45 09:00 11:22 WBC 2.2 L RBC Hgb Hct MCV MCH MCHC RDW Plt Count MPV Absolute Neuts (auto) Absolute Lymphs (auto) 0.6 L Neutrophils % Neutrophils % (Manual) Band Neutrophils % Lymphocytes % Lymphocytes % (Manual) Monocytes % Monocytes % (Manual) Eosinophils % Eosinophils % (Manual) Basophils % Basophils % (Manual) Myelocytes % (Man) Promyelocytes % (Man) Blast Cells % (Manual) Nucleated RBC % Lymphocytes 29 Metamyelocytes Nucleated RBCs 3 H Hypochromia Platelet Estimate Platelet Comment Polychromasia Poikilocytosis Anisocytosis Microcytosis Macrocytosis Target Cells Tear Drop Cells Haptoglobin Puncture Site ABG pH ABG pCO2 at Pt Temp ABG pO2 at Pt Temp ABG HCO3 ABG O2 Sat (Measured) ABG O2 Content ABG Base Excess Fadi Test O2 Delivery Device Oxygen Flow Rate Vent Mode Vent Rate Mechanical Rate PEEP Pressure Support Vent Sodium Potassium Chloride Carbon Dioxide Anion Gap BUN Creatinine Creat Clearance w eGFR Random Glucose Calcium Phosphorus Magnesium Total Bilirubin AST ALT Alkaline Phosphatase Total Protein Total Protein (PEP) Albumin Albumin (PEP) Globulin Albumin/Globulin Ratio Beta Globulins RAMY M-[place] STEVE Screen Negative c-ANCA <1:20 Proteinase 3 (PR3) <3.5 p-ANCA <1:20 Atypical p-ANCA <1:20 Myeloperoxidase Ab <9.0 Absolute CD3 Count 450 L % CD3+ Lymphocytes 75.0 Absolute CD4 [place] 6 L % CD4+ Lymphocyte 1.0 L CD4/CD8 Ratio 0.01 L % CD8+ Lymphocyte 73.8 H Absolute CD8 Count 443 Hep C Ab Diagnostic Blood Type B POSITIVE Antibody Screen Negative Crossmatch See Detail 04/19/18 04/19/18 04/21/18 11:22 22:00 16:00 WBC 20.6 H RBC 3.41 L Hgb 9.2 L Hct 26.0 L D MCV 76.1 L MCH 26.9 D MCHC 35.3 RDW 22.7 H Plt Count 63 L MPV 9.9 Absolute Neuts (auto) 18.4 H Absolute Lymphs (auto) Neutrophils % 89.7 H D Neutrophils % (Manual) 93.0 H Band Neutrophils % 6.0 Lymphocytes % 2.8 L D Lymphocytes % (Manual) 1.0 L D Monocytes % 7.3 Monocytes % (Manual) 0 L D Eosinophils % 0.0 D Eosinophils % (Manual) 0.0 D Basophils % 0.2 D Basophils % (Manual) 0.0 Myelocytes % (Man) Promyelocytes % (Man) Blast Cells % (Manual) Nucleated RBC % 0 Lymphocytes Metamyelocytes Nucleated RBCs Hypochromia Platelet Estimate Decreased Platelet Comment No clumping noted Polychromasia Poikilocytosis Anisocytosis 3+ Microcytosis Macrocytosis Target Cells Tear Drop Cells Haptoglobin 383 H Puncture Site ABG pH ABG pCO2 at Pt Temp ABG pO2 at Pt Temp ABG HCO3 ABG O2 Sat (Measured) ABG O2 Content ABG Base Excess Fadi Test O2 Delivery Device Oxygen Flow Rate Vent Mode Vent Rate Mechanical Rate PEEP Pressure Support Vent Sodium Potassium Chloride Carbon Dioxide Anion Gap BUN Creatinine Creat Clearance w eGFR Random Glucose Calcium Phosphorus Magnesium Total Bilirubin AST ALT Alkaline Phosphatase Total Protein Total Protein (PEP) Albumin Albumin (PEP) Globulin Albumin/Globulin Ratio Beta Globulins RAMY M-[place] STEVE Screen c-ANCA Proteinase 3 (PR3) p-ANCA Atypical p-ANCA Myeloperoxidase Ab Absolute CD3 Count % CD3+ Lymphocytes Absolute CD4 [place] % CD4+ Lymphocyte CD4/CD8 Ratio % CD8+ Lymphocyte Absolute CD8 Count Hep C Ab Diagnostic 0.2 Blood Type Antibody Screen Crossmatch 04/22/18 04/22/18 04/22/18 05:30 05:30 05:30 WBC 18.8 H RBC 3.55 L Hgb 9.0 L Hct 27.3 L MCV 76.9 L MCH 25.4 L MCHC 33.0 RDW 22.7 H Plt Count 46 L D MPV 9.9 Absolute Neuts (auto) 12.8 H Absolute Lymphs (auto) Neutrophils % 68.5 D Neutrophils % (Manual) 96.7 H Band Neutrophils % 0.0 Lymphocytes % 29.9 D Lymphocytes % (Manual) 1.1 L Monocytes % 1.4 L D Monocytes % (Manual) 1 L D Eosinophils % 0.0 Eosinophils % (Manual) 0.0 Basophils % 0.2 Basophils % (Manual) 0.0 Myelocytes % (Man) 0 Promyelocytes % (Man) 0 Blast Cells % (Manual) 0 Nucleated RBC % 0 Lymphocytes Metamyelocytes 0 Nucleated RBCs Hypochromia 0 Platelet Estimate Decreased Platelet Comment Polychromasia 2+ Poikilocytosis 2+ Anisocytosis 1+ Microcytosis 1+ Macrocytosis 0 Target Cells 1+ Tear Drop Cells 1+ Haptoglobin Puncture Site ABG pH ABG pCO2 at Pt Temp ABG pO2 at Pt Temp ABG HCO3 ABG O2 Sat (Measured) ABG O2 Content ABG Base Excess Fadi Test O2 Delivery Device Oxygen Flow Rate Vent Mode Vent Rate Mechanical Rate PEEP Pressure Support Vent Sodium 132 L Potassium 3.0 L Chloride 95 L Carbon Dioxide 22 Anion Gap 15 BUN 75 H Creatinine 5.0 H Creat Clearance w eGFR 8.99 Random Glucose 92 Calcium 5.8 L* Phosphorus 8.8 H Magnesium 2.4 Total Bilirubin 0.4 AST 65 H ALT 15 Alkaline Phosphatase 102 Total Protein 5.2 L Total Protein (PEP) Cancelled Albumin 0.9 L Albumin (PEP) Cancelled Globulin Cancelled Albumin/Globulin Ratio Cancelled Beta Globulins Cancelled RAMY M-[place] Cancelled STEVE Screen c-ANCA Proteinase 3 (PR3) p-ANCA Atypical p-ANCA Myeloperoxidase Ab Absolute CD3 Count % CD3+ Lymphocytes Absolute CD4 [place] % CD4+ Lymphocyte CD4/CD8 Ratio % CD8+ Lymphocyte Absolute CD8 Count Hep C Ab Diagnostic Blood Type Antibody Screen Crossmatch 04/22/18 06:30 WBC RBC Hgb Hct MCV MCH MCHC RDW Plt Count MPV Absolute Neuts (auto) Absolute Lymphs (auto) Neutrophils % Neutrophils % (Manual) Band Neutrophils % Lymphocytes % Lymphocytes % (Manual) Monocytes % Monocytes % (Manual) Eosinophils % Eosinophils % (Manual) Basophils % Basophils % (Manual) Myelocytes % (Man) Promyelocytes % (Man) Blast Cells % (Manual) Nucleated RBC % Lymphocytes Metamyelocytes Nucleated RBCs Hypochromia Platelet Estimate Platelet Comment Polychromasia Poikilocytosis Anisocytosis Microcytosis Macrocytosis Target Cells Tear Drop Cells Haptoglobin Puncture Site Right radial ABG pH 7.35 ABG pCO2 at Pt Temp 38.8 ABG pO2 at Pt Temp 162.0 H* ABG HCO3 20.6 L ABG O2 Sat (Measured) 98.7 ABG O2 Content 13.0 L ABG Base Excess -4.1 L Fadi Test Positive O2 Delivery Device Vent Oxygen Flow Rate 60% Vent Mode A/c Vent Rate 30 Mechanical Rate Yes PEEP 8.0 Pressure Support Vent 400 Sodium Potassium Chloride Carbon Dioxide Anion Gap BUN Creatinine Creat Clearance w eGFR Random Glucose Calcium Phosphorus Magnesium Total Bilirubin AST ALT Alkaline Phosphatase Total Protein Total Protein (PEP) Albumin Albumin (PEP) Globulin Albumin/Globulin Ratio Beta Globulins RAMY M-[place] STEVE Screen c-ANCA Proteinase 3 (PR3) p-ANCA Atypical p-ANCA Myeloperoxidase Ab Absolute CD3 Count % CD3+ Lymphocytes Absolute CD4 [place] % CD4+ Lymphocyte CD4/CD8 Ratio % CD8+ Lymphocyte Absolute CD8 Count Hep C Ab Diagnostic Blood Type Antibody Screen Crossmatch Problem List - Problems (1) Respiratory failure with hypoxia Code(s): J96.91 - RESPIRATORY FAILURE, UNSPECIFIED WITH HYPOXIA (2) Respiratory failure, acute Code(s): J96.00 - ACUTE RESPIRATORY FAILURE, UNSP W HYPOXIA OR HYPERCAPNIA (3) SANA (acute kidney injury) Code(s): N17.9 - ACUTE KIDNEY FAILURE, UNSPECIFIED (4) Anemia Code(s): D64.9 - ANEMIA, UNSPECIFIED Qualifiers: Anemia type: unspecified type Qualified Code(s): D64.9 - Anemia, unspecified (5) Sepsis Code(s): A41.9 - SEPSIS, UNSPECIFIED ORGANISM (6) Shock circulatory Code(s): R57.9 - SHOCK, UNSPECIFIED (7) Pneumonia Code(s): J18.9 - PNEUMONIA, UNSPECIFIED ORGANISM Assessment/Plan Pneumococcal PNA Pneumococcal bacteremia High clinical suspicion of Pneumococcal Meningitis Wean pressors IVF challenge ABX per ID; agree with coverage. Will need to address additional prophylaxis due to low CD4 counts Follow daily CXR Will need to change access position ECHO Heme evaluation Normal transfusion thresholds Mechanical ventilation w/ lung protective strategy. Goal Pplt <30 BD TX PRN Sedation for vent synchrony HD per Renal (will hold for today and plan for tomorrow with removal of access after) Glycemic control VTE / GI prophylaxis Dr Novak Critical care time spent in reviewing chart, evaluating patient and formulating plan - 36 minutes.
--- NOTE | 2018-04-22 14:27 | PN ---
Physical Exam: SUBJECTIVE: Patient seen and examined at bedside this morning. No acute events overnight. Patient still intubated and sedated. Now off vasopressin. Vent settings: 30/400/60/8 Levophed 2, Propofol 35 I/O: 880/20 OBJECTIVE: Vital Signs Temperature 98.5 F 04/22/18 10:00 Pulse Rate 71 04/22/18 13:00 Respiratory Rate 24 H 04/22/18 13:00 Blood Pressure 104/63 04/22/18 13:00 O2 Sat by Pulse Oximetry (%) 98 04/22/18 12:36 GENERAL: The patient is intubated and sedated. HEAD: Normal with no signs of trauma. EYES: Pupils sluggishly reactive to light, anicteric sclerae LUNGS: clear breath sounds anteriorly HEART: Regular rate and rhythm, without murmur, rub or gallop. ABDOMEN: Soft, nontender, nondistended, normoactive bowel sounds. EXTREMITIES: 2+ pulses, warm, well-perfused, no edema. SKIN: Warm, dry, normal turgor. Laboratory Results - last 24 hr 04/19/18 04/19/18 04/19/18 04:45 09:00 11:22 WBC 2.2 L RBC Hgb Hct MCV MCH MCHC RDW Plt Count MPV Absolute Neuts (auto) Absolute Lymphs (auto) 0.6 L Neutrophils % Neutrophils % (Manual) Band Neutrophils % Lymphocytes % Lymphocytes % (Manual) Monocytes % Monocytes % (Manual) Eosinophils % Eosinophils % (Manual) Basophils % Basophils % (Manual) Myelocytes % (Man) Promyelocytes % (Man) Blast Cells % (Manual) Nucleated RBC % Lymphocytes 29 Metamyelocytes Nucleated RBCs 3 H Hypochromia Platelet Estimate Platelet Comment Polychromasia Poikilocytosis Anisocytosis Microcytosis Macrocytosis Target Cells Tear Drop Cells Haptoglobin Puncture Site ABG pH ABG pCO2 at Pt Temp ABG pO2 at Pt Temp ABG HCO3 ABG O2 Sat (Measured) ABG O2 Content ABG Base Excess Fadi Test O2 Delivery Device Oxygen Flow Rate Vent Mode Vent Rate Mechanical Rate PEEP Pressure Support Vent Sodium Potassium Chloride Carbon Dioxide Anion Gap BUN Creatinine Creat Clearance w eGFR Random Glucose Calcium Phosphorus Magnesium Total Bilirubin AST ALT Alkaline Phosphatase Total Protein Total Protein (PEP) Albumin Albumin (PEP) Globulin Albumin/Globulin Ratio Beta Globulins RAMY M-[place] STEVE Screen Negative c-ANCA <1:20 Proteinase 3 (PR3) <3.5 p-ANCA <1:20 Atypical p-ANCA <1:20 Myeloperoxidase Ab <9.0 Absolute CD3 Count 450 L % CD3+ Lymphocytes 75.0 Absolute CD4 [place] 6 L % CD4+ Lymphocyte 1.0 L CD4/CD8 Ratio 0.01 L % CD8+ Lymphocyte 73.8 H Absolute CD8 Count 443 Hep C Ab Diagnostic Blood Type B POSITIVE Antibody Screen Negative Crossmatch See Detail 04/19/18 04/19/18 04/21/18 11:22 22:00 16:00 WBC 20.6 H RBC 3.41 L Hgb 9.2 L Hct 26.0 L D MCV 76.1 L MCH 26.9 D MCHC 35.3 RDW 22.7 H Plt Count 63 L MPV 9.9 Absolute Neuts (auto) 18.4 H Absolute Lymphs (auto) Neutrophils % 89.7 H D Neutrophils % (Manual) 93.0 H Band Neutrophils % 6.0 Lymphocytes % 2.8 L D Lymphocytes % (Manual) 1.0 L D Monocytes % 7.3 Monocytes % (Manual) 0 L D Eosinophils % 0.0 D Eosinophils % (Manual) 0.0 D Basophils % 0.2 D Basophils % (Manual) 0.0 Myelocytes % (Man) Promyelocytes % (Man) Blast Cells % (Manual) Nucleated RBC % 0 Lymphocytes Metamyelocytes Nucleated RBCs Hypochromia Platelet Estimate Decreased Platelet Comment No clumping noted Polychromasia Poikilocytosis Anisocytosis 3+ Microcytosis Macrocytosis Target Cells Tear Drop Cells Haptoglobin 383 H Puncture Site ABG pH ABG pCO2 at Pt Temp ABG pO2 at Pt Temp ABG HCO3 ABG O2 Sat (Measured) ABG O2 Content ABG Base Excess Fadi Test O2 Delivery Device Oxygen Flow Rate Vent Mode Vent Rate Mechanical Rate PEEP Pressure Support Vent Sodium Potassium Chloride Carbon Dioxide Anion Gap BUN Creatinine Creat Clearance w eGFR Random Glucose Calcium Phosphorus Magnesium Total Bilirubin AST ALT Alkaline Phosphatase Total Protein Total Protein (PEP) Albumin Albumin (PEP) Globulin Albumin/Globulin Ratio Beta Globulins RAMY M-[place] STEVE Screen c-ANCA Proteinase 3 (PR3) p-ANCA Atypical p-ANCA Myeloperoxidase Ab Absolute CD3 Count % CD3+ Lymphocytes Absolute CD4 [place] % CD4+ Lymphocyte CD4/CD8 Ratio % CD8+ Lymphocyte Absolute CD8 Count Hep C Ab Diagnostic 0.2 Blood Type Antibody Screen Crossmatch 04/22/18 04/22/18 04/22/18 05:30 05:30 05:30 WBC 18.8 H RBC 3.55 L Hgb 9.0 L Hct 27.3 L MCV 76.9 L MCH 25.4 L MCHC 33.0 RDW 22.7 H Plt Count 46 L D MPV 9.9 Absolute Neuts (auto) 12.8 H Absolute Lymphs (auto) Neutrophils % 68.5 D Neutrophils % (Manual) 96.7 H Band Neutrophils % 0.0 Lymphocytes % 29.9 D Lymphocytes % (Manual) 1.1 L Monocytes % 1.4 L D Monocytes % (Manual) 1 L D Eosinophils % 0.0 Eosinophils % (Manual) 0.0 Basophils % 0.2 Basophils % (Manual) 0.0 Myelocytes % (Man) 0 Promyelocytes % (Man) 0 Blast Cells % (Manual) 0 Nucleated RBC % 0 Lymphocytes Metamyelocytes 0 Nucleated RBCs Hypochromia 0 Platelet Estimate Decreased Platelet Comment Polychromasia 2+ Poikilocytosis 2+ Anisocytosis 1+ Microcytosis 1+ Macrocytosis 0 Target Cells 1+ Tear Drop Cells 1+ Haptoglobin Puncture Site ABG pH ABG pCO2 at Pt Temp ABG pO2 at Pt Temp ABG HCO3 ABG O2 Sat (Measured) ABG O2 Content ABG Base Excess Fadi Test O2 Delivery Device Oxygen Flow Rate Vent Mode Vent Rate Mechanical Rate PEEP Pressure Support Vent Sodium 132 L Potassium 3.0 L Chloride 95 L Carbon Dioxide 22 Anion Gap 15 BUN 75 H Creatinine 5.0 H Creat Clearance w eGFR 8.99 Random Glucose 92 Calcium 5.8 L* Phosphorus 8.8 H Magnesium 2.4 Total Bilirubin 0.4 AST 65 H ALT 15 Alkaline Phosphatase 102 Total Protein 5.2 L Total Protein (PEP) Cancelled Albumin 0.9 L Albumin (PEP) Cancelled Globulin Cancelled Albumin/Globulin Ratio Cancelled Beta Globulins Cancelled RAMY M-[place] Cancelled STEVE Screen c-ANCA Proteinase 3 (PR3) p-ANCA Atypical p-ANCA Myeloperoxidase Ab Absolute CD3 Count % CD3+ Lymphocytes Absolute CD4 [place] % CD4+ Lymphocyte CD4/CD8 Ratio % CD8+ Lymphocyte Absolute CD8 Count Hep C Ab Diagnostic Blood Type Antibody Screen Crossmatch 04/22/18 06:30 WBC RBC Hgb Hct MCV MCH MCHC RDW Plt Count MPV Absolute Neuts (auto) Absolute Lymphs (auto) Neutrophils % Neutrophils % (Manual) Band Neutrophils % Lymphocytes % Lymphocytes % (Manual) Monocytes % Monocytes % (Manual) Eosinophils % Eosinophils % (Manual) Basophils % Basophils % (Manual) Myelocytes % (Man) Promyelocytes % (Man) Blast Cells % (Manual) Nucleated RBC % Lymphocytes Metamyelocytes Nucleated RBCs Hypochromia Platelet Estimate Platelet Comment Polychromasia Poikilocytosis Anisocytosis Microcytosis Macrocytosis Target Cells Tear Drop Cells Haptoglobin Puncture Site Right radial ABG pH 7.35 ABG pCO2 at Pt Temp 38.8 ABG pO2 at Pt Temp 162.0 H* ABG HCO3 20.6 L ABG O2 Sat (Measured) 98.7 ABG O2 Content 13.0 L ABG Base Excess -4.1 L Fadi Test Positive O2 Delivery Device Vent Oxygen Flow Rate 60% Vent Mode A/c Vent Rate 30 Mechanical Rate Yes PEEP 8.0 Pressure Support Vent 400 Sodium Potassium Chloride Carbon Dioxide Anion Gap BUN Creatinine Creat Clearance w eGFR Random Glucose Calcium Phosphorus Magnesium Total Bilirubin AST ALT Alkaline Phosphatase Total Protein Total Protein (PEP) Albumin Albumin (PEP) Globulin Albumin/Globulin Ratio Beta Globulins RAMY M-[place] STVEE Screen c-ANCA Proteinase 3 (PR3) p-ANCA Atypical p-ANCA Myeloperoxidase Ab Absolute CD3 Count % CD3+ Lymphocytes Absolute CD4 [place] % CD4+ Lymphocyte CD4/CD8 Ratio % CD8+ Lymphocyte Absolute CD8 Count Hep C Ab Diagnostic Blood Type Antibody Screen Crossmatch Active Medications Generic Name Dose Route Start Last Admin Trade Name Freq PRN Reason Stop Dose Admin Acetaminophen 1,000 mg 04/20/18 21:13 04/22/18 02:13 Ofirmev Injection - IVPB 1,000 mg Q6H PRN Administration FEVER Albumin Human 12.5 gm 04/19/18 21:00 Albumin Human 25% IVPB Q30M ZHANG Artificial Tears 1 drop 04/19/18 22:00 04/22/18 10:58 Artificial Tears OU 1 drop BID ZHANG Administration Chlorhexidine Gluconate 1 applic 04/19/18 22:00 04/21/18 22:05 Hibiclens For Decolonization - TP 1 applic HS ZHANG Administration Docusate Sodium 100 mg 04/19/18 14:00 04/22/18 13:45 Colace Liquid - PO Not Given TID ZHANG Hydrocortisone Sodium Succinate 50 mg 04/19/18 17:15 04/22/18 10:59 Solu-Cortef - IVPB 50 mg Q6H ZHANG Administration Propofol 1,000,000 mcg in 100 mls @ 1.769 mls/hr 04/19/18 09:15 04/22/18 13: 45 Diprivan - IV Not Given TITR ZHANG Protocol 5 MCG/KG/MIN Norepinephrine Bitartrate 4, 500 mls @ 37.5 mls/hr 04/19/18 10:45 04/22/18 11 :00 000 mcg/ Dextrose IV 0 mcg/min TITR ZHANG 0 mls/hr Titration Protocol 5 MCG/MIN Vasopressin 50 units/ Sodium 100 mls @ 4.8 mls/hr 04/19/18 15:00 04/20/18 16: 00 Chloride IVPB 2.4 units/hr TITR ZHANG 4.8 mls/hr Administration Protocol 2.4 UNITS/HR Sodium Chloride 250 mls @ 3,000 mls/hr 04/19/18 20:58 Normal Saline - IV 04/20/18 20:58 PRN PRN Hypotension during Dialysis Ceftriaxone Sodium 2 gm/ 100 mls @ 200 mls/hr 04/20/18 10:00 04/22/18 11:12 Dextrose IVPB 200 mls/hr Q12H ZHANG Administration Protocol Mupirocin 1 applic 04/19/18 10:00 04/22/18 10:57 Bactroban Ointment (For Decolonization) - NS 04/24/18 09:59 1 applic BID ZHANG Administration Pantoprazole Sodium 40 mg 04/21/18 10:00 04/22/18 10:59 Protonix Iv IVPUSH 40 mg DAILY ZHANG Administration Senna 1 tab 04/19/18 22:00 04/21/18 22:00 Senna - PO Not Given HS ZHANG ASSESSMENT/PLAN: The patient is a 53 year old female with a history of HIV, HTN, HLD, Asthma, Anemia who presents for evaluation of difficulty breathing and altered mental status. #Acute hypoxic respiratory failure likely 2/2 multilobular strep pneumonia -Intubated and sedated -Vent settings: 30/400/60/8 -CXR (04/22/18) - Imaging again reveals bilateral infiltrates. No significant change from yesterday. -Ceftriaxone Day 3 -ID consulted. Recommendations appreciated. #Septic shock likely 2/2 pneumonia -Levophed 2mcg/min, Propofol 40mcg/kg/min -Ceftriaxone 2gm q12 day 3 -Hydrocortisone 50mg q6h -Echo - LV normal in size, LV systolic function is low normal. EF 50-55%. Diastolic dysfunction grade II (pseudonormalization pattern). Ratio E/E'=18. RV systolic function is normal. LA size normal. RAsize normal. Moderate to severe MR. The mitral regurgitant jet is eccentrically directed. Moderate AR. No pericardial effusion. -Chest CT - multifocal bilateral infiltrates. Mild nonspecific mediastinal lymphadenopathy which may be reactive. Mild nonspecific bilateral adrenal gland thickening -?chronic in nature representing hyperplasia, or subcentimeter adenomas vs being acute in nature. Main pulmonary artery appears mildly dilated 3.2 cm. -Renal US - No hydronephrosis. Interval development of bilateral increased cortical echogenicity. Gallbladder mild to moderate overdistention and mild diffuse nonspecific gallbladder wall thickening as well as pericholecystic fluid accumulation which may be acute cholecystitis. a trace amount of free fluid is seen within the hepatorenal fossa. #Acute metabolic acidosis with high anion gap: resolved -ph 7.35 / pCO2 38.8 / pO2 162 / HCO3 20.6 -will continue to monitor -Nephrology consulted. Recommendations appreciated. #Acute kidney injury: -worsening BUN/Cr today (75/5) -Emergent HD done 04/19/18 -Nephrology (Dr. Ibarra) consulted. Recommendations appreciated. -Renal function without signs of recovery -STEVE and ANCA negative -No urgent indication for POT WASHER -Continue supportive care with MAP >65 and CVP 10-12 -If patient remains anuric through tomorrow morning, will plan for POT WASHER -Start Renvela q8h via NGT for hyperphosphatemia -Corrected Ca 8.3. will continue to monitor. #Microcytic hypochromic anemia: acute on chronic -H/H stable 01/02.3 -likely 2/2 iron deficiency anemia; GI bleed, resolved -Peripheral blood smear showed different RBC morphologies including but not limited to microcytic with central pallor, spherocytes, target cells, burst cells, teardrop cells; but no schistocytes, unlikely hemolytic -Iron studies pending -Haptoglobin 383 -Ferritin 811 -Retic count 0.34 -LDH 460 -Fibrinogen >500, unlikely DIC #GI bleed -GI (Dr. Green) consulted recommendations appreciated. -episodes of coffee ground emesis and melena, resolved -no active signs of bleeding -may resume Protonix 40mg daily #Troponinemia: resolved -likely 2/2 demand ischemia -0.11 > 0.16 > 0.04 #HIV -ID (Dr. Mccloud) consulted. -noncompliant with medications -CD4 count, CD3 pending #Hypertension -Hold home anti hypertensives -patient on levophed -will continue to monitor #Hyperlipidemia: chronic #Asthma -Intubated and sedated #FEN -Not on any standing fluids -HypoK: will replete PRN -routine bmp monitoring -NPO #Prophylaxis -DVT: SCDs -GI: IV Protonix 40mg daily #Disposition -full code -ICU for closer monitoring Visit type - Emergency Visit Emergency Visit: Yes ED Registration Date: 04/19/18 Care time: The patient presented to the Emergency Department on the above date and was hospitalized for further evaluation of their emergent condition. - New Patient This patient is new to me today: No - Critical Care Critical Care patient: Yes Total Critical Care Time (in minutes): 40 Critical Care Statement: The care of this patient involved high complexity decision making to prevent further life threatening deterioration of the patient 's condition and/or to evaluate & treat vital organ system(s) failure or risk of failure.
[2018-04-22] MEDS ORDERED: POTASSIUM CHLORIDE 20 MEQ PREMIX IVPB 100 ML IVPB ONE (15:42)
--- NOTE | 2018-04-22 18:21 | PN ---
Progress Note (short form) - Note Progress Note: sedated intubated off pressors now Vital Signs Period Temp Pulse Resp BP Sys/Cai Pulse Ox Last 24 Hr 98 F-100.5 F 60-88 22-35 90-132/52-64 98-100 cor-rrr llungs decreased bs at bases abd soft,nt ext no edema CBC, BMP 04/22/18 05:30 04/22/18 05:30 Microbiology 04/19/18 12:25 Sputum - Endotrachea Suction/Ventilator Gram Stain - Final 04/19/18 12:25 Sputum - Endotrachea Suction/Ventilator Sputum Culture - Final Staphylococcus Aureus Streptococcus Pneumoniae 04/20/18 05:30 Blood - Central Line Blood Culture - Preliminary NO GROWTH OBTAINED AFTER 48 HOURS, INCUBATION TO CONTINUE FOR 3 DAYS. 04/20/18 05:30 Blood - Central Line Blood Culture - Preliminary NO GROWTH OBTAINED AFTER 48 HOURS, INCUBATION TO CONTINUE FOR 3 DAYS. 04/21/18 06:30 Stool Clostridium difficile Antigen (KARO) - Final 04/21/18 06:30 Stool Clostridium difficile Toxin Assay - Final 04/19/18 00:57 Blood - Peripheral Venous Blood Culture - Final Streptococcus Pneumoniae 04/19/18 00:57 Blood - Peripheral Venous Blood Culture - Final Streptococcus Pneumoniae 04/19/18 04:45 Urine - Urine Clean Catch Urine Culture - Final 04/19/18 09:30 Urine - Urine - Catheterized Legionella Antigen - Final 04/19/18 09:30 Urine - Urine - Catheterized Streptococcus pneumoniae Antigen (M - Final a/p severe pneumococcal sepsis-leukopenia resolved- sensitive pneumococcus- repeat head ct and LP if platelets permit- INR is normal now continue ceftriaxone multiorgan failure-respiratory/renal- oliguric-?hd in am multilobar pneumonia GI bleed aids- d/w icu staff, get cyptococcal antigen, blood culture afb will need pcp prophylaxis with mepron after she can take po send g6pd multiple antibiotics allergies no need for further vancomycin lactic acidosis resolved
[2018-04-22] MEDS: CHLORHEXIDINE GLUCONATE 4% CLEANSER FOR DECOLONIZATION TP SCH (21:50)
[2018-04-22] MEDS: SENNOSIDES 8.6MG TABLET (FP) PO SCH (22:03)
[2018-04-23] MEDS: HYDROCORTISONE SOD SUCCINATE 100 MG/2 ML VIAL IVPB SCH ×3 (06:27→16:40)
[2018-04-23] MEDS: PROPOFOL 1,000,000 MCG/100 ML VIAL IV SCH ×2 (06:27→10:11)
[2018-04-23] MEDS: DOCUSATE NA 100 MG/10 ML UNIT-DOSE CUPS PO SCH ×3 (06:27→22:33)
[2018-04-23 06:35] LABS: BASO % 0.1 % (0-2.0); HEMATOCRIT 27.9 % (32.4-45.2); HEMOGLOBIN 9.9 GM/dL (10.7-15.3); LYMPH % 34.8 % (8-40); MCH 27.1 pg (25.7-33.7); MCHC 35.3 g/dl (32.0-36.0); MEAN CELL VOLUME 76.7 fl (80-96); MONO % 1.9 % (3.8-10.2); NEUT % 63.2 % (42.8-82.8); RBC 3.64 M/mm3 (3.60-5.2); RDW 22.9 % (11.6-15.6); WHITE BLOOD COUNT 17.6 K/mm3 (4.0-10.0)
[2018-04-23 08:06] LABS: SERUM IRON SATURATION 9 % (15-55); TOTAL IRON BINDING CAPACITY 79 ug/dL (250-450); UIBC 72 ug/dL (131-425)
[2018-04-23] MEDS ORDERED: SODIUM CHLORIDE 250 ML IV PRN (08:37)
[2018-04-23 09:26] LABS: BLOOD UREA NITROGEN 98 mg/dL (7-18); CREATININE 5.7 mg/dL (0.55-1.3); GLUCOSE,RANDOM 97 mg/dL (74-106); SODIUM 133 mmol/L (136-145)
[2018-04-23 09:27] LABS: ANION GAP 16 MMOL/L (8-16); BILIRUBIN,TOTAL 0.4 mg/dL (0.2-1); CHLORIDE 96 mmol/L (98-107); CO2 21 mmol/L (21-32); MAGNESIUM 2.5 mg/dL (1.8-2.4); SGOT/AST 51 U/L (15-37); SGPT/ALT 16 U/L (13-61); TOT PROT 5.4 g/dl (6.4-8.2)
[2018-04-23 09:28] LABS: ALK PHOS 115 U/L (45-117); POTASSIUM 3.5 mmol/L (3.5-5.1)
[2018-04-23 09:29] LABS: CALCIUM 5.3 mg/dL (8.5-10.1)
[2018-04-23 09:50] LABS: PHOSPHOROUS 11.2 mg/dL (2.5-4.9)
[2018-04-23] MEDS: ARTIFICIAL TEARS (POLYVINYL ALCOHOL) OPTH DROPS OU SCH ×2 (10:00→22:33)
[2018-04-23] MEDS ORDERED: DEXTROSE 5%-WATER 100 ML IVPB ONE ×2 (10:14→21:13)
[2018-04-23] MEDS: CEFTRIAXONE 2 GM in DEXTROSE 5%-WATER 100 ML IVPB SCH ×2 (10:18→22:31)
[2018-04-23] MEDS: PANTOPRAZOLE SODIUM 40 MG VIAL IVPUSH SCH (10:21)
[2018-04-23] MEDS: MUPIROCIN 2% TOPICAL OINTMENT FOR DECOLONIZATION NS SCH ×2 (10:24→22:34)
[2018-04-23 10:48] LABS: ANISOCYTOSIS 1+; MACROCYTOSIS 0; OVALOCYTE 1+; PLATELET ESTIMATE DECREASED; TARGET CELLS 1+; TEAR DROP CELLS 1+
--- NOTE | 2018-04-23 10:49 | PN ---
Progress Note (short form) - Note Progress Note: sedated intubated on HD Vital Signs Period Temp Pulse Resp BP Sys/Cai Pulse Ox Last 24 Hr 98 F-98.7 F 50-71 16-30 89-109/49-63 98-100 cor-rrr lulngs decreased bs at bases abd soft,nt ext no edema CBC, BMP 04/23/18 05:30 04/23/18 05:30 Microbiology 04/23/18 05:30 Serum Cryptococcal Antigen - Preliminary 04/20/18 05:30 Blood - Central Line Blood Culture - Preliminary NO GROWTH OBTAINED AFTER 72 HOURS, INCUBATION TO CONTINUE FOR 2 DAYS. 04/20/18 05:30 Blood - Central Line Blood Culture - Preliminary NO GROWTH OBTAINED AFTER 72 HOURS, INCUBATION TO CONTINUE FOR 2 DAYS. 04/21/18 22:30 Blood - Peripheral Venous Blood Culture - Preliminary NO GROWTH OBTAINED AFTER 24 HOURS, INCUBATION TO CONTINUE FOR 4 DAYS. 04/21/18 21:50 Blood - Peripheral Venous Blood Culture - Preliminary NO GROWTH OBTAINED AFTER 24 HOURS, INCUBATION TO CONTINUE FOR 4 DAYS. 04/19/18 12:25 Sputum - Endotrachea Suction/Ventilator Gram Stain - Final 04/19/18 12:25 Sputum - Endotrachea Suction/Ventilator Sputum Culture - Final Staphylococcus Aureus Streptococcus Pneumoniae 04/21/18 06:30 Stool Clostridium difficile Antigen (KARO) - Final 04/21/18 06:30 Stool Clostridium difficile Toxin Assay - Final 04/19/18 00:57 Blood - Peripheral Venous Blood Culture - Final Streptococcus Pneumoniae 04/19/18 00:57 Blood - Peripheral Venous Blood Culture - Final Streptococcus Pneumoniae 04/19/18 04:45 Urine - Urine Clean Catch Urine Culture - Final 04/19/18 09:30 Urine - Urine - Catheterized Legionella Antigen - Final 04/19/18 09:30 Urine - Urine - Catheterized Streptococcus pneumoniae Antigen (M - Final a/p severe pneumococcal sepsis-leukopenia resolved- sensitive pneumococcus- repeat head ct and LP if platelets permit- multiorgan failure-respiratory/renal- oliguric multilobar pneumonia GI bleed AIDS multiple antibiotics allergies continue ceftriaxone serum cryptoococcal antigen and bld afb sent mepron for pcp prophylaxis hep b serology
--- NOTE | 2018-04-23 11:21 | PN ---
Progress Note (short form) - Note Progress Note: Renal follow up for SANA requiring emergent dialysis Pt seen and examined in the ICU currently getting dialysis, No UF planned on vent, FiO2 is 40% remains anuric MAP at goal Vital Signs Temperature 98.4 F 04/23/18 10:20 Pulse Rate 51 L 04/23/18 11:00 Respiratory Rate 28 H 04/23/18 11:00 Blood Pressure 106/52 L 04/23/18 11:00 O2 Sat by Pulse Oximetry (%) 100 04/22/18 22:51 Intake & Output 04/20/18 04/21/18 04/22/18 04/23/18 23:59 23:59 23:59 23:59 Intake Total 3775.0 2982.6 1220 204 Output Total 255 60 150 160 Balance 3520.0 2922.6 1070 44 Weight 64.047 kg 64.41 kg 65 kg 63.2 kg Intubated on the Vent ET tube in place RRR Course BS soft NT/ND Stephens in place no Le edema, clubbing or cyanosis extremities are warm CBC, BMP 04/23/18 05:30 04/23/18 05:30 Current Medications Acetaminophen (Ofirmev Injection -) 1,000 mg IVPB Q6H PRN PRN Reason: FEVER Last Admin: 04/22/18 02:13 Dose: 1,000 mg Albumin Human (Albumin Human 25%) 12.5 gm IVPB Q30M [facility] Stop: 04/23/18 11:31 Artificial Tears (Artificial Tears) 1 drop OU BID [facility] Last Admin: 04/22/18 21:49 Dose: 1 drop Chlorhexidine Gluconate (Hibiclens For Decolonization -) 1 applic TP HS [facility] Last Admin: 04/22/18 21:50 Dose: 1 applic Docusate Sodium (Colace Liquid -) 100 mg PO TID [facility] Last Admin: 04/23/18 06:27 Dose: Not Given Hydrocortisone Sodium Succinate (Solu-Cortef -) 50 mg IVPB Q6H [facility] Last Admin: 04/23/18 10:21 Dose: 50 mg Propofol (Diprivan -) 1,000,000 mcg in 100 mls @ 1.769 mls/hr IV TITR [facility]; Protocol Last Admin: 04/23/18 10:11 Dose: Not Given Norepinephrine Bitartrate 4, (000 mcg/ Dextrose) 500 mls @ 37.5 mls/hr IV TITR [facility]HANG; Protocol Last Titration: 04/23/18 08:00 Dose: 0 mcg/min, 0 mls/hr Ceftriaxone Sodium 2 gm/ (Dextrose) 100 mls @ 200 mls/hr IVPB Q12H [facility]; Protocol Last Admin: 04/23/18 10:18 Dose: 200 mls/hr Sodium Chloride (Normal Saline -) 250 mls @ 3,000 mls/hr IV PRN PRN PRN Reason: Hypotension during Dialysis Stop: 04/24/18 08:37 Mupirocin (Bactroban Ointment (For Decolonization) -) 1 applic NS BID [facility] Stop: 04/24/18 09:59 Last Admin: 04/23/18 10:24 Dose: 1 applic Pantoprazole Sodium (Protonix Iv) 40 mg IVPUSH DAILY [facility] Last Admin: 04/23/18 10:21 Dose: 40 mg Senna (Senna -) 1 tab PO HS [facility] Last Admin: 04/22/18 22:03 Dose: Not Given 53 year old AA woman with hx of HIV (non-compliance with meds per ER records), HTN, HLD, Asthma who presented from home with fever and AMS and found to have B/ L lung infiltrates, Sepsis syndrome and SANA with severe metabolic acidosis. #Acute Renal Failure in setting of Sepsis syndrome requiring emergent dialysis for persistent acidosis #Anion gap metabolic acidosis (lactic acidosis with concurrent respiratory acidosis) #Sepsis Syndrome with with Strep PNA #HIV non-compliant with medications #Pseudohypocalcemia (corrected Ca is 8.28)/Hyperphosphatemia #Acute Anemia with + stool occult blood Tolerating dialysis this am Renal function without signs of recovery as pt remains anuric STEVE and ANCA negative continue supportive care with MAP > 65 and CVP 10-12 Femoral dialysis catheter to be removed today will plan for next dialysis on Saturday, will likely need continued [employer] for the immediate future, will get HD 3x weekly Transfuse as per ICU protocol Abx as per ID ICU monitoring Vent support Khadar Ibarra DO
[2018-04-23 12:03] LABS: MEAN PLT VOLUME 9.3 fl (7.5-11.1)
[2018-04-23 12:13] LABS: PLATELET COUNT 35 K/MM3 (134-434)
[2018-04-23] MEDS ORDERED: CALCIUM GLUCONATE 10% - 1,000 MG/10 ML VIAL IVPUSH ONE (12:15)
[2018-04-23] MEDS: ALBUMIN HUMAN 25% 12.5 GM/50 ML VIAL IVPB SCH ×2 (12:43→12:44)
--- NOTE | 2018-04-23 13:06 | PN ---
Teaching Attending Note Name of Resident: Prem Patton ATTENDING PHYSICIAN STATEMENT I saw and evaluated the patient. I reviewed the resident's note and discussed the case with the resident. I agree with the resident's findings and plan as documented. SUBJECTIVE: Pt seen and examined in the ICU. Remains intubated, sedated. Vented on volume assist control with 40% FiO2, PEEP 8. Currently receiving HD. Off pressors. Unresponsive off sedation OBJECTIVE: Vital Signs Period Temp Pulse Resp BP Sys/Cai Pulse Ox Last 24 Hr 98 F-98.7 F 49-67 16-30 89-109/49-63 100-100 Intake & Output 04/20/18 04/21/18 04/22/18 04/23/18 23:59 23:59 23:59 23:59 Intake Total 3775.0 2982.6 1220 204 Output Total 255 60 150 160 Balance 3520.0 2922.6 1070 44 Weight 64.047 kg 64.41 kg 65 kg 63.2 kg Gen: intubated, sedated Heart: RRR Lung: decreased breath sounds at the bases Abd: soft, nontender Ext: no edema CBC, BMP 04/23/18 05:30 04/23/18 05:30 Active Medications Acetaminophen (Ofirmev Injection -) 1,000 mg IVPB Q6H PRN PRN Reason: FEVER Last Admin: 04/22/18 02:13 Dose: 1,000 mg Artificial Tears (Artificial Tears) 1 drop OU BID [facility] Last Admin: 04/22/18 21:49 Dose: 1 drop Atovaquone (Mepron -) 1,500 mg PO DAILY@0800 [facility] Chlorhexidine Gluconate (Hibiclens For Decolonization -) 1 applic TP HS [facility] Last Admin: 04/22/18 21:50 Dose: 1 applic Docusate Sodium (Colace Liquid -) 100 mg PO TID [facility] Last Admin: 04/23/18 06:27 Dose: Not Given Hydrocortisone Sodium Succinate (Solu-Cortef -) 50 mg IVPB Q8H-IV [facility] Propofol (Diprivan -) 1,000,000 mcg in 100 mls @ 1.769 mls/hr IV TITR [facility]HANG; Protocol Last Admin: 04/23/18 10:11 Dose: Not Given Norepinephrine Bitartrate 4, (000 mcg/ Dextrose) 500 mls @ 37.5 mls/hr IV TITR ZHANG; Protocol Last Titration: 04/23/18 08:00 Dose: 0 mcg/min, 0 mls/hr Ceftriaxone Sodium 2 gm/ (Dextrose) 100 mls @ 200 mls/hr IVPB Q12H [facility]; Protocol Last Admin: 04/23/18 10:18 Dose: 200 mls/hr Sodium Chloride (Normal Saline -) 250 mls @ 3,000 mls/hr IV PRN PRN PRN Reason: Hypotension during Dialysis Stop: 04/24/18 08:37 Mupirocin (Bactroban Ointment (For Decolonization) -) 1 applic NS BID [facility] Stop: 04/24/18 09:59 Last Admin: 04/23/18 10:24 Dose: 1 applic Pantoprazole Sodium (Protonix Iv) 40 mg IVPUSH DAILY [facility] Last Admin: 04/23/18 10:21 Dose: 40 mg Senna (Senna -) 1 tab PO HS [facility] Last Admin: 04/22/18 22:03 Dose: Not Given Sevelamer Carbonate (Renvela Powder Packet -) 2.4 gm PO TIDCM [facility] ASSESSMENT AND PLAN: Acute Hypoxic and Hypercapneic Respiratory Failure Pneumococcal Pneumonia/Bacteremia Septic Shock Acute Kidney Injury requiring HD Metabolic Acidosis AIDS Thrombocytopenia Altered Mental Status - continue antibiotics - HD per renal - monitor urine output, creatinine - off pressors - repeat CT head noncontrast - taper steroids - monitor CBC - transfuse as needed - hold all sedation to assess mental status - taper PEEP to 5 - not a candidate for weaning until mental status improved - enteral feeds - DVT/GI prophylaxis critical care time spent in reviewing chart, evaluating patient and formulating plan 35 min
--- NOTE | 2018-04-23 13:45 | PN ---
Progress Note (short form) - Note Progress Note: Patient seen and examined at bedside started on pressors overnight-low dose levophed and now turned off this AM sedation held early this AM for daily awakening trial-still not responding off propofol Vital Signs Temperature 97.1 F L 04/23/18 13:41 Pulse Rate 54 L 04/23/18 13:41 Respiratory Rate 24 H 04/23/18 13:41 Blood Pressure 116/50 L 04/23/18 13:41 O2 Sat by Pulse Oximetry (%) 100 04/23/18 13:41 PE: NAD lying in bed intubated and sedated dried blood in oral mucosa PERRL decreased breath sounds, bronchial breath sounds. vented RRR S1 S2 Soft non tender non distended no lower extremity edema 04/19/18 04/23/18 04/23/18 04:45 05:30 05:30 WBC 17.6 H RBC 3.64 Hgb 9.9 L Hct 27.9 L MCV 76.7 L MCHC 35.3 RDW 22.9 H Plt Count 35 L* D Neutrophils % 63.2 Lymphocytes % 34.8 Monocytes % 1.9 L Eosinophils % 0.0 Basophils % 0.1 Sodium 133 L Potassium 3.5 Chloride 96 L Carbon Dioxide 21 Anion Gap 16 BUN 98 H Creatinine 5.7 H Blood Type B POSITIVE Antibody Screen Negative 04/23/18 05:30 Mycobacterial Culture - Preliminary Blood - Peripheral Venous 04/23/18 05:30 Cryptococcal Antigen - Preliminary Serum 04/20/18 05:30 Blood Culture - Preliminary Blood - Central Line NO GROWTH OBTAINED AFTER 72 HOURS, INCUBATION TO CONTINUE FOR 2 DAYS. 04/20/18 05:30 Blood Culture - Preliminary Blood - Central Line NO GROWTH OBTAINED AFTER 72 HOURS, INCUBATION TO CONTINUE FOR 2 DAYS. 04/21/18 22:30 Blood Culture - Preliminary Blood - Peripheral Venous NO GROWTH OBTAINED AFTER 24 HOURS, INCUBATION TO CONTINUE FOR 4 DAYS. 04/21/18 21:50 Blood Culture - Preliminary Blood - Peripheral Venous NO GROWTH OBTAINED AFTER 24 HOURS, INCUBATION TO CONTINUE FOR 4 DAYS. 04/19/18 12:25 Gram Stain - Final Sputum - Endotrachea Suction/Ventilator Sputum Culture - Final Staphylococcus Aureus Streptococcus Pneumoniae 04/21/18 06:30 Clostridium difficile Antigen (KARO) - Final Stool Clostridium difficile Toxin Assay - Final 04/19/18 00:57 Blood Culture - Final Blood - Peripheral Venous Streptococcus Pneumoniae 04/19/18 00:57 Blood Culture - Final Blood - Peripheral Venous Streptococcus Pneumoniae 04/19/18 04:45 Urine Culture - Final Urine - Urine Clean Catch 04/19/18 09:30 Legionella Antigen - Final Urine - Urine - Catheterized Streptococcus pneumoniae Antigen (M - Final 53F with extensive PMH including HIV CD4, HTN, HLD, presents with septic shock secondary to multi lobar pneumonia, bacteremia, and metabolic acidosis with SANA requiring dialysis and Intubated for respiratory distress. Patient has also been thrombocytopenic and anemic. PLAN Neuro: Not waking up despite holding propofol for several hours. Will get head CT given low platelet count HEME Pancytopenia likely secondary to sepsis now with leukocytosis thrombocytopenia-transfuse platelets if spontaneously bleeding SCD's for DVT prophylaxis trend CBC hematology consult PULM Multilobar pneumonia continue Rocephin 2gm start mepron for PCP prophylaxis wean PEEP as tolerated to 5 attempt to wean off vent once mental status improves ID Multilobar pneumonia continue Rocephin 2gm start mepron for PCP prophylaxis HIV+ Spoke with Dr. Sawyer at [facility] primary care clinic who recently saw pt on 03/31/18. Pt's CD4 count at that time was 50 and viral load of 121k. Patient stated she has not been on HAART therapy for 2 months secondary to difficulty swallowing the medications. Due to pt's sulfa allergy, she was not placed on bactrim at that time. Patient had agreed to return after the holidays to discuss prophylactic medications, however did not follow up. Severe pneumococcal sepsis with multiorgan failure Vancomycin: no longer needed per ID Rocephin started on 04/20, day 4 today CD4 count=6 serum cryptoococcal antigen and blood AFB sent Hepatitis B serology decrease hydrocortisone to 50mg q8h Cardiac Hypotensive due to septic shock wean off pressors ECHO: EF is 50-55% with grade 2 diastolic dysfunction Stop IVF RENAL dialyzed today D/C trialysis catheter today after dialysis since it is day 5 today will need new access for saturday dialysis Replete calcium GI Suspected GI bleed -Coffee ground emesis through NGT, melena-resolved -two units PRBCs given for low hgb on 04/21/18 and has been stable since then -Protonix 40mg IV for GI PPx will start tube feeds with nepro today SCDs for DVT PPx continue ceftriaxone mepron for pcp prophylaxis hep b serology LTD: Central line placed left IJ 04/22/18 CCTime 36 minutes Case discussed with Dr. Albrecht
--- NOTE | 2018-04-23 14:07 | PN ---
Teaching Attending Note Name of Resident: Crystal Nino ATTENDING PHYSICIAN STATEMENT I saw and evaluated the patient. I reviewed the resident's note and discussed the case with the resident. I agree with the resident's findings and plan as documented. SUBJECTIVE: Patient in ICU, intubated, sedated. OBJECTIVE: Vital Signs Temperature 97.1 F L 04/23/18 13:41 Pulse Rate 49 L 04/23/18 14:00 Respiratory Rate 28 H 04/23/18 14:00 Blood Pressure 116/60 04/23/18 14:00 O2 Sat by Pulse Oximetry (%) 100 04/22/18 22:51 GENERAL: The patient is intubated and sedated. HEAD: Normal with no signs of trauma. EYES: anicteric sclerae LUNGS: on the vent. intubated. HEART: Regular rate and rhythm, without murmur, rub or gallop. ABDOMEN: Soft, nontender, nondistended, normoactive bowel sounds. EXTREMITIES: 2+ pulses, warm, well-perfused, no edema. SKIN: Warm, dry, normal turgor. CBCD WBC 17.6 K/mm3 (4.0-10.0) H 04/23/18 05:30 RBC 3.64 M/mm3 (3.60-5.2) 04/23/18 05:30 Hgb 9.9 GM/dL (10.7-15.3) L 04/23/18 05:30 Hct 27.9 % (32.4-45.2) L 04/23/18 05:30 MCV 76.7 fl (80-96) L 04/23/18 05:30 MCHC 35.3 g/dl (32.0-36.0) 04/23/18 05:30 RDW 22.9 % (11.6-15.6) H 04/23/18 05:30 Plt Count 35 K/MM3 (134-434) L* D 04/23/18 05:30 MPV 9.3 fl (7.5-11.1) 04/23/18 05:30 CMP Sodium 133 mmol/L (136-145) L 04/23/18 05:30 Potassium 3.5 mmol/L (3.5-5.1) 04/23/18 05:30 Chloride 96 mmol/L (98-107) L 04/23/18 05:30 Carbon Dioxide 21 mmol/L (21-32) 04/23/18 05:30 Anion Gap 16 MMOL/L (8-16) 04/23/18 05:30 BUN 98 mg/dL (7-18) H 04/23/18 05:30 Creatinine 5.7 mg/dL (0.55-1.3) H 04/23/18 05:30 Creat Clearance w eGFR 7.72 (>60) 04/23/18 05:30 Random Glucose 97 mg/dL (74-106) 04/23/18 05:30 Calcium 5.3 mg/dL (8.5-10.1) L* 04/23/18 05:30 Total Bilirubin 0.4 mg/dL (0.2-1) 04/23/18 05:30 AST 51 U/L (15-37) H 04/23/18 05:30 ALT 16 U/L (13-61) 04/23/18 05:30 Alkaline Phosphatase 115 U/L (45-117) 04/23/18 05:30 Total Protein 5.4 g/dl (6.4-8.2) L 04/23/18 05:30 Albumin 1.0 g/dl (3.4-5.0) L 04/23/18 05:30 CARDIAC ENZYMES Creatine Kinase 233 IU/L (26-192) H 04/20/18 12:30 Troponin I 0.04 ng/ml (0.00-0.05) 04/20/18 12:30 Current Medications Generic Name Dose Route Start Last Admin Trade Name Kadeem PRN Reason Stop Dose Admin Acetaminophen 1,000 mg 04/20/18 21:13 04/22/18 02:13 Ofirmev Injection - IVPB 1,000 mg Q6H PRN Administration FEVER Artificial Tears 1 drop 04/19/18 22:00 04/22/18 21:49 Artificial Tears OU 1 drop BID [facility] Administration Atovaquone 1,500 mg 04/23/18 12:15 Mepron - PO DAILY@0800 [facility] Chlorhexidine Gluconate 1 applic 04/19/18 22:00 04/22/18 21:50 Hibiclens For Decolonization - TP 1 applic HS [facility] Administration Docusate Sodium 100 mg 04/19/18 14:00 04/23/18 06:27 Colace Liquid - PO Not Given TID [facility]ANG Hydrocortisone Sodium Succinate 50 mg 04/23/18 12:15 Solu-Cortef - IVPB Q8H-IV [facility] Propofol 1,000,000 mcg in 100 mls @ 1.769 mls/hr 04/19/18 09:15 04/23/18 10: 11 Diprivan - IV Not Given TITR ZHANG Protocol 5 MCG/KG/MIN Norepinephrine Bitartrate 4, 500 mls @ 37.5 mls/hr 04/19/18 10:45 04/23/18 08 :00 000 mcg/ Dextrose IV 0 mcg/min TITR ZHANG 0 mls/hr Titration Protocol 5 MCG/MIN Ceftriaxone Sodium 2 gm/ 100 mls @ 200 mls/hr 04/20/18 10:00 04/23/18 10:18 Dextrose IVPB 200 mls/hr Q12H [facility] Administration Protocol Sodium Chloride 250 mls @ 3,000 mls/hr 04/23/18 08:37 Normal Saline - IV 04/24/18 08:37 PRN PRN Hypotension during Dialysis Mupirocin 1 applic 04/19/18 10:00 04/23/18 10:24 Bactroban Ointment (For Decolonization) - NS 04/24/18 09:59 1 applic BID [facility]ANG Administration Pantoprazole Sodium 40 mg 04/21/18 10:00 04/23/18 10:21 Protonix Iv IVPUSH 40 mg DAILY [facility]ANG Administration Senna 1 tab 04/19/18 22:00 04/22/18 22:03 Senna - PO Not Given HS ZHANG Sevelamer Carbonate 2.4 gm 04/23/18 12:15 Renvela Powder Packet - PO TIDCM [facility] Home Medications Medication Instructions Recorded Mag Hydrox/Al Hydrox/Simeth 30 ml PO Q6H #12 cup 03/09/18 [Mylanta *Suspension*] Ondansetron [Zofran Odt -] 4 mg SL TID #21 od.tablet 03/09/18 Ranitidine [Zantac -] 150 mg PO DAILY #14 tablet 03/09/18 Azithromycin [Zithromax -] 250 mg PO UTDICT #6 tab 04/12/18 Microbiology 04/23/18 05:30 Blood - Peripheral Venous Mycobacterial Culture - Preliminary 04/23/18 05:30 Serum Cryptococcal Antigen - Preliminary 04/20/18 05:30 Blood - Central Line Blood Culture - Preliminary NO GROWTH OBTAINED AFTER 72 HOURS, INCUBATION TO CONTINUE FOR 2 DAYS. 04/20/18 05:30 Blood - Central Line Blood Culture - Preliminary NO GROWTH OBTAINED AFTER 72 HOURS, INCUBATION TO CONTINUE FOR 2 DAYS. 04/21/18 22:30 Blood - Peripheral Venous Blood Culture - Preliminary NO GROWTH OBTAINED AFTER 24 HOURS, INCUBATION TO CONTINUE FOR 4 DAYS. 04/21/18 21:50 Blood - Peripheral Venous Blood Culture - Preliminary NO GROWTH OBTAINED AFTER 24 HOURS, INCUBATION TO CONTINUE FOR 4 DAYS. 04/19/18 12:25 Sputum - Endotrachea Suction/Ventilator Gram Stain - Final 04/19/18 12:25 Sputum - Endotrachea Suction/Ventilator Sputum Culture - Final Staphylococcus Aureus Streptococcus Pneumoniae 04/21/18 06:30 Stool Clostridium difficile Antigen (KARO) - Final 04/21/18 06:30 Stool Clostridium difficile Toxin Assay - Final 04/19/18 00:57 Blood - Peripheral Venous Blood Culture - Final Streptococcus Pneumoniae 04/19/18 00:57 Blood - Peripheral Venous Blood Culture - Final Streptococcus Pneumoniae 04/19/18 04:45 Urine - Urine Clean Catch Urine Culture - Final 04/19/18 09:30 Urine - Urine - Catheterized Legionella Antigen - Final 04/19/18 09:30 Urine - Urine - Catheterized Streptococcus pneumoniae Antigen (M - Final ASSESSMENT AND PLAN: Patient is a 53yo female with PMHx of HIV, Asthma, HTN, HLP, HTN, who presented with fever and AMS accompanied by family. She was admitted for sepsis with multi -organ system failure. # Acute hypoxic respiratory failure s/p intubation due to having bilateral strep PNA, vent management per ICU team, on IV abx ceftriaxone. # Septic shock due to having bl PNA, with strep bacteremia , on pressor levophed off vaso, cont steroids , cont Abx. # Acute metabolic acidosis with high AG. resolved ,bicarb improved. HD per renal if needed # Elevated trop: likely due to demand ischemia # Acute on chronic anemia, due to BM suppression from HIV / severe sepsis. peripheral smear no schistocytes . hapto elevated , LDH does not indicate hemolysis. No suspicion for HUS , Hb stable after transfusion # SANA: HD per renal # HIV: CD4 count is 6, PCP, MAC, toxo prophylaxis on Mepron # Abnormal TFTs: likely sick euthyroid syndrome in the setting of acute severe illness. repeat w/u as an outpatient once stable. DVT PX" SCDs GI Px: PPI
--- NOTE | 2018-04-23 15:59 | PN ---
Physical Exam: SUBJECTIVE: Patient seen and examined at bedside this morning. No acute events overnight. Patient off pressors overnight, but was put back on Levophed 1mcg/ min this morning. Propofol decreased to 30 then switched off to check mental status. Patient remains anuric. -Vent settings: 30/400/60/8 --> 22/400/40/8 OBJECTIVE: Vital Signs Period Temp Pulse Resp BP Sys/Cai Pulse Ox Last 24 Hr 97.1 F-98.6 F 49-67 16-30 89-116/50-63 100-100 GENERAL: The patient is intubated and sedated. HEAD: Normal with no signs of trauma. EYES: Pupils sluggishly reactive to light, anicteric sclerae LUNGS: clear breath sounds anteriorly HEART: Regular rate and rhythm, without murmur, rub or gallop. ABDOMEN: Soft, nontender, nondistended, normoactive bowel sounds. EXTREMITIES: 2+ pulses, warm, well-perfused, no edema. SKIN: Warm, dry, normal turgor. Laboratory Results - last 24 hr 04/19/18 04/19/18 04/20/18 04:45 22:00 05:30 WBC RBC Hgb Hct MCV MCH MCHC RDW Plt Count MPV Absolute Neuts (auto) Neutrophils % Neutrophils % (Manual) Band Neutrophils % Lymphocytes % Lymphocytes % (Manual) Monocytes % Monocytes % (Manual) Eosinophils % Eosinophils % (Manual) Basophils % Basophils % (Manual) Myelocytes % (Man) Promyelocytes % (Man) Blast Cells % (Manual) Nucleated RBC % Metamyelocytes Hypochromia Platelet Estimate Polychromasia Poikilocytosis Anisocytosis Microcytosis Macrocytosis Target Cells Tear Drop Cells Ovalocytes Sodium Potassium Chloride Carbon Dioxide Anion Gap BUN Creatinine Creat Clearance w eGFR Random Glucose Calcium Phosphorus Magnesium Iron 7 L TIBC 79 L Iron Saturation 9 L Transferrin 83 L Total Bilirubin AST ALT Alkaline Phosphatase Total Protein Albumin Hepatitis Be Antibody Positive H Hepatitis Be Antigen Negative Blood Type B POSITIVE Antibody Screen Negative Crossmatch See Detail 04/23/18 04/23/18 05:30 05:30 WBC 17.6 H RBC 3.64 Hgb 9.9 L Hct 27.9 L MCV 76.7 L MCH 27.1 MCHC 35.3 RDW 22.9 H Plt Count 35 L* D MPV 9.3 Absolute Neuts (auto) 11.1 H Neutrophils % 63.2 Neutrophils % (Manual) 96.0 H Band Neutrophils % 0.0 Lymphocytes % 34.8 Lymphocytes % (Manual) 4.0 L D Monocytes % 1.9 L Monocytes % (Manual) 0 L D Eosinophils % 0.0 Eosinophils % (Manual) 0.0 Basophils % 0.1 Basophils % (Manual) 0.0 Myelocytes % (Man) 0 Promyelocytes % (Man) 0 Blast Cells % (Manual) 0 Nucleated RBC % 0 Metamyelocytes 0 Hypochromia 0 Platelet Estimate Decreased Polychromasia 0 Poikilocytosis 2+ Anisocytosis 1+ Microcytosis 1+ Macrocytosis 0 Target Cells 1+ Tear Drop Cells 1+ Ovalocytes 1+ Sodium 133 L Potassium 3.5 Chloride 96 L Carbon Dioxide 21 Anion Gap 16 BUN 98 H Creatinine 5.7 H Creat Clearance w eGFR 7.72 Random Glucose 97 Calcium 5.3 L* Phosphorus 11.2 H* Magnesium 2.5 H Iron TIBC Iron Saturation Transferrin Total Bilirubin 0.4 AST 51 H ALT 16 Alkaline Phosphatase 115 Total Protein 5.4 L Albumin 1.0 L Hepatitis Be Antibody Hepatitis Be Antigen Blood Type Antibody Screen Crossmatch Active Medications Generic Name Dose Route Start Last Admin Trade Name Freq PRN Reason Stop Dose Admin Acetaminophen 1,000 mg 04/20/18 21:13 04/22/18 02:13 Ofirmev Injection - IVPB 1,000 mg Q6H PRN Administration FEVER Artificial Tears 1 drop 04/19/18 22:00 04/22/18 21:49 Artificial Tears OU 1 drop BID [facility] Administration Atovaquone 1,500 mg 04/23/18 12:15 Mepron - PO DAILY@0800 [facility] Chlorhexidine Gluconate 1 applic 04/19/18 22:00 04/22/18 21:50 Hibiclens For Decolonization - TP 1 applic HS [facility] Administration Docusate Sodium 100 mg 04/19/18 14:00 04/23/18 06:27 Colace Liquid - PO Not Given TID [facility] Hydrocortisone Sodium Succinate 50 mg 04/23/18 12:15 Solu-Cortef - IVPB Q8H-IV [facility] Propofol 1,000,000 mcg in 100 mls @ 1.769 mls/hr 04/19/18 09:15 04/23/18 10: 11 Diprivan - IV Not Given TITR [facility] Protocol 5 MCG/KG/MIN Norepinephrine Bitartrate 4, 500 mls @ 37.5 mls/hr 04/19/18 10:45 04/23/18 08 :00 000 mcg/ Dextrose IV 0 mcg/min TITR [facility] 0 mls/hr Titration Protocol 5 MCG/MIN Ceftriaxone Sodium 2 gm/ 100 mls @ 200 mls/hr 04/20/18 10:00 04/23/18 10:18 Dextrose IVPB 200 mls/hr Q12H [facility] Administration Protocol Sodium Chloride 250 mls @ 3,000 mls/hr 04/23/18 08:37 Normal Saline - IV 04/24/18 08:37 PRN PRN Hypotension during Dialysis Mupirocin 1 applic 04/19/18 10:00 04/23/18 10:24 Bactroban Ointment (For Decolonization) - NS 04/24/18 09:59 1 applic BID [facility] Administration Pantoprazole Sodium 40 mg 04/21/18 10:00 04/23/18 10:21 Protonix Iv IVPUSH 40 mg DAILY [facility] Administration Senna 1 tab 04/19/18 22:00 04/22/18 22:03 Senna - PO Not Given HS [facility] Sevelamer Carbonate 2.4 gm 04/23/18 12:15 Renvela Powder Packet - PO TIDCM [facility] -Echo - LV normal in size, LV systolic function is low normal. EF 50-55%. Diastolic dysfunction grade II (pseudonormalization pattern). Ratio E/E'=18. RV systolic function is normal. LA size normal. RAsize normal. Moderate to severe MR. The mitral regurgitant jet is eccentrically directed. Moderate AR. No pericardial effusion. -Chest CT - multifocal bilateral infiltrates. Mild nonspecific mediastinal lymphadenopathy which may be reactive. Mild nonspecific bilateral adrenal gland thickening -?chronic in nature representing hyperplasia, or subcentimeter adenomas vs being acute in nature. Main pulmonary artery appears mildly dilated 3.2 cm. -Renal US - No hydronephrosis. Interval development of bilateral increased cortical echogenicity. Gallbladder mild to moderate overdistention and mild diffuse nonspecific gallbladder wall thickening as well as pericholecystic fluid accumulation which may be acute cholecystitis. a trace amount of free fluid is seen within the hepatorenal fossa. ASSESSMENT/PLAN: The patient is a 53 year old female with a history of HIV, HTN, HLD, Asthma, Anemia who presents for evaluation of difficulty breathing and altered mental status. #Acute hypoxic respiratory failure likely 2/2 multilobular strep pneumonia -Intubated and sedated -Vent settings: 22/400/40/8 -Attempt to wean off vent once mental status improves. -Patient off propofol, but still not waking up. Head CT ordered. -CXR (04/23/18) - Imaging again reveals bilateral infiltrates, diffuse on the left and involve the right upper lobe. No significant change from yesterday. -Ceftriaxone Day 4 -ID consulted. Recommendations appreciated. #Septic shock likely 2/2 pneumonia -Levophed 1mcg/min, Propofol 30mcg/kg/min -Ceftriaxone 2gm q12 day 4 -Hydrocortisone 50mg q6h -Start Atovaquone (Mepron) 1500mg daily for PCP prophylaxis #Acute metabolic acidosis with high anion gap: resolved -ph 7.35 / pCO2 38.8 / pO2 162 / HCO3 20.6 -will continue to monitor -Nephrology consulted. Recommendations appreciated. #Acute kidney injury: -worsening BUN/Cr today 75/5 --> 98/5.7 -HD done today. -Nephrology (Dr. Ibarra) consulted. Recommendations appreciated. -Renal function without signs of recovery -HD today. -Plan for dialysis on Saturday, will likely need continued [employer] for immediate future (HD 3x weekly) -STEVE and ANCA negative -Continue supportive care with MAP >65 and CVP 10-12 -Start Renvela 2.4 gm q8h via NGT for hyperphosphatemia (11.2 today) -Corrected Ca 7.7. will continue to monitor. #Microcytic hypochromic anemia: acute on chronic -H/H stable 9.9/27.9 -likely 2/2 iron deficiency anemia; GI bleed, resolved -Peripheral blood smear showed different RBC morphologies including but not limited to microcytic with central pallor, spherocytes, target cells, burst cells, teardrop cells; but no schistocytes, unlikely hemolytic -Iron studies pending -Haptoglobin 383 -Ferritin 811 -Retic count 0.34 -LDH 460 #Thrombocytopenia -likely 2/2 sepsis -Fibrinogen >500, unlikely DIC -Hematology (Dr. Vidal) consulted. #GI bleed -GI (Dr. Green) consulted recommendations appreciated. -episodes of coffee ground emesis and melena, resolved -no active signs of bleeding -may resume Protonix 40mg daily #Troponinemia: resolved -likely 2/2 demand ischemia -0.11 > 0.16 > 0.04 #HIV -ID (Dr. Mccloud) consulted. -noncompliant with medications -CD4 - 6 -CD3 - 450 -As per PCP (CD4 count 50, viral load 121k on 03/31/18). -Pneumocystis carinii smear pending -Hbe ab positive,Hbe ag negative -Hepatitis panel pending #Hypertension -Hold home anti hypertensives -patient off levophed -will continue to monitor #Hyperlipidemia: chronic #Asthma -Intubated and sedated #FEN -Not on any standing fluids -HypoK: will replete PRN -routine bmp monitoring -Tube feed nepro #Prophylaxis -DVT: SCDs -GI: IV Protonix 40mg daily #Disposition -full code -ICU for closer monitoring Visit type - Emergency Visit Emergency Visit: Yes ED Registration Date: 04/19/18 Care time: The patient presented to the Emergency Department on the above date and was hospitalized for further evaluation of their emergent condition. - New Patient This patient is new to me today: No - Critical Care Critical Care patient: Yes Total Critical Care Time (in minutes): 40 Critical Care Statement: The care of this patient involved high complexity decision making to prevent further life threatening deterioration of the patient 's condition and/or to evaluate & treat vital organ system(s) failure or risk of failure.
[2018-04-23] MEDS ORDERED: PT OWN MED DRAWER 7, Y5N ONE ×2 (16:31→21:12)
[2018-04-23] MEDS: ATOVAQUONE 750 MG/5 ML (UNIT-DOSE PACKAGING) PO SCH (16:35)
[2018-04-23] MEDS: SEVELAMER CARBONATE 2.4 GM POWDER PACKET PO SCH ×2 (16:36)
[2018-04-23] MEDS ORDERED: CALCIUM GLUCONATE 10% - 1,000 MG/10 ML VIAL ONE (17:10)
[2018-04-23] MEDS: CHLORHEXIDINE GLUCONATE 4% CLEANSER FOR DECOLONIZATION TP SCH (22:31)
[2018-04-23] MEDS: SENNOSIDES 8.6MG TABLET (FP) PO SCH (22:33)
[2018-04-24] MEDS: HYDROCORTISONE SOD SUCCINATE 100 MG/2 ML VIAL IVPB SCH ×4 (03:19→17:41)
[2018-04-24] MEDS: DOCUSATE NA 100 MG/10 ML UNIT-DOSE CUPS PO SCH ×3 (06:04→21:48)
[2018-04-24 08:18] LABS: ALK PHOS 139 U/L (45-117); ANION GAP 14 MMOL/L (8-16); BILIRUBIN,TOTAL 0.3 mg/dL (0.2-1); BLOOD UREA NITROGEN 74 mg/dL (7-18); CHLORIDE 99 mmol/L (98-107); CO2 25 mmol/L (21-32); CREATININE 4.1 mg/dL (0.55-1.3); GLUCOSE,RANDOM 124 mg/dL (74-106); PHOSPHOROUS 6.3 mg/dL (2.5-4.9); POTASSIUM 3.1 mmol/L (3.5-5.1); SGOT/AST 47 U/L (15-37); SGPT/ALT 12 U/L (13-61); SODIUM 138 mmol/L (136-145); TOT PROT 5.4 g/dl (6.4-8.2)
[2018-04-24 08:35] LABS: CALCIUM 6.1 mg/dL (8.5-10.1)
[2018-04-24] MEDS ORDERED: CALCIUM GLUCONATE 10% - 1,000 MG/10 ML VIAL IVPB ONE (08:36)
[2018-04-24] MEDS: PROPOFOL 1,000,000 MCG/100 ML VIAL IV SCH ×2 (09:36→16:17)
[2018-04-24] MEDS ORDERED: DEXTROSE 5%-WATER 100 ML IVPB ONE ×2 (09:38→20:45)
[2018-04-24 09:47] LABS: PLATELET ESTIMATE DECREASED
[2018-04-24] MEDS: ATOVAQUONE 750 MG/5 ML (UNIT-DOSE PACKAGING) PO SCH (09:47)
[2018-04-24] MEDS: SEVELAMER CARBONATE 2.4 GM POWDER PACKET PO SCH ×3 (09:47→17:42)
[2018-04-24] MEDS: PANTOPRAZOLE SODIUM 40 MG VIAL IVPUSH SCH (09:53)
[2018-04-24] MEDS: ARTIFICIAL TEARS (POLYVINYL ALCOHOL) OPTH DROPS OU SCH ×2 (10:51→21:50)
[2018-04-24 11:07] LABS: BASO % 0.4 % (0-2.0); EOS % 0.1 % (0-4.5); LYMPH % 1.3 % (8-40); MCH 27.4 pg (25.7-33.7); MCHC 35.6 g/dl (32.0-36.0); MEAN CELL VOLUME 77.2 fl (80-96); MEAN PLT VOLUME 11.9 fl (7.5-11.1); MONO % 2.2 % (3.8-10.2); PLATELET COUNT 65 K/MM3 (134-434); RBC 3.63 M/mm3 (3.60-5.2); RDW 22.8 % (11.6-15.6); WHITE BLOOD COUNT 10.7 K/mm3 (4.0-10.0)
[2018-04-24] MEDS: CEFTRIAXONE 2 GM in DEXTROSE 5%-WATER 100 ML IVPB SCH ×2 (11:39→21:50)
[2018-04-24 11:40] LABS: ANISOCYTOSIS 1+; MACROCYTOSIS 0; OVALOCYTE 1+; TARGET CELLS 2+; TEAR DROP CELLS 2+
--- NOTE | 2018-04-24 11:48 | PN ---
Progress Note (short form) - Note Progress Note: SUBJECTIVE Patient seen and examined at the bedside. According to night team, patient was waking up, agitated, and biting on the ET tube. Sedation re-started. OBJECTIVE Vital Signs Temperature 98.5 F 04/24/18 10:00 Pulse Rate 68 04/24/18 10:00 Respiratory Rate 28 H 04/24/18 12:05 Blood Pressure 147/63 04/24/18 10:00 O2 Sat by Pulse Oximetry (%) 100 04/24/18 08:25 General: Sedated, intubated Head: No signs of trauma Eyes: EOMI, sclera anicteric ENT: Moist mucus membranes Neck: Normal ROM, supple Lungs: Diffuse rales bilaterally Cardio: Regular rhythm, S1 and S2 present Abdomen: Soft, nondistended Extremities: Distal pulses present SKIN: Warm, Dry, normal turgor Neurologic: Sedated ASSESSMENT 53yo F with PMH of HIV (CD4 count=6), HTN, HLD, Asthma presenting with severe sepsis, multiorgan failure, multilobar pneumonia, and anemia. Intubated for respiratory distress. Patient received hemodialysis (04/20/18) for severe acidosis. Transfused two units (04/21/18). Yesterday, sedation was held to assess patient's mental status. Patient did not awaken. Head CT was ordered and did not show acute pathology. According to night team, patient was waking up agitated, and biting on the ET tube. Sedation re-started. PLAN NEURO Sedation again held today to assess patient's mental status Head CT negative for acute pathology HEME SCD's for DVT prophylaxis Acute on chronic anemia due to suspected GI bleed -Follow CBC, Hgb=10.0 today -Heme consulted PULM Multilobar pneumonia -Patient intubated -Vancomycin: no longer needed per ID -Rocephin started on 04/20, day 5 today -CXR improved today -AC//500//40 ID HIV+ Severe pneumococcal sepsis with multiorgan failure -Vancomycin: no longer needed per ID -Rocephin started on 04/20, day 5 today CD4 count=6 -ID following -Atovaquone for PCP prophylaxis started yesterday -Influenza A/B negative -Hep B serology pending -Pneumocyst carinii smear pending -Cryptococcal Ag: pending -Mycobacterial culture: pending -Blood cultures: no growth for three days Cardiac Hypotensive due to sepsis, resolved -IVF challenge -Weaned from pressors -changed access position Elevated Tpn -likely due to stress ischemia from sepsis ECHO: EF is 50-55% with grade 2 diastolic dysfunction RENAL Hemodialysis 04/20/18 and 04/23 Monitor fluid status and electrolytes Plan to dialyze tomorrow Diminished renal function -Cr=4.1 GI Suspected GI bleed -Coffee ground emesis through NGT, melena -two units PRBCs given for low hgb on 04/21/18 -Protonix 40mg IV FEN Monitor electrolytes -Replete as needed -K=3.1 today, 40meq KCl ordered -Calcium low at 6.1 but normal when corrected for low albumin (1.0)
--- NOTE | 2018-04-24 12:25 | PN ---
Teaching Attending Note Name of Resident: Rosanne Lawson ATTENDING PHYSICIAN STATEMENT I saw and evaluated the patient. I reviewed the resident's note and discussed the case with the resident. I agree with the resident's findings and plan as documented. SUBJECTIVE: Patient seen and examined in the ICU. Intubated and sedated, 40% FiO2. Off pressors for hemodynamic support. CXR: ETT in position / improving dense bilateral infiltrates Intake & Output 04/21/18 04/22/18 04/23/18 04/24/18 23:59 23:59 23:59 23:59 Intake Total 2982.6 1220 456.5 145 Output Total 60 150 160 Balance 2922.6 1070 296.5 145 Weight 142 lb 143 lb 4.807 oz 139 lb 5.314 oz 142 lb 13.753 oz Last Vital Signs Temp Pulse Resp BP Pulse Ox 98.5 F 68 28 H 147/63 100 04/24/18 10:00 04/24/18 10:00 04/24/18 12:05 04/24/18 10:00 04/24/18 08:25 Active Medications Acetaminophen (Ofirmev Injection -) 1,000 mg IVPB Q6H PRN PRN Reason: FEVER Last Admin: 04/22/18 02:13 Dose: 1,000 mg Artificial Tears (Artificial Tears) 1 drop OU BID [facility] Last Admin: 04/24/18 10:51 Dose: 1 drop Atovaquone (Mepron -) 1,500 mg PO DAILY@0800 [facility] Last Admin: 04/24/18 09:47 Dose: 1,500 mg Chlorhexidine Gluconate (Hibiclens For Decolonization -) 1 applic TP HS [facility] Last Admin: 04/23/18 22:31 Dose: 1 applic Docusate Sodium (Colace Liquid -) 100 mg PO TID [facility] Last Admin: 04/24/18 06:04 Dose: Not Given Hydrocortisone Sodium Succinate (Solu-Cortef -) 50 mg IVPB Q8H-IV [facility] Last Admin: 04/24/18 09:54 Dose: Not Given Propofol (Diprivan -) 1,000,000 mcg in 100 mls @ 1.769 mls/hr IV TITR [facility]HANG; Protocol Last Admin: 04/24/18 09:36 Dose: Not Given Ceftriaxone Sodium 2 gm/ (Dextrose) 100 mls @ 200 mls/hr IVPB Q12H [facility]; Protocol Last Admin: 04/24/18 11:39 Dose: 200 mls/hr Pantoprazole Sodium (Protonix Iv) 40 mg IVPUSH DAILY [facility] Last Admin: 04/24/18 09:53 Dose: 40 mg Senna (Senna -) 1 tab PO HS [facility] Last Admin: 04/23/18 22:33 Dose: Not Given Sevelamer Carbonate (Renvela Powder Packet -) 2.4 gm PO TIDCM [facility] Last Admin: 04/24/18 09:47 Dose: 2.4 gm Constitutional: Yes: Intubated and sedated Eyes: Yes: Conjunctiva Clear, PERRL HENT: Yes: Atraumatic Cardiovascular: Yes: Tachycardia, S1, S2 Respiratory: Yes: Mechanically Ventilated, bilateral coarse rhonchi Gastrointestinal: Yes: (+) Bowel Sounds, Soft Renal/: Yes: Stephens Present Extremities: Yes: WNL Edema: No Labs: Laboratory Results - last 24 hr 04/19/18 04/21/18 04/24/18 04:45 06:45 05:30 WBC 10.7 H RBC 3.63 Hgb 10.0 L Hct 28.0 L MCV 77.2 L MCH 27.4 MCHC 35.6 RDW 22.8 H Absolute Neuts (auto) 10.3 H Neutrophils % 96.0 H D Neutrophils % (Manual) 97.0 H Band Neutrophils % 1.0 Lymphocytes % 1.3 L D Lymphocytes % (Manual) 2.0 L D Monocytes % 2.2 L Monocytes % (Manual) 0 L Eosinophils % 0.1 D Eosinophils % (Manual) 0.0 Basophils % 0.4 D Basophils % (Manual) 0.0 Myelocytes % (Man) 0 Promyelocytes % (Man) 0 Blast Cells % (Manual) 0 Nucleated RBC % 1 H Metamyelocytes 0 Hypochromia 0 Platelet Estimate Decreased Polychromasia 1+ Poikilocytosis 3+ Anisocytosis 1+ Microcytosis 1+ Macrocytosis 0 Target Cells 2+ Tear Drop Cells 2+ Ovalocytes 1+ Sodium Potassium Chloride Carbon Dioxide Anion Gap BUN Creatinine Creat Clearance w eGFR Random Glucose Calcium Phosphorus Magnesium Total Bilirubin AST ALT Alkaline Phosphatase Total Protein Albumin Blood Type B POSITIVE B POSITIVE Antibody Screen Negative Negative Crossmatch See Detail See Detail 04/24/18 05:30 WBC RBC Hgb Hct MCV MCH MCHC RDW Absolute Neuts (auto) Neutrophils % Neutrophils % (Manual) Band Neutrophils % Lymphocytes % Lymphocytes % (Manual) Monocytes % Monocytes % (Manual) Eosinophils % Eosinophils % (Manual) Basophils % Basophils % (Manual) Myelocytes % (Man) Promyelocytes % (Man) Blast Cells % (Manual) Nucleated RBC % Metamyelocytes Hypochromia Platelet Estimate Polychromasia Poikilocytosis Anisocytosis Microcytosis Macrocytosis Target Cells Tear Drop Cells Ovalocytes Sodium 138 Potassium 3.1 L Chloride 99 Carbon Dioxide 25 Anion Gap 14 BUN 74 H Creatinine 4.1 H Creat Clearance w eGFR 11.30 Random Glucose 124 H Calcium 6.1 L* Phosphorus 6.3 H Magnesium 2.0 Total Bilirubin 0.3 AST 47 H ALT 12 L Alkaline Phosphatase 139 H Total Protein 5.4 L Albumin 1.0 L Blood Type Antibody Screen Crossmatch Problem List - Problems (1) Respiratory failure with hypoxia Code(s): J96.91 - RESPIRATORY FAILURE, UNSPECIFIED WITH HYPOXIA (2) Respiratory failure, acute Code(s): J96.00 - ACUTE RESPIRATORY FAILURE, UNSP W HYPOXIA OR HYPERCAPNIA (3) SANA (acute kidney injury) Code(s): N17.9 - ACUTE KIDNEY FAILURE, UNSPECIFIED (4) Anemia Code(s): D64.9 - ANEMIA, UNSPECIFIED Qualifiers: Anemia type: unspecified type Qualified Code(s): D64.9 - Anemia, unspecified (5) Sepsis Code(s): A41.9 - SEPSIS, UNSPECIFIED ORGANISM (6) Shock circulatory Code(s): R57.9 - SHOCK, UNSPECIFIED (7) Pneumonia Code(s): J18.9 - PNEUMONIA, UNSPECIFIED ORGANISM Assessment/Plan Pneumococcal PNA Pneumococcal bacteremia High clinical suspicion of Pneumococcal Meningitis Monitor off pressors IVF ABX per ID; agree with coverage Follow daily CXR Normal transfusion thresholds Mechanical ventilation w/ lung protective strategy. Goal Pplt <30 BD TX PRN Wean trials as tolerated HD per Renal Glycemic control VTE / GI prophylaxis Dr Novak Critical care time spent in reviewing chart, evaluating patient and formulating plan - 36 minutes.
[2018-04-24] MEDS ORDERED: POTASSIUM CHLORIDE TABS 20 MEQ TABLET.ER (FP) PO ONE (12:31)
[2018-04-24 13:21] LABS: HBSAG SCREEN Negative (Negative); HEP A AB, IGM Negative (Negative); HEP B CORE AB, TOT Positive (Negative)
[2018-04-24] MEDS ORDERED: POTASSIUM CHLORIDE ORAL LIQUID 20 MEQ/15 ML PO ONE (14:24)
--- NOTE | 2018-04-24 15:47 | PN ---
Progress Note (short form) - Note Progress Note: Renal follow up for SANA requiring emergent dialysis Pt seen and examined in the ICU on Vent, FiO2 is 40% off vasopressers sedated remains oliguric Vital Signs Temperature 97.8 F 04/24/18 13:38 Pulse Rate 68 04/24/18 13:38 Respiratory Rate 27 H 04/24/18 14:44 Blood Pressure 129/64 04/24/18 13:38 O2 Sat by Pulse Oximetry (%) 100 04/24/18 08:25 Intake & Output 04/21/18 04/22/18 04/23/18 04/24/18 23:59 23:59 23:59 23:59 Intake Total 2982.6 1220 456.5 145 Output Total 60 150 160 150 Balance 2922.6 1070 296.5 -5 Weight 64.41 kg 65 kg 63.2 kg 64.8 kg Intubated on the Vent ET tube in place RRR Course BS soft NT/ND Stephens in place no Le edema, clubbing or cyanosis extremities are warm CBC, BMP 04/24/18 05:30 04/24/18 05:30 Current Medications Acetaminophen (Ofirmev Injection -) 1,000 mg IVPB Q6H PRN PRN Reason: FEVER Last Admin: 04/22/18 02:13 Dose: 1,000 mg Artificial Tears (Artificial Tears) 1 drop OU BID [facility] Last Admin: 04/24/18 10:51 Dose: 1 drop Atovaquone (Mepron -) 1,500 mg PO DAILY@0800 [facility] Last Admin: 04/24/18 09:47 Dose: 1,500 mg Chlorhexidine Gluconate (Hibiclens For Decolonization -) 1 applic TP HS [facility] Last Admin: 04/23/18 22:31 Dose: 1 applic Docusate Sodium (Colace Liquid -) 100 mg PO TID [facility] Last Admin: 04/24/18 14:45 Dose: 100 mg Hydrocortisone Sodium Succinate (Solu-Cortef -) 50 mg IVPB Q8H-IV [facility] Last Admin: 04/24/18 09:54 Dose: Not Given Propofol (Diprivan -) 1,000,000 mcg in 100 mls @ 1.769 mls/hr IV TITR [facility]; Protocol Last Admin: 04/24/18 09:36 Dose: Not Given Ceftriaxone Sodium 2 gm/ (Dextrose) 100 mls @ 200 mls/hr IVPB Q12H [facility]; Protocol Last Admin: 04/24/18 11:39 Dose: 200 mls/hr Pantoprazole Sodium (Protonix Iv) 40 mg IVPUSH DAILY [facility] Last Admin: 04/24/18 09:53 Dose: 40 mg Senna (Senna -) 1 tab PO HS [facility] Last Admin: 04/23/18 22:33 Dose: Not Given Sevelamer Carbonate (Renvela Powder Packet -) 2.4 gm PO TIDCM [facility] Last Admin: 04/24/18 14:45 Dose: 2.4 gm 53 year old AA woman with hx of HIV (non-compliance with meds per ER records), HTN, HLD, Asthma who presented from home with fever and AMS and found to have B/ L lung infiltrates, Sepsis syndrome and SANA with severe metabolic acidosis. #Acute Renal Failure in setting of Sepsis syndrome requiring emergent dialysis for persistent acidosis #Anion gap metabolic acidosis (lactic acidosis with concurrent respiratory acidosis) #Sepsis Syndrome with with Strep PNA #HIV non-compliant with medications #Pseudohypocalcemia/Hyperphosphatemia #Acute Anemia with + stool occult blood Renal function w/o signs of recovery, remains oliguric continue supportive care, maintain MAP > 65, CVP 10-12 IVF as needed Will plan for [employer] tomorrow if renal function or urine output w/o noticeable improvement by tomorrow morning Case discussed with ICU attending Khadar Ibarra DO
--- NOTE | 2018-04-24 17:19 | PN ---
Physical Exam: SUBJECTIVE: Patient seen and examined at bedside this morning. No acute events overnight. Patient was noted to be biting the tube last night while off propofol. Propofol 20 resumed. Off pressors. Patient intubated and sedated. UO 150ml. OBJECTIVE: Vital Signs Period Temp Pulse Resp BP Sys/Cai Pulse Ox Last 24 Hr 97.8 F-98.5 F 52-68 15-29 109-147/53-67 100-100 GENERAL: The patient is intubated and sedated. HEAD: Normal with no signs of trauma. EYES: Pupils sluggishly reactive to light, anicteric sclerae LUNGS: clear breath sounds anteriorly HEART: Regular rate and rhythm, without murmur, rub or gallop. ABDOMEN: Soft, nontender, nondistended, normoactive bowel sounds. EXTREMITIES: 2+ pulses, warm, well-perfused, no edema. SKIN: Warm, dry, normal turgor. Laboratory Results - last 24 hr 04/19/18 04/21/18 04/23/18 04:45 06:45 12:20 WBC RBC Hgb Hct MCV MCH MCHC RDW Plt Count MPV Absolute Neuts (auto) Neutrophils % Neutrophils % (Manual) Band Neutrophils % Lymphocytes % Lymphocytes % (Manual) Monocytes % Monocytes % (Manual) Eosinophils % Eosinophils % (Manual) Basophils % Basophils % (Manual) Myelocytes % (Man) Promyelocytes % (Man) Blast Cells % (Manual) Nucleated RBC % Metamyelocytes Hypochromia Platelet Estimate Platelet Comment Polychromasia Poikilocytosis Anisocytosis Microcytosis Macrocytosis Target Cells Tear Drop Cells Ovalocytes Sodium Potassium Chloride Carbon Dioxide Anion Gap BUN Creatinine Creat Clearance w eGFR Random Glucose Calcium Phosphorus Magnesium Total Bilirubin AST ALT Alkaline Phosphatase Total Protein Albumin Hep A IgM Ab Confirm Negative Hepatitis A Ab Total Positive H Hep Bs Antigen Negative Hep Bs Antibody Non reactive Hep B Core Total Ab Positive H Blood Type B POSITIVE B POSITIVE Antibody Screen Negative Negative Crossmatch See Detail See Detail 04/24/18 04/24/18 05:30 05:30 WBC 10.7 H RBC 3.63 Hgb 10.0 L Hct 28.0 L MCV 77.2 L MCH 27.4 MCHC 35.6 RDW 22.8 H Plt Count 65 L D MPV 11.9 H D Absolute Neuts (auto) 10.3 H Neutrophils % 96.0 H D Neutrophils % (Manual) 97.0 H Band Neutrophils % 1.0 Lymphocytes % 1.3 L D Lymphocytes % (Manual) 2.0 L D Monocytes % 2.2 L Monocytes % (Manual) 0 L Eosinophils % 0.1 D Eosinophils % (Manual) 0.0 Basophils % 0.4 D Basophils % (Manual) 0.0 Myelocytes % (Man) 0 Promyelocytes % (Man) 0 Blast Cells % (Manual) 0 Nucleated RBC % 1 H Metamyelocytes 0 Hypochromia 0 Platelet Estimate Decreased Platelet Comment No clumping noted Polychromasia 1+ Poikilocytosis 3+ Anisocytosis 1+ Microcytosis 1+ Macrocytosis 0 Target Cells 2+ Tear Drop Cells 2+ Ovalocytes 1+ Sodium 138 Potassium 3.1 L Chloride 99 Carbon Dioxide 25 Anion Gap 14 BUN 74 H Creatinine 4.1 H Creat Clearance w eGFR 11.30 Random Glucose 124 H Calcium 6.1 L* Phosphorus 6.3 H Magnesium 2.0 Total Bilirubin 0.3 AST 47 H ALT 12 L Alkaline Phosphatase 139 H Total Protein 5.4 L Albumin 1.0 L Hep A IgM Ab Confirm Hepatitis A Ab Total Hep Bs Antigen Hep Bs Antibody Hep B Core Total Ab Blood Type Antibody Screen Crossmatch Active Medications Generic Name Dose Route Start Last Admin Trade Name Freq PRN Reason Stop Dose Admin Acetaminophen 1,000 mg 04/20/18 21:13 04/22/18 02:13 Ofirmev Injection - IVPB 1,000 mg Q6H PRN Administration FEVER Artificial Tears 1 drop 04/19/18 22:00 04/24/18 10:51 Artificial Tears OU 1 drop BID ZHANG Administration Atovaquone 1,500 mg 04/23/18 12:15 04/24/18 09:47 Mepron - PO 1,500 mg DAILY@0800 ZHANG Administration Chlorhexidine Gluconate 1 applic 04/19/18 22:00 04/23/18 22:31 Hibiclens For Decolonization - TP 1 applic HS ZHANG Administration Docusate Sodium 100 mg 04/19/18 14:00 04/24/18 14:45 Colace Liquid - PO 100 mg TID ZHANG Administration Hydrocortisone Sodium Succinate 50 mg 04/23/18 12:15 04/24/18 09:54 Solu-Cortef - IVPB Not Given Q8H-IV ZHANG Propofol 1,000,000 mcg in 100 mls @ 1.769 mls/hr 04/19/18 09:15 04/24/18 16: 17 Diprivan - IV 40 mcg/kg/min TITR ZHANG 14.152 mls/hr Administration Protocol 5 MCG/KG/MIN Ceftriaxone Sodium 2 gm/ 100 mls @ 200 mls/hr 04/20/18 10:00 04/24/18 11:39 Dextrose IVPB 200 mls/hr Q12H ZHANG Administration Protocol Pantoprazole Sodium 40 mg 04/21/18 10:00 04/24/18 09:53 Protonix Iv IVPUSH 40 mg DAILY ZHANG Administration Senna 1 tab 04/19/18 22:00 04/23/18 22:33 Senna - PO Not Given HS ZHANG Sevelamer Carbonate 2.4 gm 04/23/18 12:15 04/24/18 14:45 Renvela Powder Packet - PO 2.4 gm TIDCM ZHANG Administration -Echo - LV normal in size, LV systolic function is low normal. EF 50-55%. Diastolic dysfunction grade II (pseudonormalization pattern). Ratio E/E'=18. RV systolic function is normal. LA size normal. RAsize normal. Moderate to severe MR. The mitral regurgitant jet is eccentrically directed. Moderate AR. No pericardial effusion. -Chest CT - multifocal bilateral infiltrates. Mild nonspecific mediastinal lymphadenopathy which may be reactive. Mild nonspecific bilateral adrenal gland thickening -?chronic in nature representing hyperplasia, or subcentimeter adenomas vs being acute in nature. Main pulmonary artery appears mildly dilated 3.2 cm. -Renal US - No hydronephrosis. Interval development of bilateral increased cortical echogenicity. Gallbladder mild to moderate overdistention and mild diffuse nonspecific gallbladder wall thickening as well as pericholecystic fluid accumulation which may be acute cholecystitis. a trace amount of free fluid is seen within the hepatorenal fossa. ASSESSMENT/PLAN: The patient is a 53 year old female with a history of HIV, HTN, HLD, Asthma, Anemia who presents for evaluation of difficulty breathing and altered mental status. #Acute hypoxic respiratory failure likely 2/2 multilobular strep pneumonia -Intubated and sedated -Vent settings: 22/400/40/5 -Attempt to wean off vent once mental status improves. -Patient off propofol, but still not waking up. -Head CT - No acute intracranial pathology. Interval bilateral mastoid effusion. -CXR (04/24/18) - Imaging again reveals bilateral infiltrates, diffuse on the left and involve the right upper lobe. No significant change from yesterday. -Ceftriaxone Day 5 -ID consulted. Recommendations appreciated. #Septic shock likely 2/2 pneumonia -Propofol 20mcg/kg/min -Ceftriaxone 2gm q12 day 5 -Hydrocortisone 50mg q6h -Start Atovaquone (Mepron) 1500mg daily for PCP prophylaxis #Acute metabolic acidosis with high anion gap: resolved -Nephrology consulted. Recommendations appreciated. #Acute kidney injury: -BUN/Cr today 98/5.7 --> 74/4.1 -s/p HD yesterday -Nephrology (Dr. Ibarra) consulted. Recommendations appreciated. -Renal function without signs of recovery -Plan for dialysis tomorrow if renal function or UO w/o improvement -STEVE and ANCA negative -Continue supportive care with MAP >65 and CVP 10-12 -Start Renvela 2.4 gm q8h via NGT for hyperphosphatemia (11.2 today) #Microcytic hypochromic anemia: acute on chronic -H/H [id number] -likely 2/2 iron deficiency anemia; GI bleed, resolved -Peripheral blood smear showed different RBC morphologies including but not limited to microcytic with central pallor, spherocytes, target cells, burst cells, teardrop cells; but no schistocytes, unlikely hemolytic -Iron studies done -Haptoglobin 383 -Ferritin 811 -Retic count 0.34 -LDH 460 #Thrombocytopenia -likely 2/2 sepsis -Fibrinogen >500, unlikely DIC -Hematology (Dr. Vidal) consulted. #GI bleed -GI (Dr. Green) consulted recommendations appreciated. -episodes of coffee ground emesis and melena, resolved -no active signs of bleeding -may resume Protonix 40mg daily #Troponinemia: resolved -likely 2/2 demand ischemia -0.11 > 0.16 > 0.04 #HIV -ID (Dr. Mccloud) consulted. -noncompliant with medications -CD4 - 6 -CD3 - 450 -As per PCP (CD4 count 50, viral load 121k on 03/31/18). -Pneumocystis carinii smear pending -Hbe ab positive,Hbe ag negative -Hepatitis panel: Hep A ab and HBcore ab positive #Hypertension -Hold home anti hypertensives -patient off levophed -will continue to monitor #Hyperlipidemia: chronic #Asthma -Intubated and sedated #FEN -Not on any standing fluids -HypoK: will replete PRN -routine bmp monitoring -Tube feed nepro #Prophylaxis -DVT: SCDs -GI: IV Protonix 40mg daily #Disposition -full code -ICU for closer monitoring Visit type - Emergency Visit Emergency Visit: Yes ED Registration Date: 04/19/18 Care time: The patient presented to the Emergency Department on the above date and was hospitalized for further evaluation of their emergent condition. - New Patient This patient is new to me today: No - Critical Care Critical Care patient: Yes Total Critical Care Time (in minutes): 40 Critical Care Statement: The care of this patient involved high complexity decision making to prevent further life threatening deterioration of the patient 's condition and/or to evaluate & treat vital organ system(s) failure or risk of failure.
[2018-04-24] MEDS ORDERED: PT OWN MED DRAWER 7, Y5N ONE (17:34)
--- NOTE | 2018-04-24 18:58 | PN ---
Teaching Attending Note Name of Resident: Crystal Nino ATTENDING PHYSICIAN STATEMENT I saw and evaluated the patient. I reviewed the resident's note and discussed the case with the resident. I agree with the resident's findings and plan as documented. SUBJECTIVE: Patient is intubated, continues to be on the vent. Unable to wean her off the vent. OBJECTIVE: Vital Signs Temperature 97.8 F 04/24/18 13:38 Pulse Rate 80 04/24/18 18:00 Respiratory Rate 29 H 04/24/18 18:07 Blood Pressure 124/61 04/24/18 18:00 O2 Sat by Pulse Oximetry (%) 100 04/24/18 08:25 GENERAL: The patient is intubated and sedated. HEAD: Normal with no signs of trauma. EYES: anicteric sclerae LUNGS: on the vent. intubated. HEART: Regular rate and rhythm, without murmur, rub or gallop. ABDOMEN: Soft, nontender, nondistended, normoactive bowel sounds. EXTREMITIES: 2+ pulses, warm, well-perfused, no edema. SKIN: Warm, dry, normal turgor. CBCD WBC 10.7 K/mm3 (4.0-10.0) H 04/24/18 05:30 RBC 3.63 M/mm3 (3.60-5.2) 04/24/18 05:30 Hgb 10.0 GM/dL (10.7-15.3) L 04/24/18 05:30 Hct 28.0 % (32.4-45.2) L 04/24/18 05:30 MCV 77.2 fl (80-96) L 04/24/18 05:30 MCHC 35.6 g/dl (32.0-36.0) 04/24/18 05:30 RDW 22.8 % (11.6-15.6) H 04/24/18 05:30 Plt Count 65 K/MM3 (134-434) L D 04/24/18 05:30 MPV 11.9 fl (7.5-11.1) H D 04/24/18 05:30 CMP Sodium 138 mmol/L (136-145) 04/24/18 05:30 Potassium 3.1 mmol/L (3.5-5.1) L 04/24/18 05:30 Chloride 99 mmol/L (98-107) 04/24/18 05:30 Carbon Dioxide 25 mmol/L (21-32) 04/24/18 05:30 Anion Gap 14 MMOL/L (8-16) 04/24/18 05:30 BUN 74 mg/dL (7-18) H 04/24/18 05:30 Creatinine 4.1 mg/dL (0.55-1.3) H 04/24/18 05:30 Creat Clearance w eGFR 11.30 (>60) 04/24/18 05:30 Random Glucose 124 mg/dL (74-106) H 04/24/18 05:30 Calcium 6.1 mg/dL (8.5-10.1) L* 04/24/18 05:30 Total Bilirubin 0.3 mg/dL (0.2-1) 04/24/18 05:30 AST 47 U/L (15-37) H 04/24/18 05:30 ALT 12 U/L (13-61) L 04/24/18 05:30 Alkaline Phosphatase 139 U/L (45-117) H 04/24/18 05:30 Total Protein 5.4 g/dl (6.4-8.2) L 04/24/18 05:30 Albumin 1.0 g/dl (3.4-5.0) L 04/24/18 05:30 CARDIAC ENZYMES Creatine Kinase 233 IU/L (26-192) H 04/20/18 12:30 Troponin I 0.04 ng/ml (0.00-0.05) 04/20/18 12:30 Current Medications Generic Name Dose Route Start Last Admin Trade Name Kadeem PRN Reason Stop Dose Admin Acetaminophen 1,000 mg 04/20/18 21:13 04/22/18 02:13 Ofirmev Injection - IVPB 1,000 mg Q6H PRN Administration FEVER Artificial Tears 1 drop 04/19/18 22:00 04/24/18 10:51 Artificial Tears OU 1 drop BID ZHANG Administration Atovaquone 1,500 mg 04/23/18 12:15 04/24/18 09:47 Mepron - PO 1,500 mg DAILY@0800 ZHANG Administration Chlorhexidine Gluconate 1 applic 04/19/18 22:00 04/23/18 22:31 Hibiclens For Decolonization - TP 1 applic HS ZHANG Administration Docusate Sodium 100 mg 04/19/18 14:00 04/24/18 14:45 Colace Liquid - PO 100 mg TID ZHANG Administration Hydrocortisone Sodium Succinate 50 mg 04/23/18 12:15 04/24/18 17:41 Solu-Cortef - IVPB 50 mg Q8H-IV ZHANG Administration Propofol 1,000,000 mcg in 100 mls @ 1.769 mls/hr 04/19/18 09:15 04/24/18 16: 17 Diprivan - IV 40 mcg/kg/min TITR ZHANG 14.152 mls/hr Administration Protocol 5 MCG/KG/MIN Ceftriaxone Sodium 2 gm/ 100 mls @ 200 mls/hr 04/20/18 10:00 04/24/18 11:39 Dextrose IVPB 200 mls/hr Q12H ZHANG Administration Protocol Pantoprazole Sodium 40 mg 04/21/18 10:00 04/24/18 09:53 Protonix Iv IVPUSH 40 mg DAILY ZHANG Administration Senna 1 tab 04/19/18 22:00 04/23/18 22:33 Senna - PO Not Given HS ZHANG Sevelamer Carbonate 2.4 gm 04/23/18 12:15 04/24/18 17:42 Renvela Powder Packet - PO 2.4 gm TIDCM ZHANG Administration Home Medications Medication Instructions Recorded Mag Hydrox/Al Hydrox/Simeth 30 ml PO Q6H #12 cup 03/09/18 [Mylanta *Suspension*] Ondansetron [Zofran Odt -] 4 mg SL TID #21 od.tablet 03/09/18 Ranitidine [Zantac -] 150 mg PO DAILY #14 tablet 03/09/18 Azithromycin [Zithromax -] 250 mg PO UTDICT #6 tab 04/12/18 CXR: reviewed ASSESSMENT AND PLAN: Patient is a 53yo female with PMHx of HIV, Asthma, HTN, HLP, HTN, who presented with fever and AMS accompanied by family. She was admitted for sepsis with multi -organ system failure. # Acute hypoxic respiratory failure s/p intubation continues to be on the vent. due to having bilateral strep PNA, vent management as per ICU team, on IV abx ceftriaxone , continue icu team management. # Septic shock due to having bl PNA, with strep bacteremia , off pressors now, s/p levophed ,vaso, cont steroids , cont Abx. # Acute metabolic acidosis with high AG. resolved ,bicarb improved. HD per renal if needed # Elevated trop: likely due to demand ischemia # Acute on chronic anemia, due to BM suppression from HIV / severe sepsis. peripheral smear no schistocytes . no hemolysis # SANA: HD per renal # HIV/Aids : CD4 count is 6, PCP, MAC, toxo prophylaxis on Mepron # Abnormal TFTs: likely sick euthyroid syndrome in the setting of acute severe illness. repeat w/u as an outpatient once stable. DVT PX" SCDs GI Px: PPI
[2018-04-24] MEDS: CHLORHEXIDINE GLUCONATE 4% CLEANSER FOR DECOLONIZATION TP SCH (21:48)
[2018-04-24] MEDS: SENNOSIDES 8.6MG TABLET (FP) PO SCH (21:48)
[2018-04-25] MEDS: HYDROCORTISONE SOD SUCCINATE 100 MG/2 ML VIAL IVPB SCH ×2 (02:07→09:03)
[2018-04-25 06:05] LABS: BASO % 0.4 % (0-2.0); EOS % 0.2 % (0-4.5); HEMATOCRIT 24.9 % (32.4-45.2); HEMOGLOBIN 8.6 GM/dL (10.7-15.3); LYMPH % 23.3 % (8-40); MCHC 34.7 g/dl (32.0-36.0); MEAN CELL VOLUME 77.9 fl (80-96); MEAN PLT VOLUME 9.7 fl (7.5-11.1); MONO % 1.4 % (3.8-10.2); NEUT % 74.7 % (42.8-82.8); PLATELET COUNT 55 K/MM3 (134-434); RBC 3.19 M/mm3 (3.60-5.2); RDW 23.1 % (11.6-15.6); WHITE BLOOD COUNT 7.7 K/mm3 (4.0-10.0)
[2018-04-25 06:26] LABS: ALK PHOS 144 U/L (45-117); ANION GAP 10 MMOL/L (8-16); BILIRUBIN,TOTAL 0.3 mg/dL (0.2-1); BLOOD UREA NITROGEN 91 mg/dL (7-18); CHLORIDE 101 mmol/L (98-107); CO2 27 mmol/L (21-32); CREATININE 4.7 mg/dL (0.55-1.3); GLUCOSE,RANDOM 119 mg/dL (74-106); MAGNESIUM 2.4 mg/dL (1.8-2.4); PHOSPHOROUS 5.2 mg/dL (2.5-4.9); POTASSIUM 3.1 mmol/L (3.5-5.1); SGOT/AST 33 U/L (15-37); SGPT/ALT 10 U/L (13-61); SODIUM 138 mmol/L (136-145); TOT PROT 5.1 g/dl (6.4-8.2)
[2018-04-25] MEDS: DOCUSATE NA 100 MG/10 ML UNIT-DOSE CUPS PO SCH ×2 (06:28→13:41)
[2018-04-25 06:42] LABS: CALCIUM 6.4 mg/dL (8.5-10.1)
[2018-04-25] MEDS: PROPOFOL 1,000,000 MCG/100 ML VIAL IV SCH (07:20)
--- NOTE | 2018-04-25 08:39 | PN ---
Teaching Attending Note Name of Resident: Crystal Nino ATTENDING PHYSICIAN STATEMENT I saw and evaluated the patient. I reviewed the resident's note and discussed the case with the resident. I agree with the resident's findings and plan as documented. SUBJECTIVE: patient continues to be on the vent. on Fi02 40% OBJECTIVE: Vital Signs Temperature 98 F 04/25/18 06:00 Pulse Rate 65 04/25/18 06:00 Respiratory Rate 22 H 04/25/18 06:53 Blood Pressure 114/58 L 04/25/18 06:00 O2 Sat by Pulse Oximetry (%) 100 04/24/18 20:26 GENERAL: The patient is intubated and sedated. HEAD: Normal with no signs of trauma. EYES: anicteric sclerae LUNGS: on the vent. intubated. HEART: Regular rate and rhythm, without murmur, rub or gallop. ABDOMEN: Soft, nontender, nondistended, normoactive bowel sounds. EXTREMITIES: 2+ pulses, warm, well-perfused, no edema. SKIN: Warm, dry, normal turgor. CBCD WBC 7.7 K/mm3 (4.0-10.0) 04/25/18 05:30 RBC 3.19 M/mm3 (3.60-5.2) L 04/25/18 05:30 Hgb 8.6 GM/dL (10.7-15.3) L 04/25/18 05:30 Hct 24.9 % (32.4-45.2) L 04/25/18 05:30 MCV 77.9 fl (80-96) L 04/25/18 05:30 MCHC 34.7 g/dl (32.0-36.0) 04/25/18 05:30 RDW 23.1 % (11.6-15.6) H 04/25/18 05:30 Plt Count 55 K/MM3 (134-434) L 04/25/18 05:30 MPV 9.7 fl (7.5-11.1) D 04/25/18 05:30 CMP Sodium 138 mmol/L (136-145) 04/25/18 05:30 Potassium 3.1 mmol/L (3.5-5.1) L 04/25/18 05:30 Chloride 101 mmol/L (98-107) 04/25/18 05:30 Carbon Dioxide 27 mmol/L (21-32) 04/25/18 05:30 Anion Gap 10 MMOL/L (8-16) 04/25/18 05:30 BUN 91 mg/dL (7-18) H 04/25/18 05:30 Creatinine 4.7 mg/dL (0.55-1.3) H 04/25/18 05:30 Creat Clearance w eGFR 9.65 (>60) 04/25/18 05:30 Random Glucose 119 mg/dL (74-106) H 04/25/18 05:30 Calcium 6.4 mg/dL (8.5-10.1) L* 04/25/18 05:30 Total Bilirubin 0.3 mg/dL (0.2-1) 04/25/18 05:30 AST 33 U/L (15-37) 04/25/18 05:30 ALT 10 U/L (13-61) L 04/25/18 05:30 Alkaline Phosphatase 144 U/L (45-117) H 04/25/18 05:30 Total Protein 5.1 g/dl (6.4-8.2) L 04/25/18 05:30 Albumin 1.0 g/dl (3.4-5.0) L 04/25/18 05:30 CARDIAC ENZYMES Creatine Kinase 233 IU/L (26-192) H 04/20/18 12:30 Troponin I 0.04 ng/ml (0.00-0.05) 04/20/18 12:30 Current Medications Generic Name Dose Route Start Last Admin Trade Name Beq PRN Reason Stop Dose Admin Acetaminophen 1,000 mg 04/20/18 21:13 04/22/18 02:13 Ofirmev Injection - IVPB 1,000 mg Q6H PRN Administration FEVER Artificial Tears 1 drop 04/19/18 22:00 04/24/18 21:50 Artificial Tears OU 1 drop BID ZHANG Administration Atovaquone 1,500 mg 04/23/18 12:15 04/24/18 09:47 Mepron - PO 1,500 mg DAILY@0800 ZHANG Administration Chlorhexidine Gluconate 1 applic 04/19/18 22:00 04/24/18 21:48 Hibiclens For Decolonization - TP 1 applic HS ZHANG Administration Docusate Sodium 100 mg 04/19/18 14:00 04/25/18 06:28 Colace Liquid - PO 100 mg TID ZHANG Administration Hydrocortisone Sodium Succinate 50 mg 04/23/18 12:15 04/25/18 02:07 Solu-Cortef - IVPB 50 mg Q8H-IV ZHANG Administration Propofol 1,000,000 mcg in 100 mls @ 1.769 mls/hr 04/19/18 09:15 04/24/18 16: 17 Diprivan - IV 40 mcg/kg/min TITR ZHANG 14.152 mls/hr Administration Protocol 5 MCG/KG/MIN Ceftriaxone Sodium 2 gm/ 100 mls @ 200 mls/hr 04/20/18 10:00 04/24/18 21:50 Dextrose IVPB 200 mls/hr Q12H ZHANG Administration Protocol Pantoprazole Sodium 40 mg 04/21/18 10:00 04/24/18 09:53 Protonix Iv IVPUSH 40 mg DAILY ZHANG Administration Senna 1 tab 04/19/18 22:00 04/24/18 21:48 Senna - PO 1 tab HS ZHANG Administration Sevelamer Carbonate 2.4 gm 04/23/18 12:15 04/24/18 17:42 Renvela Powder Packet - PO 2.4 gm TIDCM ZHANG Administration Home Medications Medication Instructions Recorded Mag Hydrox/Al Hydrox/Simeth 30 ml PO Q6H #12 cup 03/09/18 [Mylanta *Suspension*] Ondansetron [Zofran Odt -] 4 mg SL TID #21 od.tablet 03/09/18 Ranitidine [Zantac -] 150 mg PO DAILY #14 tablet 03/09/18 Azithromycin [Zithromax -] 250 mg PO UTDICT #6 tab 04/12/18 Microbiology 04/20/18 05:30 Blood - Central Line Blood Culture - Final NO GROWTH AFTER 5 DAYS INCUBATION 04/20/18 05:30 Blood - Central Line Blood Culture - Final NO GROWTH AFTER 5 DAYS INCUBATION 04/21/18 22:30 Blood - Peripheral Venous Blood Culture - Preliminary NO GROWTH OBTAINED AFTER 72 HOURS, INCUBATION TO CONTINUE FOR 2 DAYS. 04/21/18 21:50 Blood - Peripheral Venous Blood Culture - Preliminary NO GROWTH OBTAINED AFTER 72 HOURS, INCUBATION TO CONTINUE FOR 2 DAYS. 04/23/18 05:30 Blood - Peripheral Venous Mycobacterial Culture - Preliminary 04/23/18 05:30 Serum Cryptococcal Antigen - Preliminary 04/19/18 12:25 Sputum - Endotrachea Suction/Ventilator Gram Stain - Final 04/19/18 12:25 Sputum - Endotrachea Suction/Ventilator Sputum Culture - Final Staphylococcus Aureus Streptococcus Pneumoniae 04/21/18 06:30 Stool Clostridium difficile Antigen (KARO) - Final 04/21/18 06:30 Stool Clostridium difficile Toxin Assay - Final 04/19/18 00:57 Blood - Peripheral Venous Blood Culture - Final Streptococcus Pneumoniae 04/19/18 00:57 Blood - Peripheral Venous Blood Culture - Final Streptococcus Pneumoniae 04/19/18 04:45 Urine - Urine Clean Catch Urine Culture - Final 04/19/18 09:30 Urine - Urine - Catheterized Legionella Antigen - Final 04/19/18 09:30 Urine - Urine - Catheterized Streptococcus pneumoniae Antigen (M - Final ASSESSMENT AND PLAN: Patient is a 53yo female with PMHx of HIV, Asthma, HTN, HLP, HTN, who presented with fever and AMS accompanied by family. She was admitted for sepsis with multi -organ system failure. # Acute hypoxic respiratory failure s/p intubation continues to be on the vent. on fi02 40% due to having bilateral strep PNA, vent management per ICU team, on IV abx ceftriaxone , continue icu team management. # Septic shock due to having bl PNA, with strep bacteremia ,Off pressors now, cont steroids , cont Abx. # Acute metabolic acidosis with high AG. resolved ,bicarb improved. HD per renal if needed # Elevated trop: likely due to demand ischemia # Acute on chronic anemia, due to BM suppression from HIV / severe sepsis. peripheral smear no schistocytes. No hemolysis # SANA: HD per renal # HIV/Aids : CD4 count is 6, PCP, MAC, toxo prophylaxis on Mepron # Abnormal TFTs: likely sick euthyroid syndrome in the setting of acute severe illness. repeat w/u as an outpatient once stable. DVT PX" SCDs GI Px: PPI continue care in ICU
[2018-04-25 08:41] LABS: ANISOCYTOSIS 1+; MACROCYTOSIS 0; OVALOCYTE 0; PLATELET ESTIMATE DECREASED; TARGET CELLS 1+
[2018-04-25] MEDS ORDERED: PT OWN MED DRAWER 7, Y5N ONE ×2 (08:53→18:00)
[2018-04-25] MEDS ORDERED: DEXTROSE 5%-WATER 100 ML IVPB ONE ×2 (08:54→20:24)
[2018-04-25] MEDS: ATOVAQUONE 750 MG/5 ML (UNIT-DOSE PACKAGING) PO SCH (09:00)
[2018-04-25] MEDS: SEVELAMER CARBONATE 2.4 GM POWDER PACKET PO SCH ×3 (09:00→18:17)
[2018-04-25] MEDS: PANTOPRAZOLE SODIUM 40 MG VIAL IVPUSH SCH (09:02)
[2018-04-25] MEDS: CEFTRIAXONE 2 GM in DEXTROSE 5%-WATER 100 ML IVPB SCH ×2 (09:02→21:29)
[2018-04-25] MEDS: ARTIFICIAL TEARS (POLYVINYL ALCOHOL) OPTH DROPS OU SCH ×2 (09:10→21:26)
[2018-04-25] MEDS ORDERED: SODIUM CHLORIDE 250 ML IV PRN (10:41)
--- NOTE | 2018-04-25 12:45 | PROC ---
Central Line Insertion Indication: Other (dialysis) Consent on Chart: Yes Central Line: Dialysis Cath, Dual Lumen Sterile Technique: Yes Ultrasound Guided Assistance: No Position: Right Femoral Sterile Dressing Applied: Yes Remarks: no complications
--- NOTE | 2018-04-25 13:25 | PN ---
Teaching Attending Note Name of Resident: Rosanne Lawson ATTENDING PHYSICIAN STATEMENT I saw and evaluated the patient. I reviewed the resident's note and discussed the case with the resident. I agree with the resident's findings and plan as documented. SUBJECTIVE: Patient seen and examined in the ICU. Remains intubated and sedated, 40% FiO2. Off pressors for hemodynamic support. Anuric. Pplat: 25 CXR: ETT in position / improving dense bilateral infiltrates Intake & Output 04/21/18 04/22/18 04/23/18 04/24/18 23:59 23:59 23:59 23:59 Intake Total 2982.6 1220 456.5 145 Output Total 60 150 160 Balance 2922.6 1070 296.5 145 Weight 142 lb 143 lb 4.807 oz 139 lb 5.314 oz 142 lb 13.753 oz Last Vital Signs Temp Pulse Resp BP Pulse Ox 98.5 F 68 28 H 147/63 100 04/24/18 10:00 04/24/18 10:00 04/24/18 12:05 04/24/18 10:00 04/24/18 08:25 Active Medications Acetaminophen (Ofirmev Injection -) 1,000 mg IVPB Q6H PRN PRN Reason: FEVER Last Admin: 04/22/18 02:13 Dose: 1,000 mg Artificial Tears (Artificial Tears) 1 drop OU BID [facility] Last Admin: 04/24/18 10:51 Dose: 1 drop Atovaquone (Mepron -) 1,500 mg PO DAILY@0800 [facility] Last Admin: 04/24/18 09:47 Dose: 1,500 mg Chlorhexidine Gluconate (Hibiclens For Decolonization -) 1 applic TP HS [facility] Last Admin: 04/23/18 22:31 Dose: 1 applic Docusate Sodium (Colace Liquid -) 100 mg PO TID [facility] Last Admin: 04/24/18 06:04 Dose: Not Given Hydrocortisone Sodium Succinate (Solu-Cortef -) 50 mg IVPB Q8H-IV [facility] Last Admin: 04/24/18 09:54 Dose: Not Given Propofol (Diprivan -) 1,000,000 mcg in 100 mls @ 1.769 mls/hr IV TITR [facility]; Protocol Last Admin: 04/24/18 09:36 Dose: Not Given Ceftriaxone Sodium 2 gm/ (Dextrose) 100 mls @ 200 mls/hr IVPB Q12H [facility]; Protocol Last Admin: 04/24/18 11:39 Dose: 200 mls/hr Pantoprazole Sodium (Protonix Iv) 40 mg IVPUSH DAILY [facility] Last Admin: 04/24/18 09:53 Dose: 40 mg Senna (Senna -) 1 tab PO HS [facility] Last Admin: 04/23/18 22:33 Dose: Not Given Sevelamer Carbonate (Renvela Powder Packet -) 2.4 gm PO TIDCM [facility] Last Admin: 04/24/18 09:47 Dose: 2.4 gm Constitutional: Yes: Intubated and sedated Eyes: Yes: Conjunctiva Clear, PERRL HENT: Yes: Atraumatic Cardiovascular: Yes: Tachycardia, S1, S2 Respiratory: Yes: Mechanically Ventilated, bilateral coarse rhonchi Gastrointestinal: Yes: (+) Bowel Sounds, Soft Renal/: Yes: Stephens Present Extremities: Yes: WNL Edema: No Labs: Laboratory Results - last 24 hr 04/19/18 04/21/18 04/24/18 04:45 06:45 05:30 WBC 10.7 H RBC 3.63 Hgb 10.0 L Hct 28.0 L MCV 77.2 L MCH 27.4 MCHC 35.6 RDW 22.8 H Absolute Neuts (auto) 10.3 H Neutrophils % 96.0 H D Neutrophils % (Manual) 97.0 H Band Neutrophils % 1.0 Lymphocytes % 1.3 L D Lymphocytes % (Manual) 2.0 L D Monocytes % 2.2 L Monocytes % (Manual) 0 L Eosinophils % 0.1 D Eosinophils % (Manual) 0.0 Basophils % 0.4 D Basophils % (Manual) 0.0 Myelocytes % (Man) 0 Promyelocytes % (Man) 0 Blast Cells % (Manual) 0 Nucleated RBC % 1 H Metamyelocytes 0 Hypochromia 0 Platelet Estimate Decreased Polychromasia 1+ Poikilocytosis 3+ Anisocytosis 1+ Microcytosis 1+ Macrocytosis 0 Target Cells 2+ Tear Drop Cells 2+ Ovalocytes 1+ Sodium Potassium Chloride Carbon Dioxide Anion Gap BUN Creatinine Creat Clearance w eGFR Random Glucose Calcium Phosphorus Magnesium Total Bilirubin AST ALT Alkaline Phosphatase Total Protein Albumin Blood Type B POSITIVE B POSITIVE Antibody Screen Negative Negative Crossmatch See Detail See Detail 04/24/18 05:30 WBC RBC Hgb Hct MCV MCH MCHC RDW Absolute Neuts (auto) Neutrophils % Neutrophils % (Manual) Band Neutrophils % Lymphocytes % Lymphocytes % (Manual) Monocytes % Monocytes % (Manual) Eosinophils % Eosinophils % (Manual) Basophils % Basophils % (Manual) Myelocytes % (Man) Promyelocytes % (Man) Blast Cells % (Manual) Nucleated RBC % Metamyelocytes Hypochromia Platelet Estimate Polychromasia Poikilocytosis Anisocytosis Microcytosis Macrocytosis Target Cells Tear Drop Cells Ovalocytes Sodium 138 Potassium 3.1 L Chloride 99 Carbon Dioxide 25 Anion Gap 14 BUN 74 H Creatinine 4.1 H Creat Clearance w eGFR 11.30 Random Glucose 124 H Calcium 6.1 L* Phosphorus 6.3 H Magnesium 2.0 Total Bilirubin 0.3 AST 47 H ALT 12 L Alkaline Phosphatase 139 H Total Protein 5.4 L Albumin 1.0 L Blood Type Antibody Screen Crossmatch Problem List - Problems (1) Respiratory failure with hypoxia Code(s): J96.91 - RESPIRATORY FAILURE, UNSPECIFIED WITH HYPOXIA (2) Respiratory failure, acute Code(s): J96.00 - ACUTE RESPIRATORY FAILURE, UNSP W HYPOXIA OR HYPERCAPNIA (3) SANA (acute kidney injury) Code(s): N17.9 - ACUTE KIDNEY FAILURE, UNSPECIFIED (4) Anemia Code(s): D64.9 - ANEMIA, UNSPECIFIED Qualifiers: Anemia type: unspecified type Qualified Code(s): D64.9 - Anemia, unspecified (5) Sepsis Code(s): A41.9 - SEPSIS, UNSPECIFIED ORGANISM (6) Shock circulatory Code(s): R57.9 - SHOCK, UNSPECIFIED (7) Pneumonia Code(s): J18.9 - PNEUMONIA, UNSPECIFIED ORGANISM Assessment/Plan Pneumococcal PNA Pneumococcal bacteremia High clinical suspicion of Pneumococcal Meningitis Monitor off pressors IVF ABX per ID Follow daily CXR Normal transfusion thresholds Mechanical ventilation w/ lung protective strategy. Goal Pplt <30 BD TX PRN Wean trials as tolerated HD per Renal Glycemic control Hydrocortisone / Fludrocortisone VTE / GI prophylaxis Access for HD to be inserted and for HD today Start SBTs Dr Novak Critical care time spent in reviewing chart, evaluating patient and formulating plan - 36 minutes.
--- NOTE | 2018-04-25 13:35 | PN ---
Physical Exam: SUBJECTIVE: Patient seen and examined at bedside this morning. Patient off propofol this morning. Attempt to wean off patient today, but became tachycardic and hypertensive. Patient put back on sedation. Vent settings: 22/400/40/5 I/O: 818/200 OBJECTIVE: Vital Signs Temperature 97.4 F L 04/25/18 10:00 Pulse Rate 70 04/25/18 12:21 Respiratory Rate 32 H 04/25/18 13:01 Blood Pressure 141/68 04/25/18 12:21 O2 Sat by Pulse Oximetry (%) 100 04/25/18 09:00 GENERAL: The patient is intubated and sedated. HEAD: Normal with no signs of trauma. EYES: Pupils sluggishly reactive to light, anicteric sclerae LUNGS: clear breath sounds anteriorly HEART: Regular rate and rhythm, without murmur, rub or gallop. ABDOMEN: Soft, nontender, nondistended, normoactive bowel sounds. EXTREMITIES: 2+ pulses, warm, well-perfused, no edema. SKIN: Warm, dry, normal turgor. Laboratory Results - last 24 hr 04/25/18 04/25/18 05:30 05:30 WBC 7.7 RBC 3.19 L Hgb 8.6 L Hct 24.9 L MCV 77.9 L MCH 27.0 MCHC 34.7 RDW 23.1 H Plt Count 55 L MPV 9.7 D Absolute Neuts (auto) 5.8 Neutrophils % 74.7 D Neutrophils % (Manual) 93.8 H Band Neutrophils % 0.0 Lymphocytes % 23.3 D Lymphocytes % (Manual) 2.1 L Monocytes % 1.4 L Monocytes % (Manual) 4 D Eosinophils % 0.2 D Eosinophils % (Manual) 0.0 Basophils % 0.4 Basophils % (Manual) 0.0 Myelocytes % (Man) 0 Promyelocytes % (Man) 0 Blast Cells % (Manual) 0 Nucleated RBC % 0 Metamyelocytes 0 Hypochromia 1+ Platelet Estimate Decreased Polychromasia 1+ Poikilocytosis 0 Anisocytosis 1+ Microcytosis 0 Macrocytosis 0 Target Cells 1+ Ovalocytes 0 Fragmented RBCs 1+ Sodium 138 Potassium 3.1 L Chloride 101 Carbon Dioxide 27 Anion Gap 10 BUN 91 H Creatinine 4.7 H Creat Clearance w eGFR 9.65 Random Glucose 119 H Calcium 6.4 L* Phosphorus 5.2 H Magnesium 2.4 Total Bilirubin 0.3 AST 33 ALT 10 L Alkaline Phosphatase 144 H Total Protein 5.1 L Albumin 1.0 L Active Medications Generic Name Dose Route Start Last Admin Trade Name Beq PRN Reason Stop Dose Admin Acetaminophen 1,000 mg 04/20/18 21:13 04/22/18 02:13 Ofirmev Injection - IVPB 1,000 mg Q6H PRN Administration FEVER Artificial Tears 1 drop 04/19/18 22:00 04/25/18 09:10 Artificial Tears OU 1 drop BID [facility] Administration Atovaquone 1,500 mg 04/23/18 12:15 04/25/18 09:00 Mepron - PO 1,500 mg DAILY@0800 [facility] Administration Chlorhexidine Gluconate 1 applic 04/19/18 22:00 04/24/18 21:48 Hibiclens For Decolonization - TP 1 applic HS [facility] Administration Docusate Sodium 100 mg 04/19/18 14:00 04/25/18 06:28 Colace Liquid - PO 100 mg TID [facility] Administration Hydrocortisone Sodium Succinate 50 mg 04/23/18 12:15 04/25/18 09:03 Solu-Cortef - IVPB 50 mg Q8H-IV [facility] Administration Propofol 1,000,000 mcg in 100 mls @ 1.769 mls/hr 04/19/18 09:15 04/25/18 07: 20 Diprivan - IV 40 mcg/kg/min TITR [facility] 14.152 mls/hr Administration Protocol 5 MCG/KG/MIN Ceftriaxone Sodium 2 gm/ 100 mls @ 200 mls/hr 04/20/18 10:00 04/25/18 09:02 Dextrose IVPB 200 mls/hr Q12H [facility] Administration Protocol Sodium Chloride 250 mls @ 3,000 mls/hr 04/25/18 10:41 Normal Saline - IV 04/26/18 10:41 PRN PRN Hypotension during Dialysis Pantoprazole Sodium 40 mg 04/21/18 10:00 04/25/18 09:02 Protonix Iv IVPUSH 40 mg DAILY [facility] Administration Potassium Chloride 40 meq 04/25/18 13:00 Potassium Chloride Oral Liquid PO BID [facility] Senna 1 tab 04/19/18 22:00 04/24/18 21:48 Senna - PO 1 tab HS [facility] Administration Sevelamer Carbonate 2.4 gm 01/16/19 12:15 04/25/18 09:00 Renvela Powder Packet - PO 2.4 gm TIDCM [facility] Administration -Echo - LV normal in size, LV systolic function is low normal. EF 50-55%. Diastolic dysfunction grade II (pseudonormalization pattern). Ratio E/E'=18. RV systolic function is normal. LA size normal. RAsize normal. Moderate to severe MR. The mitral regurgitant jet is eccentrically directed. Moderate AR. No pericardial effusion. -Chest CT - multifocal bilateral infiltrates. Mild nonspecific mediastinal lymphadenopathy which may be reactive. Mild nonspecific bilateral adrenal gland thickening -?chronic in nature representing hyperplasia, or subcentimeter adenomas vs being acute in nature. Main pulmonary artery appears mildly dilated 3.2 cm. -Renal US - No hydronephrosis. Interval development of bilateral increased cortical echogenicity. Gallbladder mild to moderate overdistention and mild diffuse nonspecific gallbladder wall thickening as well as pericholecystic fluid accumulation which may be acute cholecystitis. a trace amount of free fluid is seen within the hepatorenal fossa. ASSESSMENT/PLAN: The patient is a 53 year old female with a history of HIV, HTN, HLD, Asthma, Anemia who presents for evaluation of difficulty breathing and altered mental status. #Acute hypoxic respiratory failure likely 2/2 multilobular strep pneumonia -Intubated and sedated -Vent settings: 22/400/40/5 -Attempt to wean off vent today, but became tachycardic and hypertensive. -sedation resumed. -Head CT - No acute intracranial pathology. Interval bilateral mastoid effusion. -CXR (04/25/18) - Imaging again reveals bilateral infiltrates, diffuse on the left and involve the right upper lobe. No significant change from yesterday. -Ceftriaxone Day 6 -ID consulted. Recommendations appreciated. #Septic shock likely 2/2 pneumonia -Propofol 40mcg/kg/min -Ceftriaxone 2gm q12 day 6 -Taper Hydrocortisone 50mg q6h --> q8h -Start Atovaquone (Mepron) 1500mg daily for PCP prophylaxis #Acute metabolic acidosis with high anion gap: resolved -Nephrology consulted. Recommendations appreciated. #Acute kidney injury: -BUN/Cr today 74/4.1 --> 91/4.7 -Nephrology (Dr. Ibarra) consulted. Recommendations appreciated. -Renal function without signs of recovery -Plan for dialysis today -STEVE and ANCA negative -Continue supportive care with MAP >65 and CVP 10-12 -Renvela 2.4 gm q8h via NGT for hyperphosphatemia (6.3 --> 5.2) #Microcytic hypochromic anemia: acute on chronic -H/H stable 8.6/24.9 -likely 2/2 iron deficiency anemia; GI bleed, resolved -Peripheral blood smear showed different RBC morphologies including but not limited to microcytic with central pallor, spherocytes, target cells, burst cells, teardrop cells; but no schistocytes, unlikely hemolytic -Iron studies done -Haptoglobin 383 -Ferritin 811 -Retic count 0.34 -LDH 460 #Thrombocytopenia -likely 2/2 sepsis -Fibrinogen >500, unlikely DIC -Hematology (Dr. Vidal) consulted. #GI bleed: resolved -GI (Dr. Green) consulted recommendations appreciated. -episodes of coffee ground emesis and melena, resolved -no active signs of bleeding -may resume Protonix 40mg daily #Troponinemia: resolved -likely 2/2 demand ischemia -0.11 > 0.16 > 0.04 #HIV -ID (Dr. Mccloud) consulted. -noncompliant with medications -CD4 - 6 -CD3 - 450 -As per PCP (CD4 count 50, viral load 121k on 03/31/18). -Pneumocystis carinii smear pending -Hbe ab positive,Hbe ag negative -Hepatitis panel: Hep A ab and HBcore ab positive #Hypertension -Hold home anti hypertensives -patient off levophed -will continue to monitor #Hyperlipidemia: chronic #Asthma -Intubated and sedated #FEN -Not on any standing fluids -HypoK: will replete PRN -routine bmp monitoring -Tube feed nepro #Prophylaxis -DVT: SCDs -GI: IV Protonix 40mg daily #Disposition -full code -ICU for closer monitoring Visit type - Emergency Visit Emergency Visit: Yes ED Registration Date: 04/19/18 Care time: The patient presented to the Emergency Department on the above date and was hospitalized for further evaluation of their emergent condition. - New Patient This patient is new to me today: No - Critical Care Critical Care patient: Yes Total Critical Care Time (in minutes): 40 Critical Care Statement: The care of this patient involved high complexity decision making to prevent further life threatening deterioration of the patient 's condition and/or to evaluate & treat vital organ system(s) failure or risk of failure.
[2018-04-25] MEDS: POTASSIUM CHLORIDE ORAL LIQUID 20 MEQ/15 ML PO SCH ×2 (13:39→21:27)
[2018-04-25] MEDS ORDERED: DOCUSATE NA 100 MG/10 ML UNIT-DOSE CUPS PO PRN (13:42)
--- NOTE | 2018-04-25 14:05 | PN ---
Progress Note (short form) - Note Progress Note: Renal follow up for SANA requiring emergent dialysis Pt seen and examined in the ICU on vent, sedated remains oliguric new dialysis catheter placed this morning by ICU team Vital Signs Temperature 97.8 F 04/25/18 13:38 Pulse Rate 70 04/25/18 13:38 Respiratory Rate 18 04/25/18 13:38 Blood Pressure 149/79 04/25/18 13:38 O2 Sat by Pulse Oximetry (%) 100 04/25/18 09:00 Intake & Output 04/22/18 04/23/18 04/24/18 04/25/18 23:59 23:59 23:59 23:59 Intake Total 1220 456.5 945 818 Output Total 150 160 350 200 Balance 1070 296.5 595 618 Weight 65 kg 63.2 kg 64.8 kg 67 kg Intubated on the Vent ET tube in place RRR Course BS soft NT/ND Stephens in place no Le edema, clubbing or cyanosis extremities are warm CBC, BMP 04/25/18 05:30 04/25/18 05:30 Current Medications Acetaminophen (Ofirmev Injection -) 1,000 mg IVPB Q6H PRN PRN Reason: FEVER Last Admin: 04/22/18 02:13 Dose: 1,000 mg Artificial Tears (Artificial Tears) 1 drop OU BID [facility] Last Admin: 04/25/18 09:10 Dose: 1 drop Atovaquone (Mepron -) 1,500 mg PO DAILY@0800 [facility] Last Admin: 04/25/18 09:00 Dose: 1,500 mg Chlorhexidine Gluconate (Hibiclens For Decolonization -) 1 applic TP HS [facility] Last Admin: 04/24/18 21:48 Dose: 1 applic Docusate Sodium (Colace Liquid -) 100 mg PO Q8H PRN PRN Reason: CONSTIPATION Hydrocortisone Sodium Succinate (Solu-Cortef -) 50 mg IVPB Q8H-IV [facility] Last Admin: 04/25/18 09:03 Dose: 50 mg Propofol (Diprivan -) 1,000,000 mcg in 100 mls @ 1.769 mls/hr IV TITR [facility]; Protocol Last Admin: 04/25/18 07:20 Dose: 40 mcg/kg/min, 14.152 mls/hr Ceftriaxone Sodium 2 gm/ (Dextrose) 100 mls @ 200 mls/hr IVPB Q12H [facility]; Protocol Last Admin: 04/25/18 09:02 Dose: 200 mls/hr Sodium Chloride (Normal Saline -) 250 mls @ 3,000 mls/hr IV PRN PRN PRN Reason: Hypotension during Dialysis Stop: 04/26/18 10:41 Pantoprazole Sodium (Protonix Iv) 40 mg IVPUSH DAILY [facility] Last Admin: 04/25/18 09:02 Dose: 40 mg Potassium Chloride (Potassium Chloride Oral Liquid) 40 meq PO BID [facility] Last Admin: 04/25/18 13:39 Dose: 40 meq Senna (Senna -) 1 tab PO HS [facility] Last Admin: 04/24/18 21:48 Dose: 1 tab Sevelamer Carbonate (Renvela Powder Packet -) 2.4 gm PO TIDCM [facility] Last Admin: 04/25/18 13:40 Dose: 2.4 gm 53 year old AA woman with hx of HIV (non-compliance with meds per ER records), HTN, HLD, Asthma who presented from home with fever and AMS and found to have B/ L lung infiltrates, Sepsis syndrome and SANA with severe metabolic acidosis. #Acute Renal Failure in setting of Sepsis syndrome requiring emergent dialysis for persistent acidosis #Anion gap metabolic acidosis (lactic acidosis with concurrent respiratory acidosis) #Sepsis Syndrome with with Strep PNA #HIV non-compliant with medications #Pseudohypocalcemia/Hyperphosphatemia #Acute Anemia with + stool occult blood for SEA CAPTAIN today via femoral catheter will use higher K bath as pt K is < 4 pt remains oliguric, status of intravascular volume unclear, will request CVP reading if CVP < 10, continue IVF bolous with goal CVP of 10-12 Continue Abx as per ID Repeat blood cultures from 04/20 negative thus far Dose all meds for intermittent HD (MWF) until renal function recovers ICU monitoring Khadar Ibarra DO
--- NOTE | 2018-04-25 16:04 | PN ---
Progress Note (short form) - Note Progress Note: SUBJECTIVE Patient seen and examined at the bedside. According to night team, patient was waking up, agitated, and biting on the ET tube. Sedation re-started. OBJECTIVE Vital Signs Temperature 97.8 F 04/25/18 14:00 Pulse Rate 65 04/25/18 15:50 Respiratory Rate 24 H 04/25/18 15:50 Blood Pressure 121/63 04/25/18 15:50 O2 Sat by Pulse Oximetry (%) 100 04/25/18 09:00 General: Sedated, intubated Head: No signs of trauma Eyes: EOMI, sclera anicteric ENT: Moist mucus membranes Neck: Normal ROM, supple Lungs: Diffuse rales bilaterally Cardio: Regular rhythm, S1 and S2 present Abdomen: Soft, nondistended Extremities: Distal pulses present SKIN: Warm, Dry, normal turgor Neurologic: Sedated ASSESSMENT 53yo F with PMH of HIV (CD4 count=6), HTN, HLD, Asthma presenting with severe sepsis, multiorgan failure, multilobar pneumonia, and anemia. Intubated for respiratory distress. Patient received hemodialysis (04/20/18) for severe acidosis. Transfused two units (04/21/18). Yesterday, sedation was held to assess patient's mental status. Patient did not awaken. Head CT was ordered and did not show acute pathology. According to night team, patient was waking up agitated, and biting on the ET tube. Sedation re-started. PLAN NEURO Sedation held periodically to assess patient's mental status Head CT negative for acute pathology HEME SCD's for DVT prophylaxis Acute on chronic anemia due to suspected GI bleed -Follow CBC, Hgb=8.6 today (down from 10.0) -Heme consulted PULM Multilobar pneumonia -Patient intubated -Vancomycin: no longer needed per ID -Rocephin started on 04/20, day 6 today -CXR improved today -Start spontaneous breathing trials -AC//400/ ID HIV+ Severe pneumococcal sepsis with multiorgan failure -Vancomycin: no longer needed per ID -Rocephin started on 04/20, day 6 today CD4 count=6 -ID following -Atovaquone for PCP prophylaxis started yesterday -Influenza A/B negative -Hep B serology positive for chronic HBV -Pneumocyst carinii smear pending -Cryptococcal Ag: pending -Mycobacterial culture: pending -Blood cultures: no growth for three days Cardiac Hypotensive due to sepsis, resolved -IVF challenge -Weaned from pressors -changed access position Elevated Tpn -likely due to stress ischemia from sepsis ECHO: EF is 50-55% with grade 2 diastolic dysfunction RENAL Hemodialysis 04/20/18, 04/23/18 Monitor fluid status and electrolytes R. Femoral line placed Plan to dialyze today Diminished renal function -Cr=4.7 today GI Suspected GI bleed -Coffee ground emesis through NGT, melena -two units PRBCs given for low hgb on 04/21/18 -Protonix 40mg IV FEN Monitor electrolytes -Replete as needed -K=3.1 today, 40meq KCl BID ordered -Calcium low at 6.4 but normal when corrected for low albumin (1.0)
[2018-04-25] MEDS: CHLORHEXIDINE GLUCONATE 4% CLEANSER FOR DECOLONIZATION TP SCH (21:26)
[2018-04-25] MEDS: SENNOSIDES 8.6MG TABLET (FP) PO SCH (21:29)
[2018-04-26] MEDS: HYDROCORTISONE SOD SUCCINATE 100 MG/2 ML VIAL IVPB SCH ×3 (02:29→10:22)
--- NOTE | 2018-04-26 03:06 | PN ---
Progress Note (short form) - Note Progress Note: Patient continues to be on the vent. unable to be weaned off yesterday. Vital Signs Temperature 98.2 F 04/26/18 02:00 Pulse Rate 81 04/26/18 02:00 Respiratory Rate 21 H 04/26/18 02:00 Blood Pressure 124/63 04/26/18 02:00 O2 Sat by Pulse Oximetry (%) 100 04/25/18 21:55 GENERAL: The patient is intubated and sedated. HEAD: Normal with no signs of trauma. EYES: anicteric sclerae LUNGS: on the vent. intubated. HEART: Regular rate and rhythm, without murmur, rub or gallop. ABDOMEN: Soft, nontender, nondistended, normoactive bowel sounds. EXTREMITIES: 2+ pulses, warm, well-perfused, no edema. SKIN: Warm, dry, normal turgor. CBCD WBC 7.7 K/mm3 (4.0-10.0) 04/25/18 05:30 RBC 3.19 M/mm3 (3.60-5.2) L 04/25/18 05:30 Hgb 8.6 GM/dL (10.7-15.3) L 04/25/18 05:30 Hct 24.9 % (32.4-45.2) L 04/25/18 05:30 MCV 77.9 fl (80-96) L 04/25/18 05:30 MCHC 34.7 g/dl (32.0-36.0) 04/25/18 05:30 RDW 23.1 % (11.6-15.6) H 04/25/18 05:30 Plt Count 55 K/MM3 (134-434) L 04/25/18 05:30 MPV 9.7 fl (7.5-11.1) D 04/25/18 05:30 CMP Sodium 138 mmol/L (136-145) 04/25/18 05:30 Potassium 3.1 mmol/L (3.5-5.1) L 04/25/18 05:30 Chloride 101 mmol/L (98-107) 04/25/18 05:30 Carbon Dioxide 27 mmol/L (21-32) 04/25/18 05:30 Anion Gap 10 MMOL/L (8-16) 04/25/18 05:30 BUN 91 mg/dL (7-18) H 04/25/18 05:30 Creatinine 4.7 mg/dL (0.55-1.3) H 04/25/18 05:30 Creat Clearance w eGFR 9.65 (>60) 04/25/18 05:30 Random Glucose 119 mg/dL (74-106) H 04/25/18 05:30 Calcium 6.4 mg/dL (8.5-10.1) L* 04/25/18 05:30 Total Bilirubin 0.3 mg/dL (0.2-1) 04/25/18 05:30 AST 33 U/L (15-37) 04/25/18 05:30 ALT 10 U/L (13-61) L 04/25/18 05:30 Alkaline Phosphatase 144 U/L (45-117) H 04/25/18 05:30 Total Protein 5.1 g/dl (6.4-8.2) L 04/25/18 05:30 Albumin 1.0 g/dl (3.4-5.0) L 04/25/18 05:30 CARDIAC ENZYMES Creatine Kinase 233 IU/L (26-192) H 04/20/18 12:30 Troponin I 0.04 ng/ml (0.00-0.05) 04/20/18 12:30 Current Medications Generic Name Dose Route Start Last Admin Trade Name Beq PRN Reason Stop Dose Admin Acetaminophen 1,000 mg 04/20/18 21:13 04/22/18 02:13 Ofirmev Injection - IVPB 1,000 mg Q6H PRN Administration FEVER Artificial Tears 1 drop 04/19/18 22:00 04/25/18 21:26 Artificial Tears OU 1 drop BID [facility]ANG Administration Atovaquone 1,500 mg 04/23/18 12:15 04/25/18 09:00 Mepron - PO 1,500 mg DAILY@0800 [facility] Administration Chlorhexidine Gluconate 1 applic 04/19/18 22:00 04/25/18 21:26 Hibiclens For Decolonization - TP 1 applic HS [facility]ANG Administration Docusate Sodium 100 mg 04/25/18 13:42 Colace Liquid - PO Q8H PRN CONSTIPATION Hydrocortisone Sodium Succinate 50 mg 04/23/18 12:15 04/26/18 02:29 Solu-Cortef - IVPB 50 mg Q8H-IV [facility]ANG Administration Propofol 1,000,000 mcg in 100 mls @ 1.769 mls/hr 04/19/18 09:15 04/25/18 21: 29 Diprivan - IV 40 mcg/kg/min TITR [facility]ANG 14.152 mls/hr Titration Protocol 5 MCG/KG/MIN Ceftriaxone Sodium 2 gm/ 100 mls @ 200 mls/hr 04/20/18 10:00 04/25/18 21:29 Dextrose IVPB 200 mls/hr Q12H [facility]ANG Administration Protocol Sodium Chloride 250 mls @ 3,000 mls/hr 04/25/18 10:41 Normal Saline - IV 04/26/18 10:41 PRN PRN Hypotension during Dialysis Pantoprazole Sodium 40 mg 04/21/18 10:00 04/25/18 09:02 Protonix Iv IVPUSH 40 mg DAILY [facility]ANG Administration Potassium Chloride 40 meq 04/25/18 13:00 04/25/18 21:27 Potassium Chloride Oral Liquid PO 40 meq BID [facility]ANG Administration Senna 1 tab 04/19/18 22:00 04/25/18 21:29 Senna - PO Not Given HS [facility]ANG Sevelamer Carbonate 2.4 gm 04/23/18 12:15 04/25/18 18:17 Renvela Powder Packet - PO 2.4 gm TIDCM [facility]ANG Administration Home Medications Medication Instructions Recorded Mag Hydrox/Al Hydrox/Simeth 30 ml PO Q6H #12 cup 03/09/18 [Mylanta *Suspension*] Ondansetron [Zofran Odt -] 4 mg SL TID #21 od.tablet 03/09/18 Ranitidine [Zantac -] 150 mg PO DAILY #14 tablet 03/09/18 Azithromycin [Zithromax -] 250 mg PO UTDICT #6 tab 04/12/18 Assessment/plan: Patient is a 53yo female with PMHx of HIV, Asthma, HTN, HLP, HTN, who presented with fever and AMS accompanied by family. She was admitted for sepsis with multi -organ system failure. # Acute hypoxic respiratory failure s/p intubation continues to be on the vent. on fi02 40% due to having bilateral strep PNA, vent management per ICU team, continue IV abx ceftriaxone , continue icu team management. trial of weaning off continues. # s/p septic shock due to having bl PNA, with strep bacteremia ,off pressors now , cont steroids , cont Abx. unable to wean her off vent. yesterday. patient became tachycardic , placed bck to vent. # Acute metabolic acidosis with high AG. resolved ,bicarb improved. HD per renal if needed # Elevated trop: likely due to demand ischemia # Acute on chronic anemia, due to BM suppression from HIV / severe sepsis. peripheral smear no schistocytes. No hemolysis # SANA: HD per renal # HIV/Aids : CD4 count is 6, PCP, MAC, toxo prophylaxis on Mepron # Abnormal TFTs: likely sick euthyroid syndrome in the setting of acute severe illness. repeat w/u as an outpatient once stable. DVT PX" SCDs GI Px: PPI continue care in ICU Visit type - Emergency Visit Emergency Visit: Yes ED Registration Date: 04/19/18 Care time: The patient presented to the Emergency Department on the above date and was hospitalized for further evaluation of their emergent condition. - New Patient This patient is new to me today: No - Critical Care Critical Care patient: Yes Total Critical Care Time (in minutes): 35 Critical Care Statement: The care of this patient involved high complexity decision making to prevent further life threatening deterioration of the patient 's condition and/or to evaluate & treat vital organ system(s) failure or risk of failure. - Discharge Referral Referred to [facility] Med P.C.: No
[2018-04-26 06:06] LABS: BASO % 0.2 % (0-2.0); EOS % 0.2 % (0-4.5); HEMATOCRIT 25.6 % (32.4-45.2); HEMOGLOBIN 8.8 GM/dL (10.7-15.3); LYMPH % 2.8 % (8-40); MCH 26.9 pg (25.7-33.7); MCHC 34.3 g/dl (32.0-36.0); MEAN CELL VOLUME 78.3 fl (80-96); MEAN PLT VOLUME 11.1 fl (7.5-11.1); MONO % 4.4 % (3.8-10.2); NEUT % 92.4 % (42.8-82.8); PLATELET COUNT 79 K/MM3 (134-434); RBC 3.27 M/mm3 (3.60-5.2); WHITE BLOOD COUNT 9.8 K/mm3 (4.0-10.0)
[2018-04-26 06:38] LABS: ALK PHOS 166 U/L (45-117); ANION GAP 8 MMOL/L (8-16); BILIRUBIN,TOTAL 0.5 mg/dL (0.2-1); BLOOD UREA NITROGEN 50 mg/dL (7-18); CHLORIDE 102 mmol/L (98-107); CO2 30 mmol/L (21-32); CREATININE 2.8 mg/dL (0.55-1.3); GLUCOSE,RANDOM 118 mg/dL (74-106); MAGNESIUM 1.8 mg/dL (1.8-2.4); PHOSPHOROUS 2.6 mg/dL (2.5-4.9); POTASSIUM 3.6 mmol/L (3.5-5.1); SGOT/AST 35 U/L (15-37); SGPT/ALT 10 U/L (13-61); SODIUM 141 mmol/L (136-145); TOT PROT 5.3 g/dl (6.4-8.2)
[2018-04-26 06:52] LABS: CALCIUM 6.8 mg/dL (8.5-10.1)
[2018-04-26] MEDS ORDERED: PT OWN MED DRAWER 7, Y5N ONE (08:17)
[2018-04-26] MEDS ORDERED: DEXTROSE 5%-WATER 100 ML IVPB ONE ×2 (08:18→21:05)
[2018-04-26] MEDS: SEVELAMER CARBONATE 2.4 GM POWDER PACKET PO SCH ×3 (08:41→17:58)
[2018-04-26] MEDS: ATOVAQUONE 750 MG/5 ML (UNIT-DOSE PACKAGING) PO SCH (08:42)
[2018-04-26] MEDS: ARTIFICIAL TEARS (POLYVINYL ALCOHOL) OPTH DROPS OU SCH ×2 (09:01→21:20)
[2018-04-26] MEDS: POTASSIUM CHLORIDE ORAL LIQUID 20 MEQ/15 ML PO SCH ×3 (09:01→21:27)
[2018-04-26] MEDS: PANTOPRAZOLE SODIUM 40 MG VIAL IVPUSH SCH (09:01)
[2018-04-26] MEDS: CEFTRIAXONE 2 GM in DEXTROSE 5%-WATER 100 ML IVPB SCH ×2 (09:02→21:20)
[2018-04-26] MEDS: PROPOFOL 1,000,000 MCG/100 ML VIAL IV SCH (10:00)
--- NOTE | 2018-04-26 11:15 | PN ---
Progress Note, Physician History of Present Illness: Extubated Lethargic Temps down Afebrile WBC improved - Current Medication List Current Medications: Active Medications Acetaminophen (Ofirmev Injection -) 1,000 mg IVPB Q6H PRN PRN Reason: FEVER Last Admin: 04/22/18 02:13 Dose: 1,000 mg Artificial Tears (Artificial Tears) 1 drop OU BID [facility] Last Admin: 04/26/18 09:01 Dose: 1 drop Atovaquone (Mepron -) 1,500 mg PO DAILY@0800 [facility] Last Admin: 04/26/18 08:42 Dose: 1,500 mg Chlorhexidine Gluconate (Hibiclens For Decolonization -) 1 applic TP HS [facility] Last Admin: 04/25/18 21:26 Dose: 1 applic Docusate Sodium (Colace Liquid -) 100 mg PO Q8H PRN PRN Reason: CONSTIPATION Hydrocortisone Sodium Succinate (Solu-Cortef -) 50 mg IVPB Q8H-IV [facility] Last Admin: 04/26/18 10:22 Dose: 50 mg Propofol (Diprivan -) 1,000,000 mcg in 100 mls @ 1.769 mls/hr IV TITR [facility]; Protocol Last Titration: 04/26/18 06:10 Dose: 45 mcg/kg/min, 15.921 mls/hr Ceftriaxone Sodium 2 gm/ (Dextrose) 100 mls @ 200 mls/hr IVPB Q12H [facility]; Protocol Last Admin: 04/26/18 09:02 Dose: 200 mls/hr Sodium Chloride (Normal Saline -) 250 mls @ 3,000 mls/hr IV PRN PRN PRN Reason: Hypotension during Dialysis Stop: 04/26/18 10:41 Pantoprazole Sodium (Protonix Iv) 40 mg IVPUSH DAILY [facility] Last Admin: 04/26/18 09:01 Dose: 40 mg Potassium Chloride (Potassium Chloride Oral Liquid) 40 meq PO BID [facility] Last Admin: 04/26/18 09:01 Dose: 40 meq Senna (Senna -) 1 tab PO HS [facility] Last Admin: 04/25/18 21:29 Dose: Not Given Sevelamer Carbonate (Renvela Powder Packet -) 2.4 gm PO TIDCM [facility] Last Admin: 04/26/18 08:41 Dose: 2.4 gm - Objective Vital Signs: Vital Signs Temperature 98.1 F 04/26/18 06:00 Pulse Rate 80 04/26/18 08:15 Respiratory Rate 25 H 04/26/18 08:15 Blood Pressure 121/64 04/26/18 08:00 O2 Sat by Pulse Oximetry (%) 100 04/26/18 08:15 Constitutional: Yes: No Distress Cardiovascular: Yes: Regular Rate and Rhythm, S1, S2 Respiratory: Yes: Diminished Gastrointestinal: Yes: Normal Bowel Sounds, Soft. No: Tenderness Edema: Yes Edema: LUE: 1+, RUE: 1+ Labs: CBC, BMP 04/26/18 05:30 04/26/18 05:30 INR, PTT INR 0.92 (0.83-1.09) 04/21/18 05:15 Fibrinogen > 500.0 mg/dL (238-498) H 04/19/18 19:30 Assessment/Plan Respiratory failure S/P extubation Multilobar pneumonia Azotemia improved Leukocytosis-resolved Thrombocytopenia AIDS Antibiotic allergies Continue ceftriaxone/ mepron
--- NOTE | 2018-04-26 11:54 | PN ---
Teaching Attending Note Name of Resident: Rosanne Lawson ATTENDING PHYSICIAN STATEMENT I saw and evaluated the patient. I reviewed the resident's note and discussed the case with the resident. I agree with the resident's findings and plan as documented. SUBJECTIVE: Pt seen and examined in the ICU. Remained intubated, awake off sedation following commands. Placed on CPAP/PS with good RSBI and subsequently extubated during rounds. OBJECTIVE: Vital Signs Period Temp Pulse Resp BP Sys/Cai Pulse Ox Last 24 Hr 97.6 F-98.7 F 61-84 17-32 106-149/50-79 100-100 Intake & Output 04/23/18 04/24/18 04/25/18 04/26/18 23:59 23:59 23:59 23:59 Intake Total 456.5 945 1061 881.2 Output Total 160 350 460 Balance 296.5 595 601 881.2 Weight 63.2 kg 64.8 kg 67 kg 67.585 kg Gen: extubated Heart: RRR Lung: scattered rhonchi Abd: soft, nontender Ext: no edema CBC, BMP 04/26/18 05:30 04/26/18 05:30 Active Medications Acetaminophen (Ofirmev Injection -) 1,000 mg IVPB Q6H PRN PRN Reason: FEVER Last Admin: 04/22/18 02:13 Dose: 1,000 mg Artificial Tears (Artificial Tears) 1 drop OU BID [facility] Last Admin: 04/26/18 09:01 Dose: 1 drop Atovaquone (Mepron -) 1,500 mg PO DAILY@0800 [facility] Last Admin: 04/26/18 08:42 Dose: 1,500 mg Chlorhexidine Gluconate (Hibiclens For Decolonization -) 1 applic TP HS [facility] Last Admin: 04/25/18 21:26 Dose: 1 applic Docusate Sodium (Colace Liquid -) 100 mg PO Q8H PRN PRN Reason: CONSTIPATION Hydrocortisone Sodium Succinate (Solu-Cortef -) 100 mg IVPB BID [facility] Stop: 04/28/18 22:01 Propofol (Diprivan -) 1,000,000 mcg in 100 mls @ 1.769 mls/hr IV TITR [facility]; Protocol Last Admin: 04/26/18 10:00 Dose: Not Given Ceftriaxone Sodium 2 gm/ (Dextrose) 100 mls @ 200 mls/hr IVPB Q12H [facility]; Protocol Last Admin: 04/26/18 09:02 Dose: 200 mls/hr Sodium Chloride (Normal Saline -) 250 mls @ 3,000 mls/hr IV PRN PRN PRN Reason: Hypotension during Dialysis Stop: 04/26/18 10:41 Pantoprazole Sodium (Protonix Iv) 40 mg IVPUSH DAILY [facility] Last Admin: 04/26/18 09:01 Dose: 40 mg Potassium Chloride (Potassium Chloride Oral Liquid) 40 meq PO BID [facility] Last Admin: 04/26/18 09:01 Dose: 40 meq Senna (Senna -) 1 tab PO HS [facility] Last Admin: 04/25/18 21:29 Dose: Not Given Sevelamer Carbonate (Renvela Powder Packet -) 2.4 gm PO TIDCM [facility] Last Admin: 04/26/18 11:24 Dose: Not Given ASSESSMENT AND PLAN: Acute Hypoxic and Hypercapneic Respiratory Failure Pneumococcal Pneumonia/Bacteremia Septic Shock improving Acute Kidney Injury requiring HD Metabolic Acidosis AIDS Thrombocytopenia Altered Mental Status - pt extubated - continue antibiotics - HD per renal - monitor urine output, creatinine - off pressors - taper steroids - monitor CBC - transfuse as needed - DVT/GI prophylaxis - continue ICU monitoring critical care time spent in reviewing chart, evaluating patient and formulating plan 35 min
[2018-04-26] MEDS ORDERED: hydrALAZINE HCL 20 MG/ML VIAL IVPUSH ONE (12:18)
[2018-04-26 12:45] LABS: ANISOCYTOSIS 1+; MACROCYTOSIS 1+; OVALOCYTE 1+; PLATELET ESTIMATE DECREASED; TARGET CELLS 1+
[2018-04-26 13:14] LABS: ARTERIAL BLD GAS O2 SATURATION 96.7 % (90-98.9); ARTERIAL BLOOD GAS BASE EXCESS 3.9 meq/l (-2-2); ARTERIAL BLOOD GAS PCO2 31.5 mmHg (35-45); ARTERIAL BLOOD GAS PO2 76.3 mmHg (80-100); ARTERIAL BLOOD GAS pH 7.53 (7.35-7.45)
[2018-04-26 13:15] LABS: ALLENS TEST POSITIVE
--- NOTE | 2018-04-26 13:57 | PN ---
Progress Note (short form) - Note Progress Note: Covering dr Ibarra in ICU, s/p extubation Problems 53 year old AA F HIV (non-compliance with meds per ER records), HTN, HLD, Asthma admitted w fever and AMS/ Shukri lung infiltrates, Sepsis syndrome SANA with severe metabolic acidosis. Active Medications Acetaminophen (Ofirmev Injection -) 1,000 mg IVPB Q6H PRN PRN Reason: FEVER Last Admin: 04/22/18 02:13 Dose: 1,000 mg Artificial Tears (Artificial Tears) 1 drop OU BID [facility] Last Admin: 04/26/18 09:01 Dose: 1 drop Atovaquone (Mepron -) 1,500 mg PO DAILY@0800 [facility] Last Admin: 04/26/18 08:42 Dose: 1,500 mg Chlorhexidine Gluconate (Hibiclens For Decolonization -) 1 applic TP HS [facility] Last Admin: 04/25/18 21:26 Dose: 1 applic Docusate Sodium (Colace Liquid -) 100 mg PO Q8H PRN PRN Reason: CONSTIPATION Hydrocortisone Sodium Succinate (Solu-Cortef -) 100 mg IVPB BID [facility] Stop: 04/28/18 22:01 Propofol (Diprivan -) 1,000,000 mcg in 100 mls @ 1.769 mls/hr IV TITR [facility]; Protocol Last Admin: 04/26/18 10:00 Dose: Not Given Ceftriaxone Sodium 2 gm/ (Dextrose) 100 mls @ 200 mls/hr IVPB Q12H [facility]; Protocol Last Admin: 04/26/18 09:02 Dose: 200 mls/hr Sodium Chloride (Normal Saline -) 250 mls @ 3,000 mls/hr IV PRN PRN PRN Reason: Hypotension during Dialysis Stop: 04/26/18 10:41 Pantoprazole Sodium (Protonix Iv) 40 mg IVPUSH DAILY [facility] Last Admin: 04/26/18 09:01 Dose: 40 mg Potassium Chloride (Potassium Chloride Oral Liquid) 40 meq PO BID [facility] Last Admin: 04/26/18 09:01 Dose: 40 meq Senna (Senna -) 1 tab PO HS [facility] Last Admin: 04/25/18 21:29 Dose: Not Given Sevelamer Carbonate (Renvela Powder Packet -) 2.4 gm PO TIDCM [facility] Last Admin: 04/26/18 11:24 Dose: Not Given Last Vital Signs Temp Pulse Resp BP Pulse Ox 98.1 F 75 20 169/69 100 04/26/18 06:00 04/26/18 12:00 04/26/18 12:00 04/26/18 12:00 04/26/18 08:15 O2 by VM alert but confused asking to go home Lungs clear anteriorly, poor cooperation Heart soft s1s2 Abd soft Ext mild generalized edema CBC, BMP 04/26/18 05:30 04/26/18 05:30 IMP Acute Renal Failure in setting of Sepsis syndrome requiring emergent dialysis for persistent acidosis Anion gap metabolic acidosis (lactic acidosis with concurrent respiratory acidosis) Sepsis Syndrome with with Strep PNA HIV non-compliant with medications Pseudohypocalcemia/Hyperphosphatemia Acute Anemia with + stool occult blood Plan- making some urine dialyzed yesterday may be dialyzed on saturday if no renal recovery will check bmp tomorrow
--- NOTE | 2018-04-26 16:09 | PN ---
Progress Note (short form) - Note Progress Note: SUBJECTIVE Patient seen and examined at the bedside. According to night team, no acute events overnight. Patient extubated this morning. OBJECTIVE Vital Signs Temperature 98.1 F 04/26/18 06:00 Pulse Rate 75 04/26/18 12:00 Respiratory Rate 20 04/26/18 12:00 Blood Pressure 169/69 04/26/18 12:00 O2 Sat by Pulse Oximetry (%) 100 04/26/18 08:15 General: Awake Head: No signs of trauma Eyes: EOMI, sclera anicteric ENT: Moist mucus membranes Neck: Normal ROM, supple Lungs: Diffuse rales bilaterally Cardio: Regular rhythm, S1 and S2 present Abdomen: Soft, nondistended Extremities: Distal pulses present SKIN: Warm, Dry, normal turgor Neurologic: CN II through XII grossly intact. ASSESSMENT 53yo F with PMH of HIV (CD4 count=6), HTN, HLD, Asthma presenting with severe sepsis, multiorgan failure, multilobar pneumonia, and anemia. Intubated for respiratory distress. Patient received hemodialysis (04/20/18) for severe acidosis. Transfused two units (04/21/18). Three days ago, sedation was held to assess patient's mental status. Patient did not awaken. Head CT was ordered and did not show acute pathology. Spontaneous breathing trial initiated during rounds today; patient extubated. PLAN NEURO Head CT negative for acute pathology Sedation held now that patient is extubated. HEME SCD's for DVT prophylaxis Acute on chronic anemia due to suspected GI bleed -Follow CBC, Hgb= 9.8 today (from 8.6) -Heme consulted PULM Multilobar pneumonia -Patient extubated today -Vancomycin: no longer needed per ID -Rocephin started on 04/20, day 7 today -CXR without significant change ID HIV+ Severe pneumococcal sepsis with multiorgan failure -Vancomycin: no longer needed per ID -Rocephin started on 04/20, day 6 today CD4 count=6 -ID following -Atovaquone for PCP prophylaxis started yesterday -Influenza A/B negative -Hep B serology positive for chronic HBV -Pneumocyst carinii smear pending -Cryptococcal Ag: pending -Mycobacterial culture: pending -Blood cultures: no growth for four days Cardiac HTN -Norvasc Hypotensive due to sepsis, resolved -IVF challenge -Weaned from pressors Elevated Tpn -likely due to stress ischemia from sepsis ECHO: EF is 50-55% with grade 2 diastolic dysfunction RENAL Hemodialysis 04/20/18, 04/23/18, 04/25/18 Monitor fluid status and electrolytes R. Femoral line placed Plan to dialyze today Diminished renal function -Cr=2.8 today (from 4.7) GI Suspected GI bleed -Coffee ground emesis through NGT, melena -two units PRBCs given for low hgb on 04/21/18 -Protonix 40mg IV FEN Monitor electrolytes -Replete as needed -K=3.6 today -Calcium low at 6.48 but normal when corrected for low albumin (1.0)
[2018-04-26] MEDS: amLODIPine BESYLATE 5 MG TABLET (FP) PO SCH (16:11)
[2018-04-26] MEDS: SENNOSIDES 8.6MG TABLET (FP) PO SCH (21:20)
[2018-04-26] MEDS: CHLORHEXIDINE GLUCONATE 4% CLEANSER FOR DECOLONIZATION TP SCH (21:20)
[2018-04-27 05:51] LABS: BASO % 0.1 % (0-2.0); EOS % 0.3 % (0-4.5); HEMATOCRIT 23.9 % (32.4-45.2); HEMOGLOBIN 8.1 GM/dL (10.7-15.3); LYMPH % 14.3 % (8-40); MCH 26.9 pg (25.7-33.7); MCHC 33.8 g/dl (32.0-36.0); MEAN CELL VOLUME 79.6 fl (80-96); MEAN PLT VOLUME 9.8 fl (7.5-11.1); MONO % 3.4 % (3.8-10.2); NEUT % 81.9 % (42.8-82.8); PLATELET COUNT 78 K/MM3 (134-434); RDW 23.3 % (11.6-15.6); WHITE BLOOD COUNT 9.8 K/mm3 (4.0-10.0)
[2018-04-27 06:41] LABS: ALK PHOS 110 U/L (45-117); ANION GAP 8 MMOL/L (8-16); BILIRUBIN,TOTAL 0.3 mg/dL (0.2-1); BLOOD UREA NITROGEN 61 mg/dL (7-18); CALCIUM 7.3 mg/dL (8.5-10.1); CHLORIDE 104 mmol/L (98-107); CO2 29 mmol/L (21-32); CREATININE 3.2 mg/dL (0.55-1.3); GLUCOSE,RANDOM 76 mg/dL (74-106); PHOSPHOROUS 4.4 mg/dL (2.5-4.9); POTASSIUM 4.1 mmol/L (3.5-5.1); SGOT/AST 29 U/L (15-37); SGPT/ALT 8 U/L (13-61); SODIUM 141 mmol/L (136-145); TOT PROT 5.3 g/dl (6.4-8.2)
--- NOTE | 2018-04-27 08:58 | PN ---
Progress Note (short form) - Note Progress Note: Patient seen and examined at bedside Extubated yesterday no issues overnight still with watery diarrhea Vital Signs Temperature 98.2 F 04/27/18 06:00 Pulse Rate 101 H 04/27/18 06:00 Respiratory Rate 12 04/27/18 06:00 Blood Pressure 160/66 H 04/27/18 08:00 O2 Sat by Pulse Oximetry (%) 100 04/27/18 08:00 PE: NAD lying in bed awake and alert PERRL bilateral rhonchi RRR S1 S2 3/6 systolic murmur best heard at RUSB Soft non tender non distended trace lower extremity edema 04/27/18 04/27/18 05:15 05:15 WBC 9.8 RBC 3.00 L Hgb 8.1 L Hct 23.9 L MCV 79.6 L MCHC 33.8 RDW 23.3 H Plt Count 78 L Neutrophils % 81.9 Lymphocytes % 14.3 D Monocytes % 3.4 L Eosinophils % 0.3 Basophils % 0.1 Sodium 141 Potassium 4.1 Chloride 104 Carbon Dioxide 29 Anion Gap 8 BUN 61 H Creatinine 3.2 H 04/21/18 22:30 Blood Culture - Final Blood - Peripheral Venous NO GROWTH AFTER 5 DAYS INCUBATION 04/21/18 21:50 Blood Culture - Final Blood - Peripheral Venous NO GROWTH AFTER 5 DAYS INCUBATION 04/23/18 05:30 Cryptococcal Antigen - Preliminary Serum 04/20/18 05:30 Blood Culture - Final Blood - Central Line NO GROWTH AFTER 5 DAYS INCUBATION 04/20/18 05:30 Blood Culture - Final Blood - Central Line NO GROWTH AFTER 5 DAYS INCUBATION 04/23/18 05:30 Mycobacterial Culture - Preliminary Blood - Peripheral Venous 04/19/18 12:25 Gram Stain - Final Sputum - Endotrachea Suction/Ventilator Sputum Culture - Final Staphylococcus Aureus Streptococcus Pneumoniae 04/21/18 06:30 Clostridium difficile Antigen (KARO) - Final Stool Clostridium difficile Toxin Assay - Final 04/19/18 00:57 Blood Culture - Final Blood - Peripheral Venous Streptococcus Pneumoniae 04/19/18 00:57 Blood Culture - Final Blood - Peripheral Venous Streptococcus Pneumoniae 04/19/18 04:45 Urine Culture - Final Urine - Urine Clean Catch 04/19/18 09:30 Legionella Antigen - Final Urine - Urine - Catheterized Streptococcus pneumoniae Antigen (M - Final 53F with extensive PMH including HIV CD4, HTN, HLD, presents with septic shock secondary to multi lobar pneumonia, bacteremia, and metabolic acidosis with SANA requiring dialysis and Intubated for respiratory distress. Patient has also been thrombocytopenic and anemic. PLAN Neuro: Awake and alert HEME Pancytopenia was likely secondary to sepsis-resolving thrombocytopenia-resolving trend CBC hematology consult appreciated PULM Multilobar pneumonia continue Rocephin 2gm continue mepron for PCP prophylaxis extubated on room air ID Multilobar pneumonia continue Rocephin 2gm continue mepron for PCP prophylaxis HIV+ Spoke with Dr. Sawyer at [facility] who recently saw pt on 03/31/18. Pt's CD4 count at that time was 50 and viral load of 121k. Patient stated she has not been on HAART therapy for 2 months secondary to difficulty swallowing the medications. Due to pt's sulfa allergy, she was not placed on bactrim at that time. Patient had agreed to return after the holidays to discuss prophylactic medications, however did not follow up. Severe pneumococcal sepsis with multiorgan failure Vancomycin: no longer needed per ID Rocephin started on 04/20, day 8 today CD4 count=6 serum cryptoococcal antigen negative blood AFB sent Hepatitis B serology-hep B Core positive decrease hydrocortisone to 50mg q8h Cardiac extubated ECHO: EF is 50-55% with grade 2 diastolic dysfunction RENAL Will discuss with nephrology about dialysis plan currently have dialysis access in right femoral vein GI suspected GI bleed resolved Protonix 40mg IV for GI PPx will start tube feeds with nepro today HSQ for DVT PPx PT consult for deconditioning LTD: Central line placed left IJ 04/22/18-will try to remove today and place peripheral IVs Can be transferred to med/surg Case discussed with Dr. Albrecht
[2018-04-27 09:04] LABS: ANISOCYTOSIS 2+; MACROCYTOSIS 1+; PLATELET ESTIMATE DECREASED
[2018-04-27] MEDS ORDERED: PT OWN MED DRAWER 7, Y5N ONE (10:00)
[2018-04-27] MEDS ORDERED: HYDROCORTISONE SOD SUCCINATE 100 MG/2 ML VIAL IVPB SCH (10:00)
[2018-04-27] MEDS ORDERED: DEXTROSE 5%-WATER 100 ML IVPB ONE (10:01)
[2018-04-27] MEDS: ATOVAQUONE 750 MG/5 ML (UNIT-DOSE PACKAGING) PO SCH (10:05)
[2018-04-27] MEDS: SEVELAMER CARBONATE 800 MG TAB (FP) PO SCH ×4 (10:06→17:01)
[2018-04-27] MEDS: PANTOPRAZOLE SODIUM 40 MG VIAL IVPUSH SCH (10:07)
[2018-04-27] MEDS: amLODIPine BESYLATE 5 MG TABLET (FP) PO SCH (10:07)
[2018-04-27] MEDS ORDERED: CEFTRIAXONE 2 GM in DEXTROSE 5%-WATER 100 ML IVPB SCH (10:45)
--- NOTE | 2018-04-27 10:45 | PN ---
Teaching Attending Note Name of Resident: Prem Patton ATTENDING PHYSICIAN STATEMENT I saw and evaluated the patient. I reviewed the resident's note and discussed the case with the resident. I agree with the resident's findings and plan as documented. SUBJECTIVE: Pt seen and examined in the ICU. Extubated yesterday without incident. Wants to go home. Remains oliguric. OBJECTIVE: Vital Signs Period Temp Pulse Resp BP Sys/Cai Pulse Ox Last 24 Hr 98.0 F-98.6 F 63-101 12-22 130-174/65-87 100-100 Intake & Output 04/24/18 04/25/18 04/26/18 04/27/18 23:59 23:59 23:59 23:59 Intake Total 945 1061 1281.2 100 Output Total 350 460 Balance 774 350 6041.2 100 Weight 64.8 kg 67 kg 67.585 kg Gen: extubated Heart: RRR Lung: decreased breath sounds at the bases Abd: soft, nontender Ext: no edema CBC, BMP 04/27/18 05:15 04/27/18 05:15 Active Medications Acetaminophen (Ofirmev Injection -) 1,000 mg IVPB Q6H PRN PRN Reason: FEVER Last Admin: 04/22/18 02:13 Dose: 1,000 mg Amlodipine Besylate (Norvasc -) 5 mg PO DAILY [facility] Last Admin: 04/27/18 10:07 Dose: 5 mg Artificial Tears (Artificial Tears) 1 drop OU BID [facility] Last Admin: 04/26/18 21:20 Dose: 1 drop Atovaquone (Mepron -) 1,500 mg PO DAILY@0800 [facility] Last Admin: 04/27/18 10:05 Dose: 1,500 mg Chlorhexidine Gluconate (Hibiclens For Decolonization -) 1 applic TP HS [facility] Last Admin: 04/26/18 21:20 Dose: 1 applic Docusate Sodium (Colace Liquid -) 100 mg PO Q8H PRN PRN Reason: CONSTIPATION Hydrocortisone Sodium Succinate (Solu-Cortef -) 100 mg IVPB BID [facility] Stop: 04/28/18 22:01 Last Admin: 04/27/18 10:04 Dose: 100 mg Sodium Chloride (Normal Saline -) 250 mls @ 3,000 mls/hr IV PRN PRN PRN Reason: Hypotension during Dialysis Stop: 04/26/18 10:41 Ceftriaxone Sodium 2,000 mg/ (Dextrose) 50 mls @ 100 mls/hr IVPB DAILY [facility] Pantoprazole Sodium (Protonix Iv) 40 mg IVPUSH DAILY [facility] Last Admin: 04/27/18 10:07 Dose: 40 mg Senna (Senna -) 1 tab PO HS [facility] Last Admin: 04/26/18 21:20 Dose: Not Given Sevelamer Carbonate (Renvela -) 2,400 mg PO TIDCM [facility] Last Admin: 04/27/18 10:06 Dose: 2,400 mg ASSESSMENT AND PLAN: Acute Hypoxic and Hypercapneic Respiratory Failure Pneumococcal Pneumonia/Bacteremia Septic Shock improving Acute Kidney Injury requiring HD Metabolic Acidosis AIDS Thrombocytopenia Altered Mental Status - pt extubated - continue antibiotics - HD per renal - monitor urine output, creatinine - off pressors - taper steroids - monitor CBC - transfuse as needed - DVT/GI prophylaxis - can monitor on floor
[2018-04-27] MEDS: ARTIFICIAL TEARS (POLYVINYL ALCOHOL) OPTH DROPS OU SCH ×2 (11:01→22:49)
[2018-04-27] MEDS ORDERED: METOPROLOL TARTRATE 5 MG/5 ML VIAL IVPUSH ONE (13:14)
[2018-04-27] MEDS ORDERED: HEPARIN NA (PORCINE) 5,000 UNITS/ML 1ML VIAL SQ SCH (14:00)
--- NOTE | 2018-04-27 14:56 | PN ---
Progress Note (short form) - Note Progress Note: Covering dr Ibarra in ICU, Problems 53 year old AA F HIV (non-compliance with meds per ER records), HTN, HLD, Asthma admitted w fever and AMS/ Shukri lung infiltrates, Sepsis syndrome SANA with severe metabolic acidosis. Current Medications Acetaminophen (Ofirmev Injection -) 1,000 mg IVPB Q6H PRN PRN Reason: FEVER Last Admin: 04/22/18 02:13 Dose: 1,000 mg Amlodipine Besylate (Norvasc -) 5 mg PO DAILY [facility] Last Admin: 04/27/18 10:07 Dose: 5 mg Artificial Tears (Artificial Tears) 1 drop OU BID [facility] Last Admin: 04/27/18 11:01 Dose: 1 drop Atovaquone (Mepron -) 1,500 mg PO DAILY@0800 [facility] Last Admin: 04/27/18 10:05 Dose: 1,500 mg Chlorhexidine Gluconate (Hibiclens For Decolonization -) 1 applic TP HS [facility] Last Admin: 04/26/18 21:20 Dose: 1 applic Docusate Sodium (Colace Liquid -) 100 mg PO Q8H PRN PRN Reason: CONSTIPATION Heparin Sodium (Porcine) (Heparin -) 5,000 unit SQ TID [facility] Hydrocortisone Sodium Succinate (Solu-Cortef -) 50 mg IVPB Q8H-IV [facility] Sodium Chloride (Normal Saline -) 250 mls @ 3,000 mls/hr IV PRN PRN PRN Reason: Hypotension during Dialysis Stop: 04/26/18 10:41 Ceftriaxone Sodium 2 gm/ (Dextrose) 100 mls @ 200 mls/hr IVPB DAILY [facility] Last Admin: 04/27/18 11:01 Dose: 200 mls/hr Pantoprazole Sodium (Protonix Iv) 40 mg IVPUSH DAILY [facility] Last Admin: 04/27/18 10:07 Dose: 40 mg Senna (Senna -) 1 tab PO HS [facility] Last Admin: 04/26/18 21:20 Dose: Not Given Sevelamer Carbonate (Renvela -) 2,400 mg PO TIDCM [facility] Last Admin: 04/27/18 12:02 Dose: Not Given Last Vital Signs Temp Pulse Resp BP Pulse Ox 98.1 F 63 12 164/70 98 04/27/18 14:00 04/27/18 14:00 04/27/18 14:00 04/27/18 14:00 04/27/18 10:00 O2 by VM alert but confused asking to go home Lungs clear anteriorly, poor cooperation Heart soft s1s2 Abd soft Ext mild generalized edema CBC, BMP 04/27/18 05:15 04/27/18 05:15 CBC, BMP 04/26/18 05:30 04/26/18 05:30 IMP Acute Renal Failure in setting of Sepsis syndrome requiring emergent dialysis for persistent acidosis Anion gap metabolic acidosis (lactic acidosis with concurrent respiratory acidosis) Sepsis Syndrome with with Strep PNA HIV non-compliant with medications Pseudohypocalcemia/Hyperphosphatemia Acute Anemia with + stool occult blood Plan- making some urine dialyzed yesterday may be dialyzed on saturday if no renal recovery will check bmp tomorrow
[2018-04-27] MEDS ORDERED: DOCUSATE NA 100 MG/10 ML UNIT-DOSE CUPS PO PRN (15:54)
--- NOTE | 2018-04-27 16:03 | PN ---
Progress Note, Physician History of Present Illness: 53F with extensive PMH including HIV CD4, HTN, HLD, presents with septic shock secondary to multi lobar pneumonia, bacteremia, and metabolic acidosis with SANA requiring dialysis and Intubated for respiratory distress. Patient has also been thrombocytopenic and anemic. - Current Medication List Current Medications: Active Medications Amlodipine Besylate (Norvasc -) 5 mg PO DAILY [facility] Artificial Tears (Artificial Tears) 1 drop OU BID [facility] Atovaquone (Mepron -) 1,500 mg PO DAILY@0800 [facility] Docusate Sodium (Colace Liquid -) 100 mg PO Q8H PRN PRN Reason: CONSTIPATION Heparin Sodium (Porcine) (Heparin -) 5,000 unit SQ TID [facility] Hydrocortisone Sodium Succinate (Solu-Cortef -) 50 mg IVPB Q8H-IV [facility] Ceftriaxone Sodium 2 gm/ (Dextrose) 100 mls @ 200 mls/hr IVPB DAILY [facility] Pantoprazole Sodium (Protonix Iv) 40 mg IVPUSH DAILY [facility] Senna (Senna -) 1 tab PO HS [facility] Sevelamer Carbonate (Renvela -) 2,400 mg PO TIDCM [facility] - Objective Vital Signs: Vital Signs Temperature 98.1 F 04/27/18 14:00 Pulse Rate 65 04/27/18 14:30 Respiratory Rate 12 04/27/18 14:00 Blood Pressure 154/67 04/27/18 14:30 O2 Sat by Pulse Oximetry (%) 98 04/27/18 10:00 Constitutional: Yes: Well Nourished, No Distress, Calm Eyes: Yes: WNL, Conjunctiva Clear, EOM Intact HENT: Yes: WNL, Atraumatic, Normocephalic Neck: Yes: WNL, Supple, Trachea Midline Cardiovascular: Yes: WNL, Regular Rate and Rhythm, S1, S2 Respiratory: Yes: WNL, Regular, CTA Bilaterally Gastrointestinal: Yes: WNL, Normal Bowel Sounds, Soft Musculoskeletal: Yes: WNL Extremities: Yes: WNL Edema: No Integumentary: Yes: WNL Neurological: Yes: WNL, Alert, Oriented Labs: CBC, BMP 04/27/18 05:15 04/27/18 05:15 INR, PTT INR 0.92 (0.83-1.09) 04/21/18 05:15 Fibrinogen > 500.0 mg/dL (238-498) H 04/19/18 19:30 Assessment/Plan PLAN HEME Pancytopenia was likely secondary to sepsis-resolving with HIV infection thrombocytopenia-resolving trend CBC hematology consult appreciated Acute respiratory failure s/p extubation 2/2 SIRS with sepsis 2/2 to pneumonia Multilobar pneumonia - resolving withll continue ceftriaxone 2gm continue mepron for PCP prophylaxis extubated on room air ID Multilobar pneumonia continue ceftriaxone 2gm day 8 continue mepron for PCP prophylaxis HIV+, with CD4 count=6 serum cryptoococcal antigen negative blood AFB sent Hepatitis B serology-hep B Core positive decrease hydrocortisone to 50mg q8h x 3 days then D/c Cardiac extubated ECHO: EF is 50-55% with grade 2 diastolic dysfunction RENAL Will discuss with nephrology about dialysis plan currently have dialysis access in right femoral vein GI suspected GI bleed resolved Protonix 40mg IV for GI PPx will start tube feeds with nepro today HSQ for DVT PPx PT consult for deconditioning LTD: Central line placed left IJ 04/22/18-will try to remove today and place peripheral IVs
[2018-04-27] MEDS: HYDROCORTISONE SOD SUCCINATE 100 MG/2 ML VIAL IVPB SCH (17:01)
[2018-04-27] MEDS: HEPARIN NA (PORCINE) 5,000 UNITS/ML 1ML VIAL SQ SCH (21:38)
[2018-04-27] MEDS: SENNOSIDES 8.6MG TABLET (FP) PO SCH (21:38)
[2018-04-28] MEDS: HYDROCORTISONE SOD SUCCINATE 100 MG/2 ML VIAL IVPB SCH ×3 (01:46→20:59)
[2018-04-28] MEDS ORDERED: hydrALAZINE HCL 10 MG TABLET PO ONE (02:20)
[2018-04-28] MEDS: HEPARIN NA (PORCINE) 5,000 UNITS/ML 1ML VIAL SQ SCH ×3 (05:39→21:00)
[2018-04-28] MEDS: SEVELAMER CARBONATE 800 MG TAB (FP) PO SCH ×5 (08:55→17:12)
[2018-04-28] MEDS: ATOVAQUONE 750 MG/5 ML (UNIT-DOSE PACKAGING) PO SCH ×2 (08:56→09:09)
--- NOTE | 2018-04-28 09:21 | PN ---
Progress Note, Physician Chief Complaint: Poor appetite no acute distress History of Present Illness: 53F with extensive PMH including HIV CD4, HTN, HLD, presents with septic shock secondary to multi lobar pneumonia, bacteremia, and metabolic acidosis with SANA requiring dialysis and Intubated for respiratory distress. Patient has also been thrombocytopenic and anemic.SANA on HD, platelete count and renal functionsare improving. - Current Medication List Current Medications: Active Medications Amlodipine Besylate (Norvasc -) 5 mg PO DAILY [facility] Artificial Tears (Artificial Tears) 1 drop OU BID [facility] Last Admin: 04/27/18 22:49 Dose: 1 drop Atovaquone (Mepron -) 1,500 mg PO DAILY@0800 [facility] Last Admin: 04/28/18 09:09 Dose: Not Given Docusate Sodium (Colace Liquid -) 100 mg PO Q8H PRN PRN Reason: CONSTIPATION Heparin Sodium (Porcine) (Heparin -) 5,000 unit SQ TID [facility] Last Admin: 04/28/18 05:39 Dose: 5,000 unit Hydrocortisone Sodium Succinate (Solu-Cortef -) 50 mg IVPB Q8H-IV [facility] Last Admin: 04/28/18 01:46 Dose: 50 mg Ceftriaxone Sodium 2 gm/ (Dextrose) 100 mls @ 200 mls/hr IVPB DAILY [facility] Pantoprazole Sodium (Protonix Iv) 40 mg IVPUSH DAILY [facility] Senna (Senna -) 1 tab PO HS [facility] Last Admin: 04/27/18 21:38 Dose: 1 tab Sevelamer Carbonate (Renvela -) 2,400 mg PO TIDCM [facility] Last Admin: 04/28/18 09:09 Dose: Not Given - Objective Vital Signs: Vital Signs Temperature 98.7 F 04/28/18 01:13 Pulse Rate 80 04/28/18 02:30 Respiratory Rate 18 04/28/18 02:30 Blood Pressure 158/61 04/28/18 02:30 O2 Sat by Pulse Oximetry (%) 96 04/27/18 22:00 Young F sick looking HEENT: Mm moist mild anemia, PERRLA EOMI NECK; Rt IJ no JVD No Bruit CHEST: Occasional crepts CVS; s1S2 R no m/g/r ABD: No distention Bs + EXT: Trace sissy,ma, pulses + FOUNDRY HAND: AOX3 non focal Labs: CBC, BMP 04/27/18 05:15 04/27/18 05:15 INR, PTT INR 0.92 (0.83-1.09) 04/21/18 05:15 Fibrinogen > 500.0 mg/dL (238-498) H 04/19/18 19:30 Problem List - Problems (1) Respiratory failure with hypoxia Assessment/Plan: S/P intubation and extubation doing well on NC F/U pulmonary recommendations Code(s): J96.91 - RESPIRATORY FAILURE, UNSPECIFIED WITH HYPOXIA (2) Sepsis Assessment/Plan: Due to Pneumonia improving on Ceftriaxone F/U Pulmonary and ID recommendations Code(s): A41.9 - SEPSIS, UNSPECIFIED ORGANISM (3) SANA (acute kidney injury) Assessment/Plan: On HD F/U renal recommendations Code(s): N17.9 - ACUTE KIDNEY FAILURE, UNSPECIFIED (4) HIV (human immunodeficiency virus infection) Assessment/Plan: Not on HAART Code(s): B20 - HUMAN IMMUNODEFICIENCY VIRUS [HIV] DISEASE (5) Respiratory failure, acute Assessment/Plan: Due to pneumonia s/o intubation and extubation saturating well, cont current management Code(s): J96.00 - ACUTE RESPIRATORY FAILURE, UNSP W HYPOXIA OR HYPERCAPNIA (6) GERD (gastroesophageal reflux disease) Assessment/Plan: on PPI Code(s): K21.9 - GASTRO-ESOPHAGEAL REFLUX DISEASE WITHOUT ESOPHAGITIS Qualifiers: Esophagitis presence: esophagitis presence not specified Qualified Code(s) : K21.9 - Gastro-esophageal reflux disease without esophagitis
--- NOTE | 2018-04-28 09:24 | PN ---
Progress Note (short form) - Note Progress Note: NAD on NC O2. Denies CP or SOB. No acute events overnight. Intake & Output 04/25/18 04/26/18 04/27/18 04/28/18 23:59 23:59 23:59 23:59 Intake Total 1061 1281.2 470 200 Output Total 460 Balance 601 1281.2 470 200 Weight 147 lb 11.355 oz 149 lb Last Vital Signs Temp Pulse Resp BP Pulse Ox 98.7 F 80 18 158/61 96 04/28/18 01:13 04/28/18 02:30 04/28/18 02:30 04/28/18 02:30 04/27/18 22:00 Active Medications Amlodipine Besylate (Norvasc -) 5 mg PO DAILY [facility] Artificial Tears (Artificial Tears) 1 drop OU BID [facility] Last Admin: 04/27/18 22:49 Dose: 1 drop Atovaquone (Mepron -) 1,500 mg PO DAILY@0800 [facility] Last Admin: 04/28/18 09:09 Dose: Not Given Docusate Sodium (Colace Liquid -) 100 mg PO Q8H PRN PRN Reason: CONSTIPATION Heparin Sodium (Porcine) (Heparin -) 5,000 unit SQ TID [facility] Last Admin: 04/28/18 05:39 Dose: 5,000 unit Hydrocortisone Sodium Succinate (Solu-Cortef -) 50 mg IVPB Q8H-IV [facility] Last Admin: 04/28/18 01:46 Dose: 50 mg Ceftriaxone Sodium 2 gm/ (Dextrose) 100 mls @ 200 mls/hr IVPB DAILY [facility] Pantoprazole Sodium (Protonix Iv) 40 mg IVPUSH DAILY [facility] Senna (Senna -) 1 tab PO HS [facility] Last Admin: 04/27/18 21:38 Dose: 1 tab Sevelamer Carbonate (Renvela -) 2,400 mg PO TIDCM [facility] Last Admin: 04/28/18 09:09 Dose: Not Given Gen: NAD Heart: RRR Lung: few scattered rhonchi Abd: soft, nontender Ext: no edema ASSESSMENT AND PLAN: Acute Hypoxic and Hypercapneic Respiratory Failure Pneumococcal Pneumonia/Bacteremia Septic Shock improving Acute Kidney Injury requiring HD Metabolic Acidosis AIDS Thrombocytopenia Altered Mental Status - ABX per ID - HD per renal - monitor urine output, creatinine - taper steroids - monitor CBC - transfuse as needed - DVT/GI prophylaxis Dr Novak
[2018-04-28] MEDS ORDERED: DEXTROSE 5%-WATER 100 ML IVPB ONE (09:30)
[2018-04-28] MEDS: CEFTRIAXONE 2 GM in DEXTROSE 5%-WATER 100 ML IVPB SCH (10:08)
[2018-04-28] MEDS: PANTOPRAZOLE SODIUM 40 MG VIAL IVPUSH SCH (10:09)
[2018-04-28] MEDS: ARTIFICIAL TEARS (POLYVINYL ALCOHOL) OPTH DROPS OU SCH ×3 (10:09→21:16)
[2018-04-28] MEDS: amLODIPine BESYLATE 5 MG TABLET (FP) PO SCH (10:09)
--- NOTE | 2018-04-28 10:33 | PN ---
Progress Note (short form) - Note Progress Note: Renal follow up for SANA requiring emergent dialysis Pt seen and examined at the bedside awake but confused making urine in diaper no overnight events pt has been refusing some of her meds Vital Signs Temperature 98.7 F 04/28/18 01:13 Pulse Rate 80 04/28/18 02:30 Respiratory Rate 18 04/28/18 02:30 Blood Pressure 158/61 04/28/18 02:30 O2 Sat by Pulse Oximetry (%) 96 04/27/18 22:00 Intake & Output 04/25/18 04/26/18 04/27/18 04/28/18 23:59 23:59 23:59 23:59 Intake Total 1061 1281.2 470 200 Output Total 460 Balance 601 1281.2 470 200 Weight 67 kg 67.585 kg NAD on NC O2 RRR Course BS no Le edema, clubbing or cyanosis extremities are warm CBC, BMP 04/27/18 05:15 Laboratory Tests 04/22/18 04/25/18 04/27/18 05:30 05:30 05:15 Potassium 4.1 Carbon Dioxide 29 BUN 61 H Creatinine 3.2 H Random Glucose 76 Calcium 6.4 L* 7.3 L Phosphorus 8.8 H 5.2 H 4.4 Magnesium 2.4 2.4 2.0 Albumin 0.9 L 1.0 L Current Medications Amlodipine Besylate (Norvasc -) 5 mg PO DAILY [facility] Last Admin: 04/28/18 10:09 Dose: 5 mg Artificial Tears (Artificial Tears) 1 drop OU BID [facility] Last Admin: 04/28/18 10:20 Dose: Not Given Atovaquone (Mepron -) 1,500 mg PO DAILY@0800 [facility] Last Admin: 04/28/18 09:09 Dose: Not Given Docusate Sodium (Colace Liquid -) 100 mg PO Q8H PRN PRN Reason: CONSTIPATION Heparin Sodium (Porcine) (Heparin -) 5,000 unit SQ TID [facility] Last Admin: 04/28/18 05:39 Dose: 5,000 unit Hydrocortisone Sodium Succinate (Solu-Cortef -) 50 mg IVPB Q12H [facility] Ceftriaxone Sodium 2 gm/ (Dextrose) 100 mls @ 200 mls/hr IVPB DAILY [facility] Last Admin: 04/28/18 10:08 Dose: 200 mls/hr Pantoprazole Sodium (Protonix Iv) 40 mg IVPUSH DAILY [facility] Last Admin: 04/28/18 10:09 Dose: 40 mg Senna (Senna -) 1 tab PO HS [facility] Last Admin: 04/27/18 21:38 Dose: 1 tab Sevelamer Carbonate (Renvela -) 2,400 mg PO TIDCM [facility] Last Admin: 04/28/18 09:09 Dose: Not Given 53 year old AA woman with hx of HIV (non-compliance with meds per ER records), HTN, HLD, Asthma who presented from home with fever and AMS and found to have B/ L lung infiltrates, Sepsis syndrome and SANA with severe metabolic acidosis. #Acute Renal Failure in setting of Sepsis syndrome requiring emergent dialysis for persistent acidosis #Anion gap metabolic acidosis (lactic acidosis with concurrent respiratory acidosis) #Sepsis Syndrome with with Strep PNA #HIV non-compliant with medications #Pseudohypocalcemia/Hyperphosphatemia #Acute Anemia with + stool occult blood Todays labs pending, pt voiding but accurate I and O not aviliable will await todays labs to determine if further dialysis is required continue supportive care Ax as per ID titrate off steroids as per primary continue phos binders continue amlodipine for hypertension, titrate as needed avoid TOÑA/ARB, nsaids, IV contrast Khadar Ibarra DO
[2018-04-28 11:08] LABS: ANION GAP 11 MMOL/L (8-16); BLOOD UREA NITROGEN 73 mg/dL (7-18); CALCIUM 7.4 mg/dL (8.5-10.1); CHLORIDE 105 mmol/L (98-107); CO2 26 mmol/L (21-32); CREATININE 3.8 mg/dL (0.55-1.3); GLUCOSE,RANDOM 83 mg/dL (74-106); POTASSIUM 4.5 mmol/L (3.5-5.1); SODIUM 141 mmol/L (136-145)
[2018-04-28] MEDS: FLUCONAZOLE 100 MG TABLET (UD) PO SCH (19:20)
[2018-04-28] MEDS: valACYclovir HCL 500 MG TABLET (FP) PO SCH (19:21)
[2018-04-28] MEDS ORDERED: PT OWN MED DRAWER 7, Y5N ONE (20:25)
[2018-04-28] MEDS: SENNOSIDES 8.6MG TABLET (FP) PO SCH (21:00)
[2018-04-29] MEDS: HEPARIN NA (PORCINE) 5,000 UNITS/ML 1ML VIAL SQ SCH ×4 (06:54→23:24)
[2018-04-29] MEDS ORDERED: DEXTROSE 5%-WATER 100 ML IVPB ONE (08:36)
--- NOTE | 2018-04-29 09:50 | PN ---
Progress Note (short form) - Note Progress Note: NAD on NC O2. Awake and alert. Mildly confused. Denies CP or SOB. No acute events overnight. Intake & Output 04/26/18 04/27/18 04/28/18 04/29/18 23:59 23:59 23:59 23:59 Intake Total 1281.2 470 650 0 Balance 1281.2 470 650 0 Weight 149 lb 154 lb 12.8 oz Last Vital Signs Temp Pulse Resp BP Pulse Ox 98.4 F 87 20 153/86 98 04/29/18 06:36 04/29/18 06:36 04/29/18 06:36 04/29/18 06:36 04/28/18 21:00 Active Medications Amlodipine Besylate (Norvasc -) 5 mg PO DAILY [facility] Last Admin: 04/28/18 10:09 Dose: 5 mg Artificial Tears (Artificial Tears) 1 drop OU BID [facility] Last Admin: 04/28/18 21:16 Dose: Not Given Atovaquone (Mepron -) 1,500 mg PO DAILY@0800 [facility] Last Admin: 04/28/18 09:09 Dose: Not Given Docusate Sodium (Colace Liquid -) 100 mg PO Q8H PRN PRN Reason: CONSTIPATION Heparin Sodium (Porcine) (Heparin -) 5,000 unit SQ TID [facility] Last Admin: 04/29/18 06:54 Dose: 5,000 unit Hydrocortisone Sodium Succinate (Solu-Cortef -) 50 mg IVPB Q12H [facility] Last Admin: 04/28/18 20:59 Dose: 50 mg Ceftriaxone Sodium 2 gm/ (Dextrose) 100 mls @ 200 mls/hr IVPB DAILY [facility] Last Admin: 04/28/18 10:08 Dose: 200 mls/hr Pantoprazole Sodium (Protonix Iv) 40 mg IVPUSH DAILY [facility] Last Admin: 04/28/18 10:09 Dose: 40 mg Senna (Senna -) 1 tab PO HS [facility] Last Admin: 04/28/18 21:00 Dose: 1 tab Sevelamer Carbonate (Renvela -) 2,400 mg PO TIDCM [facility] Last Admin: 04/28/18 17:12 Dose: Not Given Gen: NAD Heart: RRR Lung: few scattered rhonchi Abd: soft, nontender Ext: no edema Laboratory Results - last 24 hr 04/28/18 10:05 Sodium 141 Potassium 4.5 Chloride 105 Carbon Dioxide 26 Anion Gap 11 BUN 73 H Creatinine 3.8 H Creat Clearance w eGFR 12.33 Random Glucose 83 Calcium 7.4 L ASSESSMENT AND PLAN: Acute Hypoxic and Hypercapneic Respiratory Failure Pneumococcal Pneumonia/Bacteremia Septic Shock improving Acute Kidney Injury requiring HD Metabolic Acidosis AIDS Thrombocytopenia Altered Mental Status - ABX per ID - HD per renal - monitor urine output, creatinine - taper steroids - monitor CBC - transfuse as needed - DVT/GI prophylaxis - remove HD cath by tomorrow Dr Novak
[2018-04-29] MEDS: ATOVAQUONE 750 MG/5 ML (UNIT-DOSE PACKAGING) PO SCH ×2 (10:01→12:54)
[2018-04-29] MEDS: CEFTRIAXONE 2 GM in DEXTROSE 5%-WATER 100 ML IVPB SCH (10:01)
[2018-04-29] MEDS: SEVELAMER CARBONATE 800 MG TAB (FP) PO SCH ×3 (10:01→18:10)
[2018-04-29] MEDS: PANTOPRAZOLE SODIUM 40 MG VIAL IVPUSH SCH (10:02)
[2018-04-29] MEDS: HYDROCORTISONE SOD SUCCINATE 100 MG/2 ML VIAL IVPB SCH ×3 (10:02→23:24)
[2018-04-29] MEDS: ARTIFICIAL TEARS (POLYVINYL ALCOHOL) OPTH DROPS OU SCH ×2 (10:03→23:02)
[2018-04-29] MEDS: amLODIPine BESYLATE 5 MG TABLET (FP) PO SCH ×2 (10:03→12:54)
[2018-04-29 11:39] LABS: HEMOGLOBIN 8.3 GM/dL (10.7-15.3); MCH 26.5 pg (25.7-33.7); MCHC 33.2 g/dl (32.0-36.0); MEAN CELL VOLUME 79.8 fl (80-96); MEAN PLT VOLUME 9.5 fl (7.5-11.1); PLATELET COUNT 108 K/MM3 (134-434); RBC 3.14 M/mm3 (3.60-5.2); RDW 23.9 % (11.6-15.6); WHITE BLOOD COUNT 6.6 K/mm3 (4.0-10.0)
[2018-04-29 12:27] LABS: ANION GAP 12 MMOL/L (8-16); BLOOD UREA NITROGEN 78 mg/dL (7-18); CALCIUM 7.6 mg/dL (8.5-10.1); CHLORIDE 107 mmol/L (98-107); CO2 24 mmol/L (21-32); CREATININE 4.1 mg/dL (0.55-1.3); GLUCOSE,RANDOM 81 mg/dL (74-106); POTASSIUM 4.2 mmol/L (3.5-5.1); SODIUM 144 mmol/L (136-145)
[2018-04-29 15:12] LABS: ANISOCYTOSIS 1+; MACROCYTOSIS 0; PLATELET ESTIMATE DECREASED; TARGET CELLS 1+
--- NOTE | 2018-04-29 15:35 | PN ---
Physical Exam: SUBJECTIVE: Patient seen and examined at bedside this morning. No acute events overnight. Patient extubated 3 days ago, currently on 2L NC, saturating well at 98%. Patient states she wants to sit down and look at the window, but otherwise has no complaints of pain or shortness of breath. OBJECTIVE: Vital Signs Period Temp Pulse Resp BP Sys/Cai Pulse Ox Last 24 Hr 97.6 F-98.4 F 78-87 18-20 136-154/74-86 98-98 GENERAL: The patient is awake, alert, and oriented to place and person, in no acute distress. HEAD: Normal with no signs of trauma. HEENT:PERRLA, EOMI, dry mucous membranes. NECK: Trachea midline, full range of motion, supple. LUNGS:+scattered rhonchi bilaterally HEART: Regular rate and rhythm, S1, S2 without murmur, rub or gallop. ABDOMEN: Soft, nontender, nondistended, normoactive bowel sounds. EXTREMITIES: 2+ pulses, warm, well-perfused, no edema. NEUROLOGICAL: Cranial nerves II through XII grossly intact. Normal speech, gait not observed. PSYCH: Normal mood, normal affect. SKIN: Warm, dry, normal turgor, no rashes or lesions noted Laboratory Results - last 24 hr 04/29/18 04/29/18 10:20 10:20 WBC 6.6 RBC 3.14 L Hgb 8.3 L Hct 25.0 L MCV 79.8 L MCH 26.5 MCHC 33.2 RDW 23.9 H Plt Count 108 L D MPV 9.5 Neutrophils % No Result Required. Lymphocytes % No Result Required. Nucleated RBC % 0 Sodium 144 Potassium 4.2 Chloride 107 Carbon Dioxide 24 Anion Gap 12 BUN 78 H Creatinine 4.1 H Creat Clearance w eGFR 11.30 Random Glucose 81 Calcium 7.6 L Active Medications Generic Name Dose Route Start Last Admin Trade Name Freq PRN Reason Stop Dose Admin Amlodipine Besylate 5 mg 04/28/18 10:00 04/28/18 10:09 Norvasc - PO 5 mg DAILY [facility] Administration Artificial Tears 1 drop 04/27/18 22:00 04/29/18 10:03 Artificial Tears OU Not Given BID [facility] Atovaquone 1,500 mg 04/28/18 08:00 04/29/18 12:54 Mepron - PO Not Given DAILY@0800 [facility] Docusate Sodium 100 mg 04/27/18 15:54 Colace Liquid - PO Q8H PRN CONSTIPATION Heparin Sodium (Porcine) 5,000 unit 04/27/18 22:00 04/29/18 14:37 Heparin - SQ 5,000 unit TID [facility] Administration Hydrocortisone Sodium Succinate 50 mg 04/28/18 10:00 04/29/18 10:02 Solu-Cortef - IVPB 50 mg Q12H [facility] Administration Ceftriaxone Sodium 2 gm/ 100 mls @ 200 mls/hr 04/28/18 10:00 04/29/18 10:01 Dextrose IVPB 200 mls/hr DAILY [facility] Administration Pantoprazole Sodium 40 mg 04/28/18 10:00 04/29/18 10:02 Protonix Iv IVPUSH 40 mg DAILY [facility] Administration Senna 1 tab 04/27/18 22:00 04/28/18 21:00 Senna - PO 1 tab HS [facility] Administration Sevelamer Carbonate 2,400 mg 04/27/18 17:30 04/29/18 12:53 Renvela - PO Not Given TIDCM [facility] -Echo - LV normal in size, LV systolic function is low normal. EF 50-55%. Diastolic dysfunction grade II (pseudonormalization pattern). Ratio E/E'=18. RV systolic function is normal. LA size normal. RAsize normal. Moderate to severe MR. The mitral regurgitant jet is eccentrically directed. Moderate AR. No pericardial effusion. -Chest CT - multifocal bilateral infiltrates. Mild nonspecific mediastinal lymphadenopathy which may be reactive. Mild nonspecific bilateral adrenal gland thickening -?chronic in nature representing hyperplasia, or subcentimeter adenomas vs being acute in nature. Main pulmonary artery appears mildly dilated 3.2 cm. -Renal US - No hydronephrosis. Interval development of bilateral increased cortical echogenicity. Gallbladder mild to moderate overdistention and mild diffuse nonspecific gallbladder wall thickening as well as pericholecystic fluid accumulation which may be acute cholecystitis. a trace amount of free fluid is seen within the hepatorenal fossa. -Head CT - No acute intracranial pathology. Interval bilateral mastoid effusion. ASSESSMENT/PLAN: The patient is a 53 year old female with a history of HIV, HTN, HLD, Asthma, Anemia who presents for evaluation of difficulty breathing and altered mental status. #Acute hypoxic respiratory failure likely 2/2 multilobular strep pneumonia: improving -CXR (04/28/18) - Minimal improvement. -Ceftriaxone Day 10 -ID consulted. Recommendations appreciated. #Septic shock likely 2/2 pneumonia: resolved -Ceftriaxone 2gm q12 day 10 -Taper Hydrocortisone 50mg q8h --> q12h -Atovaquone (Mepron) 1500mg daily for PCP prophylaxis #Acute metabolic acidosis with high anion gap: resolved -Nephrology consulted. Recommendations appreciated. #Acute kidney injury: -BUN/Cr today 78/4.1 -Nephrology (Dr. Ibarra) consulted. Recommendations appreciated. -BUN/Cr may be plateauing -No electrolyte abnormalities or acidosis to warrant dialysis -Trend renal function and electrolytes daily. -Can remove temporary dialysis catheter -If BUN/Cr continues to rise or with electrolyte/acid base abnormality, will arrange permacath placement for dialysis -Dose all meds for CrCl<15 -STEVE and ANCA negative -Continue supportive care with MAP >65 and CVP 10-12 -Renvela 2.4 gm q8h for hyperphosphatemia (6.3 --> 5.2) #Microcytic hypochromic anemia: acute on chronic -H/H stable 8.06/30 -likely 2/2 iron deficiency anemia; GI bleed, resolved -Peripheral blood smear showed different RBC morphologies including but not limited to microcytic with central pallor, spherocytes, target cells, burst cells, teardrop cells; but no schistocytes, unlikely hemolytic -Iron studies done -Haptoglobin 383 -Ferritin 811 -Retic count 0.34 -LDH 460 #Thrombocytopenia: improving -likely 2/2 sepsis -Fibrinogen >500, unlikely DIC -Hematology (Dr. Vidal) consulted. #GI bleed: resolved -GI (Dr. Green) consulted recommendations appreciated. -episodes of coffee ground emesis and melena, resolved -no active signs of bleeding -may resume Protonix 40mg daily #Troponinemia: resolved -likely 2/2 demand ischemia -0.11 > 0.16 > 0.04 #HIV -ID (Dr. Mccloud) consulted. -noncompliant with medications -CD4 - 6 -CD3 - 450 -As per PCP (CD4 count 50, viral load 121k on 03/31/18). -Pneumocystis carinii smear negative -Hbe ab positive,Hbe ag negative -Hepatitis panel: Hep A ab and HBcore ab positive #Hypertension -Amlodipine 5mg daily -will continue to monitor #Hyperlipidemia: chronic #Asthma -Intubated and sedated #FEN -Not on any standing fluids -Electrolytes wnl -routine bmp monitoring -Phosphorus/sodium restricted diet #Prophylaxis -DVT: SCDs, Heparin 5000units sq tid -GI: IV Protonix 40mg daily #Disposition -full code -med-surg Visit type - Emergency Visit Emergency Visit: Yes ED Registration Date: 04/19/18 Care time: The patient presented to the Emergency Department on the above date and was hospitalized for further evaluation of their emergent condition. - New Patient This patient is new to me today: No - Critical Care Critical Care patient: No
--- NOTE | 2018-04-29 15:43 | PN ---
Teaching Attending Note Name of Resident: Crystal Nino ATTENDING PHYSICIAN STATEMENT I saw and evaluated the patient. I reviewed the resident's note and discussed the case with the resident. I agree with the resident's findings and plan as documented. SUBJECTIVE: Patient wants to go home looks confused OBJECTIVE: Vital Signs Period Temp Pulse Resp BP Sys/Cai Pulse Ox Last 24 Hr 97.6 F-98.4 F 78-87 18-20 136-154/74-86 98-98 Young F sick looking HEENT:angle of moth and oral ulcers, Mm moist mild anemia, PERRLA EOMI NECK; Rt IJ no JVD No Bruit CHEST: Occasional crepts CVS: S1S2 R no m/g/r ABD: No distention Bs + EXT: Trace edema, pulses + SPRAY I PAINTER: Alert bur confused non focal LABS: CBC, BMP 04/29/18 10:20 04/29/18 10:20 Assessment and Plan: 53F with extensive PMH including AIDS CD4 count 6 , HTN, HLD, presents with septic shock secondary to multi lobar, Strpt Pneumonia with Bacteremia pneumonia, bacteria, and metabolic acidosis with SANA requiring dialysis and Intubated for respiratory distress now extubated transferred to floor . Plan; PT evaluation ID to review Abx switch to PO and ANABELL prophylaxis Oral hygiene and care Disposition probably to [facility] Problem List - Problems (1) Respiratory failure with hypoxia Assessment/Plan: S/P intubation and extubation doing well on NC F/U pulmonary recommendations cont NC and abx for Strept pneumonia Code(s): J96.91 - RESPIRATORY FAILURE, UNSPECIFIED WITH HYPOXIA (2) Sepsis Assessment/Plan: Due to Pneumonia improving on Ceftriaxone F/U Pulmonary and ID recommendations Code(s): A41.9 - SEPSIS, UNSPECIFIED ORGANISM (3) SANA (acute kidney injury) Assessment/Plan: On HD F/U renal recommendations Code(s): N17.9 - ACUTE KIDNEY FAILURE, UNSPECIFIED (4) HIV (human immunodeficiency virus infection) Assessment/Plan: Not on HAART on PCP prophylaxis needs ANABELL prophylaxis Code(s): B20 - HUMAN IMMUNODEFICIENCY VIRUS [HIV] DISEASE (5) Respiratory failure, acute Assessment/Plan: Due to pneumonia s/o intubation and extubation saturating well, cont current management Code(s): J96.00 - ACUTE RESPIRATORY FAILURE, UNSP W HYPOXIA OR HYPERCAPNIA (6) GERD (gastroesophageal reflux disease) Assessment/Plan: on PPI Code(s): K21.9 - GASTRO-ESOPHAGEAL REFLUX DISEASE WITHOUT ESOPHAGITIS Qualifiers: Esophagitis presence: esophagitis presence not specified Qualified Code(s) : K21.9 - Gastro-esophageal reflux disease without esophagitis
--- NOTE | 2018-04-29 17:41 | PN ---
Progress Note (short form) - Note Progress Note: Renal follow up for SANA requiring emergent dialysis Pt seen and examined at the bedside awake and alert said that she just found that her nephew diet and is very upset denies any sob, cp, abd pain making urine Vital Signs Temperature 97.6 F 04/29/18 15:17 Pulse Rate 82 04/29/18 15:17 Respiratory Rate 20 04/29/18 15:17 Blood Pressure 160/78 04/29/18 15:17 O2 Sat by Pulse Oximetry (%) 98 04/29/18 09:00 Intake & Output 04/26/18 04/27/18 04/28/18 04/29/18 23:59 23:59 23:59 23:59 Intake Total 1281.2 470 650 300 Balance 1281.2 470 650 300 Weight 67.585 kg 70.216 kg NAD on NC O2 RRR Course BS no Le edema, clubbing or cyanosis extremities are warm CBC, BMP 04/29/18 10:20 04/29/18 10:20 Current Medications Amlodipine Besylate (Norvasc -) 5 mg PO DAILY [facility] Last Admin: 04/28/18 10:09 Dose: 5 mg Artificial Tears (Artificial Tears) 1 drop OU BID [facility] Last Admin: 04/29/18 10:03 Dose: Not Given Atovaquone (Mepron -) 1,500 mg PO DAILY@0800 [facility] Last Admin: 04/29/18 12:54 Dose: Not Given Docusate Sodium (Colace Liquid -) 100 mg PO Q8H PRN PRN Reason: CONSTIPATION Heparin Sodium (Porcine) (Heparin -) 5,000 unit SQ TID [facility] Last Admin: 04/29/18 14:37 Dose: 5,000 unit Hydrocortisone Sodium Succinate (Solu-Cortef -) 50 mg IVPB Q12H [facility] Last Admin: 04/29/18 10:02 Dose: 50 mg Ceftriaxone Sodium 2 gm/ (Dextrose) 100 mls @ 200 mls/hr IVPB DAILY [facility] Last Admin: 04/29/18 10:01 Dose: 200 mls/hr Pantoprazole Sodium (Protonix Iv) 40 mg IVPUSH DAILY [facility] Last Admin: 04/29/18 10:02 Dose: 40 mg Senna (Senna -) 1 tab PO HS [facility] Last Admin: 04/28/18 21:00 Dose: 1 tab Sevelamer Carbonate (Renvela -) 2,400 mg PO TIDCM [facility] Last Admin: 04/29/18 12:53 Dose: Not Given 53 year old AA woman with hx of HIV (non-compliance with meds per ER records), HTN, HLD, Asthma who presented from home with fever and AMS and found to have B/ L lung infiltrates, Sepsis syndrome and SANA with severe metabolic acidosis. #Acute Renal Failure in setting of Sepsis syndrome requiring emergent dialysis for persistent acidosis #Anion gap metabolic acidosis (lactic acidosis with concurrent respiratory acidosis) #Sepsis Syndrome with with Strep PNA #HIV non-compliant with medications #Pseudohypocalcemia/Hyperphosphatemia #Acute Anemia with + stool occult blood BUN/Cr with slight uptrend but it may be plateauing no hyperkalemia, acidosis, or overt uremia to warrant dialysis will defer any further dialysis and trend renal function can remove temporary dialysis catheter if BUN/Cr continues to rise or if there is any overt electrolyte or acid base abnormality will arrange for permacath placement for dialysis dose all meds for CrCl < 15 Trend renal function and electrolytes daily Khadar Ibarra DO
[2018-04-29] MEDS: SENNOSIDES 8.6MG TABLET (FP) PO SCH ×2 (23:02→23:24)
[2018-04-30] MEDS: HEPARIN NA (PORCINE) 5,000 UNITS/ML 1ML VIAL SQ SCH ×3 (05:18→23:22)
[2018-04-30] MEDS: ATOVAQUONE 750 MG/5 ML (UNIT-DOSE PACKAGING) PO SCH (09:01)
[2018-04-30] MEDS: SEVELAMER CARBONATE 800 MG TAB (FP) PO SCH ×2 (09:01→13:20)
[2018-04-30] MEDS ORDERED: PT OWN MED DRAWER 7, Y5N ONE (09:07)
[2018-04-30] MEDS ORDERED: DEXTROSE 5%-WATER 100 ML IVPB ONE (09:08)
[2018-04-30] MEDS: amLODIPine BESYLATE 5 MG TABLET (FP) PO SCH (09:44)
[2018-04-30] MEDS: PANTOPRAZOLE SODIUM 40 MG VIAL IVPUSH SCH (09:44)
[2018-04-30] MEDS: CEFTRIAXONE 2 GM in DEXTROSE 5%-WATER 100 ML IVPB SCH (09:44)
[2018-04-30] MEDS: ARTIFICIAL TEARS (POLYVINYL ALCOHOL) OPTH DROPS OU SCH ×2 (09:52→23:22)
[2018-04-30] MEDS: HYDROCORTISONE SOD SUCCINATE 100 MG/2 ML VIAL IVPB SCH (09:53)
[2018-04-30 10:53] LABS: BASO % 0.1 % (0-2.0); EOS % 0.5 % (0-4.5); HEMATOCRIT 25.5 % (32.4-45.2); HEMOGLOBIN 8.4 GM/dL (10.7-15.3); LYMPH % 5.2 % (8-40); MCH 26.8 pg (25.7-33.7); MEAN PLT VOLUME 9.4 fl (7.5-11.1); MONO % 5.3 % (3.8-10.2); NEUT % 88.9 % (42.8-82.8); PLATELET COUNT 115 K/MM3 (134-434); RBC 3.14 M/mm3 (3.60-5.2); RDW 22.7 % (11.6-15.6); WHITE BLOOD COUNT 6.8 K/mm3 (4.0-10.0)
[2018-04-30 11:01] LABS: ANION GAP 12 MMOL/L (8-16); BLOOD UREA NITROGEN 83 mg/dL (7-18); CALCIUM 7.9 mg/dL (8.5-10.1); CHLORIDE 106 mmol/L (98-107); CO2 25 mmol/L (21-32); CREATININE 4.2 mg/dL (0.55-1.3); GLUCOSE,RANDOM 97 mg/dL (74-106); SODIUM 143 mmol/L (136-145)
--- NOTE | 2018-04-30 12:21 | PN ---
Progress Note (short form) - Note Progress Note: Renal follow up for SANA requiring emergent dialysis Pt seen and examined at the bedside awake and alert wants to go to [facility] making urine in diaper as per nurse denies any sob, cp poor oral intake as per nurse Vital Signs Temperature 98.5 F 04/30/18 10:00 Pulse Rate 87 04/30/18 10:00 Respiratory Rate 20 04/30/18 10:00 Blood Pressure 164/83 04/30/18 10:00 O2 Sat by Pulse Oximetry (%) 97 04/30/18 09:00 Intake & Output 04/27/18 04/28/18 04/29/18 04/30/18 23:59 23:59 23:59 23:59 Intake Total 470 650 900 300 Balance 470 650 900 300 Weight 70.216 kg NAD on NC O2 RRR Course BS no Le edema, clubbing or cyanosis CBC, BMP 04/30/18 10:15 04/30/18 10:15 Current Medications Amlodipine Besylate (Norvasc -) 5 mg PO DAILY [facility] Last Admin: 04/30/18 09:44 Dose: Not Given Artificial Tears (Artificial Tears) 1 drop OU BID [facility] Last Admin: 04/30/18 09:52 Dose: Not Given Atovaquone (Mepron -) 1,500 mg PO DAILY@0800 [facility] Last Admin: 04/30/18 09:01 Dose: Not Given Docusate Sodium (Colace Liquid -) 100 mg PO Q8H PRN PRN Reason: CONSTIPATION Heparin Sodium (Porcine) (Heparin -) 5,000 unit SQ TID [facility] Last Admin: 04/30/18 05:18 Dose: 5,000 unit Hydrocortisone Sodium Succinate (Solu-Cortef -) 50 mg IVPB Q12H [facility] Last Admin: 04/30/18 09:53 Dose: Not Given Ceftriaxone Sodium 2 gm/ (Dextrose) 100 mls @ 200 mls/hr IVPB DAILY [facility] Last Admin: 04/30/18 09:44 Dose: Not Given Pantoprazole Sodium (Protonix Iv) 40 mg IVPUSH DAILY [facility] Last Admin: 04/30/18 09:44 Dose: Not Given Senna (Senna -) 1 tab PO HS [facility] Last Admin: 04/29/18 23:24 Dose: Not Given Sevelamer Carbonate (Renvela -) 2,400 mg PO TIDCM [facility] Last Admin: 04/30/18 09:01 Dose: Not Given 53 year old AA woman with hx of HIV (non-compliance with meds per ER records), HTN, HLD, Asthma who presented from home with fever and AMS and found to have B/ L lung infiltrates, Sepsis syndrome and SANA with severe metabolic acidosis. #Acute Renal Failure in setting of Sepsis syndrome requiring emergent dialysis for persistent acidosis #Sepsis Syndrome with with Strep PNA #HIV non-compliant with medications #Hyperphosphatemia #Acute Anemia with + stool occult blood BUN/Cr plateauing no hyperkalemia, acidosis, or overt uremia to warrant dialysis will defer any further dialysis can remove temporary dialysis catheter dose all meds for CrCl < 15 Trend renal function and electrolytes daily Can discontinue phos binder Khadar Ibarra DO
--- NOTE | 2018-04-30 15:29 | PN ---
Progress Note, Physician History of Present Illness: pulmonary awake,no distress - Current Medication List Current Medications: Active Medications Amlodipine Besylate (Norvasc -) 5 mg PO DAILY [facility] Last Admin: 04/30/18 09:44 Dose: Not Given Artificial Tears (Artificial Tears) 1 drop OU BID [facility] Last Admin: 04/30/18 09:52 Dose: Not Given Atovaquone (Mepron -) 1,500 mg PO DAILY@0800 [facility] Last Admin: 04/30/18 09:01 Dose: Not Given Docusate Sodium (Colace Liquid -) 100 mg PO Q8H PRN PRN Reason: CONSTIPATION Heparin Sodium (Porcine) (Heparin -) 5,000 unit SQ TID [facility] Last Admin: 04/30/18 14:30 Dose: 5,000 unit Hydrocortisone Sodium Succinate (Solu-Cortef -) 50 mg IVPB DAILY [facility] Ceftriaxone Sodium 2 gm/ (Dextrose) 100 mls @ 200 mls/hr IVPB DAILY [facility] Last Admin: 04/30/18 09:44 Dose: Not Given Pantoprazole Sodium (Protonix Iv) 40 mg IVPUSH DAILY [facility] Last Admin: 04/30/18 09:44 Dose: Not Given Senna (Senna -) 1 tab PO HS [facility] Last Admin: 04/29/18 23:24 Dose: Not Given - Objective Vital Signs: Vital Signs Temperature 97.4 F L 04/30/18 15:00 Pulse Rate 65 04/30/18 15:00 Respiratory Rate 20 04/30/18 15:00 Blood Pressure 155/95 04/30/18 15:00 O2 Sat by Pulse Oximetry (%) 97 04/30/18 09:00 Constitutional: Yes: Well Nourished, Calm Eyes: Yes: WNL HENT: Yes: WNL Neck: Yes: WNL Cardiovascular: Yes: Regular Rate and Rhythm, S1, S2 Respiratory: Yes: Diminished Gastrointestinal: Yes: Normal Bowel Sounds, Soft Extremities: Yes: WNL Edema: No Labs: CBC, BMP 04/30/18 10:15 04/30/18 10:15 INR, PTT INR 0.92 (0.83-1.09) 04/21/18 05:15 Fibrinogen > 500.0 mg/dL (238-498) H 04/19/18 19:30 Problem List - Problems (1) SANA (acute kidney injury) Code(s): N17.9 - ACUTE KIDNEY FAILURE, UNSPECIFIED (2) HIV (human immunodeficiency virus infection) Code(s): B20 - HUMAN IMMUNODEFICIENCY VIRUS [HIV] DISEASE (3) Respiratory distress Code(s): R06.03 - ACUTE RESPIRATORY DISTRESS (4) Respiratory failure with hypoxia Code(s): J96.91 - RESPIRATORY FAILURE, UNSPECIFIED WITH HYPOXIA (5) Respiratory failure, acute Code(s): J96.00 - ACUTE RESPIRATORY FAILURE, UNSP W HYPOXIA OR HYPERCAPNIA (6) Sepsis Code(s): A41.9 - SEPSIS, UNSPECIFIED ORGANISM (7) Pneumonia Code(s): J18.9 - PNEUMONIA, UNSPECIFIED ORGANISM Assessment/Plan ASSESSMENT AND PLAN: Acute Hypoxic and Hypercapneic Respiratory Failure Pneumococcal Pneumonia/Bacteremia Septic Shock improving Acute Kidney Injury improving Metabolic Acidosis AIDS Thrombocytopenia Altered Mental Status improving - ABX per ID - monitor urine output, creatinine - steroids - monitor CBC/lytes/renal function - transfuse as needed - DVT/GI prophylaxis DR WALKER
[2018-04-30] MEDS: NYSTATIN 500,000 UNITS/5 ML SUSPENSION PO SCH ×3 (17:34→17:36)
--- NOTE | 2018-04-30 17:34 | PN ---
Physical Exam: SUBJECTIVE: Patient seen and examined at bedside this morning. No acute events overnight. Patient denies chest pain, shortness of breath, fever, chills. OBJECTIVE: Vital Signs Period Temp Pulse Resp BP Sys/Cai Pulse Ox Last 24 Hr 97.4 F-98.5 F 65-87 20-20 152-164/61-95 97-99 GENERAL: The patient is awake, alert, and oriented to place and person, in no acute distress. HEAD: Normal with no signs of trauma. HEENT:PERRLA, EOMI, oral thrush, dry mucous membranes. NECK: Trachea midline, full range of motion, supple. LUNGS:+scattered rhonchi bilaterally HEART: Regular rate and rhythm, S1, S2 without murmur, rub or gallop. ABDOMEN: Soft, nontender, nondistended, normoactive bowel sounds. EXTREMITIES: 2+ pulses, warm, well-perfused, no edema. NEUROLOGICAL: Cranial nerves II through XII grossly intact. Normal speech, gait not observed. PSYCH: Normal mood, normal affect. SKIN: Warm, dry, normal turgor, no rashes or lesions noted Laboratory Results - last 24 hr 04/30/18 04/30/18 10:15 10:15 WBC 6.8 RBC 3.14 L Hgb 8.4 L Hct 25.5 L MCV 81.0 MCH 26.8 MCHC 33.0 RDW 22.7 H Plt Count 115 L MPV 9.4 Absolute Neuts (auto) 6.0 Neutrophils % 88.9 H Lymphocytes % 5.2 L D Monocytes % 5.3 Eosinophils % 0.5 Basophils % 0.1 Nucleated RBC % 0 Sodium 143 Potassium 4.0 Chloride 106 Carbon Dioxide 25 Anion Gap 12 BUN 83 H Creatinine 4.2 H Creat Clearance w eGFR 10.99 Random Glucose 97 Calcium 7.9 L Active Medications Generic Name Dose Route Start Last Admin Trade Name Freq PRN Reason Stop Dose Admin Amlodipine Besylate 5 mg 04/28/18 10:00 04/30/18 09:44 Norvasc - PO Not Given DAILY [facility] Artificial Tears 1 drop 04/27/18 22:00 04/30/18 09:52 Artificial Tears OU Not Given BID [facility] Atovaquone 1,500 mg 04/28/18 08:00 04/30/18 09:01 Mepron - PO Not Given DAILY@0800 [facility] Docusate Sodium 100 mg 04/27/18 15:54 Colace Liquid - PO Q8H PRN CONSTIPATION Heparin Sodium (Porcine) 5,000 unit 04/27/18 22:00 04/30/18 14:30 Heparin - SQ 5,000 unit TID [facility] Administration Hydrocortisone Sodium Succinate 50 mg 05/01/18 10:00 Solu-Cortef - IVPB DAILY [facility] Ceftriaxone Sodium 2 gm/ 100 mls @ 200 mls/hr 04/28/18 10:00 04/30/18 09:44 Dextrose IVPB Not Given DAILY [facility] Nystatin 500,000 units 04/30/18 18:00 Nystatin Oral Suspension - PO Q6HPO [facility] Pantoprazole Sodium 40 mg 04/28/18 10:00 04/30/18 09:44 Protonix Iv IVPUSH Not Given DAILY [facility] Senna 1 tab 04/27/18 22:00 04/29/18 23:24 Senna - PO Not Given HS [facility] -Echo - LV normal in size, LV systolic function is low normal. EF 50-55%. Diastolic dysfunction grade II (pseudonormalization pattern). Ratio E/E'=18. RV systolic function is normal. LA size normal. RAsize normal. Moderate to severe MR. The mitral regurgitant jet is eccentrically directed. Moderate AR. No pericardial effusion. -Chest CT - multifocal bilateral infiltrates. Mild nonspecific mediastinal lymphadenopathy which may be reactive. Mild nonspecific bilateral adrenal gland thickening -?chronic in nature representing hyperplasia, or subcentimeter adenomas vs being acute in nature. Main pulmonary artery appears mildly dilated 3.2 cm. -Renal US - No hydronephrosis. Interval development of bilateral increased cortical echogenicity. Gallbladder mild to moderate overdistention and mild diffuse nonspecific gallbladder wall thickening as well as pericholecystic fluid accumulation which may be acute cholecystitis. a trace amount of free fluid is seen within the hepatorenal fossa. -Head CT - No acute intracranial pathology. Interval bilateral mastoid effusion. ASSESSMENT/PLAN: The patient is a 53 year old female with a history of HIV, HTN, HLD, Asthma, Anemia who presents for evaluation of difficulty breathing and altered mental status. #Acute hypoxic respiratory failure likely 2/2 multilobular strep pneumonia: improving -CXR (04/28/18) - Minimal improvement. -Ceftriaxone Day 11 -ID consulted. Recommendations appreciated. #Septic shock likely 2/2 pneumonia: resolved -Ceftriaxone 2gm q12 day 11 -Taper Hydrocortisone 50mg to daily -Atovaquone (Mepron) 1500mg daily for PCP prophylaxis #Acute metabolic acidosis with high anion gap: resolved -Nephrology consulted. Recommendations appreciated. #Acute kidney injury: -BUN/Cr today 83/4.2 -Nephrology (Dr. Ibarra) consulted. Recommendations appreciated. -BUN/Cr may be plateauing -No electrolyte abnormalities or acidosis to warrant dialysis -Trend renal function and electrolytes daily. -Can remove temporary dialysis catheter -If BUN/Cr continues to rise or with electrolyte/acid base abnormality, will arrange permacath placement for dialysis -Dose all meds for CrCl<15 -STEVE and ANCA negative -Renvela discontinued #Microcytic hypochromic anemia: acute on chronic -H/H stable 8.4/25.5 -likely 2/2 iron deficiency anemia; GI bleed, resolved -Peripheral blood smear showed different RBC morphologies including but not limited to microcytic with central pallor, spherocytes, target cells, burst cells, teardrop cells; but no schistocytes, unlikely hemolytic -Iron studies done -Haptoglobin 383 -Ferritin 811 -Retic count 0.34 -LDH 460 #Thrombocytopenia: improving -likely 2/2 sepsis -Fibrinogen >500, unlikely DIC -Hematology (Dr. Vidal) consulted. #GI bleed: resolved -GI (Dr. Green) consulted recommendations appreciated. -episodes of coffee ground emesis and melena, resolved -no active signs of bleeding -may resume Protonix 40mg daily #Troponinemia: resolved -likely 2/2 demand ischemia -0.11 > 0.16 > 0.04 #HIV -ID (Dr. Mccloud) consulted. -noncompliant with medications -CD4 - 6 -CD3 - 450 -As per PCP (CD4 count 50, viral load 121k on 03/31/18). -Pneumocystis carinii smear negative -Hbe ab positive,Hbe ag negative -Hepatitis panel: Hep A ab and HBcore ab positive -Patient presenting with oral thrush -Will start Nystatin #Hypertension -Amlodipine 5mg daily -will continue to monitor #Hyperlipidemia: chronic #Asthma: controlled #FEN -Not on any standing fluids -Electrolytes wnl -routine bmp monitoring -Phosphorus/sodium restricted diet #Prophylaxis -DVT: SCDs, Heparin 5000units sq tid -GI: IV Protonix 40mg daily #Disposition -full code -med-surg Visit type - Emergency Visit Emergency Visit: Yes ED Registration Date: 04/19/18 Care time: The patient presented to the Emergency Department on the above date and was hospitalized for further evaluation of their emergent condition. - New Patient This patient is new to me today: No - Critical Care Critical Care patient: No
--- NOTE | 2018-04-30 19:06 | PN ---
Teaching Attending Note Name of Resident: Eber Lutz ATTENDING PHYSICIAN STATEMENT I saw and evaluated the patient. I reviewed the resident's note and discussed the case with the resident. I agree with the resident's findings and plan as documented. SUBJECTIVE: no pain, no fever or chills OBJECTIVE: NAD, looks tired . thrush CV: RRR Lungs: CTAB Abd: soft, Nl BS , NT, ND Ext: no edema or erythema ASSESSMENT AND PLAN: Unfortunate 53 y/o lady with h/o HIV, non compliance, Asthma, HTN, HLP, HTN, and other medical problems who presented with fever and AMS accompanied by family. She was found to have sepsis with multi-organ system failure 1- Acute hypoxic resp failure 2/2 b/l strep PNA . improved and extubated - cont ceftriaxone day 11 2- Septic shock from PNA, with strep bacteremia shock resolved and bacteremia cleard. - cont ceftriaxone - decrease hydrocortisone 3-SANA : s/p HD and removal of HD cath. - monitor renal function . No HD for now - d/w Dr. Ibarra 4- Acute on chronic anemia . due to BM suppression - cont to monitor - GI f/u for EGD /colo as out pt 5- HIV: CD4 count of 6. -cont Atovaquone. - will d/w ID MAC prophylaxis 8- Abnormal TFTs: likely sick euthyroid syndrome in the setting of acute severe illness. need repeat in out pt steady state 9- Thrush : add nystatin DVT PX" heparin GI Px: PPI
--- NOTE | 2018-04-30 19:40 | PN ---
Progress Note, Physician History of Present Illness: Noted by nurse to have angular stomatitis and vulvar/ perirectal ulcers Lethargic Offers no complaints Refusing oral and IV meds - Current Medication List Current Medications: Active Medications Amlodipine Besylate (Norvasc -) 5 mg PO DAILY [facility] Last Admin: 04/30/18 09:44 Dose: Not Given Artificial Tears (Artificial Tears) 1 drop OU BID [facility] Last Admin: 04/30/18 09:52 Dose: Not Given Atovaquone (Mepron -) 1,500 mg PO DAILY@0800 [facility] Last Admin: 04/30/18 09:01 Dose: Not Given Docusate Sodium (Colace Liquid -) 100 mg PO Q8H PRN PRN Reason: CONSTIPATION Heparin Sodium (Porcine) (Heparin -) 5,000 unit SQ TID [facility] Last Admin: 04/30/18 14:30 Dose: 5,000 unit Hydrocortisone Sodium Succinate (Solu-Cortef -) 50 mg IVPB DAILY [facility] Ceftriaxone Sodium 2 gm/ (Dextrose) 100 mls @ 200 mls/hr IVPB DAILY [facility] Last Admin: 04/30/18 09:44 Dose: Not Given Nystatin (Nystatin Oral Suspension -) 500,000 units PO Q6HPO [facility] Last Admin: 04/30/18 17:36 Dose: Not Given Pantoprazole Sodium (Protonix Iv) 40 mg IVPUSH DAILY [facility] Last Admin: 04/30/18 09:44 Dose: Not Given Senna (Senna -) 1 tab PO HS [facility] Last Admin: 04/29/18 23:24 Dose: Not Given - Objective Vital Signs: Vital Signs Temperature 98.1 F 04/30/18 18:45 Pulse Rate 80 04/30/18 18:45 Respiratory Rate 20 04/30/18 18:45 Blood Pressure 151/69 04/30/18 18:45 O2 Sat by Pulse Oximetry (%) 97 04/30/18 09:00 Constitutional: Yes: No Distress Eyes: Yes: Conjunctiva Clear HENT: Yes: Thrush, Other (+ angular stomatitis) Cardiovascular: Yes: Regular Rate and Rhythm, S1, S2 Respiratory: Yes: CTA Bilaterally Gastrointestinal: Yes: Normal Bowel Sounds, Soft Edema: No Integumentary: Yes: Other (+ shallow based ulcers, vulva and perirectal areas) Labs: CBC, BMP 04/30/18 10:15 04/30/18 10:15 INR, PTT INR 0.92 (0.83-1.09) 04/21/18 05:15 Fibrinogen > 500.0 mg/dL (238-498) H 04/19/18 19:30 Assessment/Plan + oral candidiasis/ angular stomatitis ?genital/ perirectal HSV Respiratory failure S/P extubation Multilobar pneumonia Azotemia improved Leukocytosis-resolved Thrombocytopenia AIDS Antibiotic allergies Continue ceftriaxone/ mepron PO fluconazole/ valtrex if pt permits
[2018-04-30] MEDS: SENNOSIDES 8.6MG TABLET (FP) PO SCH (23:22)
[2018-05-01] MEDS: NYSTATIN 500,000 UNITS/5 ML SUSPENSION PO SCH ×3 (05:41→17:15)
[2018-05-01] MEDS: HEPARIN NA (PORCINE) 5,000 UNITS/ML 1ML VIAL SQ SCH ×3 (05:41→21:57)
[2018-05-01 07:21] LABS: HEMATOCRIT 21.5 % (32.4-45.2); HEMOGLOBIN 7.2 GM/dL (10.7-15.3); MCH 26.6 pg (25.7-33.7); MCHC 33.4 g/dl (32.0-36.0); MEAN CELL VOLUME 79.7 fl (80-96); MEAN PLT VOLUME 9.3 fl (7.5-11.1); PLATELET COUNT 100 K/MM3 (134-434); RBC 2.69 M/mm3 (3.60-5.2); RDW 23.2 % (11.6-15.6); WHITE BLOOD COUNT 5.1 K/mm3 (4.0-10.0)
[2018-05-01 07:46] LABS: ANION GAP 11 MMOL/L (8-16); BLOOD UREA NITROGEN 78 mg/dL (7-18); CALCIUM 7.2 mg/dL (8.5-10.1); CHLORIDE 109 mmol/L (98-107); CO2 25 mmol/L (21-32); CREATININE 3.8 mg/dL (0.55-1.3); GLUCOSE,RANDOM 71 mg/dL (74-106); MAGNESIUM 2.1 mg/dL (1.8-2.4); PHOSPHOROUS 7.3 mg/dL (2.5-4.9); POTASSIUM 3.5 mmol/L (3.5-5.1); SODIUM 145 mmol/L (136-145)
--- NOTE | 2018-05-01 08:52 | PN ---
Progress Note (short form) - Note Progress Note: NAD on NC O2. Awake and alert. Denies CP or SOB. No acute events overnight. Intake & Output 04/28/18 04/29/18 04/30/18 05/01/18 23:59 23:59 23:59 23:59 Intake Total 650 900 500 0 Balance 650 900 500 0 Weight 154 lb 12.8 oz 153 lb 12.8 oz Last Vital Signs Temp Pulse Resp BP Pulse Ox 98.9 F 88 18 151/75 96 05/01/18 05:01 05/01/18 05:01 05/01/18 05:01 05/01/18 05:01 04/30/18 21:00 Active Medications Amlodipine Besylate (Norvasc -) 5 mg PO DAILY [facility] Last Admin: 04/30/18 09:44 Dose: Not Given Artificial Tears (Artificial Tears) 1 drop OU BID [facility] Last Admin: 04/30/18 23:22 Dose: Not Given Atovaquone (Mepron -) 1,500 mg PO DAILY@0800 [facility] Last Admin: 04/30/18 09:01 Dose: Not Given Docusate Sodium (Colace Liquid -) 100 mg PO Q8H PRN PRN Reason: CONSTIPATION Fluconazole (Diflucan -) 100 mg PO DAILY [facility] Last Admin: 04/28/18 19:20 Dose: 100 mg Heparin Sodium (Porcine) (Heparin -) 5,000 unit SQ TID [facility] Last Admin: 05/01/18 05:41 Dose: Not Given Hydrocortisone Sodium Succinate (Solu-Cortef -) 50 mg IVPB DAILY [facility] Ceftriaxone Sodium 2 gm/ (Dextrose) 100 mls @ 200 mls/hr IVPB DAILY [facility] Last Admin: 04/30/18 09:44 Dose: Not Given Nystatin (Nystatin Oral Suspension -) 500,000 units PO Q6HPO [facility] Last Admin: 05/01/18 05:41 Dose: Not Given Pantoprazole Sodium (Protonix Iv) 40 mg IVPUSH DAILY [facility] Last Admin: 04/30/18 09:44 Dose: Not Given Senna (Senna -) 1 tab PO HS [facility] Last Admin: 04/30/18 23:22 Dose: 1 tab Valacyclovir HCl (Valtrex -) 500 mg PO DAILY [facility] Last Admin: 04/28/18 19:21 Dose: 500 mg Gen: NAD Heart: RRR Lung: few scattered rhonchi Abd: soft, nontender Ext: no edema Laboratory Results - last 24 hr 04/30/18 04/30/18 05/01/18 10:15 10:15 06:30 WBC 6.8 RBC 3.14 L Hgb 8.4 L Hct 25.5 L MCV 81.0 MCH 26.8 MCHC 33.0 RDW 22.7 H Plt Count 115 L MPV 9.4 Absolute Neuts (auto) 6.0 Neutrophils % 88.9 H Lymphocytes % 5.2 L D Monocytes % 5.3 Eosinophils % 0.5 Basophils % 0.1 Nucleated RBC % 0 Sodium 143 145 Potassium 4.0 3.5 Chloride 106 109 H Carbon Dioxide 25 25 Anion Gap 12 11 BUN 83 H 78 H Creatinine 4.2 H 3.8 H Creat Clearance w eGFR 10.99 12.33 Random Glucose 97 71 L Calcium 7.9 L 7.2 L Phosphorus 7.3 H Magnesium 2.1 05/01/18 06:30 WBC 5.1 RBC 2.69 L Hgb 7.2 L Hct 21.5 L D MCV 79.7 L MCH 26.6 MCHC 33.4 RDW 23.2 H Plt Count 100 L MPV 9.3 Absolute Neuts (auto) Neutrophils % Lymphocytes % Monocytes % Eosinophils % Basophils % Nucleated RBC % Sodium Potassium Chloride Carbon Dioxide Anion Gap BUN Creatinine Creat Clearance w eGFR Random Glucose Calcium Phosphorus Magnesium ASSESSMENT AND PLAN: Acute Hypoxic and Hypercapneic Respiratory Failure Pneumococcal Pneumonia/Bacteremia Septic Shock improving Acute Kidney Injury requiring HD Metabolic Acidosis AIDS Thrombocytopenia Altered Mental Status - ABX per ID - HD per renal - monitor urine output, creatinine - taper steroids - monitor CBC - transfuse as needed - DVT/GI prophylaxis - remove HD cath if no HD planned Dr Novak
[2018-05-01] MEDS ORDERED: DEXTROSE 5%-WATER 100 ML IVPB ONE (09:07)
[2018-05-01] MEDS: PANTOPRAZOLE SODIUM 40 MG VIAL IVPUSH SCH (09:52)
[2018-05-01] MEDS: valACYclovir HCL 500 MG TABLET (FP) PO SCH ×2 (09:53→10:02)
[2018-05-01] MEDS: ARTIFICIAL TEARS (POLYVINYL ALCOHOL) OPTH DROPS OU SCH ×2 (09:53→21:57)
[2018-05-01] MEDS: CEFTRIAXONE 2 GM in DEXTROSE 5%-WATER 100 ML IVPB SCH (09:53)
[2018-05-01] MEDS: FLUCONAZOLE 100 MG TABLET (UD) PO SCH (09:53)
[2018-05-01] MEDS: amLODIPine BESYLATE 5 MG TABLET (FP) PO SCH (09:53)
[2018-05-01] MEDS: ATOVAQUONE 750 MG/5 ML (UNIT-DOSE PACKAGING) PO SCH ×2 (09:53→10:08)
[2018-05-01] MEDS: HYDROCORTISONE SOD SUCCINATE 100 MG/2 ML VIAL IVPB SCH (10:33)
--- NOTE | 2018-05-01 13:42 | PN ---
Teaching Attending Note Name of Resident: Crystal Nino ATTENDING PHYSICIAN STATEMENT I saw and evaluated the patient. I reviewed the resident's note and discussed the case with the resident. I agree with the resident's findings and plan as documented. SUBJECTIVE: No fever or chills. she feels better . pain sacral area. per RN , patient has been having hallucinations and talking to people who don't exist OBJECTIVE: NAD. Thrush , bilateral lacerations at both mouth angles CV: RRR, 3/6 SM at LUSB and 2/6 SM at apex Lungs: CTAB Abd: soft, Nl BS, NT, ND Ext: no edema or erythema Skin : satge 2 ulcer at saccral area. : small healing ulcers at labia majora and doug-anal area ASSESSMENT AND PLAN: Unfortunate 53 y/o lady with h/o HIV, non compliance, Asthma, HTN, HLP, HTN, and other medical problems who presented with fever and AMS accompanied by family. She was found to have sepsis with multi-organ system failure 1- Acute hypoxic resp failure 2/2 b/l strep PNA. Improved and extubated - cont ceftriaxone day 12 2- Strep bacteremia murmurs heard today, but echo on admission showed mod-severe MR and AR with no vegetations. Bacteremia cleared, and for a vegetation to cause severe valvular abnormalities , it is usually big and can be seen on TTE. This makes endocarditis unlikely - cont ceftriaxone - taper off hydrocortisone 3-SANA: s/p HD and removal of HD cath. - monitor renal function. improved 4- Acute on chronic anemia. due to BM suppression - cont to monitor - GI f/u for EGD /colo as out pt 5- HIV: CD4 count of 6. -cont Atovaquone. - will d/w ID MAC prophylaxis 8- Possible genital HSV, cont valcyclovir 9- Thrush: starte don diflucan . dc Nystatin 10 - Halluconations . likely delirium with psychotic features. but need to r/o organic brain pathologies in this HIV patient. Will obtain MRI and consult psych. 11- Abnormal TFTs: likely sick euthyroid syndrome need repeat in out pt steady state DVT PX: heparin GI Px: PPI ASSESSMENT AND PLAN:
--- NOTE | 2018-05-01 15:22 | PN ---
Physical Exam: SUBJECTIVE: Patient seen and examined at bedside this morning. No acute events overnight. Patient still reports low back/buttock pain, but is better today. As per nursing, patient was noted to be having hallucinations, talking to people who aren't there. She denies any headache, dizziness, chest pain, SOB, abdominal pain, diarrhea. OBJECTIVE: Vital Signs Period Temp Pulse Resp BP Sys/Cai Pulse Ox Last 24 Hr 98.1 F-98.9 F 80-100 18-20 119-161/69-98 96-96 GENERAL: The patient is awake, alert, and fully oriented, in no acute distress. HEAD: Normal with no signs of trauma. HEENT:PERRLA, EOMI, oral thrush, dry mucous membranes. NECK: Trachea midline, full range of motion, supple. LUNGS:+few scattered rhonchi bilaterally HEART: Regular rate and rhythm, S1, S2 without murmur, rub or gallop. ABDOMEN: Soft, nontender, nondistended, normoactive bowel sounds. : +shallow ulcers on the vulvar, perianal and sacrum EXTREMITIES: 2+ pulses, warm, well-perfused, no edema. NEUROLOGICAL: Cranial nerves II through XII grossly intact. Normal speech, gait not observed. PSYCH: Normal mood, normal affect. SKIN: Warm, dry, normal turgor, no rashes or lesions noted Laboratory Results - last 24 hr 05/01/18 05/01/18 06:30 06:30 WBC 5.1 RBC 2.69 L Hgb 7.2 L Hct 21.5 L D MCV 79.7 L MCH 26.6 MCHC 33.4 RDW 23.2 H Plt Count 100 L MPV 9.3 Sodium 145 Potassium 3.5 Chloride 109 H Carbon Dioxide 25 Anion Gap 11 BUN 78 H Creatinine 3.8 H Creat Clearance w eGFR 12.33 Random Glucose 71 L Calcium 7.2 L Phosphorus 7.3 H Magnesium 2.1 Active Medications Generic Name Dose Route Start Last Admin Trade Name Freq PRN Reason Stop Dose Admin Amlodipine Besylate 5 mg 04/28/18 10:00 05/01/18 09:53 Norvasc - PO 5 mg DAILY [facility] Administration Artificial Tears 1 drop 04/27/18 22:00 05/01/18 09:53 Artificial Tears OU Not Given BID [facility] Atovaquone 1,500 mg 04/28/18 08:00 05/01/18 10:08 Mepron - PO Not Given DAILY@0800 [facility] Docusate Sodium 100 mg 04/27/18 15:54 Colace Liquid - PO Q8H PRN CONSTIPATION Fluconazole 100 mg 04/30/18 19:45 05/01/18 09:53 Diflucan - PO 100 mg DAILY [facility] Administration Heparin Sodium (Porcine) 5,000 unit 04/27/18 22:00 05/01/18 05:41 Heparin - SQ Not Given TID [facility] Hydrocortisone Sodium Succinate 50 mg 05/01/18 10:00 05/01/18 10:33 Solu-Cortef - IVPB 50 mg DAILY [facility] Administration Ceftriaxone Sodium 2 gm/ 100 mls @ 200 mls/hr 04/28/18 10:00 05/01/18 09:53 Dextrose IVPB 200 mls/hr DAILY [facility] Administration Nystatin 500,000 units 04/30/18 18:00 05/01/18 11:40 Nystatin Oral Suspension - PO Not Given Q6HPO [facility] Pantoprazole Sodium 40 mg 04/28/18 10:00 05/01/18 09:52 Protonix Iv IVPUSH 40 mg DAILY [facility] Administration Senna 1 tab 04/27/18 22:00 04/30/18 23:22 Senna - PO 1 tab HS [facility] Administration Valacyclovir HCl 500 mg 04/30/18 19:45 05/01/18 10:02 Valtrex - PO Not Given DAILY [facility] ASSESSMENT/PLAN: The patient is a 53 year old female with a history of HIV, HTN, HLD, Asthma, Anemia who presents for evaluation of difficulty breathing and altered mental status. #Acute hypoxic respiratory failure likely 2/2 multilobular strep pneumonia: improving -Ceftriaxone Day 12 -ID consulted. Recommendations appreciated. #Septic shock likely 2/2 pneumonia: resolved -Ceftriaxone 2gm q12 day 12 -Taper Hydrocortisone 50mg to daily -Atovaquone (Mepron) 1500mg daily for PCP prophylaxis #Acute metabolic acidosis with high anion gap: resolved -Nephrology consulted. Recommendations appreciated. #Acute kidney injury: -BUN/Cr today 83/4.2 -Nephrology (Dr. Ibarra) consulted. Recommendations appreciated. -BUN/Cr may be plateauing -No electrolyte abnormalities or acidosis to warrant dialysis -Trend renal function and electrolytes daily. -Can remove temporary dialysis catheter -If BUN/Cr continues to rise or with electrolyte/acid base abnormality, will arrange permacath placement for dialysis -Dose all meds for CrCl<15 -STEVE and ANCA negative -Renvela discontinued #Microcytic hypochromic anemia: acute on chronic -H/H stable 7.2/21.5 -likely 2/2 iron deficiency anemia; GI bleed, resolved -Peripheral blood smear showed different RBC morphologies including but not limited to microcytic with central pallor, spherocytes, target cells, burst cells, teardrop cells; but no schistocytes, unlikely hemolytic -Iron studies done -Haptoglobin 383 -Ferritin 811 -Retic count 0.34 -LDH 460 #Thrombocytopenia: improving -likely 2/2 sepsis -Fibrinogen >500, unlikely DIC -Hematology (Dr. Vidal) consulted. #GI bleed: resolved -GI (Dr. Green) consulted recommendations appreciated. -episodes of coffee ground emesis and melena, resolved -no active signs of bleeding -may resume Protonix 40mg daily #Troponinemia: resolved -likely 2/2 demand ischemia -0.11 > 0.16 > 0.04 #HIV -ID (Dr. Mccloud) consulted. -noncompliant with medications -CD4 - 6 -CD3 - 450 -As per PCP (CD4 count 50, viral load 121k on 03/31/18). -Pneumocystis carinii smear negative -Hbe ab positive,Hbe ag negative -Hepatitis panel: Hep A ab and HBcore ab positive #Oral candidiasis/Angular stomatitis -Nystatin swish and swallow -Fluconazole 500mg daily started #Genital/Perianal ulcers likely 2/2 HSV -Valacyclovir 500mg daily started. #?Hallucinations -With history of HIV, will rule out organic causes such as brain abscess/ infection, Brain MRI ordered -Pychiatry (Dr. Bright) consulted. #Hypertension -Amlodipine 5mg daily -will continue to monitor #Hyperlipidemia: chronic #Asthma: controlled #FEN -Not on any standing fluids -Electrolytes wnl -routine bmp monitoring -Phosphorus/sodium restricted diet #Prophylaxis -DVT: SCDs, Heparin 5000units sq tid -GI: IV Protonix 40mg daily #Disposition -full code -med-surg Visit type - Emergency Visit Emergency Visit: Yes ED Registration Date: 04/19/18 Care time: The patient presented to the Emergency Department on the above date and was hospitalized for further evaluation of their emergent condition. - New Patient This patient is new to me today: No - Critical Care Critical Care patient: No
--- NOTE | 2018-05-01 15:53 | PN ---
Progress Note (short form) - Note Progress Note: Renal follow up for SANA requiring emergent dialysis Pt seen and examined at the bedside awake and alert no acute complaints making urine Vital Signs Temperature 98.4 F 05/01/18 13:40 Pulse Rate 87 05/01/18 13:40 Respiratory Rate 20 05/01/18 13:40 Blood Pressure 151/85 05/01/18 13:40 O2 Sat by Pulse Oximetry (%) 96 05/01/18 09:00 NAD on NC O2 RRR Course BS no Le edema, clubbing or cyanosis CBC, BMP 05/01/18 06:30 05/01/18 06:30 Current Medications Amlodipine Besylate (Norvasc -) 5 mg PO DAILY [facility] Last Admin: 05/01/18 09:53 Dose: 5 mg Artificial Tears (Artificial Tears) 1 drop OU BID [facility] Last Admin: 05/01/18 09:53 Dose: Not Given Atovaquone (Mepron -) 1,500 mg PO DAILY@0800 [facility] Last Admin: 05/01/18 10:08 Dose: Not Given Docusate Sodium (Colace Liquid -) 100 mg PO Q8H PRN PRN Reason: CONSTIPATION Fluconazole (Diflucan -) 100 mg PO DAILY [facility] Last Admin: 05/01/18 09:53 Dose: 100 mg Heparin Sodium (Porcine) (Heparin -) 5,000 unit SQ TID [facility] Last Admin: 05/01/18 15:47 Dose: Not Given Hydrocortisone Sodium Succinate (Solu-Cortef -) 50 mg IVPB DAILY [facility] Last Admin: 05/01/18 10:33 Dose: 50 mg Ceftriaxone Sodium 2 gm/ (Dextrose) 100 mls @ 200 mls/hr IVPB DAILY [facility] Last Admin: 05/01/18 09:53 Dose: 200 mls/hr Nystatin (Nystatin Oral Suspension -) 500,000 units PO Q6HPO [facility] Last Admin: 05/01/18 11:40 Dose: Not Given Pantoprazole Sodium (Protonix Iv) 40 mg IVPUSH DAILY [facility] Last Admin: 05/01/18 09:52 Dose: 40 mg Senna (Senna -) 1 tab PO HS [facility] Last Admin: 04/30/18 23:22 Dose: 1 tab Valacyclovir HCl (Valtrex -) 500 mg PO DAILY [facility] Last Admin: 05/01/18 10:02 Dose: Not Given 53 year old AA woman with hx of HIV (non-compliance with meds per ER records), HTN, HLD, Asthma who presented from home with fever and AMS and found to have B/ L lung infiltrates, Sepsis syndrome and SANA with severe metabolic acidosis. #Acute Renal Failure in setting of Sepsis syndrome requiring emergent dialysis for persistent acidosis #Sepsis Syndrome with with Strep PNA #HIV non-compliant with medications #Hyperphosphatemia #Acute Anemia with + stool occult blood Renal function improving and urine output improving no further indication for MANAGER HI continue supportive care Khadar Ibarra DO
[2018-05-01] MEDS: SENNOSIDES 8.6MG TABLET (FP) PO SCH (21:57)
[2018-05-02] MEDS: NYSTATIN 500,000 UNITS/5 ML SUSPENSION PO SCH ×4 (00:03→17:01)
[2018-05-02] MEDS: HEPARIN NA (PORCINE) 5,000 UNITS/ML 1ML VIAL SQ SCH ×3 (06:46→23:05)
[2018-05-02] MEDS ORDERED: DEXTROSE 5%-WATER 100 ML IVPB ONE (09:09)
[2018-05-02] MEDS: ATOVAQUONE 750 MG/5 ML (UNIT-DOSE PACKAGING) PO SCH (09:55)
[2018-05-02] MEDS: FLUCONAZOLE 100 MG TABLET (UD) PO SCH (09:56)
[2018-05-02] MEDS: ARTIFICIAL TEARS (POLYVINYL ALCOHOL) OPTH DROPS OU SCH ×2 (09:56→23:05)
[2018-05-02] MEDS: amLODIPine BESYLATE 5 MG TABLET (FP) PO SCH (09:56)
[2018-05-02] MEDS: PANTOPRAZOLE SODIUM 40 MG VIAL IVPUSH SCH (09:57)
[2018-05-02] MEDS: valACYclovir HCL 500 MG TABLET (FP) PO SCH (09:57)
[2018-05-02] MEDS: CEFTRIAXONE 2 GM in DEXTROSE 5%-WATER 100 ML IVPB SCH (09:59)
[2018-05-02] MEDS: HYDROCORTISONE SOD SUCCINATE 100 MG/2 ML VIAL IVPB SCH (10:00)
--- NOTE | 2018-05-02 10:24 | CON.PSY ---
Psychiatry Consult Chief Complaint: 53 year old with HIV and many medical conditions seen for psych eval. case discussed [facility] staff. REports of increased confusion and ? hallucinations at night. Appears more cognitivly intact during the day but becomes more confused as the Day progresses. Symptoms: reports: Memory Impairment, Anxiety - Previous Psychiatric Treatment Outpatient: None Inpatient: None - Previous Substance Abuse Treatment Outpatient: None Inpatient: None - Current Medications Current Medications: Active Medications Amlodipine Besylate (Norvasc -) 5 mg PO DAILY [facility] Last Admin: 05/02/18 09:56 Dose: 5 mg Artificial Tears (Artificial Tears) 1 drop OU BID [facility] Last Admin: 05/02/18 09:56 Dose: Not Given Atovaquone (Mepron -) 1,500 mg PO DAILY@0800 [facility] Last Admin: 05/02/18 09:55 Dose: 1,500 mg Docusate Sodium (Colace Liquid -) 100 mg PO Q8H PRN PRN Reason: CONSTIPATION Fluconazole (Diflucan -) 100 mg PO DAILY [facility] Last Admin: 05/02/18 09:56 Dose: 100 mg Heparin Sodium (Porcine) (Heparin -) 5,000 unit SQ TID [facility] Last Admin: 05/02/18 06:46 Dose: Not Given Hydrocortisone Sodium Succinate (Solu-Cortef -) 50 mg IVPB DAILY [facility] Last Admin: 05/02/18 10:00 Dose: 50 mg Ceftriaxone Sodium 2 gm/ (Dextrose) 100 mls @ 200 mls/hr IVPB DAILY [facility] Last Admin: 05/02/18 09:59 Dose: 200 mls/hr Nystatin (Nystatin Oral Suspension -) 500,000 units PO Q6HPO [facility] Last Admin: 05/02/18 06:46 Dose: Not Given Pantoprazole Sodium (Protonix Iv) 40 mg IVPUSH DAILY [facility] Last Admin: 05/02/18 09:57 Dose: 40 mg Senna (Senna -) 1 tab PO HS [facility] Last Admin: 05/01/18 21:57 Dose: 1 tab Valacyclovir HCl (Valtrex -) 500 mg PO DAILY [facility] Last Admin: 05/02/18 09:57 Dose: 500 mg - Allergies Allergies: Allergies Allergy/AdvReac Type Severity Reaction Status Date / Time Penicillins Allergy Severe Hives Verified 04/13/18 18:01 Sulfa (Sulfonamide Allergy Severe Difficulty Verified 04/13/18 18:01 Antibiotics) Breathing phenazopyridine AdvReac Verified 04/13/18 18:01 [From Pyridium] - Current Living Status Usual Living Arrangement: With Significant Other - Current Mental Status Evaluation Appearance: Disheveled Attitude: Cooperative - Affect Affect: Constrictive Appropriateness: Appropriate to Content - Mood Mood: Anxious - Speech/Language Expressive: Coherent - Psychomotor Activity Psychomotor Activity: Slowed - Thought Process Thought Process: Circumstantial - Thought Content Hallucinations: Present Delusions: Absent - Self Perception Self Perception: No Impairment - Cognition Attention: Alert Memory, Short Term: 2/3 Memory, Remote with Promptin/3 - Concentration Serial Sevens Intact: No Simple Calculations Intact: Yes - Abstraction Proverb Interpretation: Intact Judgement: Minimally Impaired - Insight Insight: Intact - Impulse Control Impulse Control: Minimally Impaired - Suicidal Ideation Suicidal Ideation: No - Homicidal Ideation Homicidal Ideation: No Assessment/Plan 1) Zyprexa 5mg po hs for agitation and ? Hallucinations. 2) NO need for Psych IN Patient. 3) may need placement in a NH if cognitive impairment persists or gets worse if Family is not able care for her.
[2018-05-02 12:41] LABS: HEMATOCRIT 21.4 % (32.4-45.2); HEMOGLOBIN 7.5 GM/dL (10.7-15.3); MCH 27.8 pg (25.7-33.7); MCHC 34.9 g/dl (32.0-36.0); MEAN CELL VOLUME 79.6 fl (80-96); MEAN PLT VOLUME 9.2 fl (7.5-11.1); PLATELET COUNT 99 K/MM3 (134-434); RBC 2.69 M/mm3 (3.60-5.2); RDW 22.7 % (11.6-15.6); WHITE BLOOD COUNT 6.2 K/mm3 (4.0-10.0)
[2018-05-02 13:04] LABS: ANION GAP 10 MMOL/L (8-16); BLOOD UREA NITROGEN 70 mg/dL (7-18); CHLORIDE 109 mmol/L (98-107); CO2 25 mmol/L (21-32); CREATININE 3.3 mg/dL (0.55-1.3); GLUCOSE,RANDOM 139 mg/dL (74-106); SODIUM 144 mmol/L (136-145)
--- NOTE | 2018-05-02 14:29 | PN ---
Teaching Attending Note Name of Resident: Crystal Nino ATTENDING PHYSICIAN STATEMENT I saw and evaluated the patient. I reviewed the resident's note and discussed the case with the resident. I agree with the resident's findings and plan as documented. SUBJECTIVE: No fever or chills. no N/V . OBJECTIVE: NAD. Thrush , bilateral lacerations at both mouth angles CV: RRR, 3/6 SM at LUSB and 2/6 SM at apex Lungs: CTAB Abd: soft, Nl BS, NT, ND Ext: no edema or erythema ASSESSMENT AND PLAN: Unfortunate 53 y/o lady with h/o HIV, non compliance, Asthma, HTN, HLP, HTN, and other medical problems who presented with fever and AMS accompanied by family. She was found to have sepsis with multi-organ system failure 1- Acute hypoxic resp failure 2/2 b/l strep PNA. Improved and extubated - cont ceftriaxone day 13 2- Strep bacteremia: no growth on report cx - cont ceftriaxone - taper off hydrocortisone. last dose today 3-SANA: s/p HD and removal of HD cath. - monitor renal function. improved 4- Acute on chronic anemia. due to BM suppression - cont to monitor - GI f/u for EGD /colo as out pt 5- HIV: CD4 count of 6. -cont Atovaquone. - ? MAC prophylaxis 8- Possible genital HSV, cont valcyclovir 9- Thrush: diflucan . 10 - Halluconations . likely delirium with psychotic features. - zyprexa,. - MRI of brain pending 11- Abnormal TFTs: likely sick euthyroid syndrome need repeat in out pt steady state DVT PX: heparin GI Px: PPI
[2018-05-02] MEDS ORDERED: POTASSIUM CHLORIDE TABS 20 MEQ TABLET.ER (FP) PO ONE ×2 (14:40→18:00)
--- NOTE | 2018-05-02 15:33 | PN ---
Progress Note (short form) - Note Progress Note: PULMONARY NAD on NC O2. Awake and alert. Denies CP or SOB. No acute events overnight. Gen: NAD Heart: RRR Lung: few scattered rhonchi Abd: soft, nontender Ext: no edema LABS/MEDS/NOTES REVIEWED ASSESSMENT AND PLAN: Acute Hypoxic and Hypercapneic Respiratory Failure Pneumococcal Pneumonia/Bacteremia Septic Shock improving Acute Kidney Injury requiring HD Metabolic Acidosis AIDS Thrombocytopenia Altered Mental Status - ABX per ID - HD per renal - monitor urine output, creatinine - taper steroids - monitor CBC - transfuse as needed - DVT/GI prophylaxis Kiran MORAN MD
--- NOTE | 2018-05-02 16:15 | PN ---
Progress Note (short form) - Note Progress Note: Renal follow up for SANA requiring emergent dialysis Pt seen and examined at the bedside sleeping no acute events tolerating diet making urine Vital Signs Temperature 97.9 F 05/02/18 15:15 Pulse Rate 76 05/02/18 15:15 Respiratory Rate 20 05/02/18 15:15 Blood Pressure 141/89 05/02/18 15:15 O2 Sat by Pulse Oximetry (%) 95 05/02/18 09:00 NAD on NC O2 RRR Course BS no Le edema, clubbing or cyanosis CBC, BMP 05/02/18 12:00 05/02/18 12:00 Current Medications Amlodipine Besylate (Norvasc -) 5 mg PO DAILY [facility] Last Admin: 05/02/18 09:56 Dose: 5 mg Artificial Tears (Artificial Tears) 1 drop OU BID [facility] Last Admin: 05/02/18 09:56 Dose: Not Given Atovaquone (Mepron -) 1,500 mg PO DAILY@0800 [facility] Last Admin: 05/02/18 09:55 Dose: 1,500 mg Azithromycin (Zithromax -) 1,200 mg PO SA [facility] Docusate Sodium (Colace Liquid -) 100 mg PO Q8H PRN PRN Reason: CONSTIPATION Fluconazole (Diflucan -) 100 mg PO DAILY [facility] Last Admin: 05/02/18 09:56 Dose: 100 mg Heparin Sodium (Porcine) (Heparin -) 5,000 unit SQ TID [facility] Last Admin: 05/02/18 13:04 Dose: 5,000 unit Hydrocortisone Sodium Succinate (Solu-Cortef -) 50 mg IVPB DAILY [facility] Stop: 05/03/18 23:59 Last Admin: 05/02/18 10:00 Dose: 50 mg Ceftriaxone Sodium 2 gm/ (Dextrose) 100 mls @ 200 mls/hr IVPB DAILY [facility] Stop: 05/03/18 23:59 Last Admin: 05/02/18 09:59 Dose: 200 mls/hr Nystatin (Nystatin Oral Suspension -) 500,000 units PO Q6HPO [facility] Last Admin: 05/02/18 11:51 Dose: Not Given Olanzapine (Zyprexa -) 5 mg PO HS [facility] Pantoprazole Sodium (Protonix -) 40 mg PO DAILY [facility] Potassium Chloride (K-Dur -) 40 meq PO ONCE ONE Stop: 05/02/18 18:01 Senna (Senna -) 1 tab PO HS [facility] Last Admin: 05/01/18 21:57 Dose: 1 tab Valacyclovir HCl (Valtrex -) 500 mg PO DAILY [facility] Last Admin: 05/02/18 09:57 Dose: 500 mg 53 year old AA woman with hx of HIV (non-compliance with meds per ER records), HTN, HLD, Asthma who presented from home with fever and AMS and found to have B/ L lung infiltrates, Sepsis syndrome and SANA with severe metabolic acidosis. #Acute Renal Failure in setting of Sepsis syndrome requiring emergent dialysis for persistent acidosis #Sepsis Syndrome with with Strep PNA #HIV non-compliant with medications #Hyperphosphatemia #Acute Anemia with + stool occult blood BUN/Cr continuing to improve, pt is non-oliguric no hypervolema, acidosis, uremia or hyperkalemia no further indication for GENERAL MAINTENANCE HELPER continue to trend BUN/Cr while inpatient supplement k to level > 3.5 Khadar Ibarra DO
--- NOTE | 2018-05-02 18:43 | PN ---
Physical Exam: SUBJECTIVE: Patient seen and examined at bedside this morning. As per nursing, patient is still having "hallucinations" at night. When asked, patient reported she is able to sleep at night without any problems and family comes in to visit in the afternoon. She denies any headache, dizziness, fevers, chills, chest pain , SOB, abdominal pain, diarrhea. OBJECTIVE: Vital Signs Period Temp Pulse Resp BP Sys/Cai Pulse Ox Last 24 Hr 97.9 F-98.7 F 76-96 20-20 141-162/76-89 95-96 GENERAL: The patient is awake, alert, and fully oriented, in no acute distress. HEAD: Normal with no signs of trauma. HEENT:PERRLA, EOMI, oral thrush, dry mucous membranes. NECK: Trachea midline, full range of motion, supple. LUNGS:+few scattered rhonchi bilaterally HEART: Regular rate and rhythm, S1, S2 +systolic murmur at 2nd LUSB, rub or gallop. ABDOMEN: Soft, nontender, nondistended, normoactive bowel sounds. : +shallow ulcers on the vulvar, perianal and sacrum EXTREMITIES: 2+ pulses, warm, well-perfused, no edema. NEUROLOGICAL: Cranial nerves II through XII grossly intact. Normal speech, gait not observed. PSYCH: Normal mood, normal affect. SKIN: Warm, dry, normal turgor, no rashes or lesions noted Laboratory Results - last 24 hr 05/02/18 05/02/18 12:00 12:00 WBC 6.2 RBC 2.69 L Hgb 7.5 L Hct 21.4 L MCV 79.6 L MCH 27.8 MCHC 34.9 RDW 22.7 H Plt Count 99 L MPV 9.2 Sodium 144 Potassium 3.0 L Chloride 109 H Carbon Dioxide 25 Anion Gap 10 BUN 70 H Creatinine 3.3 H Creat Clearance w eGFR 14.51 Random Glucose 139 H Calcium 7.0 L Active Medications Generic Name Dose Route Start Last Admin Trade Name Freq PRN Reason Stop Dose Admin Amlodipine Besylate 5 mg 04/28/18 10:00 05/02/18 09:56 Norvasc - PO 5 mg DAILY ZHANG Administration Artificial Tears 1 drop 04/27/18 22:00 05/02/18 09:56 Artificial Tears OU Not Given BID ZHANG Atovaquone 1,500 mg 04/28/18 08:00 05/02/18 09:55 Mepron - PO 1,500 mg DAILY@0800 ZHANG Administration Azithromycin 1,200 mg 05/03/18 10:00 Zithromax - PO SA ZHANG Docusate Sodium 100 mg 04/27/18 15:54 Colace Liquid - PO Q8H PRN CONSTIPATION Fluconazole 100 mg 04/30/18 19:45 05/02/18 09:56 Diflucan - PO 100 mg DAILY ZHANG Administration Heparin Sodium (Porcine) 5,000 unit 04/27/18 22:00 05/02/18 13:04 Heparin - SQ 5,000 unit TID ZHANG Administration Hydrocortisone Sodium Succinate 50 mg 05/01/18 10:00 05/02/18 10:00 Solu-Cortef - IVPB 05/03/18 23:59 50 mg DAILY ZHANG Administration Ceftriaxone Sodium 2 gm/ 100 mls @ 200 mls/hr 04/28/18 10:00 05/02/18 09:59 Dextrose IVPB 05/03/18 23:59 200 mls/hr DAILY ZHANG Administration Nystatin 500,000 units 04/30/18 18:00 05/02/18 17:01 Nystatin Oral Suspension - PO Not Given Q6HPO ZHANG Olanzapine 5 mg 05/02/18 22:00 Zyprexa - PO HS ZAHNG Pantoprazole Sodium 40 mg 05/03/18 10:00 Protonix - PO DAILY ZHANG Senna 1 tab 04/27/18 22:00 05/01/18 21:57 Senna - PO 1 tab HS ZHANG Administration Valacyclovir HCl 500 mg 04/30/18 19:45 05/02/18 09:57 Valtrex - PO 500 mg DAILY ZHANG Administration ASSESSMENT/PLAN: The patient is a 53 year old female with a history of HIV, HTN, HLD, Asthma, Anemia who presents for evaluation of difficulty breathing and altered mental status. #Acute hypoxic respiratory failure likely 2/2 multilobular strep pneumonia: improving -Ceftriaxone Day -ID consulted. Recommendations appreciated. #Septic shock likely 2/2 pneumonia: resolved -Ceftriaxone 2gm q12 day -Hydrocortisone 50mg daily, will d/c tomorrow #Acute metabolic acidosis with high anion gap: resolved -Nephrology consulted. Recommendations appreciated. #Acute kidney injury: -BUN/Cr today 70/3.3 -Nephrology (Dr. Ibarra) consulted. Recommendations appreciated. -BUN/Cr may be plateauing -No electrolyte abnormalities or acidosis to warrant dialysis -Trend renal function and electrolytes daily. -Can remove temporary dialysis catheter -If BUN/Cr continues to rise or with electrolyte/acid base abnormality, will arrange permacath placement for dialysis -Dose all meds for CrCl<15 -STEVE and ANCA negative -Renvela discontinued #Microcytic hypochromic anemia: acute on chronic -H/H stable 7.5/21.4 -likely 2/2 iron deficiency anemia; GI bleed, resolved -Peripheral blood smear showed different RBC morphologies including but not limited to microcytic with central pallor, spherocytes, target cells, burst cells, teardrop cells; but no schistocytes, unlikely hemolytic -Iron studies done -Haptoglobin 383 -Ferritin 811 -Retic count 0.34 -LDH 460 #Thrombocytopenia: improving -likely 2/2 sepsis -Fibrinogen >500, unlikely DIC -Hematology (Dr. Vidal) consulted. #GI bleed: resolved -GI (Dr. Green) consulted recommendations appreciated. -episodes of coffee ground emesis and melena, resolved -no active signs of bleeding -may resume Protonix 40mg daily #Troponinemia: resolved -likely 2/2 demand ischemia -0.11 > 0.16 > 0.04 #HIV -ID (Dr. Mccloud) consulted. -noncompliant with medications -CD4 - 6 -CD3 - 450 -As per PCP (CD4 count 50, viral load 121k on 03/31/18). -Pneumocystis carinii smear negative -Hbe ab positive,Hbe ag negative -Hepatitis panel: Hep A ab and HBcore ab positive -Atovaquone (Mepron) 1500mg daily for PCP prophylaxis -Azithromycin 1200mg once weekly for MAC prophylaxis #Oral candidiasis/Angular stomatitis -Nystatin swish and swallow -Fluconazole 500mg daily started #Genital/Perianal ulcers likely 2/2 HSV -Valacyclovir 500mg daily started. #?Hallucinations -With history of HIV, will rule out organic causes such as brain abscess/ infection -Patient and daughter refused MRI -Pychiatry (Dr. Bright) consulted. Recommendations appreciated. -Zyprexa 5mg PO HS for agitation/?Hallucinations -No need for psych inpatient -May need placement in a NH if cognitive impairment persists or gets worse, and family is unable to care for her. #Hypertension -Amlodipine 5mg daily -will continue to monitor #Hyperlipidemia: chronic #Asthma: controlled #FEN -Not on any standing fluids -Electrolytes wnl -routine bmp monitoring -Phosphorus/sodium restricted diet #Prophylaxis -DVT: SCDs, Heparin 5000units sq tid -GI: IV Protonix 40mg daily #Disposition -full code -med-surg Visit type - Emergency Visit Emergency Visit: Yes ED Registration Date: 04/19/18 Care time: The patient presented to the Emergency Department on the above date and was hospitalized for further evaluation of their emergent condition. - New Patient This patient is new to me today: No - Critical Care Critical Care patient: No
[2018-05-02] MEDS ORDERED: PT OWN MED DRAWER 7, Y5N ONE (20:49)
[2018-05-02] MEDS: SENNOSIDES 8.6MG TABLET (FP) PO SCH (23:17)
[2018-05-02] MEDS: OLANZapine 5 MG TABLET PO SCH (23:17)
[2018-05-02] MEDS ORDERED: ACETAMINOPHEN 325 MG TABLET (FP) PO ONE (23:51)
[2018-05-03] MEDS: NYSTATIN 500,000 UNITS/5 ML SUSPENSION PO SCH ×4 (01:50→17:23)
[2018-05-03] MEDS: HEPARIN NA (PORCINE) 5,000 UNITS/ML 1ML VIAL SQ SCH ×3 (06:06→22:55)
[2018-05-03] MEDS: ATOVAQUONE 750 MG/5 ML (UNIT-DOSE PACKAGING) PO SCH ×2 (09:00→11:28)
[2018-05-03] MEDS ORDERED: AZITHROMYCIN 600 MG TABLET PO SCH (10:00)
--- NOTE | 2018-05-03 10:43 | PN ---
Progress Note (short form) - Note Progress Note: Renal follow up for SANA requiring emergent dialysis Pt seen and examined at the bedside no acute complaints no overnight events refused labs today Vital Signs Temperature 97.9 F 05/03/18 05:56 Pulse Rate 94 H 05/03/18 05:56 Respiratory Rate 18 05/03/18 05:56 Blood Pressure 162/88 05/03/18 05:56 O2 Sat by Pulse Oximetry (%) 95 05/02/18 21:00 Intake & Output 04/30/18 05/01/18 05/02/18 05/03/18 23:59 23:59 23:59 23:59 Intake Total 500 750 450 150 Balance 500 750 450 150 Weight 69.763 kg 68.492 kg NAD on NC O2 RRR Course BS no Le edema, clubbing or cyanosis CBC, BMP 05/02/18 12:00 05/02/18 12:00 Current Medications Amlodipine Besylate (Norvasc -) 5 mg PO DAILY [facility] Last Admin: 05/02/18 09:56 Dose: 5 mg Artificial Tears (Artificial Tears) 1 drop OU BID [facility] Last Admin: 05/02/18 23:05 Dose: Not Given Atovaquone (Mepron -) 1,500 mg PO DAILY@0800 [facility] Last Admin: 05/02/18 09:55 Dose: 1,500 mg Azithromycin (Zithromax -) 1,200 mg PO SA [facility] Docusate Sodium (Colace Liquid -) 100 mg PO Q8H PRN PRN Reason: CONSTIPATION Fluconazole (Diflucan -) 100 mg PO DAILY [facility] Last Admin: 05/02/18 09:56 Dose: 100 mg Heparin Sodium (Porcine) (Heparin -) 5,000 unit SQ TID [facility] Last Admin: 05/03/18 06:06 Dose: Not Given Hydrocortisone Sodium Succinate (Solu-Cortef -) 50 mg IVPB DAILY [facility] Stop: 05/03/18 23:59 Last Admin: 05/02/18 10:00 Dose: 50 mg Ceftriaxone Sodium 2 gm/ (Dextrose) 100 mls @ 200 mls/hr IVPB DAILY [facility] Stop: 05/03/18 23:59 Last Admin: 05/02/18 09:59 Dose: 200 mls/hr Nystatin (Nystatin Oral Suspension -) 500,000 units PO Q6HPO [facility] Last Admin: 05/03/18 06:06 Dose: Not Given Olanzapine (Zyprexa -) 5 mg PO HS [facility] Last Admin: 05/02/18 23:17 Dose: 5 mg Pantoprazole Sodium (Protonix -) 40 mg PO DAILY [facility] Senna (Senna -) 1 tab PO HS [facility] Last Admin: 05/02/18 23:17 Dose: 1 tab Valacyclovir HCl (Valtrex -) 500 mg PO DAILY [facility] Last Admin: 05/02/18 09:57 Dose: 500 mg 53 year old AA woman with hx of HIV (non-compliance with meds per ER records), HTN, HLD, Asthma who presented from home with fever and AMS and found to have B/ L lung infiltrates, Sepsis syndrome and SANA with severe metabolic acidosis. #Acute Renal Failure in setting of Sepsis syndrome requiring emergent dialysis for persistent acidosis #Sepsis Syndrome with with Strep PNA #HIV non-compliant with medications #Hyperphosphatemia #Acute Anemia with + stool occult blood Renal function improving as of yesterday refused labs today no indication for further [employer] continue to trend labs abx as per primary team Khadar Ibarra DO
[2018-05-03] MEDS ORDERED: amLODIPine BESYLATE 5 MG TABLET (FP) PO SCH (10:57)
[2018-05-03] MEDS ORDERED: amLODIPine BESYLATE 5 MG TABLET (FP) PO ONE (10:58)
[2018-05-03] MEDS ORDERED: DEXTROSE 5%-WATER 100 ML IVPB ONE (11:14)
[2018-05-03] MEDS: HYDROCORTISONE SOD SUCCINATE 100 MG/2 ML VIAL IVPB SCH (11:26)
[2018-05-03] MEDS: CEFTRIAXONE 2 GM in DEXTROSE 5%-WATER 100 ML IVPB SCH (11:26)
[2018-05-03] MEDS: valACYclovir HCL 500 MG TABLET (FP) PO SCH (11:27)
[2018-05-03] MEDS: PANTOPRAZOLE 40 MG TABLET (FP) PO SCH (11:28)
[2018-05-03] MEDS: ARTIFICIAL TEARS (POLYVINYL ALCOHOL) OPTH DROPS OU SCH ×2 (11:28→22:57)
[2018-05-03] MEDS: FLUCONAZOLE 100 MG TABLET (UD) PO SCH (11:28)
[2018-05-03] MEDS: amLODIPine BESYLATE 5 MG TABLET (FP) PO SCH (11:56)
--- NOTE | 2018-05-03 13:48 | PN ---
Physical Exam: SUBJECTIVE: Patient seen and examined at bedside this morning. No acute events overnight. Patient denies any headache, dizziness, fevers, chills, chest pain, SOB, abdominal pain, diarrhea. OBJECTIVE: Vital Signs Period Temp Pulse Resp BP Sys/Cai Pulse Ox Last 24 Hr 97.9 F-98.3 F 74-99 18-20 141-162/67-89 95 GENERAL: The patient is awake, alert, and fully oriented, in no acute distress. HEAD: Normal with no signs of trauma. HEENT:PERRLA, EOMI, oral thrush, dry mucous membranes. NECK: Trachea midline, full range of motion, supple. LUNGS:+few scattered rhonchi bilaterally HEART: Regular rate and rhythm, S1, S2 +systolic murmur at 2nd RUSB, rub or gallop. ABDOMEN: Soft, nontender, nondistended, normoactive bowel sounds. : +shallow ulcers on the vulvar, perianal and sacrum EXTREMITIES: 2+ pulses, warm, well-perfused, no edema. NEUROLOGICAL: Cranial nerves II through XII grossly intact. Normal speech, gait not observed. PSYCH: Normal mood, normal affect. SKIN: Warm, dry, normal turgor, no rashes or lesions noted Active Medications Generic Name Dose Route Start Last Admin Trade Name Freq PRN Reason Stop Dose Admin Amlodipine Besylate 10 mg 05/04/18 10:00 Norvasc - PO DAILY ZHANG Artificial Tears 1 drop 04/27/18 22:00 05/03/18 11:28 Artificial Tears OU Not Given BID ZHANG Atovaquone 1,500 mg 04/28/18 08:00 05/03/18 11:28 Mepron - PO 1,500 mg DAILY@0800 ZHANG Administration Azithromycin 1,200 mg 05/03/18 10:00 05/03/18 11:29 Zithromax - PO 1,200 mg SA ZHANG Administration Docusate Sodium 100 mg 04/27/18 15:54 Colace Liquid - PO Q8H PRN CONSTIPATION Fluconazole 100 mg 04/30/18 19:45 05/03/18 11:28 Diflucan - PO 100 mg DAILY ZHANG Administration Heparin Sodium (Porcine) 5,000 unit 04/27/18 22:00 05/03/18 06:06 Heparin - SQ Not Given TID ZHANG Hydrocortisone Sodium Succinate 50 mg 05/01/18 10:00 05/03/18 11:26 Solu-Cortef - IVPB 05/03/18 23:59 50 mg DAILY ZHANG Administration Ceftriaxone Sodium 2 gm/ 100 mls @ 200 mls/hr 04/28/18 10:00 05/03/18 11:26 Dextrose IVPB 05/03/18 23:59 200 mls/hr DAILY ZHANG Administration Nystatin 500,000 units 04/30/18 18:00 05/03/18 11:27 Nystatin Oral Suspension - PO 500,000 units Q6HPO ZHANG Administration Olanzapine 5 mg 05/02/18 22:00 05/02/18 23:17 Zyprexa - PO 5 mg HS ZHANG Administration Pantoprazole Sodium 40 mg 05/03/18 10:00 05/03/18 11:28 Protonix - PO 40 mg DAILY ZHANG Administration Senna 1 tab 04/27/18 22:00 05/02/18 23:17 Senna - PO 1 tab HS ZHANG Administration Valacyclovir HCl 500 mg 04/30/18 19:45 05/03/18 11:27 Valtrex - PO 500 mg DAILY ZHANG Administration ASSESSMENT/PLAN: The patient is a 53 year old female with a history of HIV, HTN, HLD, Asthma, Anemia who presents for evaluation of difficulty breathing and altered mental status. #Acute hypoxic respiratory failure likely 2/2 multilobular strep pneumonia: improved -Ceftriaxone Day -ID consulted. Recommendations appreciated. #Septic shock likely 2/2 pneumonia: resolved -Ceftriaxone 2gm q12 day -Hydrocortisone discontinued #Acute metabolic acidosis with high anion gap: resolved -Nephrology consulted. Recommendations appreciated. #Acute kidney injury: -BUN/Cr 70/3.3 -Nephrology (Dr. Ibarra) consulted. Recommendations appreciated. -BUN/Cr may be plateauing -No electrolyte abnormalities or acidosis to warrant dialysis -Trend renal function and electrolytes daily. -Can remove temporary dialysis catheter -If BUN/Cr continues to rise or with electrolyte/acid base abnormality, will arrange permacath placement for dialysis -Dose all meds for CrCl<15 -STEVE and ANCA negative -Renvela discontinued #Microcytic hypochromic anemia: acute on chronic -H/H stable. Will continue to monitor. -likely 2/2 iron deficiency anemia; GI bleed, resolved -Peripheral blood smear showed different RBC morphologies including but not limited to microcytic with central pallor, spherocytes, target cells, burst cells, teardrop cells; but no schistocytes, unlikely hemolytic -Iron studies done -Haptoglobin 383 -Ferritin 811 -Retic count 0.34 -LDH 460 #Thrombocytopenia: improving -likely 2/2 sepsis -Fibrinogen >500, unlikely DIC -Hematology (Dr. Vidal) consulted. #GI bleed: resolved -GI (Dr. Green) consulted recommendations appreciated. -episodes of coffee ground emesis and melena, resolved -no active signs of bleeding -may resume Protonix 40mg daily #Troponinemia: resolved -likely 2/2 demand ischemia -0.11 > 0.16 > 0.04 #HIV -ID (Dr. Mccloud) consulted. -noncompliant with medications -CD4 - 6 -CD3 - 450 -As per PCP (CD4 count 50, viral load 121k on 03/31/18). -Pneumocystis carinii smear negative -Hbe ab positive,Hbe ag negative -Hepatitis panel: Hep A ab and HBcore ab positive -Atovaquone (Mepron) 1500mg daily for PCP prophylaxis -Azithromycin 1200mg once weekly for MAC prophylaxis #Oral candidiasis/Angular stomatitis -Nystatin swish and swallow -Fluconazole 500mg daily #Genital/Perianal ulcers likely 2/2 HSV -Valacyclovir 500mg daily #?Hallucinations -With history of HIV, will rule out organic causes such as brain abscess/ infection -Patient and daughter refused MRI -Pychiatry (Dr. Bright) consulted. Recommendations appreciated. -Zyprexa 5mg PO HS for agitation/?Hallucinations -No need for psych inpatient -May need placement in a NH if cognitive impairment persists or gets worse, and family is unable to care for her. #Hypertension -Amlodipine 5mg increased to 10mg daily. -will continue to monitor #Hyperlipidemia: chronic #Asthma: controlled #FEN -Not on any standing fluids -Electrolytes wnl -routine bmp monitoring -Phosphorus/sodium restricted diet #Prophylaxis -DVT: SCDs, Heparin 5000units sq tid -GI: IV Protonix 40mg daily #Disposition -full code -med-surg Visit type - Emergency Visit Emergency Visit: Yes ED Registration Date: 04/19/18 Care time: The patient presented to the Emergency Department on the above date and was hospitalized for further evaluation of their emergent condition. - New Patient This patient is new to me today: No - Critical Care Critical Care patient: No
--- NOTE | 2018-05-03 15:30 | PN ---
Teaching Attending Note Name of Resident: Crystal Nino ATTENDING PHYSICIAN STATEMENT I saw and evaluated the patient. I reviewed the resident's note and discussed the case with the resident. I agree with the resident's findings and plan as documented. SUBJECTIVE: No pain, no fever , feels better OBJECTIVE: NAD. bilateral lacerations at both mouth angles CV: RRR, 3/6 SM at LUSB and 2/6 SM at apex Lungs: did not cooperate with lung exam. clear R luneg Abd: soft, Nl BS, NT, ND Ext: no edema or erythema ASSESSMENT AND PLAN: Unfortunate 53 y/o lady with h/o HIV, non compliance, Asthma, HTN, HLP, HTN, and other medical problems who presented with fever and AMS accompanied by family. She was found to have sepsis with multi-organ system failure 1- Acute hypoxic resp failure 2/2 b/l strep PNA. resolved 2- Strep bacteremia: no growth on report cx - cont ceftriaxone - will d/w ID duration of treatment as she is immuno-compromised - dc steroids ( last day of taper ) 3-SANA: s/p HD and removal of HD cath. - monitor renal function. improved 4- Acute on chronic anemia. due to BM suppression - cont to monitor - GI f/u for EGD /colo as out pt 5- HIV: CD4 count of 6. -cont Atovaquone. -azithro weekly for MAC prophylaxis 8- Possible genital HSV, cont valcyclovir 9- Thrush: diflucan . 10 - Halluconations . likely delirium with psychotic features. - zyprexa,. - she and her family refused MRI yesterday , and she continues to refuse today 11- Abnormal TFTs: likely sick euthyroid syndrome need repeat in out pt steady state DVT PX: heparin GI Px: PPI Cont PT eval
[2018-05-03] MEDS: SENNOSIDES 8.6MG TABLET (FP) PO SCH (22:55)
[2018-05-03] MEDS: OLANZapine 5 MG TABLET PO SCH (22:55)
[2018-05-04] MEDS: NYSTATIN 500,000 UNITS/5 ML SUSPENSION PO SCH ×4 (00:30→17:49)
[2018-05-04] MEDS ORDERED: ACETAMINOPHEN 325 MG TABLET (FP) PO ONE (04:56)
[2018-05-04] MEDS: HEPARIN NA (PORCINE) 5,000 UNITS/ML 1ML VIAL SQ SCH ×2 (05:20→14:07)
[2018-05-04 08:31] LABS: ANION GAP 10 MMOL/L (8-16); BLOOD UREA NITROGEN 59 mg/dL (7-18); CALCIUM 7.1 mg/dL (8.5-10.1); CHLORIDE 109 mmol/L (98-107); CO2 24 mmol/L (21-32); CREATININE 2.4 mg/dL (0.55-1.3); GLUCOSE,RANDOM 73 mg/dL (74-106); POTASSIUM 3.1 mmol/L (3.5-5.1); SODIUM 144 mmol/L (136-145)
[2018-05-04] MEDS: ATOVAQUONE 750 MG/5 ML (UNIT-DOSE PACKAGING) PO SCH (08:42)
[2018-05-04 09:27] LABS: BASO % 0.9 % (0-2.0); EOS % 1.7 % (0-4.5); HEMATOCRIT 21.4 % (32.4-45.2); HEMOGLOBIN 7.4 GM/dL (10.7-15.3); LYMPH % 28.4 % (8-40); MCH 27.1 pg (25.7-33.7); MCHC 34.4 g/dl (32.0-36.0); MEAN CELL VOLUME 78.6 fl (80-96); MEAN PLT VOLUME 8.9 fl (7.5-11.1); MONO % 7.4 % (3.8-10.2); NEUT % 61.6 % (42.8-82.8); PLATELET COUNT 102 K/MM3 (134-434); RBC 2.72 M/mm3 (3.60-5.2); RDW 22.5 % (11.6-15.6); WHITE BLOOD COUNT 2.9 K/mm3 (4.0-10.0)
[2018-05-04] MEDS: amLODIPine BESYLATE 5 MG TABLET (FP) PO SCH (09:39)
[2018-05-04] MEDS: PANTOPRAZOLE 40 MG TABLET (FP) PO SCH (09:39)
[2018-05-04] MEDS: FLUCONAZOLE 100 MG TABLET (UD) PO SCH (09:39)
[2018-05-04] MEDS: ARTIFICIAL TEARS (POLYVINYL ALCOHOL) OPTH DROPS OU SCH ×2 (09:40→22:40)
[2018-05-04] MEDS: valACYclovir HCL 500 MG TABLET (FP) PO SCH (09:40)
[2018-05-04] MEDS: POTASSIUM CHLORIDE TABS 20 MEQ TABLET.ER (FP) PO ONE ×3 (09:40→12:34)
[2018-05-04] MEDS: ACETAMINOPHEN 325 MG TABLET (FP) PO PRN ×2 (12:02→19:15)
[2018-05-04 12:03] LABS: ANISOCYTOSIS 1+; MACROCYTOSIS 0; PLATELET ESTIMATE DECREASED
--- NOTE | 2018-05-04 13:30 | PN ---
Progress Note (short form) - Note Progress Note: PULMONARY UPSET OVER NOT BEING CHANGED WANTS TO GO HOME "I'M NOT GETTING TREATED RIGHT" Gen: anicteric Heart: RRR Lung: few scattered rhonchi Abd: soft, nontender Ext: no edema LABS/MEDS/NOTES REVIEWED ASSESSMENT AND PLAN: Acute Hypoxic and Hypercapneic Respiratory Failure Pneumococcal Pneumonia/Bacteremia Septic Shock improving Acute Kidney Injury requiring HD Metabolic Acidosis AIDS Thrombocytopenia Altered Mental Status - ABX per ID - HD per renal - monitor urine output, creatinine - taper steroids - monitor CBC - transfuse as needed - DVT/GI prophylaxis Kiran MORAN MD
--- NOTE | 2018-05-04 16:45 | PN ---
Progress Note (short form) - Note Progress Note: Subjective: No fever or chills. Very upset as the care is not good in this hospital and wants to leave AMA Objective: NAD CV: RRR, 3/6 SM at LUSB and 2/6 SM at apex Lungs: CTAB Abd: soft, Nl BS, NT, ND Ext: no edema or erythema sacral decub stage 2, with ulcers in perianal area ASSESSMENT AND PLAN: Unfortunate 53 y/o lady with h/o HIV, non compliance, Asthma, HTN, HLP, HTN, and other medical problems who presented with fever and AMS accompanied by family. She was found to have sepsis with multi-organ system failure 1- Acute hypoxic resp failure 2/2 b/l strep PNA. resolved 2- Strep bacteremia. 3- SANA 4- Acute anemia 5- HIV /AIDS 6- - Possible genital HSV 7- Abnormal TFTs 8- thrush Plan : plan was to continue her Abx, and other treatment as before . Spoke to lakshmi and her daughter Carla , tried to convince her to stay for better outcome. She declined. She understand that infection can get worse with recurrent bacteremia that can lead to . she also understand she is weak and can fall . will sign AMA still . advised to follow with PMD and HIV doctors fro further advise and she did not want to finish the conversation fro further recommendations Visit type - Emergency Visit Emergency Visit: Yes ED Registration Date: 04/19/18 Care time: The patient presented to the Emergency Department on the above date and was hospitalized for further evaluation of their emergent condition. - New Patient This patient is new to me today: No - Critical Care Critical Care patient: No
[2018-05-04] MEDS: OLANZapine 5 MG TABLET PO SCH (23:07)
[2018-05-04] MEDS: SENNOSIDES 8.6MG TABLET (FP) PO SCH (23:07)
[2018-05-05] MEDS ORDERED: MELATONIN 5 MG TABLETS PO ONE (00:51)
[2018-05-05] MEDS: NYSTATIN 500,000 UNITS/5 ML SUSPENSION PO SCH ×3 (01:04→11:48)
[2018-05-05] MEDS: ACETAMINOPHEN 325 MG TABLET (FP) PO PRN ×2 (01:06→15:02)
[2018-05-05 09:22] LABS: HEMATOCRIT 23.2 % (32.4-45.2); HEMOGLOBIN 7.9 GM/dL (10.7-15.3); MCH 27.3 pg (25.7-33.7); MCHC 34.2 g/dl (32.0-36.0); MEAN CELL VOLUME 79.7 fl (80-96); MEAN PLT VOLUME 8.9 fl (7.5-11.1); PLATELET COUNT 108 K/MM3 (134-434); RBC 2.91 M/mm3 (3.60-5.2); RDW 22.1 % (11.6-15.6); WHITE BLOOD COUNT 3.3 K/mm3 (4.0-10.0)
[2018-05-05 09:41] LABS: ANION GAP 7 MMOL/L (8-16); BLOOD UREA NITROGEN 48 mg/dL (7-18); CHLORIDE 109 mmol/L (98-107); CO2 26 mmol/L (21-32); GLUCOSE,RANDOM 74 mg/dL (74-106); SODIUM 143 mmol/L (136-145)
[2018-05-05 09:45] LABS: POTASSIUM 2.8 mmol/L (3.5-5.1)
[2018-05-05] MEDS: PANTOPRAZOLE 40 MG TABLET (FP) PO SCH (09:55)
[2018-05-05] MEDS: ATOVAQUONE 750 MG/5 ML (UNIT-DOSE PACKAGING) PO SCH (09:55)
[2018-05-05] MEDS: ARTIFICIAL TEARS (POLYVINYL ALCOHOL) OPTH DROPS OU SCH (09:55)
[2018-05-05] MEDS: valACYclovir HCL 500 MG TABLET (FP) PO SCH (09:55)
[2018-05-05] MEDS: FLUCONAZOLE 100 MG TABLET (UD) PO SCH (09:56)
[2018-05-05] MEDS: amLODIPine BESYLATE 5 MG TABLET (FP) PO SCH (09:57)
[2018-05-05] MEDS ORDERED: POTASSIUM CHLORIDE TABS 20 MEQ TABLET.ER (FP) PO ONE ×2 (10:45→15:00)
--- NOTE | 2018-05-05 10:55 | PN ---
Progress Note (short form) - Note Progress Note: PULMONARY Feels well. Wants to go home. Vital Signs Period Temp Pulse Resp BP Sys/Cai Pulse Ox Last 24 Hr 97.9 F-98.6 F 66-80 20-20 140-151/65-82 97 Gen: NAD at rest Heart: RRR Lung: decreased breath sounds at the bases Abd: soft, nontender Ext: no edema CBC, BMP 05/05/18 08:30 05/05/18 08:30 Active Medications Acetaminophen (Tylenol -) 650 mg PO Q6H PRN PRN Reason: PAIN Last Admin: 05/05/18 01:06 Dose: 650 mg Amlodipine Besylate (Norvasc -) 10 mg PO DAILY [facility] Last Admin: 05/05/18 09:57 Dose: 10 mg Artificial Tears (Artificial Tears) 1 drop OU BID [facility] Last Admin: 05/05/18 09:55 Dose: Not Given Atovaquone (Mepron -) 1,500 mg PO DAILY@0800 [facility] Last Admin: 05/05/18 09:55 Dose: Not Given Azithromycin (Zithromax -) 1,200 mg PO SA [facility] Last Admin: 05/03/18 11:29 Dose: 1,200 mg Docusate Sodium (Colace Liquid -) 100 mg PO Q8H PRN PRN Reason: CONSTIPATION Fluconazole (Diflucan -) 100 mg PO DAILY [facility] Last Admin: 05/05/18 09:56 Dose: 100 mg Nystatin (Nystatin Oral Suspension -) 500,000 units PO Q6HPO [facility] Last Admin: 05/05/18 06:14 Dose: Not Given Olanzapine (Zyprexa -) 5 mg PO [facility] Last Admin: 05/04/18 23:07 Dose: 5 mg Pantoprazole Sodium (Protonix -) 40 mg PO DAILY [facility] Last Admin: 05/05/18 09:55 Dose: 40 mg Potassium Chloride (K-Dur -) 40 meq PO ONCE ONE Stop: 05/05/18 15:01 Senna (Senna -) 1 tab PO [facility] Last Admin: 05/04/18 23:07 Dose: 1 tab Valacyclovir HCl (Valtrex -) 500 mg PO DAILY [facility] Last Admin: 05/05/18 09:55 Dose: 500 mg A/P Acute Hypoxic and Hypercapneic Respiratory Failure improving Pneumococcal Pneumonia/Bacteremia Septic Shock resolved Acute Kidney Injury requiring temporary HD Metabolic Acidosis resolved AIDS Thrombocytopenia - complete antibiotics per ID - monitor urine output, creatinine - off steroids - monitor CBC - DVT prophylaxis
--- NOTE | 2018-05-05 11:17 | PN ---
Progress Note (short form) - Note Progress Note: Renal follow up for SANA requiring emergent dialysis Pt seen and examined at the bedside no complaints no sob, cp, abd pain, N/V tolerating oral diet Vital Signs Temperature 98.6 F 05/05/18 08:37 Pulse Rate 80 05/05/18 08:37 Respiratory Rate 20 05/05/18 08:37 Blood Pressure 151/73 05/05/18 08:37 O2 Sat by Pulse Oximetry (%) 97 05/04/18 21:00 Intake & Output 05/02/18 05/03/18 05/04/18 05/05/18 23:59 23:59 23:59 23:59 Intake Total 450 300 600 Balance 450 300 600 Weight 68.492 kg NAD no Le edema, clubbing or cyanosis CBC, BMP 05/05/18 08:30 05/05/18 08:30 Laboratory Tests 05/05/18 08:30 Calcium 7.0 L Current Medications Acetaminophen (Tylenol -) 650 mg PO Q6H PRN PRN Reason: PAIN Last Admin: 05/05/18 01:06 Dose: 650 mg Amlodipine Besylate (Norvasc -) 10 mg PO DAILY [facility] Last Admin: 05/05/18 09:57 Dose: 10 mg Artificial Tears (Artificial Tears) 1 drop OU BID [facility] Last Admin: 05/05/18 09:55 Dose: Not Given Atovaquone (Mepron -) 1,500 mg PO DAILY@0800 [facility] Last Admin: 05/05/18 09:55 Dose: Not Given Azithromycin (Zithromax -) 1,200 mg PO SA [facility] Last Admin: 05/03/18 11:29 Dose: 1,200 mg Docusate Sodium (Colace Liquid -) 100 mg PO Q8H PRN PRN Reason: CONSTIPATION Fluconazole (Diflucan -) 100 mg PO DAILY [facility] Last Admin: 05/05/18 09:56 Dose: 100 mg Nystatin (Nystatin Oral Suspension -) 500,000 units PO Q6HPO [facility] Last Admin: 05/05/18 06:14 Dose: Not Given Olanzapine (Zyprexa -) 5 mg PO HS [facility] Last Admin: 05/04/18 23:07 Dose: 5 mg Pantoprazole Sodium (Protonix -) 40 mg PO DAILY [facility] Last Admin: 05/05/18 09:55 Dose: 40 mg Potassium Chloride (K-Dur -) 40 meq PO ONCE ONE Stop: 05/05/18 15:01 Senna (Senna -) 1 tab PO HS [facility] Last Admin: 05/04/18 23:07 Dose: 1 tab Valacyclovir HCl (Valtrex -) 500 mg PO DAILY [facility] Last Admin: 05/05/18 09:55 Dose: 500 mg 53 year old AA woman with hx of HIV (non-compliance with meds per ER records), HTN, HLD, Asthma who presented from home with fever and AMS and found to have B/ L lung infiltrates, Sepsis syndrome and SANA with severe metabolic acidosis. #Acute Renal Failure in setting of Sepsis syndrome requiring emergent dialysis for persistent acidosis #Sepsis Syndrome with with Strep PNA #HIV non-compliant with medications #Hyperphosphatemia #Acute Anemia with + stool occult blood Renal function improving would continue to withhold TOÑA/ARB, NSAIDs, IV contrast supplement K and repeat BMP in evening continue Abx as per primary team Khadar Ibarra DO
[2018-05-05 13:34] VITALS: BMI 25.9
--- NOTE | 2018-05-05 13:45 | PN ---
Teaching Attending Note Name of Resident: Crystal Nino ATTENDING PHYSICIAN STATEMENT I saw and evaluated the patient. I reviewed the resident's note and discussed the case with the resident. I agree with the resident's findings and plan as documented. SUBJECTIVE: No fever or chills . no pain.no OSB . NO HERNANDEZ . OBJECTIVE: NAD CV: RRR, 3/6 SM at LUSB and 2/6 SM at apex Lungs: CTAB Abd: soft, Nl BS, NT, ND Ext: no edema or erythema ASSESSMENT AND PLAN: NAD CV: RRR, 3/6 SM at LUSB and 2/6 SM at apex Lungs: CTAB Abd: soft, Nl BS, NT, ND Ext: no edema or erythema sacral decub stage 2, with ulcers in perianal area ASSESSMENT AND PLAN: Unfortunate 53 y/o lady with h/o HIV, non compliance, Asthma, HTN, HLP, HTN, and other medical problems who presented with fever and AMS accompanied by family. She was found to have sepsis with multi-organ system failure 1- Acute hypoxic resp failure 2/2 b/l strep PNA. resolved 2- Strep bacteremia. 3- SANA 4- Acute anemia 5- HIV /AIDS 6- - Possible genital HSV 7- Abnormal TFTs 8- thrush plan: - d/w ID no abx . - cont to monitor renal function after dc. - received po kcl this am. will repeat before dc - will cont fluconazole for 7 more days - will cont valcyclovir x 7 more days - cont atovaquone and azithro for PCP and MAC prophylaxis - will not resume oxycodone, and HCTZ at dc - need f/u with GI for EGD - need f/u with ID for her HIV. she has HIV meds ( Prezcobix and Tivicay ) pending pepper picker at her pharmacy. - CBC , BMP in 1 week - f/u with Psych , cont zyprexa for now - dispo : declined rehab placement. will arrange VNS for today's dc . 1
[2018-05-05 13:59] LABS: MAGNESIUM 1.4 mg/dL (1.8-2.4)
[2018-05-05] MEDS ORDERED: MAGNESIUM SULF 50% (8.12 MEQ/2 ML-1 GM VIAL) IVPB ONE (14:32)
[2018-05-05 15:37] VITALS: BP 148/82; PULSE 79; TEMP 98.3
--- NOTE | 2018-05-05 17:40 | DS ---
Physical Exam: SUBJECTIVE: Patient seen and examined at bedside this morning. No acute events overnight. Patient is getting agitated and wants to go home, stating she "will be kicked out of her home, if she's not going to be there by 6pm tonight." Potassium was noted to be high this morning, initially patient was compliant and taking the medication, but throughout the day has been refusing all treatments and blood work. She left AMA. OBJECTIVE: Vital Signs Period Temp Pulse Resp BP Sys/Cai Pulse Ox Last 24 Hr 98.0 F-98.6 F 66-80 20-20 140-151/65-82 97-99 PHYSICAL EXAM GENERAL: The patient is awake, alert, and fully oriented, in no acute distress. HEAD: Normal with no signs of trauma. HEENT:PERRLA, EOMI, oral thrush, dry mucous membranes. NECK: Trachea midline, full range of motion, supple. LUNGS:clear to auscultation bilaterally HEART: Regular rate and rhythm, S1, S2 +systolic murmur at 2nd RUSB, rub or gallop. ABDOMEN: Soft, nontender, nondistended, normoactive bowel sounds. EXTREMITIES: 2+ pulses, warm, well-perfused, no edema. LABS Laboratory Results - last 24 hr 05/05/18 05/05/18 08:30 08:30 WBC 3.3 L RBC 2.91 L Hgb 7.9 L Hct 23.2 L MCV 79.7 L MCH 27.3 MCHC 34.2 RDW 22.1 H Plt Count 108 L MPV 8.9 Sodium 143 Potassium 2.8 L* Chloride 109 H Carbon Dioxide 26 Anion Gap 7 L BUN 48 H Creatinine 2.0 H Creat Clearance w eGFR 25.87 Random Glucose 74 Calcium 7.0 L Magnesium 1.4 L -Echo - LV normal in size, LV systolic function is low normal. EF 50-55%. Diastolic dysfunction grade II (pseudonormalization pattern). Ratio E/E'=18. RV systolic function is normal. LA size normal. RAsize normal. Moderate to severe MR. The mitral regurgitant jet is eccentrically directed. Moderate AR. No pericardial effusion. -Chest CT - multifocal bilateral infiltrates. Mild nonspecific mediastinal lymphadenopathy which may be reactive. Mild nonspecific bilateral adrenal gland thickening -?chronic in nature representing hyperplasia, or subcentimeter adenomas vs being acute in nature. Main pulmonary artery appears mildly dilated 3.2 cm. -Renal US - No hydronephrosis. Interval development of bilateral increased cortical echogenicity. Gallbladder mild to moderate overdistention and mild diffuse nonspecific gallbladder wall thickening as well as pericholecystic fluid accumulation which may be acute cholecystitis. a trace amount of free fluid is seen within the hepatorenal fossa. HOSPITAL COURSE: Date of Admission:04/19/18 Date of Discharge: 05/05/18 The patient is a 53 year old female with a history of HIV, HTN, HLD, Asthma, Anemia who presents for evaluation of difficulty breathing and altered mental status. Patient initially presented with metabolic, respiratory and lactic acidosis. She was found to be on septic shock and was intubated and started on vasopressors. Patient was given IV fluids, IV antibiotics and steroids. CXR revealed bilateral infiltrates. Blood and sputum culture revealed Strep pneumoniae. Patient was started on Ceftriaxone. Patient was also noted to have acute kidney injury for which she received dialysis temporarily. Patient started to show signs of improvement, vasopressors were discontinued and she was extubated. Her kidney function also improved. Patient completed 14 days of Ceftriaxone. CD4 count was also noted to be low. Patient was started on Atovaquone for PCP and Azithromax for MAC prophylaxis. She was also found to oral thrush and genital/sacral ulcers likely HSV. She was given Fluconazole and Valacyclovir. Physical therapy evaluated patient and recommended SNF placement for rehab. Patient refused and wants to go home. She was noted to be hypokalemic and was given IV and PO potassium which she repeatedly refused. Patient signed out AMA. Risks, including were explained, but patient is determined to go home. Minutes to complete discharge: 40 Discharge Summary Reason For Visit: PNEUMONIA/ACUTE KIDNEY INJURY/ANEMIA Condition: Stable - Instructions Diet, Activity, Other Instructions: Your visit You were admitted to the hospital because you had shortness of breath. You had severe pneumonia that you needed to be intubated and admitted to the ICU. You were treated with antibiotics and medications were given to medications to help increased your blood pressure. You also had kidney injury. You received a few sessions of dialysis. Your repeat CD4 count while you were here was low. You were started on antibiotic prophylaxis for prevention of getting more severe infections. Please continue taking these medications upon discharge. You also were noted to have low potassium levels. Please follow-up with your primary care doctor and have your blood work repeated. We sent you a script for CBC and BMP. Medications Please take the following medications as prescribed: 1. Atovaquone 1500mg daily. 2. Azithromycin 1200mg once a week (every Saturday). 3. Fluconazole 500mg daily for 7 days. 4. Valacyclovir 500mg daily 7 days. 5. Zyprexa 5mg daily at bedtime. Continue your other medications as prescribed. Follow-up -Follow-up with your primary care doctor (Dr. Castle) within 1 week. Please have repeat blood work for CBC and BMP in 1 week and bring results for follow- up to your PCP. -Follow up with muff winder (Dr. Ibarra) within 1 week. -Follow-up with your infectious disease doctor (Dr. Sawyer) within 1 week to decide on your HIV medications - follow up with GI , dr. Funes as you need an endoscopy to evaluate for ulcers in your stomach -Follow up with psychiatry (Dr. Bright) within 1 week. Disposition Call 911 or go to the ED if with any worsening fever, chills, headache, dizziness, chest pain, shortness of breath, abdominal pain, bloody stools or any new concerns noted. Referrals: Yao Ulloa MD [Staff Physician] - 1 Week Genaro Bright MD [Staff Physician] - 1 Week Yi Figueroa [Primary Care Provider] - 1 Week Khadar Ibarra MD [Staff Physician] - 1 Week Disposition: AGAINST MEDICAL ADVICE - Home Medications Comprehensive Discharge Medication List: Ambulatory Orders Darunavir/Cobicistat [Prezcobix 800 mg-150 mg Tablet] 1 each PO QID 05/01/18 Dolutegravir Sodium [Tivicay] 50 mg PO QID 05/01/18 Acetaminophen [Tylenol .Regular Strength -] 650 mg PO Q6H PRN tablet 05/05/18 Amlodipine Besylate [Norvasc -] 10 mg PO DAILY #30 tablet 05/05/18 Atovaquone [Mepron Oral Solution -] 1,500 mg PO DAILY@0800 #30 ud 05/05/18 Azithromycin [Zithromax 600mg Tablets -] 1,200 mg PO SA #4 tablet 05/05/18 Fluconazole [Diflucan -] 100 mg PO DAILY #7 tablet 05/05/18 Miscellaneous Medical Supply [Outpatient Order] 1 each ASDIR #1 misc Olanzapine [Zyprexa -] 5 mg PO HS #30 tablet 05/05/18 Pantoprazole Sodium [Protonix -] 40 mg PO DAILY #30 tablet.ec 05/05/18 Sennosides [Senna -] 1 tab PO HS #30 tablet 05/05/18 Valacyclovir HCl [Valtrex -] 500 mg PO DAILY #7 tablet 05/05/18 This patient is new to me today: No Emergency Visit: Yes ED Registration Date: 04/19/18 Care time: The patient presented to the Emergency Department on the above date and was hospitalized for further evaluation of their emergent condition. Critical Care patient: No - Discharge Referral Referred to [facility] No
== END 2018-05-05 15:37 | disposition left against medical advice (07) | DRG 710 ==
LOC: JER 00:49 → JERBED 03:41 → JICU 09:45 → J7W 04-27 15:50
PROVIDERS: ADMIT Internal Medicine; ATTEND Internal Medicine
PROC: 0CHY7BZ Insertion of Airway into Mouth and Throat, Via Natural or Artificial Opening (ICD-10-PCS; principal; 2018-04-19)
PROC: 03HY32Z Insertion of Monitoring Device into Upper Artery, Percutaneous Approach (ICD-10-PCS; 2018-04-19)
PROC: 06HN33Z Insertion of Infusion Device into Left Femoral Vein, Percutaneous Approach (ICD-10-PCS; 2018-04-19)
PROC: 5A1955Z Respiratory Ventilation, Greater than 96 Consecutive Hours (ICD-10-PCS; 2018-04-19)
PROC: 5A1D70Z Performance of Urinary Filtration, Intermittent, Less than 6 Hours Per Day (ICD-10-PCS; 2018-04-19)
PROC: 30233N1 Transfusion of Nonautologous Red Blood Cells into Peripheral Vein, Percutaneous Approach (ICD-10-PCS; 2018-04-19)
PROC: 05HN33Z Insertion of Infusion Device into Left Internal Jugular Vein, Percutaneous Approach (ICD-10-PCS; 2018-04-22)
PROC: 5A1D70Z Performance of Urinary Filtration, Intermittent, Less than 6 Hours Per Day (ICD-10-PCS; 2018-04-23)
PROC: 06HM33Z Insertion of Infusion Device into Right Femoral Vein, Percutaneous Approach (ICD-10-PCS; 2018-04-25)
PROC: 5A1D70Z Performance of Urinary Filtration, Intermittent, Less than 6 Hours Per Day (ICD-10-PCS; 2018-04-25)
DX: A40.3 Sepsis due to Streptococcus pneumoniae (principal); R65.21 Severe sepsis with septic shock; J13 Pneumonia due to Streptococcus pneumoniae; E78.5 Hyperlipidemia, unspecified; J45.909 Unspecified asthma, uncomplicated; J96.01 Acute respiratory failure with hypoxia; J96.02 Acute respiratory failure with hypercapnia; D64.9 Anemia, unspecified; R50.9 Fever, unspecified; E87.6 Hypokalemia; E11.9 Type 2 diabetes mellitus without complications; F17.210 Nicotine dependence, cigarettes, uncomplicated; Z21 Asymptomatic human immunodeficiency virus [HIV] infection status; R00.0 Tachycardia, unspecified; N17.9 Acute kidney failure, unspecified; I24.8 Other forms of acute ischemic heart disease; B37.0 Candidal stomatitis; E87.2 Acidosis; E83.39 Other disorders of phosphorus metabolism; K21.9 Gastro-esophageal reflux disease without esophagitis; D69.6 Thrombocytopenia, unspecified; D61.818 Other pancytopenia; D72.819 Decreased white blood cell count, unspecified; E83.51 Hypocalcemia; D72.829 Elevated white blood cell count, unspecified; K92.1 Melena; K62.6 Ulcer of anus and rectum; N76.6 Ulceration of vulva; R44.2 Other hallucinations; I10 Essential (primary) hypertension; K92.2 Gastrointestinal hemorrhage, unspecified; Z91.19 Patient's noncompliance with other medical treatment and regimen; Z88.0 Allergy status to penicillin
CPT/HCPCS: 36415; 36430; 36511; 36600; 70450-TC; 71045-TC-FY; 71250-TC; 76775-TC; 80048; 80053; 80076; 81003; 81015; 82140; 82272; 82375; 82436; 82550; 82553; 82570; 82728; 82803; 83010; 83050; 83516; 83520; 83540; 83550; 83605; 83615; 83735; 83880; 84100; 84133; 84156; 84300; 84439; 84443; 84466; 84484; 84540; 85025; 85027; 85044; 85384; 85610; 85730; 86038; 86256; 86359; 86360; 86704; 86706; 86707; 86708; 86803; 86850; 86900; 86901; 86922; 87040; 87070; 87086; 87116; 87186; 87205; 87281; 87324; 87340; 87350; 87449; 87804; 87899; 93005; 93010; 93306-TC; 94002; 97116-GP; 99285-25; G0480; J0131; J1644; J7030; P9038; P9058

== ENCOUNTER 2018-10-16 10:42 | Inpatient (IN) | payer OTHER ==
[2018-10-16 10:52] VITALS: BMI 20.9
[2018-10-16] MEDS ORDERED: predniSONE 20 MG TABLET (UD) PO ONE (12:44)
[2018-10-16] MEDS ORDERED: predniSONE 20 MG TABLET (UD) ONE (13:12)
--- NOTE | 2018-10-16 13:21 | PDOC ---
History of Present Illness - General Chief Complaint: Shortness of Breath Stated Complaint: SOB Time Seen by Provider: 10/16/18 11:33 History Source: Patient Exam Limitations: Other (poor historian) Past History - Travel Traveled outside of the country in the last 30 days: No Close contact w/someone who was outside of country & ill: No - Past Medical History Allergies/Adverse Reactions: Allergies Allergy/AdvReac Type Severity Reaction Status Date / Time Penicillins Allergy Severe Hives Verified 10/16/18 10:52 Sulfa (Sulfonamide Allergy Severe Difficulty Verified 10/16/18 10:52 Antibiotics) Breathing phenazopyridine AdvReac Verified 10/16/18 10:52 [From Pyridium] Home Medications: Ambulatory Orders Darunavir/Cobicistat [Prezcobix 800 mg-150 mg Tablet] 1 each PO QID 05/01/18 Dolutegravir Sodium [Tivicay] 50 mg PO QID 05/01/18 Amlodipine Besylate [Norvasc -] 10 mg PO DAILY #30 tablet 05/05/18 Olanzapine [Zyprexa -] 5 mg PO HS #30 tablet 05/05/18 Pantoprazole Sodium [Protonix -] 40 mg PO DAILY #30 tablet.ec 05/05/18 Sennosides [Senna -] 1 tab PO HS #30 tablet 05/05/18 Valacyclovir HCl [Valtrex -] 500 mg PO DAILY #7 tablet 05/05/18 Acetaminophen [Tylenol .Regular Strength -] 650 mg PO PRN PRN 10/16/18 Anemia: Yes Asthma: Yes Cancer: No Cardiac Disorders: No CVA: No COPD: Yes CHF: No DVT: No Dementia: No Diabetes: Yes GI Disorders: No Disorders: No HTN: Yes Hypercholesterolemia: No Liver Disease: No Seizures: No Thyroid Disease: No - Surgical History Abdominal Surgery: No Appendectomy: No Cardiac Surgery: No Cholecystectomy: No Lung Surgery: No Neurologic Surgery: No Orthopedic Surgery: No - Immunization History Immunization Up to Date: No - Suicide/Smoking/Psychosocial Hx Smoking Status: Yes Smoking History: Former smoker Have you smoked in the past 12 months: No Number of Cigarettes Smoked Daily: 7 If you are a former smoker, when did you quit?: 2019 Information on smoking cessation initiated: Yes 'Breaking Loose' booklet given: 11/21/17 Hx Alcohol Use: No Drug/Substance Use Hx: No Substance Use Type: None Hx Substance Use Treatment: No Review of Systems - Review of Systems Able to Perform ROS?: Yes Is the patient limited Yi proficient: No Constitutional: Yes: Weight Stable. No: Chills, Diaphoresis, Fever, Loss of Appetite, Malaise, Night Sweats, Weakness HEENTM: No: Blurred Vision, Double Vision, Nose Congestion, Throat Pain, Throat Swelling, Mouth Swelling Respiratory: Yes: Cough, Shortness of Breath, SOB at Rest. No: Orthopnea, Wheezing, Productive cough, Hemoptysis Cardiac (ROS): No: Chest Pain, Edema, Irregular Heart Rate, Lightheadedness, Palpitations, Syncope, Chest Tightness ABD/GI: Yes: Nausea, Poor Appetite, Poor Fluid Intake, Vomiting. No: Constipated, Diarrhea, Abdominal cramping : No: Burning, Dysuria, Pain, Urgency Musculoskeletal: No: Back Pain, Joint Pain, Muscle Pain, Muscle Weakness Integumentary: No: Rash Neurological: No: Headache, Numbness, Weakness, Unsteady Gait, Dizziness Psychiatric: No: Sleep Pattern Change, Change in Appetite Endocrine: No: Increased Urine, Change in Weight Hematologic/Lymphatic: Yes: Anemia. No: Blood Clots, Easy Bleeding, Easy Bruising All Other Systems: Reviewed and Negative *Physical Exam - Vital Signs Last Vital Signs Temp Pulse Resp BP Pulse Ox 97.4 F L 78 18 143/77 99 10/16/18 10:46 10/16/18 12:01 10/16/18 12:01 10/16/18 12:01 10/16/18 12:01 - Physical Exam Comments: T 97/4, 89% on RA (improved to 90%s on NC). Pt in NAD, cachectic body habitus. Pt alert and oriented x3. Very poor insight into disease process, poor affect. office services associate generally intact, muscular strength and sensation intact. No midline spinal tenderness, step-offs, or crepitus. Head normocephalic, atraumatic. Eyes PERRLA, EOMI. Oropharynx without erythema or exudates, no LAD b/l. No nasal congestion, hearing intact. Clear heart sounds, S1/S2, no JVD, b/l pedal edema, or heart murmur. Coarse lungs sounds with significant wheezing b/l. No crackles or accessory muscle use. No abdominal or CVA tenderness to palpation, no rebound, no guarding. Abdomen soft, non-distended, and with normoactive bowel sounds. Skin without jaundice or rash. 10/16/18 18:29 ED Treatment Course - LABORATORY CBC & Chemistry Diagram: 10/16/18 12:56 10/16/18 12:56 Medical Decision Making - Medical Decision Making Pt was seen at bedside, also will be seen by attending Dr. Montaño. Pt presenting with complaints of SOB, fatigue, and 3 episodes of NBNB vomiting since this morning. Pt states her SOB started about 1 week ago and has worsened. Pt denies any hemoptysis or productive sputum. Pt states she has been admitted to [facility] for pneumonia, but left this morning (10/08-10/10 then eloped, re-admitted 10/12 then eloped today). Pt has not been compliant with her medications, including HAART. Pt denies any fevers/chills, headache, vision changes, syncope , chest pain, palpitations, abdominal pain, urinary symptoms, diarrhea/ constipation, or leg swelling. Pt has extensive history of eloping/AMA from our ED and inpatient service. Pt was admitted multiple times this year for pneumonia, including intubation. Pt is followed by a patient case coordinator ([facility] - [phone]) Ordered work-up including CBC, CMP, UA, urine culture, chest x-ray, ECG, blood cultures. Provided 1 g vancomycin (pt grew staph from sputum culture in the past. Pt refused steroids as "they make her chest hurt". Pt has multiple allergies, will request ID consult for suggestions. Will continue to reassess pt and monitor for symptomatic improvement. 10/16/18 18:33 CBC showed anemia requiring transfusion. Pt signed transfusion consent form. Pending pRBCs. CMP: HCO3 18 with acidotic ABG -- admitting team requests trial for Bipap. LD 750 BNP 82261; Albumin 1.6 Chest x-ray showed b/l pneumonia. ID (Dr. Mccloud) saw the pt, who recommended also legionella/pneumococcal Ags , and suggested Mepron 750 PO and IV cefepime for antibiotic coverage. ID will follow the pt. Pt admitted to hospitalist team (Dr. Powers). 10/16/18 18:36 *DC/Admit/Observation/Transfer Diagnosis at time of Disposition: AIDS Pneumonia Qualifiers: Pneumonia type: due to unspecified organism Laterality: bilateral Lung location : unspecified part of lung Qualified Code(s): J18.9 - Pneumonia, unspecified organism Anemia Qualifiers: Anemia type: unspecified type Qualified Code(s): D64.9 - Anemia, unspecified - Discharge Dispostion Condition at time of disposition: Stable Decision to Admit order: Yes - Referrals - Patient Instructions - Post Discharge Activity
--- NOTE | 2018-10-16 13:27 | PDOC ---
Documentation entered by Pk Brambila SCRIBE, acting as scribe for Marcos Montaño MD. Marcos Montaño MD: This documentation has been prepared by the Kosta velasquez Daniel, SCRIBE, under my direction and personally reviewed by me in its entirety. I confirm that the documentation accurately reflects all work, treatment, procedures, and medical decision making performed by me. Attending Attestation - Resident Resident Name: JazzmineCarey - ED Attending Attestation I have performed the following: I have examined & evaluated the patient, The case was reviewed & discussed with the resident, I agree w/resident's findings & plan, Exceptions are as noted - HPI HPI: 10/16/18 12:49 53 F with h/o HIV/AIDS (CD4 count 6), prior history of OIs, HTN, HLD, Asthma, Anemia, presenting with SOB and cough. Pt was admitted to [facility] 3 days ago for "double pneumonia" but left AMA. Now presents to ED with worsening SOB and cough productive of yellow sputum. Denies CP. Denies F/C. - Physicial Exam PE: 10/16/18 12:51 "GENERAL: Awake, alert, and fully oriented, in no acute distress. HEAD: No signs of trauma EYES: PERRLA, EOMI, sclera anicteric, conjunctiva clear ENT: Auricles normal inspection, hearing grossly normal, nares patent, oropharynx clear without exudates. Moist mucosa NECK: Nontender, no stepoffs, Normal ROM, supple, no lymphadenopathy, JVD, or masses LUNGS: + Bilateral rhonchi HEART: Regular rate and rhythm, normal S1 and S2, no murmurs, rubs or gallops ABDOMEN: Soft, nontender, normoactive bowel sounds. No guarding, no rebound. No masses EXTREMITIES: Normal range of motion, no edema. No clubbing or cyanosis. No cords, erythema, or tenderness NEUROLOGICAL: Cranial nerves II through XII intact. 5/5 strength and sensation in all extremities, Normal speech, normal gait, normal cerebellar function SKIN: Warm, Dry, normal turgor, no rashes or lesions noted. - Critical Care Time Total Critical Care Time: 120 Critical Care Statement: The care of this patient involved high complexity decision making to prevent further life threatening deterioration of the patient 's condition and/or to evaluate & treat vital organ system(s) failure or risk of failure. - Medical Decision Making 10/16/18 12:51 53 F with AIDS, CD4 in single digits, presenting with cough and SOB. Pt hypoxic to 80s on RA. Suspect PCP pneumonia. - Labs, cultures - CXR - Check LDH - Empiric abx (will c/s ID for recs given sulfa and pen allergy) - Steroids for PCP
[2018-10-16 13:29] LABS: BASO % 0.4 % (0-2.0); EOS % 0.1 % (0-4.5); HEMATOCRIT 21.4 % (32.4-45.2); LYMPH % 5.9 % (8-40); MCH 23.5 pg (25.7-33.7); MEAN CELL VOLUME 75.7 fl (80-96); MEAN PLT VOLUME 9.1 fl (7.5-11.1); MONO % 6.6 % (3.8-10.2); PLATELET COUNT 114 K/MM3 (134-434); RBC 2.83 M/mm3 (3.60-5.2); RDW 20.3 % (11.6-15.6); WHITE BLOOD COUNT 4.5 K/mm3 (4.0-10.0)
[2018-10-16 13:38] LABS: HEMOGLOBIN 6.6 GM/dL (10.7-15.3)
[2018-10-16 13:43] LABS: INR 1.04 (0.83-1.09); PROTHROMBIN TIME (PATIENT) 12.3 SEC (9.7-13.0)
[2018-10-16 13:46] LABS: ACTIVATED PTT 35.3 SECONDS (25.2-36.5)
[2018-10-16] MEDS ORDERED: VANCOMYCIN 1,000 MG in DEXTROSE 5%-WATER - 250 ML IVPB ONE (13:50)
[2018-10-16 13:57] LABS: ALBUMIN 1.6 g/dl (3.4-5.0); BILIRUBIN,TOTAL 0.2 mg/dL (0.2-1); BLOOD UREA NITROGEN 46.5 mg/dL (7-18); CALCIUM 7.9 mg/dL (8.5-10.1); CREATININE 1.7 mg/dL (0.55-1.3); POTASSIUM 4.2 mmol/L (3.5-5.1); TOT PROT 5.9 g/dl (6.4-8.2)
[2018-10-16] MEDS ORDERED: VANCOMYCIN 1 GRAM (PRE-DOCKED) 1,000 MG/250 ML BAG IVPB ONE (14:02)
[2018-10-16 14:28] LABS: ANISOCYTOSIS 2+; MACROCYTOSIS 0; PLATELET ESTIMATE DECREASED
[2018-10-16] MEDS ORDERED: CEFEPIME HCL/D5W 2 GM/50 ML BAG IVPB ONE (14:47)
[2018-10-16] MEDS ORDERED: ATOVAQUONE 750 MG/5 ML (UNIT-DOSE PACKAGING) PO SCH (15:00)
[2018-10-16 15:01] LABS: LDH 750 U/L (84-246)
[2018-10-16 15:31] LABS: ARTERIAL BLD GAS O2 SATURATION 94.1 % (95-98); ARTERIAL BLOOD GAS BASE EXCESS -7.7 meq/l (-2-2); ARTERIAL BLOOD GAS PCO2 55.1 mmHg (35-45); CARBOXYHEMOGLOBIN 1.5 % (0-2)
[2018-10-16 15:34] LABS: ALLENS TEST POSITIVE
[2018-10-16 15:39] LABS: ARTERIAL BLOOD GAS pH 7.18 (7.35-7.45)
--- NOTE | 2018-10-16 15:39 | CON.ID ---
Consult Referred by:: ER Reason for Consultation:: bilateral pneumonia, AIDS - History of Present Illness Chief Complaint: 53 yo female admitted with sob and cough History of Present Illness: 53 yo female with AIDS, medication noncompliance, followed at [place]- admitted after leaving [facility] AMA twice she comes with SOB and fatigue no hemoptysis no fevers she has tcells of less then 20- unclear if she takes her ART or is on PCP prophylaxis- she is followed in [facility] Dr Dinh- [phone]- on vacation-called unable to reach she was admitted to [facility] on 10/08 and left AMA she returned 10/12 and was admitted to ICU she had bilateral pneumonia and was treated with vancomycin/levaquin/azactam LDH was over 2000 she was given pentamadine iv one dose on 10/14 and switched to Mepron yesterday for presumptive PCP she left AMA last night blood cultures at [facility] are negative she denies history of HEP C no IVDU reports family is not aware of HIV status no diarrhea no dysuria no fever had respiratory failure with pneumococcal sepsis in April at [facility]-left AMA she was admitted to [facility] end of June 2018 with recurrent pneumococcal sepsis- left AMA no sick contacts - History Source History Provided By: Patient, Medical Record Limitations to Obtaining History: Clinical Condition - Past Medical History Cardio/Vascular: Yes: HTN, Hyperlipdemia Pulmonary: Yes: Asthma, Pneumonia, Previously Intubated Infectious Disease: Yes: AIDS, HIV - Past Surgical History Past Surgical History: Yes: Hysterectomy - Alcohol/Substance Use Hx Alcohol Use: No - Smoking History Smoking history: Former smoker Have you smoked in the past 12 months: No Aproximately how many cigarettes per day: 7 If you are a former smoker, when did you quit?: 2019 - Social History Usual Living Arrangement: Alone History of Recent Travel: No Home Medications - Allergies Allergies/Adverse Reactions: Allergies Allergy/AdvReac Type Severity Reaction Status Date / Time Penicillins Allergy Severe Hives Verified 10/16/18 10:52 Sulfa (Sulfonamide Allergy Severe Difficulty Verified 10/16/18 10:52 Antibiotics) Breathing phenazopyridine AdvReac Verified 10/16/18 10:52 [From Pyridium] - Home Medications Home Medications: Ambulatory Orders Darunavir/Cobicistat [Prezcobix 800 mg-150 mg Tablet] 1 each PO QID 05/01/18 Dolutegravir Sodium [Tivicay] 50 mg PO QID 05/01/18 Amlodipine Besylate [Norvasc -] 10 mg PO DAILY #30 tablet 05/05/18 Olanzapine [Zyprexa -] 5 mg PO HS #30 tablet 05/05/18 Pantoprazole Sodium [Protonix -] 40 mg PO DAILY #30 tablet.ec 05/05/18 Sennosides [Senna -] 1 tab PO HS #30 tablet 05/05/18 Valacyclovir HCl [Valtrex -] 500 mg PO DAILY #7 tablet 05/05/18 Acetaminophen [Tylenol .Regular Strength -] 650 mg PO PRN PRN 10/16/18 Family Disease History - Family Disease History Family History: Unable to Obtain Review of Systems - Review of Systems Constitutional: denies: Chills, Fever Eyes: reports: No Symptoms HENT: reports: No Symptoms. denies: Difficult Swallowing Neck: reports: No Symptoms Respiratory: reports: Cough, SOB. denies: Hemoptysis Gastrointestinal: reports: Abdominal Pain Musculoskeletal: reports: Other (leg swelling chronic improved) Physical Exam Vital Signs: Vital Signs Temperature 97.4 F L 10/16/18 10:46 Pulse Rate 78 10/16/18 12:01 Respiratory Rate 18 10/16/18 12:01 Blood Pressure 143/77 10/16/18 12:01 O2 Sat by Pulse Oximetry (%) 99 10/16/18 12:54 Constitutional: Yes: No Distress, Calm, Thin Eyes: Yes: Conjunctiva Clear HENT: Yes: Atraumatic, Normocephalic. No: Thrush Neck: Yes: Supple. No: Lymphadenopathy Cardiovascular: Yes: Regular Rate and Rhythm Respiratory: Yes: Diminished Gastrointestinal: Yes: Soft. No: Tenderness, Rebound ...Rectal Exam: Yes: Deferred Renal/: No: CVA Tenderness - Left, CVA Tenderness - Right Edema: Yes Edema: LLE: Trace, RLE: Trace Wound/Incision: Yes: Other (stage 1 - 2 small sacral ulcers) Neurological: Yes: Alert, Oriented Labs: CBC, BMP 10/16/18 12:56 10/16/18 12:56 cultures - blood sent Imaging - Results Chest X-ray: Report Reviewed (bilateral infiltrates) Problem List - Problems (1) Pneumonia Code(s): J18.9 - PNEUMONIA, UNSPECIFIED ORGANISM (2) AIDS Code(s): B20 - HUMAN IMMUNODEFICIENCY VIRUS [HIV] DISEASE (3) SANA (acute kidney injury) Code(s): N17.9 - ACUTE KIDNEY FAILURE, UNSPECIFIED (4) Anemia Code(s): D64.9 - ANEMIA, UNSPECIFIED Qualifiers: Anemia type: unspecified type Qualified Code(s): D64.9 - Anemia, unspecified Assessment/Plan bilateral pneumonia- suggestive of PCP-r/o bacterial pneumonia, atypical pneumonia will get sputum culture will get sputum for cytology for PCP LDH and fungitell bactrim and penicillin allergies anemia sana vancomycin one dose (after cultures) cefepime to continue prednisone 40 bid for 5 days, then 40 daily for 5 days, the 20 daily for remainder of treatment check g6pd as we cannot give her bactrim mepron for now as she is able to take po add levaquin for atypical coverage urine for legionella/pneumococcal antigens check ekg ekg echo pulmonary eval renal eval try to get records from her clinic in [place] to check tcells, meds and g6pd status I tried to call, will try again in am
[2018-10-16] MEDS ORDERED: CEFEPIME 2 GM/100 ML BAG IVPB ONE (16:04)
--- NOTE | 2018-10-16 16:16 | HP ---
Admitting History and Physical - Admission Chief Complaint: shortness of breath and general malaise History of Present Illness: Patient is a 53 year old female with a significant past medical history of HIV/ AIDS (CD4 count 6), bilateral pneumonia with respiratory failure at [facility] ( intubated on 04/2018), asthma, anemia, hypertension, HLD. She presents to the ED today for acute shortness of breath and productive yellow sputum. She was seen at [facility] on 10/08/18 and left AMA. She returned to [facility] on 10/12/18 and was admitted to the ICU. She was treated with IV antibiotics, improved and then left there AMA last night. She states she is non compliant with her HIV medications. She denies any IV drug use. Denies any other drug use. She denies any chest pain. She presents to [facility] ED with same complaints of shortness of breath. She is a poor historian, she is anxious and mildly agitated on exam. ER course was notable for: (1) Pt hypoxic to 80s on RA. - started on supplemental oxygen (2) chest xray bilateral pneumonia - started on IV antibiotics/mepron (3) hmg/hct 6.6./21 - for 1 unit of prbc (4) thrombocytopenia 114 - defer a/c (5) blood gas: respiratory acidosis with metabolic acidosis - start on bipap. 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 Cardiovascular: Yes: HTN, Hyperlipdemia, Other (ekg) Pulmonary: Yes: Asthma, Pneumonia, Other Infectious Disease: Yes: AIDS, HIV Psych: Yes: Anxiety, Depression - Smoking History Smoking history: Current some day smoker Have you smoked in the past 12 months: No Aproximately how many cigarettes per day: 7 If you are a former smoker, when did you quit?: 2019 - Alcohol/Substance Use Hx Alcohol Use: No History of Substance Use: reports: None - Social History Usual Living Arrangement: Yes: Alone ADL: Family Assistance History of Recent Travel: No Home Medications - Allergies Allergies/Adverse Reactions: Allergies Allergy/AdvReac Type Severity Reaction Status Date / Time Penicillins Allergy Severe Hives Verified 10/16/18 10:52 Sulfa (Sulfonamide Allergy Severe Difficulty Verified 10/16/18 10:52 Antibiotics) Breathing phenazopyridine AdvReac Verified 10/16/18 10:52 [From Pyridium] - Home Medications Home Medications: Ambulatory Orders Darunavir/Cobicistat [Prezcobix 800 mg-150 mg Tablet] 1 each PO QID 05/01/18 Dolutegravir Sodium [Tivicay] 50 mg PO QID 05/01/18 Amlodipine Besylate [Norvasc -] 10 mg PO DAILY #30 tablet 05/05/18 Olanzapine [Zyprexa -] 5 mg PO HS #30 tablet 05/05/18 Pantoprazole Sodium [Protonix -] 40 mg PO DAILY #30 tablet.ec 05/05/18 Sennosides [Senna -] 1 tab PO HS #30 tablet 05/05/18 Valacyclovir HCl [Valtrex -] 500 mg PO DAILY #7 tablet 05/05/18 Acetaminophen [Tylenol .Regular Strength -] 650 mg PO PRN PRN 10/16/18 Review of Systems - Review of Systems Constitutional: reports: Chills, Lethargy, Loss of Appetite, Malaise, Unintentional Wgt. Loss, Weakness Eyes: reports: No Symptoms HENT: reports: No Symptoms Neck: reports: No Symptoms Cardiovascular: reports: No Symptoms Respiratory: reports: Cough, SOB on Exertion Gastrointestinal: reports: No Symptoms Genitourinary: reports: No Symptoms Breasts: reports: No Symptoms Reported Musculoskeletal: reports: Extremity Pain, Joint Pain, Muscle Pain, Muscle Weakness Integumentary: reports: No Symptoms Neurological: reports: Incoordination, Unsteady Gait, Weakness Endocrine: reports: No Symptoms Psychiatric: reports: Anxiety, Depression, Paranoia Physical Examination Vital Signs: Vital Signs Temperature 97.4 F L 10/16/18 10:46 Pulse Rate 78 10/16/18 12:01 Respiratory Rate 18 10/16/18 12:01 Blood Pressure 143/77 10/16/18 12:01 O2 Sat by Pulse Oximetry (%) 99 10/16/18 12:54 Constitutional: Yes: Cachectic, Mild Distress Eyes: Yes: WNL HENT: Yes: Atraumatic Neck: Yes: WNL, Supple Cardiovascular: Yes: Regular Rate and Rhythm Respiratory: Yes: Accessory Muscle Use, Cough, Diminished, On Nasal O2, Poor Air Entry, SOB, SOB on Exertion, Tachypnea Gastrointestinal: Yes: WNL, Normal Bowel Sounds ...Rectal Exam: Yes: Deferred Renal/: Yes: WNL Breast(s): Yes: WNL Musculoskeletal: Yes: Muscle Pain, Muscle Weakness Edema: Yes Edema: LLE: 1+, RLE: 1+ Integumentary: Yes: WNL Neurological: Yes: Alert, Oriented Psychiatric: Yes: Alert, Oriented Labs: CBC, BMP 10/16/18 12:56 10/16/18 12:56 Imaging - Results Chest X-ray: Report Reviewed EKG: Report Reviewed Problem List - Problems (1) Sepsis Assessment/Plan: Sepsis on admission likely secondary to bilateral pneumonia Sepsis concerning on an immunocompromised patient with AIDS Monitor respiratory status as patient intubated 6 months ago On vanco, cefepime, mepron blood and urine cultures collected and pending prior to initiation of antibiotics Code(s): A41.9 - SEPSIS, UNSPECIFIED ORGANISM (2) Pneumonia Assessment/Plan: Bilateral pneumonia seen on chest xray, concerning for PCP pneumonia. Patient has AIDS and has poor compliance with anti virals Lungs are diminished bilaterally, poor airway entry. shortness of breath at rest Started on Cefepime, Vancomycin and Mepron per ID ABG shows respiratory acidosis Bipap ordered Start solumedrol to ease work of breathing Pulmonary consulted Code(s): J18.9 - PNEUMONIA, UNSPECIFIED ORGANISM (3) Respiratory failure with hypoxia Code(s): J96.91 - RESPIRATORY FAILURE, UNSPECIFIED WITH HYPOXIA (4) SANA (acute kidney injury) Assessment/Plan: Acute Renal Failure in setting of Sepsis She required emergent dialysis for persistent acidosis on 04/2018 admission will consult renal Continue hydration Code(s): N17.9 - ACUTE KIDNEY FAILURE, UNSPECIFIED (5) Anemia Assessment/Plan: for 1 unit of prbc Code(s): D64.9 - ANEMIA, UNSPECIFIED Qualifiers: Anemia type: unspecified type Qualified Code(s): D64.9 - Anemia, unspecified (6) HIV (human immunodeficiency virus infection) Assessment/Plan: start on her antivirals Code(s): B20 - HUMAN IMMUNODEFICIENCY VIRUS [HIV] DISEASE (7) AIDS Code(s): B20 - HUMAN IMMUNODEFICIENCY VIRUS [HIV] DISEASE (8) Prophylactic measure Assessment/Plan: fen normal saline @ 100cc/hr monitor electrolytes low salt diet, aspiration px prophy no a/c due to thrombocytopenia and anemia SCDs Code(s): Z29.9 - ENCOUNTER FOR PROPHYLACTIC MEASURES, UNSPECIFIED Visit type - Emergency Visit Emergency Visit: Yes ED Registration Date: 10/16/18 Care time: The patient presented to the Emergency Department on the above date and was hospitalized for further evaluation of their emergent condition. - New Patient This patient is new to me today: Yes Date on this admission: 10/16/18 - Critical Care Critical Care patient: No
[2018-10-16] MEDS: ATOVAQUONE 750 MG/5 ML (UNIT-DOSE PACKAGING) PO SCH (17:15)
[2018-10-16] MEDS ORDERED: SODIUM CHLORIDE 1,000 ML IV SCH (21:30)
[2018-10-16] MEDS ORDERED: DARUNAVIR 800 MG/COBICISTAT 150MG TABLET PO SCH (22:00)
[2018-10-16] MEDS ORDERED: OLANZapine 5 MG TABLET PO SCH (22:00)
[2018-10-16] MEDS ORDERED: DOLUTEGRAVIR SODIUM 50 MG TABLET (NON-FORMULARY) PO SCH (22:00)
[2018-10-16] MEDS ORDERED: SENNOSIDES 8.6MG TABLET (FP) PO SCH (22:00)
[2018-10-17] MEDS: methylPREDNISolone NA SUCC 40 MG/1 ML VIAL IVPUSH SCH ×2 (01:13→10:45)
[2018-10-17] MEDS ORDERED: ONDANSETRON 4 MG/2 ML VIAL IVPUSH ONE (03:40)
[2018-10-17] MEDS ORDERED: DEXTROSE 5%-WATER 100 ML IVPB ONE (03:52)
[2018-10-17] MEDS ORDERED: CEFEPIME HCL 1 GM VIAL (RESTRICTED TO ID) ONE (03:52)
[2018-10-17] MEDS ORDERED: CEFEPIME 1 GM in DEXTROSE 5%-WATER 100 ML IVPB SCH (04:00)
[2018-10-17 06:28] LABS: INR 1.18 (0.83-1.09); PROTHROMBIN TIME (PATIENT) 13.9 SEC (9.7-13.0)
[2018-10-17 06:36] LABS: HEMATOCRIT 26.3 % (32.4-45.2); HEMOGLOBIN 8.5 GM/dL (10.7-15.3); MCH 25.5 pg (25.7-33.7); MCHC 32.5 g/dl (32.0-36.0); MEAN CELL VOLUME 78.6 fl (80-96); MEAN PLT VOLUME 9.7 fl (7.5-11.1); PLATELET COUNT 116 K/MM3 (134-434); RBC 3.35 M/mm3 (3.60-5.2); RDW 21.2 % (11.6-15.6); WHITE BLOOD COUNT 9.8 K/mm3 (4.0-10.0)
[2018-10-17 07:02] LABS: ALBUMIN 1.6 g/dl (3.4-5.0); BILIRUBIN,TOTAL 0.4 mg/dL (0.2-1); BLOOD UREA NITROGEN 46.6 mg/dL (7-18); CREATININE 1.6 mg/dL (0.55-1.3); MAGNESIUM 2.2 mg/dL (1.8-2.4); PHOSPHOROUS 3.8 mg/dL (2.5-4.9); POTASSIUM 3.6 mmol/L (3.5-5.1); TOT PROT 5.8 g/dl (6.4-8.2)
[2018-10-17] MEDS ORDERED: DEXTROSE 50%-WATER 25 GM/50 ML DISP.SYRIN ONE ×2 (07:26→13:03)
[2018-10-17] MEDS: ATOVAQUONE 750 MG/5 ML (UNIT-DOSE PACKAGING) PO SCH ×2 (08:10→16:43)
[2018-10-17 08:15] LABS: ARTERIAL BLD GAS O2 SATURATION 96.7 % (95-98); ARTERIAL BLOOD GAS BASE EXCESS -9.6 meq/l (-2-2); ARTERIAL BLOOD GAS PO2 101 mmHg (80-105)
[2018-10-17 08:27] LABS: ALLENS TEST POSITIVE
[2018-10-17 08:29] LABS: ARTERIAL BLOOD GAS pH 7.13 (7.35-7.45)
[2018-10-17] MEDS ORDERED: SUCCINYLCHOLINE CHLORIDE 200 MG/10 ML VIAL ONE (08:57)
[2018-10-17] MEDS ORDERED: PROPOFOL 1,000,000 MCG/100 ML VIAL ONE (08:58)
--- NOTE | 2018-10-17 09:24 | PN ---
Progress Note, Physician Chief Complaint: lethargic, blood sugar 19, refused bipap overnight. ABG repeated and patient to be intubated vs high flow oxygen. she will be monitored in the icu. History of Present Illness: Patient is a 53 year old female with a significant past medical history of HIV/ AIDS (CD4 count 6), bilateral pneumonia with respiratory failure at [facility] ( intubated on 04/2018), asthma, anemia, hypertension, HLD. She presents to the ED for acute shortness of breath and productive yellow sputum. She was seen at [facility] on 10/08/18 and left AMA. She returned to [facility] on and was admitted to the ICU. She was treated with IV antibiotics, improved and then left AMA. She states she is non compliant with her HIV medications. She denies any IV drug use. Denies any other drug use. She denies any chest pain. Overnight patient refused bipap, repeat ABGs and supplemental oxygen. She was lethargic this a.m. and barely arousable with agonal breathing. She has increased Rhonchi on bilateral lungs with poor airway entry. ABG repeated which shows respiratory and metabolic acidosis. Repeat chest xray ordered. ICU consulted for possible intubation or high flow oxygen. Once in the ICU, patient mentation improved and refused intubation. discussed importance of intubation with patient and she is now in agreement. her BGM 19 this a.m. and D50 was given. repeat BGM 142. will monitor with BGMs q4. - Current Medication List Current Medications: Active Medications Amlodipine Besylate (Norvasc -) 10 mg PO DAILY [facility] Atovaquone (Mepron -) 750 mg PO BIDWM [facility] Last Admin: 10/17/18 08:10 Dose: Not Given Cefepime HCl 1 gm/ Dextrose 100 mls @ 200 mls/hr IVPB Q12H [facility]; Protocol Last Admin: 10/17/18 04:00 Dose: 200 mls/hr Sodium Chloride (Normal Saline -) 1,000 mls @ 100 mls/hr IV ASDIR [facility] Last Admin: 10/17/18 03:59 Dose: 100 mls/hr Methylprednisolone Sodium Succinate (Solu-Medrol -) 40 mg IVPUSH BID [facility] Last Admin: 10/17/18 01:13 Dose: Not Given Olanzapine (Zyprexa -) 5 mg PO HS [facility] Last Admin: 10/17/18 01:13 Dose: Not Given Pantoprazole Sodium (Protonix -) 40 mg PO DAILY [facility] Senna (Senna -) 1 tab PO [facility] Last Admin: 10/17/18 01:12 Dose: Not Given Valacyclovir HCl (Valtrex -) 500 mg PO DAILY [facility] - Objective Vital Signs: Vital Signs Temperature 97.2 F L 10/17/18 05:00 Pulse Rate 85 10/17/18 05:00 Respiratory Rate 20 10/17/18 05:00 Blood Pressure 147/61 10/17/18 05:00 O2 Sat by Pulse Oximetry (%) 98 10/16/18 19:45 Constitutional: Yes: Cachectic, Moderate Distress Eyes: Yes: WNL HENT: Yes: Atraumatic, Epistaxis Neck: Yes: Supple Cardiovascular: Yes: Tachycardia Respiratory: Yes: Accessory Muscle Use, Bradypnea, Cough, Diminished, On BiPap ( refusing bipap), Poor Air Entry, Rhonchi, SOB, SOB on Exertion, Other Gastrointestinal: Yes: Normal Bowel Sounds ...Rectal Exam: Yes: Deferred Genitourinary: Yes: WNL Edema: LLE: 1+, RLE: 1+ Integumentary: Yes: WNL Neurological: Yes: Alert, Oriented, Lethargy Labs: CBC, BMP 10/17/18 05:27 10/17/18 05:27 INR, PTT INR 1.18 (0.83-1.09) H 10/17/18 05:27 - ....Imaging Chest X-ray: Image Reviewed Problem List - Problems (1) Sepsis Assessment/Plan: Sepsis on admission likely secondary to bilateral pneumonia Sepsis concerning on an immunocompromised patient with AIDS Monitor respiratory status as patient intubated 6 months ago On vanco, cefepime, mepron blood and urine cultures collected and pending prior to initiation of antibiotics ID following Code(s): A41.9 - SEPSIS, UNSPECIFIED ORGANISM (2) Pneumonia Assessment/Plan: Bilateral pneumonia seen on chest xray, concerning for PCP pneumonia. Patient has AIDS and has poor compliance with anti virals Lungs are diminished bilaterally with scattered rhonchi, poor airway entry. shortness of breath at rest Started on Cefepime, Vancomycin and Mepron per ID ABG shows respiratory acidosis Bipap ordered but patient refused overnight Start solumedrol to ease work of breathing Pulmonary consulted Code(s): J18.9 - PNEUMONIA, UNSPECIFIED ORGANISM (3) Respiratory failure with hypoxia Code(s): J96.91 - RESPIRATORY FAILURE, UNSPECIFIED WITH HYPOXIA (4) SANA (acute kidney injury) Assessment/Plan: Acute Renal Failure in setting of Sepsis She required emergent dialysis for persistent acidosis on 04/2018 admission will consult renal Continue hydration Code(s): N17.9 - ACUTE KIDNEY FAILURE, UNSPECIFIED (5) Anemia Assessment/Plan: for 1 unit of prbc Code(s): D64.9 - ANEMIA, UNSPECIFIED Qualifiers: Anemia type: unspecified type Qualified Code(s): D64.9 - Anemia, unspecified (6) HIV (human immunodeficiency virus infection) Assessment/Plan: start on her antivirals Code(s): B20 - HUMAN IMMUNODEFICIENCY VIRUS [HIV] DISEASE (7) AIDS Assessment/Plan: cd 4 count 6 on previous admissions ID following Code(s): B20 - HUMAN IMMUNODEFICIENCY VIRUS [HIV] DISEASE (8) Hypoglycemia Assessment/Plan: serum glucose 19 in a.m. given D50 pushes x 3 today for hypoglycemia monitor BGMs q4 hrs. Code(s): E16.2 - HYPOGLYCEMIA, UNSPECIFIED (9) Prophylactic measure Assessment/Plan: fen normal saline @ 100cc/hr monitor electrolytes low salt diet, aspiration px prophy no a/c due to thrombocytopenia and anemia SCDs Code(s): Z29.9 - ENCOUNTER FOR PROPHYLACTIC MEASURES, UNSPECIFIED Visit type - Emergency Visit Emergency Visit: Yes ED Registration Date: 10/16/18 Care time: The patient presented to the Emergency Department on the above date and was hospitalized for further evaluation of their emergent condition. - New Patient This patient is new to me today: Yes Date on this admission: 11/12/18 - Critical Care Critical Care patient: Yes Total Critical Care Time (in minutes): 45 Critical Care Statement: The care of this patient involved high complexity decision making to prevent further life threatening deterioration of the patient 's condition and/or to evaluate & treat vital organ system(s) failure or risk of failure. - Discharge Referral Referred to [facility] Med P.C.: No
[2018-10-17] MEDS ORDERED: DARUNAVIR 800 MG/COBICISTAT 150MG TABLET PO SCH (10:00)
[2018-10-17] MEDS ORDERED: DOLUTEGRAVIR SODIUM 50 MG TABLET (NON-FORMULARY) PO SCH (10:00)
[2018-10-17] MEDS ORDERED: PANTOPRAZOLE 40 MG TABLET (FP) PO SCH (10:00)
[2018-10-17] MEDS ORDERED: amLODIPine BESYLATE 10 MG TABLET (FP) PO SCH (10:00)
[2018-10-17] MEDS ORDERED: valACYclovir HCL 500 MG TABLET (FP) PO SCH (10:00)
--- NOTE | 2018-10-17 10:03 | ECHO ---
Name: PATRICIA DE LEÓN Exam:Adult Echocardiogram Study Date: 10/17/2018 08:20 AM Age: 53 yrs Reason For Study: Enlarged Heart Height: 64 in Weight: 122 lb BSA: 1.6 m2 MMode/2D Measurements & Calculations IVSd: 0.79 cm Ao root diam: 2.9 cm LVIDd: 6.0 cm LA dimension: 3.4 cm LVIDs: 4.5 cm LVPWd: 1.0 cm EDV(Teich): 181.0 ml LVOT diam: 2.0 cm ESV(Teich): 91.9 ml LAV (MOD-bp): 72.4 ml Doppler Measurements & Calculations MV E max julian: 140.0 cm/sec Ao V2 max: 235.7 cm/sec MV A max julian: 121.0 cm/sec Ao max P.2 mmHg MV E/A: 1.2 Ao V2 mean: 152.0 cm/sec MV dec time: 0.07 sec Ao mean P.0 mmHg Ao V2 VTI: 47.0 cm KIM(I,D): 1.6 cm2 AI P1/2t: 297.0 msec KIM(V,D): 1.6 cm2 AI max julian: 350.5 cm/sec LV V1 max P.8 mmHg AI max P.5 mmHg LV V1 mean P.0 mmHg AI dec slope: 346.0 cm/sec2 LV V1 max: 120.0 cm/sec LV V1 mean: 72.5 cm/sec LV V1 VTI: 24.4 cm MR max julian: 711.0 cm/sec SV(LVOT): 75.3 ml MR max P.2 mmHg TR max julian: 239.0 cm/sec PA V2 max: 187.0 cm/sec TR max P.9 mmHg PA max P.0 mmHg Med Peak E' Julian: 7.4 cm/sec Med E/e': 18.9 Lat Peak E' Julian: 11.2 cm/sec Lat E/e': 12.5 Left Ventricle The left ventricle is mildly dilated. Ejection Fraction = 50-55%. Right Ventricle The right ventricle is normal in size and function. Atria The left atrium is mildly dilated. Right atrial size is normal. Mitral Valve The mitral valve is normal in structure and function. There is no mitral valve stenosis. There is sev ere mitral regurgitation. Tricuspid Valve The tricuspid valve is normal in structure and function. There is mild tricuspid regurgitation. Right ventricular systolic pressure is normal. Aortic Valve The aortic valve opens well. No hemodynamically significant valvular aortic stenosis. Moderate aortic regurgitation. Pulmonic Valve The pulmonic valve is not well seen, but is grossly normal. There is no pulmonic valvular stenosis. M ild pulmonic valvular regurgitation. Great Vessels The aortic root is normal size. Pericardium/Pleura There is no pericardial effusion. Interpretation Summary The left ventricle is mildly dilated. Ejection Fraction = 50-55%. The left atrium is mildly dilated. There is severe mitral regurgitation. There is mild tricuspid regurgitation. Moderate aortic regurgitation. There is no pericardial effusion. MD Samay[place] *Narinder 10/17/2018 10:02 AM
[2018-10-17] MEDS ORDERED: PT OWN MED DRAWER 7, Y5N ONE ×2 (10:39→13:15)
--- NOTE | 2018-10-17 11:29 | CONSULT ---
Consultation: UPDATE: Pt being transferred to [facility] for PCP PNA and pancreatitis. Pt aware and consented to transfer. Pt's work of breathing increased and pt has agreed to high flow oxygen therapy. Pt has adamantly refused intubation and risks were discussed with pt who verbalized understanding. CONSULT SERVICE: ICU Resident HISTORY OF PRESENT ILLNESS: REVIEW OF SYSTEMS: As per HPI PHYSICAL EXAMINATION Vital Signs - 24 hr 10/16/18 10/16/18 10/16/18 12:01 12:54 14:57 Temperature 96.0 F L Pulse Rate Pulse Rate [ 78 Apical] Respiratory 18 20 Rate Blood Pressure Blood Pressure 143/77 [Right Arm] O2 Sat by Pulse 99 99 98 Oximetry (%) 10/16/18 10/16/18 10/16/18 15:00 17:06 17:07 Temperature 96.4 F L 96 F L Pulse Rate Pulse Rate [ 78 86 Apical] Respiratory 18 20 Rate Blood Pressure Blood Pressure 137/78 154/77 [Right Arm] O2 Sat by Pulse 98 100 Oximetry (%) 10/16/18 10/16/18 10/16/18 18:09 18:42 19:45 Temperature 95.5 F L 95.8 F L 95 F L Pulse Rate Pulse Rate [ 76 83 91 H Apical] Respiratory 20 20 Rate Blood Pressure Blood Pressure 149/55 L 132/69 142/53 L [Right Arm] O2 Sat by Pulse 96 100 98 Oximetry (%) 10/16/18 10/16/18 10/16/18 20:38 21:00 22:09 Temperature 95.5 F L 96.0 F L 96.0 F L Pulse Rate Pulse Rate [ Apical] Respiratory Rate Blood Pressure Blood Pressure [Right Arm] O2 Sat by Pulse Oximetry (%) 10/16/18 10/17/18 10/17/18 23:56 03:00 05:00 Temperature 96.0 F L 97.1 F L 97.2 F L Pulse Rate 85 85 Pulse Rate [ Apical] Respiratory 20 20 Rate Blood Pressure 147/96 147/61 Blood Pressure [Right Arm] O2 Sat by Pulse Oximetry (%) 10/17/18 10/17/18 10/17/18 08:00 09:00 11:21 Temperature 97.2 F L Pulse Rate 85 82 Pulse Rate [ Apical] Respiratory 28 H Rate Blood Pressure 145/65 Blood Pressure [Right Arm] O2 Sat by Pulse 100 94 L Oximetry (%) GENERAL: Awake, alert, and fully oriented, in no acute distress. HEAD: Normal with no signs of trauma. EYES: Pupils equal, round and reactive to light, extraocular movements intact, sclera anicteric, conjunctiva clear. No lid lag. EARS, NOSE, THROAT: Ears normal, nares patent, oropharynx clear without exudates. Moist mucous membranes. NECK: Normal range of motion, supple without lymphadenopathy, JVD, or masses. LUNGS: Breath sounds equal, clear to auscultation bilaterally. No wheezes, and no crackles. No accessory muscle use. HEART: Regular rate and rhythm, normal S1 and S2 without murmur, rub or gallop. ABDOMEN: Soft, nontender, not distended, normoactive bowel sounds, no guarding, no rebound, no masses. No hepatomegaly or splenomegaly. MUSCULOSKELETAL: Normal range of motion at all joints. No bony deformities or tenderness. No CVA tenderness. UPPER EXTREMITIES: 2+ pulses, warm, well-perfused. No cyanosis. No clubbing. Cap refill <2 seconds. No peripheral edema. LOWER EXTREMITIES: 2+ pulses, warm, well-perfused. No calf tenderness. No peripheral edema. NEUROLOGICAL: Cranial nerves II-XII intact. Normal speech. Normal gait. PSYCHIATRIC: Cooperative. Good eye contact. Appropriate mood and affect. SKIN: Warm, dry, normal turgor, no rashes or lesions noted. Laboratory Results - last 24 hr 10/16/18 10/16/18 10/16/18 12:56 12:56 12:56 WBC 4.5 RBC 2.83 L Hgb 6.6 L* Hct 21.4 L MCV 75.7 L MCH 23.5 L D MCHC 31.0 L RDW 20.3 H Plt Count 114 L MPV 9.1 Absolute Neuts (auto) 3.9 Neutrophils % 87.0 H D Neutrophils % (Manual) 88.9 H Band Neutrophils % 0.0 Lymphocytes % 5.9 L D Lymphocytes % (Manual) 4.0 L D Monocytes % 6.6 Monocytes % (Manual) 7 Eosinophils % 0.1 D Eosinophils % (Manual) 0.0 D Basophils % 0.4 Basophils % (Manual) 0.0 Myelocytes % (Man) 0 Promyelocytes % (Man) 0 Blast Cells % (Manual) 0 Nucleated RBC % 3 H Metamyelocytes 0 Hypochromia 1+ Platelet Estimate Decreased Polychromasia 1+ Poikilocytosis 1+ Anisocytosis 2+ Microcytosis 2+ Macrocytosis 0 Schistocytes 1+ PT with INR 12.30 INR 1.04 PTT (Actin FS) 35.3 Anticoagulation Therapy Puncture Site ABG pH ABG pCO2 at Pt Temp ABG pO2 at Pt Temp ABG HCO3 ABG O2 Sat (Measured) ABG O2 Content ABG Base Excess Fadi Test Carboxyhemoglobin Methemoglobin O2 Delivery Device Oxygen Flow Rate Vent Mode Vent Rate Mechanical Rate Pressure Support Vent Sodium 139 Potassium 4.2 Chloride 111 H Carbon Dioxide 18 L Anion Gap 10 BUN 46.5 H Creatinine 1.7 H Est GFR (CKD-EPI)AfAm 38.67 Est GFR (CKD-EPI)NonAf 33.36 Random Glucose 65 L Lactic Acid Calcium 7.9 L Phosphorus Magnesium Total Bilirubin 0.2 AST 33 ALT 18 Alkaline Phosphatase 190 H LD Total Troponin I B-Natriuretic Peptide 53382.0 H Total Protein 5.9 L Albumin 1.6 L Blood Type Antibody Screen Crossmatch 10/16/18 10/16/18 10/16/18 12:56 12:56 13:40 WBC RBC Hgb Hct MCV MCH MCHC RDW Plt Count MPV Absolute Neuts (auto) Neutrophils % Neutrophils % (Manual) Band Neutrophils % Lymphocytes % Lymphocytes % (Manual) Monocytes % Monocytes % (Manual) Eosinophils % Eosinophils % (Manual) Basophils % Basophils % (Manual) Myelocytes % (Man) Promyelocytes % (Man) Blast Cells % (Manual) Nucleated RBC % Metamyelocytes Hypochromia Platelet Estimate Polychromasia Poikilocytosis Anisocytosis Microcytosis Macrocytosis Schistocytes PT with INR INR PTT (Actin FS) Anticoagulation Therapy Puncture Site ABG pH ABG pCO2 at Pt Temp ABG pO2 at Pt Temp ABG HCO3 ABG O2 Sat (Measured) ABG O2 Content ABG Base Excess Fadi Test Carboxyhemoglobin Methemoglobin O2 Delivery Device Oxygen Flow Rate Vent Mode Vent Rate Mechanical Rate Pressure Support Vent Sodium Potassium Chloride Carbon Dioxide Anion Gap BUN Creatinine Est GFR (CKD-EPI)AfAm Est GFR (CKD-EPI)NonAf Random Glucose Lactic Acid 0.7 Calcium Phosphorus Magnesium Total Bilirubin AST ALT Alkaline Phosphatase LD Total 750 H Troponin I < 0.02 B-Natriuretic Peptide Total Protein Albumin Blood Type Cancelled Antibody Screen Cancelled Crossmatch See Detail 10/16/18 10/16/18 10/17/18 15:00 17:12 05:27 WBC 9.8 RBC 3.35 L Hgb 8.5 L Hct 26.3 L D MCV 78.6 L MCH 25.5 L MCHC 32.5 RDW 21.2 H Plt Count 116 L MPV 9.7 Absolute Neuts (auto) Neutrophils % Neutrophils % (Manual) Band Neutrophils % Lymphocytes % Lymphocytes % (Manual) Monocytes % Monocytes % (Manual) Eosinophils % Eosinophils % (Manual) Basophils % Basophils % (Manual) Myelocytes % (Man) Promyelocytes % (Man) Blast Cells % (Manual) Nucleated RBC % Metamyelocytes Hypochromia Platelet Estimate Polychromasia Poikilocytosis Anisocytosis Microcytosis Macrocytosis Schistocytes PT with INR INR PTT (Actin FS) Anticoagulation Therapy No Result Required. Puncture Site Right radial ABG pH 7.18 L* ABG pCO2 at Pt Temp 55.1 H ABG pO2 at Pt Temp 81.0 ABG HCO3 19.7 L ABG O2 Sat (Measured) 94.1 L ABG O2 Content 8.9 L* ABG Base Excess -7.7 L Fadi Test Positive Carboxyhemoglobin 1.5 Methemoglobin 0.4 O2 Delivery Device No Result Required. Oxygen Flow Rate Yes Vent Mode No Result Required. Vent Rate No Result Required. Mechanical Rate No Result Required. Pressure Support Vent No Result Required. Sodium Potassium Chloride Carbon Dioxide Anion Gap BUN Creatinine Est GFR (CKD-EPI)AfAm Est GFR (CKD-EPI)NonAf Random Glucose Lactic Acid Calcium Phosphorus Magnesium Total Bilirubin AST ALT Alkaline Phosphatase LD Total Troponin I B-Natriuretic Peptide Total Protein Albumin Blood Type B POSITIVE Antibody Screen Negative Crossmatch See Detail 10/17/18 10/17/18 10/17/18 05:27 05:27 08:00 WBC RBC Hgb Hct MCV MCH MCHC RDW Plt Count MPV Absolute Neuts (auto) Neutrophils % Neutrophils % (Manual) Band Neutrophils % Lymphocytes % Lymphocytes % (Manual) Monocytes % Monocytes % (Manual) Eosinophils % Eosinophils % (Manual) Basophils % Basophils % (Manual) Myelocytes % (Man) Promyelocytes % (Man) Blast Cells % (Manual) Nucleated RBC % Metamyelocytes Hypochromia Platelet Estimate Polychromasia Poikilocytosis Anisocytosis Microcytosis Macrocytosis Schistocytes PT with INR 13.90 H INR 1.18 H PTT (Actin FS) Anticoagulation Therapy Puncture Site Right radial ABG pH 7.13 L* ABG pCO2 at Pt Temp 59.0 H ABG pO2 at Pt Temp 101 ABG HCO3 18.8 L ABG O2 Sat (Measured) 96.7 ABG O2 Content 11.2 L ABG Base Excess -9.6 L Fadi Test Positive Carboxyhemoglobin Methemoglobin O2 Delivery Device Venti mask Oxygen Flow Rate 50% Vent Mode Vent Rate Mechanical Rate Pressure Support Vent Sodium 140 Potassium 3.6 Chloride 112 H Carbon Dioxide 21 Anion Gap 7 L BUN 46.6 H Creatinine 1.6 H Est GFR (CKD-EPI)AfAm 41.61 Est GFR (CKD-EPI)NonAf 35.90 Random Glucose 19 L* Lactic Acid Calcium 8.0 L Phosphorus 3.8 Magnesium 2.2 Total Bilirubin 0.4 AST 33 ALT 18 Alkaline Phosphatase 190 H LD Total Troponin I B-Natriuretic Peptide Total Protein 5.8 L Albumin 1.6 L Blood Type Antibody Screen Crossmatch Active Medications Generic Name Dose Route Start Last Admin Trade Name Freq PRN Reason Stop Dose Admin Amlodipine Besylate 10 mg 10/17/18 10:00 10/17/18 10:45 Norvasc - PO 10 mg DAILY ZHANG Administration Atovaquone 750 mg 10/16/18 17:30 10/17/18 08:10 Mepron - PO Not Given BIDWM ZHANG Cefepime HCl 1 gm/ Dextrose 100 mls @ 200 mls/hr 10/17/18 04:00 10/17/18 04: 00 IVPB 200 mls/hr Q12H ZHANG Administration Protocol Sodium Chloride 1,000 mls @ 100 mls/hr 10/16/18 21:30 10/17/18 03:59 Normal Saline - IV 100 mls/hr ASDIR ZHANG Administration Methylprednisolone Sodium Succinate 40 mg 10/16/18 22:00 10/17/18 10:45 Solu-Medrol - IVPUSH 40 mg BID ZHANG Administration Olanzapine 5 mg 10/16/18 22:00 10/17/18 01:13 Zyprexa - PO Not Given HS ZHANG Pantoprazole Sodium 40 mg 10/17/18 10:00 10/17/18 10:45 Protonix - PO 40 mg DAILY ZHANG Administration Senna 1 tab 10/16/18 22:00 10/17/18 01:12 Senna - PO Not Given HS ZHANG Valacyclovir HCl 500 mg 10/17/18 10:00 Valtrex - PO DAILY ZHANG ASSESSMENT/PLAN: Dispo: We will continue to follow the patient. Thank you for this consultative opportunity. ATTENDING PHYSICIAN STATEMENT I saw and evaluated the patient. I reviewed the resident's note and discussed the case with the resident. I agree with the resident's findings and plan as documented. SUBJECTIVE: OBJECTIVE: ASSESSMENT AND PLAN:
--- NOTE | 2018-10-17 11:56 | CONSULT ---
Consult - text type - Consultation Consultation Note: Renal Consult for SANA/CKD/Acidosis This is a 53 year old AA woman with hx of HIV (non-compliance with meds per ER records), HTN, HLD, Asthma who presented from home with SOB and found to have elevated Cr with mixed metabolic and respiratory acidosis. Pt seen and examined in the ICU. Was recently at [facility] for similar presentation. Pt is awake and alert on high flow O2. Prior Cr was 0.8 (obtained by Dr. Hunt). Denies any NSAID use. Denies any diarrhea. Oral intake as been poor. No flank pain, hemeturia, dysuria. No leg swelling. No chest pain. PMhx: as listed Family hx: NC Social Hx: NC ROS: as per HPI, all other pertinent ros negative Home Medications Medication Instructions Recorded Darunavir/Cobicistat [Prezcobix 1 each PO QID 05/01/18 800 mg-150 mg Tablet] Dolutegravir Sodium [Tivicay] 50 mg PO QID 05/01/18 Amlodipine Besylate [Norvasc -] 10 mg PO DAILY #30 tablet 05/05/18 Olanzapine [Zyprexa -] 5 mg PO HS #30 tablet 05/05/18 Pantoprazole Sodium [Protonix -] 40 mg PO DAILY #30 tablet.ec 05/05/18 Sennosides [Senna -] 1 tab PO HS #30 tablet 05/05/18 Valacyclovir HCl [Valtrex -] 500 mg PO DAILY #7 tablet 05/05/18 Acetaminophen [Tylenol .Regular 650 mg PO PRN PRN 10/16/18 Strength -] Vital Signs Temperature 97.2 F L 10/17/18 08:00 Pulse Rate 82 10/17/18 11:21 Respiratory Rate 28 H 10/17/18 08:00 Blood Pressure 145/65 10/17/18 08:00 O2 Sat by Pulse Oximetry (%) 94 L 10/17/18 11:21 Intake & Output 10/14/18 10/15/18 10/16/18 10/17/18 23:59 23:59 23:59 23:59 Weight 55.338 kg Awake and alert on high flow O2 Neck supple Corse BS RRR, No M/R soft NT/ND Abd no bladder distensin Trace LE edema CBC, BMP 10/17/18 05:27 10/17/18 05:27 Laboratory Tests 05/04/18 10/16/18 10/17/18 07:48 12:56 05:27 Creatinine 2.4 H 1.7 H 1.6 H Laboratory Tests 05/05/18 10/17/18 10/17/18 08:30 05:27 08:00 ABG pH 7.13 L* ABG pCO2 at Pt Temp 59.0 H ABG pO2 at Pt Temp 101 ABG HCO3 18.8 L Creatinine 2.0 H Calcium 8.0 L Phosphorus 3.8 Magnesium 2.2 Albumin 1.6 L Current Medications Amlodipine Besylate (Norvasc -) 10 mg PO DAILY [facility] Last Admin: 10/17/18 10:45 Dose: 10 mg Atovaquone (Mepron -) 750 mg PO BIDWM [facility] Last Admin: 10/17/18 08:10 Dose: Not Given Cefepime HCl 1 gm/ Dextrose 100 mls @ 200 mls/hr IVPB Q12H [facility]; Protocol Last Admin: 10/17/18 04:00 Dose: 200 mls/hr Sodium Chloride (Normal Saline -) 1,000 mls @ 100 mls/hr IV ASDIR [facility] Last Admin: 10/17/18 03:59 Dose: 100 mls/hr Methylprednisolone Sodium Succinate (Solu-Medrol -) 40 mg IVPUSH BID [facility] Last Admin: 10/17/18 10:45 Dose: 40 mg Olanzapine (Zyprexa -) 5 mg PO HS [facility] Last Admin: 10/17/18 01:13 Dose: Not Given Pantoprazole Sodium (Protonix -) 40 mg PO DAILY [facility] Last Admin: 10/17/18 10:45 Dose: 40 mg Senna (Senna -) 1 tab PO HS [facility] Last Admin: 10/17/18 01:12 Dose: Not Given Valacyclovir HCl (Valtrex -) 500 mg PO DAILY [facility] 53 year old AA woman with hx of HIV (non-compliance with meds per ER records), HTN, HLD, Asthma who presented from home with SOB and found to have elevated Cr with mixed metabolic and respiratory acidosis. #SANA vs. CKD (baseline Cr was 0.9 in September) #Respiratory acidosis with concurrent non-anion gap metabolic acidoiss #PNA #Hx of HIV #Anemia #Thrombocytopenia. Etiology of SANA: volume depletion vs. AIN vs. ATN Check urine studies for FeNa, FeUrea, UPCR, Urine Eosinophils no urgent indication for [employer] given pt has mixed acidosis with pensively low pH will start 1/2 NS with bicarb Check Urine electrolytes to r/o RTA Continue High flow O2 as per ICU ID following, Abx and antifungals as needed Trend H/H, transfuse as per ICU protocol Trend renal function, electrolytes Q12h Stephens catheter for monitoring of urine output Thank you Khadar Ibarra DO
[2018-10-17] MEDS ORDERED: SODIUM BICARBONATE 8.4% - 75 MEQ in SODIUM CHLORIDE 0.45% 1,000 ML IV SCH (12:30)
--- NOTE | 2018-10-17 12:35 | PN ---
Progress Note (short form) - Note Progress Note: Transferred to ICU for hypoglycemia and tachympea she refused all her meds since admission-she refused straight cath did get a unit of blood now apparently willing to get medical care tcells at [facility] were 6 in April 2018 I called her clinic and spoke to a covering physsician- Dr Whitmore- creatinine september 22 0.9 hgb 7.8 they donot have a documented G6PD status on her and he cannot locate the labs- doesn't think it was ever done!! she was not taking her meds at that time reports she has been admitted mulltiple times to [facility] and has left AMA from there as well meds-lasix/dovato/fluconazole/azithromycin/valtrex/atovoquone- outpt meds she is alert on hiflow oxygen she had a nosebleed earlier today productive cough no fevers agreeable to medical care today now with abdominal pain states she has a history of GERD in the past blood cultures at [facility] negative Vital Signs Period Temp Pulse Resp BP Sys/Cai Pulse Ox Last 24 Hr 95 F-97.2 F 76-91 18-28 132-154/53-96 94-100 no thrush cor -rrr lungs decreased bs at bases abd soft,midepigastric discomfort to palpation ext trace ankle edema CBC, BMP 10/17/18 05:27 10/17/18 05:27 Microbiology 10/16/18 12:00 Blood - Peripheral Venous Blood Culture - Preliminary NO GROWTH OBTAINED AFTER 24 HOURS, INCUBATION TO CONTINUE FOR 4 DAYS. cxray-increased bilateral infiltrates a/p severe sepsis/impending respiratory failure bilateral pneumonia/AIDS/anemia/SANA sulfa and penicillin allergy with elevated LDH concern is for PCP have sent fungitell and g6PD last night-both sendouts at our hospital she is now willing to take steroids -would resume check lipase add PPI for gerd check stool occult blood hold art for now continue cefepime/vancomycin-check vanco level now and redose by level levaquin added until urinary antigen is back sputum culture sputum cytology for silver stain for PCP CMV PCR cryptococcal antigen (sent) urinary antigen for legionella/pneumococcus ct scan chest abd pelvis she is anemic with bactrim allergy no g6pd level available from her clinic her hypoxia tachypnea and bilateral infiltrates are indicative of severe infection she has no good options g6pd has been sent stat but is a send out at our hospital lipase just back and is 5000-with abdominal pain- indicative of acute pancreatitis-pentamadine is contra-indicated will try to continue mepron orally/NGT at this time will keep well hydrated and follow bgms closely discussed with the ICU service and ICU attending over 45 minutes spent in the care of this critically ill ICU patient would transfer patient to tertiary care ICU for further care- she requires higher level of care at this time overall status is critical and our options at [facility] are limited- Problem List - Problems (1) Pneumonia Code(s): J18.9 - PNEUMONIA, UNSPECIFIED ORGANISM (2) AIDS Code(s): B20 - HUMAN IMMUNODEFICIENCY VIRUS [HIV] DISEASE (3) SANA (acute kidney injury) Code(s): N17.9 - ACUTE KIDNEY FAILURE, UNSPECIFIED (4) Anemia Code(s): D64.9 - ANEMIA, UNSPECIFIED Qualifiers: Anemia type: unspecified type Qualified Code(s): D64.9 - Anemia, unspecified
[2018-10-17] MEDS ORDERED: FAMOTIDINE 20 MG/50 ML IVPB 20 MG/50 ML MG IVPB ONE (12:40)
--- NOTE | 2018-10-17 12:42 | PN ---
Teaching Attending Note Name of Resident: Eber Anna ATTENDING PHYSICIAN STATEMENT I saw and evaluated the patient. I reviewed the resident's note and discussed the case with the resident. I agree with the resident's findings and plan as documented. SUBJECTIVE: Patient seen and examined in the ICU. Awake and responsive. Previously refusing intervention but now has accepted HFOT for hypercapnea noted on ABG. (+) congested cough. (+) epistaxis Intake & Output 10/14/18 10/15/18 10/16/18 10/17/18 23:59 23:59 23:59 23:59 Weight 122 lb Last Vital Signs Temp Pulse Resp BP Pulse Ox 97.2 F L 82 28 H 145/65 94 L 10/17/18 08:00 10/17/18 11:21 10/17/18 08:00 10/17/18 08:00 10/17/18 11:21 Active Medications Amlodipine Besylate (Norvasc -) 10 mg PO DAILY [facility] Last Admin: 10/17/18 10:45 Dose: 10 mg Atovaquone (Mepron -) 750 mg PO BIDWM [facility] Last Admin: 10/17/18 08:10 Dose: Not Given Cefepime HCl 1 gm/ Dextrose 100 mls @ 200 mls/hr IVPB Q12H [facility]; Protocol Last Admin: 10/17/18 04:00 Dose: 200 mls/hr Sodium Chloride (Normal Saline -) 1,000 mls @ 100 mls/hr IV ASDIR [facility] Last Admin: 10/17/18 03:59 Dose: 100 mls/hr Sodium Bicarbonate 75 meq/ (Sodium Chloride) 1,075 mls @ 75 mls/hr IV Q14H [facility] Methylprednisolone Sodium Succinate (Solu-Medrol -) 40 mg IVPUSH BID [facility] Last Admin: 10/17/18 10:45 Dose: 40 mg Olanzapine (Zyprexa -) 5 mg PO HS [facility] Last Admin: 10/17/18 01:13 Dose: Not Given Pantoprazole Sodium (Protonix -) 40 mg PO DAILY [facility] Last Admin: 10/17/18 10:45 Dose: 40 mg Senna (Senna -) 1 tab PO HS [facility] Last Admin: 10/17/18 01:12 Dose: Not Given Valacyclovir HCl (Valtrex -) 500 mg PO DAILY [facility] Constitutional: Yes: Cachectic, Mildly tahypneic at rest Eyes: Yes: WNL HENT: Yes: Atraumatic Neck: Yes: WNL, Supple Cardiovascular: Yes: Regular Rate and Rhythm Respiratory: Yes: Accessory Muscle Use, Cough, Diminished, On Nasal O2, Poor Air Entry, SOB, SOB on Exertion, Tachypnea Gastrointestinal: Yes: WNL, Normal Bowel Sounds ...Rectal Exam: Yes: Deferred Renal/: Yes: WNL Breast(s): Yes: WNL Musculoskeletal: Yes: Muscle Pain, Muscle Weakness Edema: Yes Edema: LLE: 1+, RLE: 1+ Integumentary: Yes: WNL Neurological: Yes: Alert, Oriented Psychiatric: Yes: Alert, Oriented Labs: Laboratory Results - last 24 hr 10/16/18 10/16/18 10/16/18 12:56 12:56 12:56 WBC 4.5 RBC 2.83 L Hgb 6.6 L* Hct 21.4 L MCV 75.7 L MCH 23.5 L D MCHC 31.0 L RDW 20.3 H Plt Count 114 L MPV 9.1 Absolute Neuts (auto) 3.9 Neutrophils % 87.0 H D Neutrophils % (Manual) 88.9 H Band Neutrophils % 0.0 Lymphocytes % 5.9 L D Lymphocytes % (Manual) 4.0 L D Monocytes % 6.6 Monocytes % (Manual) 7 Eosinophils % 0.1 D Eosinophils % (Manual) 0.0 D Basophils % 0.4 Basophils % (Manual) 0.0 Myelocytes % (Man) 0 Promyelocytes % (Man) 0 Blast Cells % (Manual) 0 Nucleated RBC % 3 H Metamyelocytes 0 Hypochromia 1+ Platelet Estimate Decreased Polychromasia 1+ Poikilocytosis 1+ Anisocytosis 2+ Microcytosis 2+ Macrocytosis 0 Schistocytes 1+ PT with INR 12.30 INR 1.04 PTT (Actin FS) 35.3 Anticoagulation Therapy Puncture Site ABG pH ABG pCO2 at Pt Temp ABG pO2 at Pt Temp ABG HCO3 ABG O2 Sat (Measured) ABG O2 Content ABG Base Excess Fadi Test Carboxyhemoglobin Methemoglobin O2 Delivery Device Oxygen Flow Rate Vent Mode Vent Rate Mechanical Rate Pressure Support Vent Sodium 139 Potassium 4.2 Chloride 111 H Carbon Dioxide 18 L Anion Gap 10 BUN 46.5 H Creatinine 1.7 H Est GFR (CKD-EPI)AfAm 38.67 Est GFR (CKD-EPI)NonAf 33.36 Random Glucose 65 L Lactic Acid Calcium 7.9 L Phosphorus Magnesium Total Bilirubin 0.2 AST 33 ALT 18 Alkaline Phosphatase 190 H LD Total Troponin I B-Natriuretic Peptide 44247.0 H Total Protein 5.9 L Albumin 1.6 L Blood Type Antibody Screen Crossmatch 10/16/18 10/16/18 10/16/18 12:56 12:56 13:40 WBC RBC Hgb Hct MCV MCH MCHC RDW Plt Count MPV Absolute Neuts (auto) Neutrophils % Neutrophils % (Manual) Band Neutrophils % Lymphocytes % Lymphocytes % (Manual) Monocytes % Monocytes % (Manual) Eosinophils % Eosinophils % (Manual) Basophils % Basophils % (Manual) Myelocytes % (Man) Promyelocytes % (Man) Blast Cells % (Manual) Nucleated RBC % Metamyelocytes Hypochromia Platelet Estimate Polychromasia Poikilocytosis Anisocytosis Microcytosis Macrocytosis Schistocytes PT with INR INR PTT (Actin FS) Anticoagulation Therapy Puncture Site ABG pH ABG pCO2 at Pt Temp ABG pO2 at Pt Temp ABG HCO3 ABG O2 Sat (Measured) ABG O2 Content ABG Base Excess Fadi Test Carboxyhemoglobin Methemoglobin O2 Delivery Device Oxygen Flow Rate Vent Mode Vent Rate Mechanical Rate Pressure Support Vent Sodium Potassium Chloride Carbon Dioxide Anion Gap BUN Creatinine Est GFR (CKD-EPI)AfAm Est GFR (CKD-EPI)NonAf Random Glucose Lactic Acid 0.7 Calcium Phosphorus Magnesium Total Bilirubin AST ALT Alkaline Phosphatase LD Total 750 H Troponin I < 0.02 B-Natriuretic Peptide Total Protein Albumin Blood Type Cancelled Antibody Screen Cancelled Crossmatch See Detail 10/16/18 10/16/18 10/17/18 15:00 17:12 05:27 WBC 9.8 RBC 3.35 L Hgb 8.5 L Hct 26.3 L D MCV 78.6 L MCH 25.5 L MCHC 32.5 RDW 21.2 H Plt Count 116 L MPV 9.7 Absolute Neuts (auto) Neutrophils % Neutrophils % (Manual) Band Neutrophils % Lymphocytes % Lymphocytes % (Manual) Monocytes % Monocytes % (Manual) Eosinophils % Eosinophils % (Manual) Basophils % Basophils % (Manual) Myelocytes % (Man) Promyelocytes % (Man) Blast Cells % (Manual) Nucleated RBC % Metamyelocytes Hypochromia Platelet Estimate Polychromasia Poikilocytosis Anisocytosis Microcytosis Macrocytosis Schistocytes PT with INR INR PTT (Actin FS) Anticoagulation Therapy No Result Required. Puncture Site Right radial ABG pH 7.18 L* ABG pCO2 at Pt Temp 55.1 H ABG pO2 at Pt Temp 81.0 ABG HCO3 19.7 L ABG O2 Sat (Measured) 94.1 L ABG O2 Content 8.9 L* ABG Base Excess -7.7 L Fadi Test Positive Carboxyhemoglobin 1.5 Methemoglobin 0.4 O2 Delivery Device No Result Required. Oxygen Flow Rate Yes Vent Mode No Result Required. Vent Rate No Result Required. Mechanical Rate No Result Required. Pressure Support Vent No Result Required. Sodium Potassium Chloride Carbon Dioxide Anion Gap BUN Creatinine Est GFR (CKD-EPI)AfAm Est GFR (CKD-EPI)NonAf Random Glucose Lactic Acid Calcium Phosphorus Magnesium Total Bilirubin AST ALT Alkaline Phosphatase LD Total Troponin I B-Natriuretic Peptide Total Protein Albumin Blood Type B POSITIVE Antibody Screen Negative Crossmatch See Detail 10/17/18 10/17/18 10/17/18 05:27 05:27 08:00 WBC RBC Hgb Hct MCV MCH MCHC RDW Plt Count MPV Absolute Neuts (auto) Neutrophils % Neutrophils % (Manual) Band Neutrophils % Lymphocytes % Lymphocytes % (Manual) Monocytes % Monocytes % (Manual) Eosinophils % Eosinophils % (Manual) Basophils % Basophils % (Manual) Myelocytes % (Man) Promyelocytes % (Man) Blast Cells % (Manual) Nucleated RBC % Metamyelocytes Hypochromia Platelet Estimate Polychromasia Poikilocytosis Anisocytosis Microcytosis Macrocytosis Schistocytes PT with INR 13.90 H INR 1.18 H PTT (Actin FS) Anticoagulation Therapy Puncture Site Right radial ABG pH 7.13 L* ABG pCO2 at Pt Temp 59.0 H ABG pO2 at Pt Temp 101 ABG HCO3 18.8 L ABG O2 Sat (Measured) 96.7 ABG O2 Content 11.2 L ABG Base Excess -9.6 L Fadi Test Positive Carboxyhemoglobin Methemoglobin O2 Delivery Device Venti mask Oxygen Flow Rate 50% Vent Mode Vent Rate Mechanical Rate Pressure Support Vent Sodium 140 Potassium 3.6 Chloride 112 H Carbon Dioxide 21 Anion Gap 7 L BUN 46.6 H Creatinine 1.6 H Est GFR (CKD-EPI)AfAm 41.61 Est GFR (CKD-EPI)NonAf 35.90 Random Glucose 19 L* Lactic Acid Calcium 8.0 L Phosphorus 3.8 Magnesium 2.2 Total Bilirubin 0.4 AST 33 ALT 18 Alkaline Phosphatase 190 H LD Total Troponin I B-Natriuretic Peptide Total Protein 5.8 L Albumin 1.6 L Blood Type Antibody Screen Crossmatch Problem List - Problems (1) Sepsis Assessment/Plan: Code(s): A41.9 - SEPSIS, UNSPECIFIED ORGANISM (2) Pneumonia Assessment/Plan: Code(s): J18.9 - PNEUMONIA, UNSPECIFIED ORGANISM (3) Respiratory failure with hypoxia Code(s): J96.91 - RESPIRATORY FAILURE, UNSPECIFIED WITH HYPOXIA (4) SANA (acute kidney injury) Assessment/Plan: Code(s): N17.9 - ACUTE KIDNEY FAILURE, UNSPECIFIED (5) Anemia Assessment/Plan: Code(s): D64.9 - ANEMIA, UNSPECIFIED Qualifiers: Anemia type: unspecified type Qualified Code(s): D64.9 - Anemia, unspecified (6) HIV (human immunodeficiency virus infection) Assessment/Plan: Code(s): B20 - HUMAN IMMUNODEFICIENCY VIRUS [HIV] DISEASE (7) AIDS Code(s): B20 - HUMAN IMMUNODEFICIENCY VIRUS [HIV] DISEASE (8) Prophylactic measure Assessment/Plan: Code(s): Z29.9 - ENCOUNTER FOR PROPHYLACTIC MEASURES, UNSPECIFIED IMP: (?) Parvovirus infection (?) PCP (?) ARDS R/O Pancreatitis PLAN: HFOT Check sputum Check urinary antigen ABX coverage pre ID IVF Follow ABG Follow CXR Normal transfusion thresholds Would have a low threshold for intubation Steroids for PCP coverage Requires ICU monitoring for tenuous status Dr Novak Critical care time spent in reviewing chart, evaluating patient and formulating plan - 36 minutes.
[2018-10-17] MEDS ORDERED: DEXTROSE 50%-WATER - 25 GM/50 ML VIAL IVPUSH ONE (13:00)
--- NOTE | 2018-10-17 13:34 | EKG ---
Test Reason : Blood Pressure : / mmHG Vent. Rate : 082 BPM Atrial Rate : 082 BPM P-R Int : 152 ms QRS Dur : 106 ms QT Int : 406 ms P-R-T Axes : 048 032 067 degrees QTc Int : 474 ms NORMAL SINUS RHYTHM NORMAL ECG WHEN COMPARED WITH ECG OF 16-OCT-2018 11:17, NONSPECIFIC T WAVE ABNORMALITY NO LONGER EVIDENT IN INFERIOR LEADS Confirmed by PUNEET NICHOLAS MD ([id number]) on 10/17/2018 1:34:27 PM Referred By: Confirmed By:PUNEET NICHOLAS MD
--- NOTE | 2018-10-17 13:37 | EKG ---
Test Reason : Blood Pressure : / mmHG Vent. Rate : 082 BPM Atrial Rate : 082 BPM P-R Int : 174 ms QRS Dur : 100 ms QT Int : 408 ms P-R-T Axes : 041 024 019 degrees QTc Int : 476 ms NORMAL SINUS RHYTHM CANNOT RULE OUT ANTERIOR INFARCT , AGE UNDETERMINED NON-SPECIFIC INTRA-VENTRICULAR CONDUCTION DELAY ABNORMAL ECG Confirmed by PUNEET NICHOLAS MD ([id number]) on 10/17/2018 1:37:36 PM Referred By: Confirmed By:PUNEET NICHOLAS MD
[2018-10-17] MEDS ORDERED: ATOVAQUONE 750 MG/5 ML (UNIT-DOSE PACKAGING) PO ONE (15:29)
[2018-10-17 15:37] LABS: COCAINE, UR NEGATIVE ng/ml (CUTOFF=300); METHADONE, UR NEGATIVE ng/ml (CUTOFF=300); OPIATES, URI NEGATIVE ng/ml (CUTOFF=300); PHENCYCLIDINE,URINE NEGATIVE ng/ml (CUTOFF=25); URINE AMPHETAMINES NEGATIVE ng/ml (CUTOFF=500); URINE BARBITURATES NEGATIVE ng/ml (CUTOFF=200); URINE BENZODIAZEPINES NEGATIVE ng/ml (CUTOFF=200)
[2018-10-17 18:37] VITALS: BP 149/40; PULSE 78; TEMP 96
--- NOTE | 2018-10-18 08:15 | EKG ---
Test Reason : Blood Pressure : / mmHG Vent. Rate : 078 BPM Atrial Rate : 078 BPM P-R Int : 138 ms QRS Dur : 100 ms QT Int : 384 ms P-R-T Axes : 045 014 045 degrees QTc Int : 437 ms SINUS RHYTHM WITH MARKED SINUS ARRHYTHMIA WITH OCCASIONAL PREMATURE VENTRICULAR COMPLEXES OTHERWISE NORMAL ECG WHEN COMPARED WITH ECG OF 16-OCT-2018 18:04, PREMATURE VENTRICULAR COMPLEXES ARE NOW PRESENT Confirmed by JERRELL WALKER, DELIA ([id number]) on 10/18/2018 8:14:53 AM Referred By: Confirmed By:DELIA ALLAN MD
== END 2018-10-17 20:11 | disposition short-term general hospital (02) | DRG 890 ==
LOC: JER 10:42 → JERBED 14:57 → J8W 10-17 01:44 → JICU 10-17 08:48
PROVIDERS: ADMIT Internal Medicine; ATTEND Nurse Practitioner Family
PROC: 30233N1 Transfusion of Nonautologous Red Blood Cells into Peripheral Vein, Percutaneous Approach (ICD-10-PCS; principal; 2018-10-16)
DX: A41.9 Sepsis, unspecified organism (principal); B20 Human immunodeficiency virus [HIV] disease; J96.91 Respiratory failure, unspecified with hypoxia; R65.20 Severe sepsis without septic shock; K85.90 Acute pancreatitis without necrosis or infection, unspecified; E87.4 Mixed disorder of acid-base balance; N17.9 Acute kidney failure, unspecified; R64 Cachexia; B59 Pneumocystosis; D69.6 Thrombocytopenia, unspecified; L98.499 Non-pressure chronic ulcer of skin of other sites with unspecified severity; Z68.20 Body mass index [BMI] 20.0-20.9, adult; I10 Essential (primary) hypertension; J44.9 Chronic obstructive pulmonary disease, unspecified; E78.5 Hyperlipidemia, unspecified; D64.9 Anemia, unspecified; Z87.891 Personal history of nicotine dependence; Z91.14 Patient's other noncompliance with medication regimen; Z88.0 Allergy status to penicillin; F32.9 Major depressive disorder, single episode, unspecified; F41.9 Anxiety disorder, unspecified; Z53.29 Procedure and treatment not carried out because of patient's decision for other reasons; E16.2 Hypoglycemia, unspecified; Z88.2 Allergy status to sulfonamides
CPT/HCPCS: 36415; 36430; 36511; 36600; 71045-TC-FY; 80053; 80307; 82375; 82436; 82565; 82803; 82955; 82962; 83050; 83605; 83615; 83690; 83735; 83880; 84100; 84133; 84156; 84300; 84484; 85025; 85027; 85041; 85610; 85730; 86850; 86900; 86901; 86922; 87040; 87077; 87086; 87205; 87449; 87496; 87899; 93005; 93010; 93306-TC; 94660; 99285-25; G0480; J7030; P9038; P9058